=== PATIENT | female | born 1950 | race Caucasian/White ===

== ENCOUNTER 2016-10-20 19:17 | Emergency (ER) | payer MEDICARE, BC ==
[2016-10-20 20:06] VITALS: BP 166/71
--- NOTE | 2016-10-20 20:55 | EDM.PDOC ---
[id number] Complaint: LT WRIST/LEG PAIN Time Seen by Provider: 10/20/16 20:40 Source of Information: Reports: Patient History Limitations: Reports: No Limitations - History of Present Illness INITIAL COMMENTS - FREE TEXT/NARRATIVE: 58-year-old female stumbled in her home landing on her left wrist sustaining an injury. She has swelling and deformity of the left wrist. Onset: Today Duration: Hour(s): (Within the last hour) Location: Reports: Upper Extremity, Left Associated Symptoms: Reports: Other (She feels she may have slightly pulled some muscles in her left hip and leg but there are minimal symptom) Left Wrist Pain Score (Numeric/FACES): 10 - Related Data Allergies Allergy/AdvReac Type Severity Reaction Status Date / Time rosuvastatin calcium Allergy unknown Verified 10/20/16 20:17 [From Crestor] Home Meds: Home Meds Alendronate Sodium 70 mg PO ASDIRECTED 09/19/13 [History] Aspirin 81 mg PO DAILY 09/19/13 [History] Cholestyramine 4 g PO DAILY 09/19/13 [History] Clopidogrel Bisulfate 75 mg PO DAILY 09/19/13 [History] Cyanocobalamin 1,000 mcg PO DAILY 09/19/13 [History] Fluticasone Propionate 50 mcg IH BID 09/19/13 [History] Fluvastatin Sodium 40 mg PO BEDTIME 09/19/13 [History] Gemfibrozil 600 mg PO BID 09/19/13 [History] Insulin Pen Needle 09/19/13 [History] Isosorbide Mononitrate 60 mg PO DAILY 09/19/13 [History] Loratadine 10 mg PO DAILY 09/19/13 [History] Meloxicam 15 mg PO DAILY 09/19/13 [History] Metformin Hcl 1,000 mg PO BID 09/19/13 [History] Metoclopramide Hcl 5 mg PO BID 09/19/13 [History] Multiple Minierals 1 each PO DAILY 09/19/13 [History] Multiple Vitamin 1 each PO DAILY 09/19/13 [History] Pseudoephedrine Hcl 30 mg PO Q4H PRN 09/19/13 [History] Varenicline Tartrate 09/19/13 [History] Past Medical History HEENT History: Reports: Impaired Vision 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 Musculoskeletal History: Reports: Fracture Other Musculoskeletal History: ankles Neurological History: Reports: Concussion Endocrine/Metabolic History: Reports: Diabetes, Type II Hematologic History: Reports: Blood Transfusion(s) - Infectious Disease History Infectious Disease History: Reports: Measles - Past Surgical History HEENT Surgical History: Reports: Tonsillectomy Cardiovascular Surgical History: Reports: Coronary Artery Bypass, Coronary Artery Stent GI Surgical History: Reports: Cholecystectomy, Colonoscopy Female Surgical History: Reports: Hysterectomy, Salpingo-Oophorectomy Musculoskeletal Surgical History: Reports: Arthroscopic Knee Social & Family History - Tobacco Use Smoking Status *Q: Current Every Day Smoker Years of Tobacco use: 39 Packs/Tins Daily: 1 Used Tobacco, but Quit: No Second Hand Smoke Exposure: No - Caffeine Use Caffeine Use: Reports: Soda - Recreational Drug Use Recreational Drug Use: No Review of Systems - Review of Systems Review Of Systems: See Below Respiratory: Reports: No Symptoms Cardiovascular: Reports: No Symptoms GI/Abdominal: Denies: Nausea, Vomiting Skin: Reports: Bruising (Some bruising is developing over the left wrist) Neurological: Reports: No Symptoms Psychiatric: Reports: No Symptoms Trauma Exam - Physical Exam Exam: See Below Exam Limited By: No Limitations General Appearance: Reports: Alert, No Apparent Distress Head: Reports: Atraumatic Respiratory Exam: Reports: No Respiratory Distress Extremities: Other (Exam is otherwise limited to the left arm and wrist. She had a few rings on the ring finger there were removed. There was some swelling and deformity over the radial aspect of the wrist with tenderness to palpation. Distal sensation and circulation are intact.) Comments: Passive range of motion of the lower extremities reveals no significant discomfort. Course - Vital Signs Last Recorded V/S: Last Vital Signs Temp 97.7 F 10/20/16 20:23 Pulse 74 10/20/16 20:23 Resp 16 10/20/16 20:23 BP 166/71 H 10/20/16 20:23 Pulse Ox 92 L 10/20/16 20:23 - Orders/Labs/Meds Orders: Active Orders 24 hr Category Date Time Status Wrist Comp Min 3V Lt [CR] Stat Exams 10/20/16 20:27 Taken DME for Discharge [COMM] Stat Oth 10/20/16 21:25 Ordered - Re-Assessments/Exams Free Text/Narrative Re-Assessment/Exam: 10/20/16 20:53 An x-ray of the left wrist was obtained. 10/20/16 21:10 The x-ray shows no obvious fracture although from the lateral view there may be a slight irregularity of the distal radius. She was splinted and treated as if it was fractured and will recheck with orthopedics on . 10/20/16 21:25 A 14 inch Ortho-Glass short-arm splint was applied to the forearm and wrist, she was placed in a sling and given 10 hydrocodone for extra pain control. She will see Dr. Vineet Haddad of orthopedics on 10/20/16 22:11 Patient was discharged but apparently had increased difficulty bearing weight when trying to transfer another car. I was unaware that her symptoms were that significant, a possibility of a ramus injury is present and the patient was called and informed to return if symptoms do not allow her to ambulate. Departure - Departure Time of Disposition: 21:43 Disposition: Home, Self-Care 01 Condition: good Clinical Impression: Unspecified sprain of left wrist, initial encounter Qualifiers: Encounter type: initial encounter Qualified Code(s): S63.502A - Unspecified sprain of left wrist, initial encounter - Discharge Information Instructions: Wrist Sprain Referrals: Boo Lee MD [Primary Care Provider] - Forms: ED Department Discharge Care Plan Goals: Keep arm in splint and sling until when seen by orthopedics. See Dr. Karsten Haddad on . Ibuprofen or naproxen should help and add stronger pain pills as prescribed if needed. - My Orders Last 24 Hours: My Active Orders 10/20/16 20:27 Wrist Comp Min 3V Lt [CR] Stat 10/20/16 21:25 DME for Discharge [COMM] Stat - Assessment/Plan Last 24 Hours: My Active Orders 10/20/16 20:27 Wrist Comp Min 3V Lt [CR] Stat 10/20/16 21:25 DME for Discharge [COMM] Stat
--- NOTE | 2016-10-21 08:55 | CR ---
Wrist Comp Min 3V Lt HISTORY: fall, injury FINDINGS: No acute fracture or dislocation is identified. Possible generalized osteopenia. Mild degenerative c hanges came seen in the radial carpal joint. There is soft tissue swelling dorsally. IMPRESSION: Osteopenia and degenerative changes. No acute fracture or dislocation can be identified.
== END 2016-10-20 21:43 | disposition home or self-care (01) ==
LOC: JP.ED 19:17
DX: S63.502A Unspecified sprain of left wrist, initial encounter (principal); E11.9 Type 2 diabetes mellitus without complications; F17.210 Nicotine dependence, cigarettes, uncomplicated; Z95.1 Presence of aortocoronary bypass graft; Z90.710 Acquired absence of both cervix and uterus; Z96.659 Presence of unspecified artificial knee joint; Z88.8 Allergy status to other drugs, medicaments and biological substances; Z79.82 Long term (current) use of aspirin; Z79.4 Long term (current) use of insulin; Z79.84 Long term (current) use of oral hypoglycemic drugs; Z90.722 Acquired absence of ovaries, bilateral; Z79.899 Other long term (current) drug therapy; Z90.49 Acquired absence of other specified parts of digestive tract; W01.0XXA Fall on same level from slipping, tripping and stumbling without subsequent striking against object, initial encounter; Y92.009 Unspecified place in unspecified non-institutional (private) residence as the place of occurrence of the external cause
CPT/HCPCS: 29125; 73110-26-LT; 73110-LT; 99283; 99284-25

== ENCOUNTER 2016-10-21 11:29 | Emergency (ER) | payer MEDICARE, BC ==
[2016-10-21] MEDS ORDERED: Ketorolac 60 MG/2 ML SDV IM ONE (12:06)
--- NOTE | 2016-10-21 12:09 | EDM.PDOC ---
ED HPI GENERAL MEDICAL PROBLEM - General Chief Complaint: Lower Extremity Injury/Pain Stated Complaint: LEG PAIN Time Seen by Provider: 10/21/16 12:02 Source of Information: Reports: Patient, Old Records, RN Notes Reviewed History Limitations: Reports: No Limitations - History of Present Illness INITIAL COMMENTS - FREE TEXT/NARRATIVE: 58-year-old female presents emergency department day complaint of left hip and groin pain, she was in the emergency department last night after an incident where she tripped over a pet complaining of left wrist pain at that time x-rays were negative however she splinted has a followup appointment with orthopedics tomorrow. Pain was so intense today she is brought in by EMS services Left Groin Pain Score (Numeric/FACES): 10 - Related Data Allergies Allergy/AdvReac Type Severity Reaction Status Date / Time atorvastatin [From Lipitor] Allergy Cannot Verified 10/21/16 11:47 Remember diclofenac Allergy Cannot Verified 10/21/16 11:47 Remember rosuvastatin calcium Allergy unknown Verified 10/21/16 11:46 [From Crestor] Home Meds: Home Meds Aspirin 81 mg PO DAILY 09/19/13 [History] Clopidogrel Bisulfate 75 mg PO DAILY 09/19/13 [History] Cyanocobalamin 1,000 mcg PO DAILY 09/19/13 [History] Fluticasone Propionate 50 mcg IH BID 09/19/13 [History] Fluvastatin Sodium 40 mg PO BID 09/19/13 [History] Isosorbide Mononitrate 60 mg PO DAILY 09/19/13 [History] Metformin Hcl 1,000 mg PO BID 09/19/13 [History] Multiple Minierals 1 each PO DAILY 09/19/13 [History] Multiple Vitamin 1 each PO DAILY 09/19/13 [History] Pseudoephedrine Hcl 30 mg PO Q4H PRN 09/19/13 [History] Varenicline Tartrate 09/19/13 [History] Insulin Aspart [Novolog] 100 unit SQ ASDIRECTED 10/21/16 [History] Insulin Detemir [Levemir Flextouch] 35 units SQ BEDTIME 10/21/16 [History] Lisinopril [Prinivil] 2.5 mg PO DAILY 10/21/16 [History] Metoprolol Tartrate [Metoprolol Tartrate] 50 mg PO BID 10/21/16 [History] Past Medical History HEENT History: Reports: Impaired Vision Cardiovascular History: Reports: CAD, High Cholesterol, Hypertension Gastrointestinal History: Reports: Cholelithiasis 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 Musculoskeletal History: Reports: Fracture Other Musculoskeletal History: ankles Neurological History: Reports: Concussion Endocrine/Metabolic History: Reports: Diabetes, Type II Hematologic History: Reports: Blood Transfusion(s) - Infectious Disease History Infectious Disease History: Reports: Measles - Past Surgical History HEENT Surgical History: Reports: Tonsillectomy Cardiovascular Surgical History: Reports: Coronary Artery Bypass, Coronary Artery Stent GI Surgical History: Reports: Cholecystectomy, Colonoscopy Female Surgical History: Reports: Hysterectomy, Salpingo-Oophorectomy Musculoskeletal Surgical History: Reports: Arthroscopic Knee Social & Family History - Tobacco Use Smoking Status *Q: Current Every Day Smoker Years of Tobacco use: 40 Packs/Tins Daily: 1 Used Tobacco, but Quit: No Second Hand Smoke Exposure: No - Caffeine Use Caffeine Use: Reports: None - Recreational Drug Use Recreational Drug Use: No Review of Systems - Review of Systems Review Of Systems: See Below Constitutional: Reports: No Symptoms Respiratory: Reports: No Symptoms Cardiovascular: Reports: No Symptoms Musculoskeletal: Reports: Joint Pain (Left hip) Trauma Exam - Physical Exam Exam: See Below Text/Narrative:: Examination left hip I don't appreciate any erythema or edema noted lower extremity pedal pulses 2+ is no tenderness at the ankle no tenderness at the knee no tenderness to the greater trochanter she does complain of tenderness with external rotation as well as palpation into the groin Exam Limited By: No Limitations General Appearance: Reports: Alert, WD/WN, No Apparent Distress Course - Vital Signs Last Recorded V/S: Last Vital Signs Temp 97.8 F 10/21/16 11:36 Pulse 60 10/21/16 11:36 Resp 16 10/21/16 11:36 BP 143/65 H 10/21/16 11:36 Pulse Ox 93 L 10/21/16 11:36 - Orders/Labs/Meds Orders: Active Orders 24 hr Category Date Time Status Hip Min 2V or 3V Lt [CR] Stat Exams 10/21/16 12:06 Taken Meds: Medications Discontinued Medications Generic Name Dose Route Start Last Admin Trade Name Freq PRN Reason Stop Dose Admin Ketorolac Tromethamine 60 mg 10/21/16 12:06 10/21/16 12:32 Toradol IM 10/21/16 12:07 60 mg ONETIME ONE Administration Departure - Departure Time of Disposition: 13:40 Disposition: Home, Self-Care 01 Condition: good Clinical Impression: Left groin pain - Discharge Information Forms: ED Department Discharge Additional Instructions: Use Aleve as needed for pain control, use hydrocodone as needed for breakthrough pain, please keep your appointment with orthopedics tomorrow - My Orders Last 24 Hours: My Active Orders 10/21/16 12:06 Hip Min 2V or 3V Lt [CR] Stat - Assessment/Plan Last 24 Hours: My Active Orders 10/21/16 12:06 Hip Min 2V or 3V Lt [CR] Stat Plan: Assessment Acuity = acute Site and laterality = left-sided groin pain Etiology = secondary to a fall Manifestations = none Location of injury = home Lab values = no acute process was noted on x-ray Plan She had good relief with the Toradol provided the plan is discharge home with Motrin as needed for pain control in combination with hydrocodone she does have followup appointment with orthopedics tomorrow Patient was in agreement with the plan all questions were answered, they were instructed to return to the emergency department or call for worsening symptoms. This note was dictated using [employer] voice recognition software please call with any questions.
[2016-10-21 13:30] VITALS: BP 143/65
--- NOTE | 2016-10-21 13:39 | CR ---
Hip Min 2V or 3V Lt HISTORY: pain, fall FINDINGS: No acute fracture or dislocation is identified. Bony architecture and joint spaces are preserved. N o joint effusion can be seen. Prominent atherosclerotic vascular calcification is noted. Endovascula r stents are seen in the left common iliac artery and left superficial femoral artery. IMPRESSION: No acute left abnormality is identified. Endovascular stents are noted.
== END 2016-10-21 14:18 | disposition home or self-care (01) ==
LOC: JP.ED 11:29
DX: R10.32 Left lower quadrant pain (principal); H54.7 Unspecified visual loss; I25.10 Atherosclerotic heart disease of native coronary artery without angina pectoris; E78.00 Pure hypercholesterolemia, unspecified; I10 Essential (primary) hypertension; E11.9 Type 2 diabetes mellitus without complications; F17.210 Nicotine dependence, cigarettes, uncomplicated; Z88.8 Allergy status to other drugs, medicaments and biological substances; Z98.890 Other specified postprocedural states; Z95.5 Presence of coronary angioplasty implant and graft; Z79.82 Long term (current) use of aspirin
CPT/HCPCS: 73502; 96372; 99283; 99284; J1885

== ENCOUNTER 2017-08-12 06:55 | Day surgery (SDC) | payer MEDICARE, BC ==
[2017-08-12] MEDS ORDERED: Sodium Chloride 0.9% 10 ML Syringe FLUSH PRN (07:30)
[2017-08-12 08:30] VITALS: BP 143/76
--- NOTE | 2017-08-12 13:19 | OR ---
DATE OF PROCEDURE: 08/12/2017 POSTOPERATIVE CARE: Postoperative care will be provided mainly at the [address] [place] [address] [facility] in conjunction with [facility]. PREOPERATIVE DIAGNOSIS: Cataract, left eye. POSTOPERATIVE DIAGNOSIS: Cataract, left eye. PROCEDURE: Phacoemulsification with intraocular lens placement, left eye. ANESTHESIA: Topical and intracameral. ESTIMATED BLOOD LOSS: Minimal. COMPLICATIONS: None. PATHOLOGY SPECIMENS: None. SURGICAL FINDINGS: None. INDICATION FOR PROCEDURE: The patient is a 67-year-old female with history of a visually significant cataract in the left eye, which interfered with activities of daily living. This consisted of a nuclear sclerosis cataract. Following careful discussion of the risks, benefits and alternatives to cataract extraction with intraocular lens placement including blindness and , the patient elected to proceed, and informed, written consent was obtained prior to the procedure. DESCRIPTION OF THE PROCEDURE: The patient was previously identified, and a deshaun placed above the left eye. All sources, including the patient, indicated that the left eye was the correct eye. The patient was subsequently taken to the operating room where standard monitors were applied. The patient was then prepped and draped in the usual sterile fashion for ophthalmic surgery. Attention was first directed at the 12 o'clock position where a paracentesis port was fashioned. Shugar solution followed by Viscoat was instilled into the eye. Attention was then directed to the 8:30 position where a triplanar incision was made in a near-clear manner using a keratome. A continuous capsulorrhexis was then made using a combination of the cystotome and Utrata forceps. Hydrodissection was achieved using a balanced salt solution, and the lens rotated nicely. Phacoemulsification was then done using a modified pagpaw-[id number]-[id number] technique without complication. Phaco time was 6.46 CDE. The remaining cortex was removed using the irrigation/aspiration handpiece. Provisc was then instilled into the eye. A Technis lens, model [id number], at 14.0 diopters was then placed in the capsular bag using an Akhiok injector. The remaining viscoelastic was removed using the irrigation/aspiration forceps. All wounds were then checked and found to be watertight. The lid speculum and drapes were removed. Maxitrol ointment was placed in the patient's left eye, and the eye was shielded. The patient tolerated the procedure well. The patient was instructed to follow up tomorrow. All needle and sponge counts were correct at the end of the procedure. Shea Bowman MD /[id number]
== END 2017-08-12 08:45 | disposition home or self-care (01) ==
LOC: JP.SDS 06:55
PROVIDERS: ATTEND Ophthalmology
DX: H25.12 Age-related nuclear cataract, left eye (principal); J44.9 Chronic obstructive pulmonary disease, unspecified; I25.10 Atherosclerotic heart disease of native coronary artery without angina pectoris; E78.5 Hyperlipidemia, unspecified; E11.51 Type 2 diabetes mellitus with diabetic peripheral angiopathy without gangrene; Z87.891 Personal history of nicotine dependence; Z95.1 Presence of aortocoronary bypass graft; Z95.5 Presence of coronary angioplasty implant and graft
CPT/HCPCS: 66984; C1780; J7050

== ENCOUNTER 2017-08-26 06:43 | Day surgery (SDC) | payer MEDICARE, BC ==
[2017-08-26] MEDS ORDERED: Sodium Chloride 0.9% 10 ML Syringe FLUSH PRN (07:00)
[2017-08-26 08:24] VITALS: BP 115/51
--- NOTE | 2017-08-26 13:10 | OR ---
DATE OF PROCEDURE: 08/26/2017 POSTOPERATIVE CARE: Postoperative care will be provided mainly at the [address] [place] [address] [facility] in conjunction with [facility]. PREOPERATIVE DIAGNOSIS: Cataract, right eye. PREOPERATIVE DIAGNOSIS: Cataract, right eye. PROCEDURE: Cataract extraction, phacoemulsification with intraocular lens placement, right eye. ANESTHESIA: Topical and intracameral. ESTIMATED BLOOD LOSS: Minimal. COMPLICATIONS: None. PATHOLOGY SPECIMENS: None. SURGICAL FINDINGS: None. INDICATION FOR PROCEDURE: The patient is a 67-year-old female with history of a visually significant cataract in the right eye, which interfered with activities of daily living. This consisted of a nuclear sclerosis cataract. Following careful discussion of the risks, benefits and alternatives to cataract extraction with intraocular lens placement including blindness and , the patient elected to proceed, and informed, written consent was obtained prior to the procedure. DESCRIPTION OF THE PROCEDURE: The patient was previously identified, and a deshaun placed above the right eye. All sources, including the patient, indicated that the right eye was the correct eye. The patient was subsequently taken to the operating room where standard monitors were applied. The patient was then prepped and draped in the usual sterile fashion for ophthalmic surgery. Attention was first directed at the 12 o'clock position where a paracentesis port was fashioned. Shugar solution followed by Viscoat was instilled into the eye. Attention was then directed to the 8:30 position where a triplanar incision was made in a near-clear manner using a keratome. A continuous capsulorrhexis was then made using a combination of the cystotome and Utrata forceps. Hydrodissection was achieved using a balanced salt solution, and the lens rotated nicely. Phacoemulsification was then done using a modified womdfe-[id number]-uggwygh technique without complication. Phaco time was 7.3 CDE. The remaining cortex was removed using the irrigation/aspiration handpiece. Provisc was then instilled into the eye. A Technis lens, model [id number], 13.0 diopters was then placed in the capsular bag using an Fritch injector. The remaining viscoelastic was removed using the irrigation/aspiration forceps. All wounds were then checked and found to be watertight. The lid speculum and drapes were removed. Maxitrol ointment was placed in the patient's right eye, and the eye was shielded. The patient tolerated the procedure well. The patient was instructed to follow up tomorrow. All needle and sponge counts were correct at the end of the procedure. Shea Bowman MD /[id number]
== END 2017-08-26 08:55 | disposition home or self-care (01) ==
LOC: JP.SDS 06:43
PROVIDERS: ATTEND Ophthalmology
DX: H26.9 Unspecified cataract (principal); Z88.8 Allergy status to other drugs, medicaments and biological substances
CPT/HCPCS: 66984; C1780; J7050

== ENCOUNTER 2019-04-28 11:00 | Emergency (ER) | payer MEDICARE, BC ==
[2019-04-28 11:13] VITALS: BP 203/74; PULSE 78
[2019-04-28] MEDS ORDERED: Ketorolac 60 MG/2 ML SDV IM ONE (11:22)
--- NOTE | 2019-04-28 12:19 | EDM.PDOC ---
ED HPI GENERAL MEDICAL PROBLEM - General Chief Complaint: Upper Extremity Injury/Pain Stated Complaint: PAINFUL L ARM Time Seen by Provider: 04/28/19 11:50 Source of Information: Reports: Patient History Limitations: Reports: No Limitations - History of Present Illness INITIAL COMMENTS - FREE TEXT/NARRATIVE: 69-year-old female with left arm pain. She fell yesterday, was evaluated in the emergency room and had a negative x-ray of the left forearm. She feels something was missed because there such intense pain in the distal forearm and wrist area. She has her Abraham wrap on and is using the sling, taking ibuprofen but is "miserable". Onset: Sudden Duration: Hour(s): (24 hours ago) Location: Reports: Upper Extremity, Left Associated Symptoms: Reports: Other (Some back stiffness as well) Left Arm Pain Score (Numeric/FACES): 9 - Related Data Allergies Allergy/AdvReac Type Severity Reaction Status Date / Time atorvastatin [From Lipitor] AdvReac Cannot Verified 04/28/19 11:05 Remember diclofenac AdvReac Cannot Verified 04/28/19 11:05 Remember epinephrine AdvReac Tachycardia Verified 04/28/19 11:05 rosuvastatin calcium AdvReac unknown Verified 04/28/19 11:05 [From Crestor] Home Meds: Home Meds Insulin Aspart [Novolog] 100 unit SQ ASDIRECTED 10/21/16 [History] Insulin Detemir [Levemir Flextouch] 35 units SQ BEDTIME 10/21/16 [History] Lisinopril [Prinivil] 2.5 mg PO DAILY 10/21/16 [History] Aspirin 81 mg PO DAILY 10/22/16 [History] Clopidogrel Bisulfate [Plavix] 75 mg PO DAILY 10/22/16 [History] Cyanocobalamin (Vitamin B-12) [B-12] 1,000 mg PO DAILY 10/22/16 [History] Fluvastatin Sodium 40 mg PO BEDTIME 10/22/16 [History] Multivitamin [Multivitamins] 1 tab PO DAILY 10/22/16 [History] Pseudoephedrine HCl [Nasal Decongestant] 30 mg PO Q4H PRN 10/22/16 [History] metFORMIN HCl [Metformin HCl] 1,000 mg PO BID 10/22/16 [History] Cholestyramine/Aspartame [Cholestyramine Light] 4 gram PO ASDIRECTED 07/27/17 [ History] Acetaminophen [Tylenol] 325 mg PO ASDIRECTED PRN 08/10/17 [History] Metoprolol Tartrate 50 mg PO BID 04/30/19 [History] Past Medical History HEENT History: Reports: Cataract, Impaired Vision Cardiovascular History: Reports: CAD, High Cholesterol, Hypertension Respiratory History: Reports: None Gastrointestinal History: Reports: Cholelithiasis Genitourinary History: Reports: None 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 right shoulder pain Neurological History: Reports: Concussion Psychiatric History: Reports: None Endocrine/Metabolic History: Reports: Diabetes, Type II, IDDM Hematologic History: Reports: Blood Transfusion(s) Immunologic History: Reports: None Oncologic (Cancer) History: Reports: None Dermatologic History: Reports: None - Infectious Disease History Infectious Disease History: Reports: Chicken Pox - Past Surgical History Head Surgeries/Procedures: Reports: None HEENT Surgical History: Reports: Tonsillectomy Cardiovascular Surgical History: Reports: Coronary Artery Bypass, Coronary Artery Stent Respiratory Surgical History: Reports: None GI Surgical History: Reports: Cholecystectomy, Colonoscopy Female Surgical History: Reports: Hysterectomy, Salpingo-Oophorectomy Endocrine Surgical History: Reports: None Neurological Surgical History: Reports: None Musculoskeletal Surgical History: Reports: Arthroscopic Knee Oncologic Surgical History: Reports: None Dermatological Surgical History: Reports: None Social & Family History - Family History Family Medical History: Noncontributory - Tobacco Use Smoking Status *Q: Current Every Day Smoker Years of Tobacco use: 50 Packs/Tins Daily: 1.5 Used Tobacco, but Quit: No Second Hand Smoke Exposure: Yes - Caffeine Use Caffeine Use: Reports: Soda - Recreational Drug Use Recreational Drug Use: No Review of Systems - Review of Systems Review Of Systems: See Below Respiratory: Reports: No Symptoms Cardiovascular: Reports: No Symptoms Musculoskeletal: Reports: Arm Pain, Back Pain Skin: Reports: Bruising (Some bruising around the abrasion from her injury yesterday) Neurological: Denies: Paresthesia ED EXAM, GENERAL - Physical Exam Exam: See Below Exam Limited By: No Limitations General Appearance: Alert, Anxious, Other (Looks uncomfortable but not distressed) Head: Atraumatic Respiratory/Chest: No Respiratory Distress Extremities: Other (Exam is otherwise limited to the left arm. Any light palpation around the wrist, proximal hand or mid forearm causes her to wince in discomfort. The small abrasion has dried and there is no significant ecchymosis or erythema) Course - Vital Signs Last Recorded V/S: Last Vital Signs Temp 96.7 F 04/28/19 11:18 Pulse 78 04/28/19 11:18 Resp 16 04/28/19 11:18 BP 203/74 H 04/28/19 11:18 Pulse Ox 91 L 04/28/19 11:18 - Orders/Labs/Meds Meds: Medications Discontinued Medications Generic Name Dose Route Start Last Admin Trade Name Abdirizak PRN Reason Stop Dose Admin Ketorolac Tromethamine 60 mg 04/28/19 11:22 04/28/19 11:30 Toradol IM 04/28/19 11:23 60 mg ONETIME ONE Administration - Re-Assessments/Exams Free Text/Narrative Re-Assessment/Exam: 04/28/19 12:44 CT of the left wrist was obtained after the patient was given 60 mg of IM Toradol. 04/28/19 12:50 CT was negative. Patient was placed in a wrist splint, the Abraham wrap was removed , and she'll continue using the sling for comfort. She was given 10 hydrocodone to use sparingly through the weekend along with anti-inflammatories and asked increase activity as tolerated. She can recheck next week if not improving satisfactorily. Departure - Departure Time of Disposition: 13:17 Disposition: Home, Self-Care 01 Clinical Impression: Contusion of left wrist, subsequent encounter - Discharge Information Instructions: Cast or Splint Care, Adult, [id number] Referrals: PCP,None [Primary Care Provider] - Forms: ED Department Discharge Care Plan Goals: Wear splint through the weekend along with the sling as needed for comfort. Continue with ibuprofen or naproxen and add stronger pain medication as directed if needed. Increase activity as tolerated. Recheck next week if not improving satisfactorily.
--- NOTE | 2019-04-28 12:46 | CRLCT ---
HISTORY: Left wrist pain, fall. TECHNIQUE: Noncontrast CT of the left wrist. COMPARISON: Radiographs 04/27/2019. FINDINGS: There is mild chronic deformity of the distal radius likely related to a remote healed fracture. There is no acute distal radial or acute distal ulnar fracture. No scaphoid fracture. Mild narrowing of the radioscaphoid joint space along its radial aspect. Small subchondral cyst within the proximal capitate bone. 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 No localized fluid collection or space-occupying hematoma. IMPRESSION: 1. No acute fracture. 2. Mild chronic deformity of the distal radius may reflect sequelae of remote healed fracture. 3. Mild degenerative changes. Dictated by Juan Kaplan MD @ 04/28/2019 12:45:17 PM Please note that all CT scans at this facility use dose modulation, iterative reconstruction, and/or weight-based dosing when appropriate to reduce radiation dose to as low as reasonably achievable. Dictated by: Juan Kaplan MD @ 04/28/2019 12:45:24 (Electronically Signed)
== END 2019-04-28 13:10 | disposition home or self-care (01) ==
LOC: JP.ED 11:00
DX: S60.212D Contusion of left wrist, subsequent encounter (principal); I10 Essential (primary) hypertension; E78.00 Pure hypercholesterolemia, unspecified; E11.9 Type 2 diabetes mellitus without complications; F17.210 Nicotine dependence, cigarettes, uncomplicated; Z88.6 Allergy status to analgesic agent; Z88.8 Allergy status to other drugs, medicaments and biological substances; Z79.4 Long term (current) use of insulin; Z79.82 Long term (current) use of aspirin; Z79.899 Other long term (current) drug therapy; W19.XXXD Unspecified fall, subsequent encounter
CPT/HCPCS: 73200; 96372; 99283; 99284; J1885

== ENCOUNTER 2019-04-30 07:13 | Inpatient (IN) | payer MEDICARE, BC ==
--- NOTE | 2019-04-30 07:32 | EDM.PDOC ---
ED HPI GENERAL MEDICAL PROBLEM - General Chief Complaint: General Stated Complaint: FALL VIA [place]TH Time Seen by Provider: 04/30/19 07:19 Source of Information: Reports: Patient, EMS, Old Records History Limitations: Reports: No Limitations - History of Present Illness INITIAL COMMENTS - FREE TEXT/NARRATIVE: 69 yo female who lives alone fell just as she was getting to bed last night. Is not sure why she fell. Spent the night on the floor. EMS responded and noted she complained of low back pain and chest pain. Fentanyl was given and her sx's improved. EMS did an EKG that showed some ST depression in V3-V6. Patient is diabetic with a previous hx of CAD with stents placed in [place] and no old EKG's here. Also has had carotid artery surgery bilaterally. BS per EMS 290. Onset: Sudden Onset Date: 04/29/19 Onset Time: 19:30 Duration: Hour(s):, Constant Location: Reports: Chest (better now), Back (low) Quality: Reports: Ache (back) Severity: Moderate Improves with: Reports: Rest Worsens with: Reports: Movement Context: Reports: Trauma (She doesn't recall having back pain before her fall. 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 (see below) (Fentanyl) Lower Back Pain Score (Numeric/FACES): 8 - Related Data Allergies Allergy/AdvReac Type Severity Reaction Status Date / Time atorvastatin [From Lipitor] AdvReac Cannot Verified 04/28/19 11:05 Remember diclofenac AdvReac Cannot Verified 04/28/19 11:05 Remember epinephrine AdvReac Tachycardia Verified 04/28/19 11:05 rosuvastatin calcium AdvReac unknown Verified 04/28/19 11:05 [From Crestor] Home Meds: Home Meds Insulin Aspart [Novolog] 100 unit SQ ASDIRECTED 10/21/16 [History] Insulin Detemir [Levemir Flextouch] 35 units SQ BEDTIME 10/21/16 [History] Lisinopril [Prinivil] 2.5 mg PO DAILY 10/21/16 [History] Aspirin 81 mg PO DAILY 10/22/16 [History] Clopidogrel Bisulfate [Plavix] 75 mg PO DAILY 10/22/16 [History] Cyanocobalamin (Vitamin B-12) [B-12] 1,000 mg PO DAILY 10/22/16 [History] Fluvastatin Sodium 40 mg PO BEDTIME 10/22/16 [History] Multivitamin [Multivitamins] 1 tab PO DAILY 10/22/16 [History] Pseudoephedrine HCl [Nasal Decongestant] 30 mg PO Q4H PRN 10/22/16 [History] metFORMIN HCl [Metformin HCl] 1,000 mg PO BID 10/22/16 [History] Cholestyramine/Aspartame [Cholestyramine Light] 4 gram PO ASDIRECTED 07/27/17 [ History] Acetaminophen [Tylenol] 325 mg PO ASDIRECTED PRN 08/10/17 [History] Past Medical History HEENT History: Reports: Cataract, Impaired Vision Cardiovascular History: Reports: CAD, High Cholesterol, Hypertension Respiratory History: Reports: None Gastrointestinal History: Reports: Cholelithiasis Genitourinary History: Reports: None 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 right shoulder pain Neurological History: Reports: Concussion Psychiatric History: Reports: None Endocrine/Metabolic History: Reports: Diabetes, Type II, IDDM Hematologic History: Reports: Blood Transfusion(s) Immunologic History: Reports: None Oncologic (Cancer) History: Reports: None Dermatologic History: Reports: None - Infectious Disease History Infectious Disease History: Reports: Chicken Pox - Past Surgical History Head Surgeries/Procedures: Reports: None HEENT Surgical History: Reports: Tonsillectomy Cardiovascular Surgical History: Reports: Coronary Artery Bypass, Coronary Artery Stent Respiratory Surgical History: Reports: None GI Surgical History: Reports: Cholecystectomy, Colonoscopy Female Surgical History: Reports: Hysterectomy, Salpingo-Oophorectomy Endocrine Surgical History: Reports: None Neurological Surgical History: Reports: None Musculoskeletal Surgical History: Reports: Arthroscopic Knee Oncologic Surgical History: Reports: None Dermatological Surgical History: Reports: None Social & Family History - Family History Family Medical History: Noncontributory - Caffeine Use Caffeine Use: Reports: Soda ED ROS GENERAL - Review of Systems Review Of Systems: See Below Constitutional: Reports: Weakness (generalized) HEENT: Reports: Other (dry mouth) Respiratory: Reports: No Symptoms Cardiovascular: Reports: Chest Pain (gone now after Fentanyl) Endocrine: Reports: No Symptoms GI/Abdominal: Reports: No Symptoms : Reports: No Symptoms Musculoskeletal: Reports: Back Pain (low) Skin: Reports: No Symptoms Neurological: Reports: No Symptoms Psychiatric: Reports: No Symptoms ED EXAM, GENERAL - Physical Exam Exam: See Below Exam Limited By: No Limitations General Appearance: Alert, WD/WN, No Apparent Distress Eye Exam: Bilateral Eye: Normal Inspection Ears: Normal External Exam, Normal Canal, Hearing Grossly Normal Ear Exam: Bilateral Ear: Auricle Normal, Canal Normal Nose: Normal Inspection, No Blood Throat/Mouth: Normal Lips, Normal Oropharynx, Normal Voice, No Airway Compromise , Other (dry oral mucosa with food stuck to lips/teeth) Head: Atraumatic, Normocephalic Neck: Normal Inspection Respiratory/Chest: No Respiratory Distress, Lungs Clear, Normal Breath Sounds, No Accessory Muscle Use Cardiovascular: Regular Rate, Rhythm, No Edema GI/Abdominal: Normal Bowel Sounds, Soft, Non-Tender, No Distention Back Exam: Normal Inspection, Vertebral Tenderness (lumbar). No: CVA Tenderness (R), CVA Tenderness (L) Extremities: Normal Inspection, Normal Range of Motion, Non-Tender, No Pedal Edema Neurological: Alert, Oriented, CN II-XII Intact, Normal Cognition, No Motor/ Sensory Deficits Psychiatric: Normal Affect, Normal Mood Skin Exam: Warm, Dry, Intact, Normal Color, No Rash EKG INTERPRETATION EKG Date: 04/30/19 Time: 06:35 Rhythm: NSR Rate (Beats/Min): 84 [place]: Normal P-Wave: Present QRS: Normal ST-T: Depressed (V3-V6) QT: Normal Comparison: NA - No Prior EKG (LVH present) Course - Vital Signs Text/Narrative:: A second EKG was done later in the ER because her initial one was abnormal, this 2nd one shows no significant change from the one done earlier by EMS. Dr. Way called @ 1026 Last Recorded V/S: Last Vital Signs Temp 36.3 C 04/30/19 07:40 Pulse 78 04/30/19 09:54 Resp 21 H 04/30/19 09:09 BP 202/78 H 04/30/19 09:54 Pulse Ox 78 L 04/30/19 09:09 - Orders/Labs/Meds Orders: Active Orders 24 hr Category Date Time Status Cardiac Monitoring [RC] .As Directed Care 04/30/19 07:17 Active EKG Documentation Completion [RC] ASDIRECTED Care 04/30/19 08:45 Active EKG 12 Lead [EK] Routine Ther 04/30/19 08:44 Ordered Labs: Laboratory Tests 04/30/19 04/30/19 04/30/19 Range/Units 07:30 07:30 07:30 WBC 11.9 H (4.5-11.0) K/uL RBC 4.66 (3.30-5.50) M/uL Hgb 14.1 (12.0-15.0) g/dL Hct 41.1 (36.0-48.0) % MCV 88 (80-98) fL MCH 30 (27-31) pg MCHC 34 (32-36) % Plt Count 314 (150-400) K/uL Sodium 127 L (140-148) mmol/L Potassium 4.1 (3.6-5.2) mmol/L Chloride 89 L (100-108) mmol/L Carbon Dioxide 24 (21-32) mmol/L Anion Gap 18.1 H (5.0-14.0) mmol/L BUN 11 (7-18) mg/dL Creatinine 0.9 (0.6-1.0) mg/dL Est Cr Clr Drug Dosing 53.37 mL/min Estimated GFR (MDRD) > 60 (>60) Glucose 260 H (74-106) mg/dL Calcium 9.5 (8.5-10.1) mg/dL Total Bilirubin 1.1 H (0.2-1.0) mg/dL AST 48 H (15-37) U/L ALT 29 (12-78) U/L Alkaline Phosphatase 73 (46-116) U/L Creatine Kinase (26-192) U/L Troponin I < 0.017 (0.000-0.056) ng/mL Total Protein 8.1 (6.4-8.2) g/dL Albumin 3.7 (3.4-5.0) g/dL Globulin 4.4 H (2.3-3.5) g/dL Albumin/Globulin Ratio 0.8 L (1.2-2.2) Urine Color (YELLOW) Urine Appearance (CLEAR) Urine pH (5.0-8.0) Ur Specific [place] (1.008-1.030) Urine Protein (NEGATIVE) mg/dL Urine Glucose (UA) (NEGATIVE) mg/dL Urine Ketones (NEGATIVE) mg/dL Urine Occult Blood (NEGATIVE) Urine Nitrite (NEGATIVE) Urine Bilirubin (NEGATIVE) Urine Urobilinogen (0.2-1.0) EU/dL Ur Leukocyte Esterase (NEGATIVE) Urine RBC (0-5) Urine WBC (0-5) Ur Epithelial Cells Amorphous Sediment Urine Bacteria Urine Mucus Ethyl Alcohol mg/dL 04/30/19 04/30/19 04/30/19 Range/Units 07:30 07:30 07:38 WBC (4.5-11.0) K/uL RBC (3.30-5.50) M/uL Hgb (12.0-15.0) g/dL Hct (36.0-48.0) % MCV (80-98) fL MCH (27-31) pg MCHC (32-36) % Plt Count (150-400) K/uL Sodium (140-148) mmol/L Potassium (3.6-5.2) mmol/L Chloride (100-108) mmol/L Carbon Dioxide (21-32) mmol/L Anion Gap (5.0-14.0) mmol/L BUN (7-18) mg/dL Creatinine (0.6-1.0) mg/dL Est Cr Clr Drug Dosing mL/min Estimated GFR (MDRD) (>60) Glucose (74-106) mg/dL Calcium (8.5-10.1) mg/dL Total Bilirubin (0.2-1.0) mg/dL AST (15-37) U/L ALT (12-78) U/L Alkaline Phosphatase (46-116) U/L Creatine Kinase 1451 H (26-192) U/L Troponin I (0.000-0.056) ng/mL Total Protein (6.4-8.2) g/dL Albumin (3.4-5.0) g/dL Globulin (2.3-3.5) g/dL Albumin/Globulin Ratio (1.2-2.2) Urine Color Yellow (YELLOW) Urine Appearance Clear (CLEAR) Urine pH 5.5 (5.0-8.0) Ur Specific [place] 1.025 (1.008-1.030) Urine Protein >=300 H (NEGATIVE) mg/dL Urine Glucose (UA) 500 H (NEGATIVE) mg/dL Urine Ketones 40 H (NEGATIVE) mg/dL Urine Occult Blood Moderate H (NEGATIVE) Urine Nitrite Negative (NEGATIVE) Urine Bilirubin Small H (NEGATIVE) Urine Urobilinogen 0.2 (0.2-1.0) EU/dL Ur Leukocyte Esterase Negative (NEGATIVE) Urine RBC 0-5 (0-5) Urine WBC 0-5 (0-5) Ur Epithelial Cells Few Amorphous Sediment Not seen Urine Bacteria Few Urine Mucus Not seen Ethyl Alcohol < 3 mg/dL 04/30/19 Range/Units 10:00 WBC (4.5-11.0) K/uL RBC (3.30-5.50) M/uL Hgb (12.0-15.0) g/dL Hct (36.0-48.0) % MCV (80-98) fL MCH (27-31) pg MCHC (32-36) % Plt Count (150-400) K/uL Sodium (140-148) mmol/L Potassium (3.6-5.2) mmol/L Chloride (100-108) mmol/L Carbon Dioxide (21-32) mmol/L Anion Gap (5.0-14.0) mmol/L BUN (7-18) mg/dL Creatinine (0.6-1.0) mg/dL Est Cr Clr Drug Dosing mL/min Estimated GFR (MDRD) (>60) Glucose (74-106) mg/dL Calcium (8.5-10.1) mg/dL Total Bilirubin (0.2-1.0) mg/dL AST (15-37) U/L ALT (12-78) U/L Alkaline Phosphatase (46-116) U/L Creatine Kinase (26-192) U/L Troponin I < 0.017 (0.000-0.056) ng/mL Total Protein (6.4-8.2) g/dL Albumin (3.4-5.0) g/dL Globulin (2.3-3.5) g/dL Albumin/Globulin Ratio (1.2-2.2) Urine Color (YELLOW) Urine Appearance (CLEAR) Urine pH (5.0-8.0) Ur Specific [place] (1.008-1.030) Urine Protein (NEGATIVE) mg/dL Urine Glucose (UA) (NEGATIVE) mg/dL Urine Ketones (NEGATIVE) mg/dL Urine Occult Blood (NEGATIVE) Urine Nitrite (NEGATIVE) Urine Bilirubin (NEGATIVE) Urine Urobilinogen (0.2-1.0) EU/dL Ur Leukocyte Esterase (NEGATIVE) Urine RBC (0-5) Urine WBC (0-5) Ur Epithelial Cells Amorphous Sediment Urine Bacteria Urine Mucus Ethyl Alcohol mg/dL Meds: Medications Discontinued Medications Generic Name Dose Route Start Last Admin Trade Name Freq PRN Reason Stop Dose Admin Aspirin 81 mg 04/30/19 07:41 04/30/19 07:50 Aspirin PO 04/30/19 07:42 81 mg ONETIME ONE Administration Sodium Chloride 1,000 mls @ 1,000 mls/hr 04/30/19 08:17 04/30/19 08:29 Normal Saline IV 04/30/19 09:16 1,000 mls/hr .BOLUS ONE Administration Insulin Human Regular 10 unit 04/30/19 07:35 04/30/19 07:50 Humulin R SUBCUT 04/30/19 07:36 10 units ONETIME ONE Administration Ketorolac Tromethamine 15 mg 04/30/19 08:44 04/30/19 08:57 Toradol IVPUSH 04/30/19 08:45 15 mg ONETIME ONE Administration Lisinopril 5 mg 04/30/19 07:34 04/30/19 07:50 Prinivil PO 04/30/19 07:35 5 mg ONETIME ONE Administration Lisinopril 15 mg 04/30/19 09:26 04/30/19 09:29 Prinivil PO 04/30/19 09:27 15 mg ONETIME ONE Administration Metformin HCl 1,000 mg 04/30/19 07:34 04/30/19 07:51 Glucophage PO 04/30/19 07:35 1,000 mg ONETIME ONE Administration Metoprolol Tartrate 25 mg 04/30/19 09:51 04/30/19 09:54 Lopressor PO 04/30/19 09:52 25 mg ONETIME ONE Administration - Radiology Interpretation Free Text/Narrative:: lumbar spine [id number]: 1. Negative for acute traumatic abnormality. 2. Degenerative changes, as above, and mild scoliosis. Dictated by Molina Mckeon MD Departure - Departure Time of Disposition: 11:03 Disposition: Admitted As Inpatient 64 Condition: Fair Clinical Impression: Fall in elderly patient Rhabdomyolysis Qualifiers: Rhabdomyolysis type: traumatic Encounter type: initial encounter Qualified Code (s): T79.6XXA - Traumatic ischemia of muscle, initial encounter Low back pain Qualifiers: Chronicity: acute Back pain laterality: midline Sciatica presence: without sciatica Qualified Code(s): M54.5 - Low back pain HTN (hypertension) Qualifiers: Hypertension type: unspecified Qualified Code(s): I10 - Essential (primary) hypertension - Discharge Information Referrals: PCP,None [Primary Care Provider] - Forms: ED Department Discharge - My Orders Last 24 Hours: My Active Orders 04/30/19 07:17 Cardiac Monitoring [RC] .As Directed 04/30/19 08:44 EKG 12 Lead [EK] Routine 04/30/19 08:45 EKG Documentation Completion [RC] ASDIRECTED - Assessment/Plan Last 24 Hours: My Active Orders 04/30/19 07:17 Cardiac Monitoring [RC] .As Directed 04/30/19 08:44 EKG 12 Lead [EK] Routine 04/30/19 08:45 EKG Documentation Completion [RC] ASDIRECTED
[2019-04-30] MEDS ORDERED: metFORMIN 500 MG Tab PO ONE (07:34)
[2019-04-30] MEDS ORDERED: Lisinopril 5 MG Tab PO ONE ×2 (07:34→09:26)
[2019-04-30] MEDS ORDERED: Insulin Regular, Human 100 Units/ML 3 ML Vial SUBCUT ONE (07:35)
[2019-04-30] MEDS ORDERED: Aspirin 81 MG Tab.Chew PO ONE ×2 (07:41→22:10)
[2019-04-30] MEDS ORDERED: Sodium Chloride 0.9% 1,000 ML IV ONE (08:17)
[2019-04-30] MEDS ORDERED: Ketorolac 30 MG/ML SDV IVPUSH ONE (08:44)
--- NOTE | 2019-04-30 09:11 | CRLCR ---
INDICATION: Pain post fall. TECHNIQUE: Upright AP and lateral views of the lumbar spine. COMPARISON: Moderate. FINDINGS: No fracture. Advanced L5-S1 disk degeneration, mild to moderate L1-2 disc degeneration and mild disk degeneration otherwise. Mild thoracolumbar dextroscoliosis. Sacroiliac joints unremarkable. IMPRESSION: 1. Negative for acute traumatic abnormality. 2. Degenerative changes, as above, and mild scoliosis. Dictated by Molina Mckeon MD @ Apr 30 2019 9:08AM Signed by Dr. Molina Mckeon @ Apr 30 2019 9:10AM
[2019-04-30] MEDS ORDERED: Metoprolol Tartrate 25 MG Tab PO ONE (09:51)
[2019-04-30] MEDS ORDERED: Sodium Chloride 0.9% 1,000 ML IV SCH (11:15)
[2019-04-30] MEDS ORDERED: oxyCODONE 5 MG Tab PO PRN (11:16)
[2019-04-30] MEDS ORDERED: Ondansetron 4 MG Tab.DIS PO PRN (11:16)
[2019-04-30] MEDS ORDERED: Albuterol 0.083% 2.5 MG/3 ML Neb Soln NEB PRN (11:16)
[2019-04-30] MEDS ORDERED: Magnesium Hydroxide 400 MG/5 ML Susp 30 ML Cup PO PRN (11:16)
[2019-04-30] MEDS ORDERED: Ondansetron 4 MG/2 ML SDV IV PRN (11:16)
[2019-04-30] MEDS ORDERED: Melatonin 3 MG Tab PO PRN (11:16)
[2019-04-30] MEDS ORDERED: Acetaminophen 325 MG Tab PO PRN (11:16)
[2019-04-30] MEDS ORDERED: cefTRIAXone 1 GM in Sodium Chloride 0.9% 50 ML IV SCH ×2 (11:16→11:30)
--- NOTE | 2019-04-30 11:17 | PCM.HP.2 ---
H&P History of Present Illness - General Date of Service: 04/30/19 Admit Problem/Dx: Admission Diagnosis/Problem Admission Diagnosis/Problem Acute bronchitis Source of Information: Patient, Provider History Limitations: Reports: No Limitations - History of Present Illness Initial Comments - Free Text/Narative: CC: I fell down and I don't know why HPI: Ana presents to the emergency room today with weakness, lower back pain and bilateral knee pain. She reports that she was getting out of bed last night and collapsed to the floor. She would does not recall any preceding symptoms such as dizziness, lightheadedness, palpitations, chest pain or shortness of breath. She was too weak to get up off the floor so she slept on the floor. She did try to crawl around to get to a piece of furniture to help herself up but only succeeded in creating several broad smith. She was able to call for help this morning and was brought in by ambulance. She is currently reporting mild to moderate achy lower back pain that radiates throughout her lower back. Moving makes the pain worse. Pain medications have helped some. She also endorses cough, shortness of breath and increased sputum over the last few days. She has not checked the color of her sputum. She's not aware of any fevers or chills. She's not aware of any sick contacts. No complaints of nausea or abdominal pain. Workup in the emergency room was suggestive of rhabdomyolysis as well as hypoxia. Acute bronchitis with hypoxic respiratory failure is suspected as the main culprit for her difficulties and then complicated by the fall and rhabdo. She will be admitted for further management. Lower Back Pain Score (Numeric/FACES): 8 - Related Data Allergies/Adverse Reactions: Allergies Allergy/AdvReac Type Severity Reaction Status Date / Time atorvastatin [From Lipitor] AdvReac Cannot Verified 04/28/19 11:05 Remember diclofenac AdvReac Cannot Verified 04/28/19 11:05 Remember epinephrine AdvReac Tachycardia Verified 04/28/19 11:05 rosuvastatin calcium AdvReac unknown Verified 04/28/19 11:05 [From Crestor] Home Medications: Home Meds Insulin Aspart [Novolog] 100 unit SQ ASDIRECTED 10/21/16 [History] Insulin Detemir [Levemir Flextouch] 35 units SQ BEDTIME 10/21/16 [History] Lisinopril [Prinivil] 2.5 mg PO DAILY 10/21/16 [History] Aspirin 81 mg PO DAILY 10/22/16 [History] Clopidogrel Bisulfate [Plavix] 75 mg PO DAILY 10/22/16 [History] Cyanocobalamin (Vitamin B-12) [B-12] 1,000 mg PO DAILY 10/22/16 [History] Fluvastatin Sodium 40 mg PO BEDTIME 10/22/16 [History] Multivitamin [Multivitamins] 1 tab PO DAILY 10/22/16 [History] Pseudoephedrine HCl [Nasal Decongestant] 30 mg PO Q4H PRN 10/22/16 [History] metFORMIN HCl [Metformin HCl] 1,000 mg PO BID 10/22/16 [History] Cholestyramine/Aspartame [Cholestyramine Light] 4 gram PO ASDIRECTED 07/27/17 [ History] Acetaminophen [Tylenol] 325 mg PO ASDIRECTED PRN 08/10/17 [History] Past Medical History HEENT History: Reports: Cataract, Impaired Vision Cardiovascular History: Reports: CAD, High Cholesterol, Hypertension Respiratory History: Reports: None Gastrointestinal History: Reports: Cholelithiasis Genitourinary History: Reports: None MOHS SURGEON History: Reports: Spontaneous Musculoskeletal History: Reports: Fracture Other Musculoskeletal History: L wrist. right shoulder pain Neurological History: Reports: Concussion Psychiatric History: Reports: None Endocrine/Metabolic History: Reports: Diabetes, Type II, IDDM Do You Give Correction Boluses or Sliding Scale: Yes Patient/Family Able to Supply Written Copy of Sliding Scale: No Hematologic History: Reports: Blood Transfusion(s) Immunologic History: Reports: None Oncologic (Cancer) History: Reports: None Dermatologic History: Reports: None - Infectious Disease History Infectious Disease History: Reports: Chicken Pox - Past Surgical History Head Surgeries/Procedures: Reports: None HEENT Surgical History: Reports: Tonsillectomy Cardiovascular Surgical History: Reports: Coronary Artery Bypass, Coronary Artery Stent Respiratory Surgical History: Reports: None GI Surgical History: Reports: Cholecystectomy, Colonoscopy Female Surgical History: Reports: Hysterectomy, Salpingo-Oophorectomy Endocrine Surgical History: Reports: None Neurological Surgical History: Reports: None Musculoskeletal Surgical History: Reports: Arthroscopic Knee Oncologic Surgical History: Reports: None Dermatological Surgical History: Reports: None Social & Family History - Family History Family Medical History: Noncontributory - Tobacco Use Smoking Status *Q: Current Every Day Smoker Years of Tobacco use: 50 Packs/Tins Daily: 1.5 - Caffeine Use Caffeine Use: Reports: Soda - Alcohol Use Alcohol Use History: No - Recreational Drug Use Recreational Drug Use: No H&P Review of Systems - Review of Systems: Review Of Systems: See Below Free Text/Narrative: A complete 12 point review of systems was obtained. Pertinent positives and negatives are noted in the history of present illness. All other systems were reviewed and were negative except as noted. Exam - Exam Exam: See Below - Vital Signs Vital Signs: Last Vital Signs Temp 36.3 C 04/30/19 07:40 Pulse 78 04/30/19 09:54 Resp 21 H 04/30/19 09:09 BP 202/78 H 04/30/19 09:54 Pulse Ox 78 L 04/30/19 09:09 Weight: 58.967 kg - Exam Quality Assessment: Supplemental Oxygen General: Alert, Oriented, Cooperative. No: Mild Distress HEENT: Conjunctiva Clear. No: Mucosa Moist & [place] (dry), Scleral Icterus Neck: Supple, Trachea Midline, Other (healed scars both sides of the neck ). No : Lymphadenopathy Lungs: Normal Respiratory Effort, Crackles (mild lower lungs throughout inspiration ) Cardiovascular: Regular Rate, Regular Rhythm, Systolic Murmur GI/Abdominal Exam: Normal Bowel Sounds, Soft, Non-Tender, No Distention Back Exam: Normal Inspection. No: Full Range of Motion Extremities: No Pedal Edema, Other (wrist brace on the left ). No: Increased Warmth Peripheral Pulses: 2+: Dorsalis Pedis (L), Dorsalis Pedis (R) Skin: Warm, Dry Neuro Extensive - Mental Status: Alert, Oriented x3, Nl Response to Commands Neuro Extensive - Motor, Sensory, Reflexes: No: Dysarthria, Abnormal Motor, Tremor Psychiatric: Alert, Normal Affect - Patient Data Lab Results Last 24 hrs: Laboratory Results - last 24 hr 04/30/19 04/30/19 04/30/19 Range/Units 07:30 07:30 07:30 WBC 11.9 H (4.5-11.0) K/uL RBC 4.66 (3.30-5.50) M/uL Hgb 14.1 (12.0-15.0) g/dL Hct 41.1 (36.0-48.0) % MCV 88 (80-98) fL MCH 30 (27-31) pg MCHC 34 (32-36) % Plt Count 314 (150-400) K/uL Sodium 127 L (140-148) mmol/L Potassium 4.1 (3.6-5.2) mmol/L Chloride 89 L (100-108) mmol/L Carbon Dioxide 24 (21-32) mmol/L Anion Gap 18.1 H (5.0-14.0) mmol/L BUN 11 (7-18) mg/dL Creatinine 0.9 (0.6-1.0) mg/dL Est Cr Clr Drug Dosing 53.37 mL/min Estimated GFR (MDRD) > 60 (>60) Glucose 260 H (74-106) mg/dL Calcium 9.5 (8.5-10.1) mg/dL Total Bilirubin 1.1 H (0.2-1.0) mg/dL AST 48 H (15-37) U/L ALT 29 (12-78) U/L Alkaline Phosphatase 73 (46-116) U/L Creatine Kinase (26-192) U/L Troponin I < 0.017 (0.000-0.056) ng/mL Total Protein 8.1 (6.4-8.2) g/dL Albumin 3.7 (3.4-5.0) g/dL Globulin 4.4 H (2.3-3.5) g/dL Albumin/Globulin Ratio 0.8 L (1.2-2.2) Urine Color (YELLOW) Urine Appearance (CLEAR) Urine pH (5.0-8.0) Ur Specific [place] (1.008-1.030) Urine Protein (NEGATIVE) mg/dL Urine Glucose (UA) (NEGATIVE) mg/dL Urine Ketones (NEGATIVE) mg/dL Urine Occult Blood (NEGATIVE) Urine Nitrite (NEGATIVE) Urine Bilirubin (NEGATIVE) Urine Urobilinogen (0.2-1.0) EU/dL Ur Leukocyte Esterase (NEGATIVE) Urine RBC (0-5) Urine WBC (0-5) Ur Epithelial Cells Amorphous Sediment Urine Bacteria Urine Mucus Ethyl Alcohol mg/dL 04/30/19 04/30/19 04/30/19 Range/Units 07:30 07:30 07:38 WBC (4.5-11.0) K/uL RBC (3.30-5.50) M/uL Hgb (12.0-15.0) g/dL Hct (36.0-48.0) % MCV (80-98) fL MCH (27-31) pg MCHC (32-36) % Plt Count (150-400) K/uL Sodium (140-148) mmol/L Potassium (3.6-5.2) mmol/L Chloride (100-108) mmol/L Carbon Dioxide (21-32) mmol/L Anion Gap (5.0-14.0) mmol/L BUN (7-18) mg/dL Creatinine (0.6-1.0) mg/dL Est Cr Clr Drug Dosing mL/min Estimated GFR (MDRD) (>60) Glucose (74-106) mg/dL Calcium (8.5-10.1) mg/dL Total Bilirubin (0.2-1.0) mg/dL AST (15-37) U/L ALT (12-78) U/L Alkaline Phosphatase (46-116) U/L Creatine Kinase 1451 H (26-192) U/L Troponin I (0.000-0.056) ng/mL Total Protein (6.4-8.2) g/dL Albumin (3.4-5.0) g/dL Globulin (2.3-3.5) g/dL Albumin/Globulin Ratio (1.2-2.2) Urine Color Yellow (YELLOW) Urine Appearance Clear (CLEAR) Urine pH 5.5 (5.0-8.0) Ur Specific [place] 1.025 (1.008-1.030) Urine Protein >=300 H (NEGATIVE) mg/dL Urine Glucose (UA) 500 H (NEGATIVE) mg/dL Urine Ketones 40 H (NEGATIVE) mg/dL Urine Occult Blood Moderate H (NEGATIVE) Urine Nitrite Negative (NEGATIVE) Urine Bilirubin Small H (NEGATIVE) Urine Urobilinogen 0.2 (0.2-1.0) EU/dL Ur Leukocyte Esterase Negative (NEGATIVE) Urine RBC 0-5 (0-5) Urine WBC 0-5 (0-5) Ur Epithelial Cells Few Amorphous Sediment Not seen Urine Bacteria Few Urine Mucus Not seen Ethyl Alcohol < 3 mg/dL 04/30/19 Range/Units 10:00 WBC (4.5-11.0) K/uL RBC (3.30-5.50) M/uL Hgb (12.0-15.0) g/dL Hct (36.0-48.0) % MCV (80-98) fL MCH (27-31) pg MCHC (32-36) % Plt Count (150-400) K/uL Sodium (140-148) mmol/L Potassium (3.6-5.2) mmol/L Chloride (100-108) mmol/L Carbon Dioxide (21-32) mmol/L Anion Gap (5.0-14.0) mmol/L BUN (7-18) mg/dL Creatinine (0.6-1.0) mg/dL Est Cr Clr Drug Dosing mL/min Estimated GFR (MDRD) (>60) Glucose (74-106) mg/dL Calcium (8.5-10.1) mg/dL Total Bilirubin (0.2-1.0) mg/dL AST (15-37) U/L ALT (12-78) U/L Alkaline Phosphatase (46-116) U/L Creatine Kinase (26-192) U/L Troponin I < 0.017 (0.000-0.056) ng/mL Total Protein (6.4-8.2) g/dL Albumin (3.4-5.0) g/dL Globulin (2.3-3.5) g/dL Albumin/Globulin Ratio (1.2-2.2) Urine Color (YELLOW) Urine Appearance (CLEAR) Urine pH (5.0-8.0) Ur Specific [place] (1.008-1.030) Urine Protein (NEGATIVE) mg/dL Urine Glucose (UA) (NEGATIVE) mg/dL Urine Ketones (NEGATIVE) mg/dL Urine Occult Blood (NEGATIVE) Urine Nitrite (NEGATIVE) Urine Bilirubin (NEGATIVE) Urine Urobilinogen (0.2-1.0) EU/dL Ur Leukocyte Esterase (NEGATIVE) Urine RBC (0-5) Urine WBC (0-5) Ur Epithelial Cells Amorphous Sediment Urine Bacteria Urine Mucus Ethyl Alcohol mg/dL Result Diagrams: 04/30/19 07:30 04/30/19 07:30 Imaging Impressions Last 24 hrs: Lumbar spine XR - no fracture or dislocation EKG INTERPRETATION EKG Date: 04/30/19 Rhythm: NSR Rate (Beats/Min): 80 [place]: Normal P-Wave: Present QRS: Normal ST-T: Depressed QT: Normal Comparison: NA - No Prior EKG EKG Interpretation Comments: LVH present. Lateral ST depressions 2/2 LVH Image was personally reviewed *Q Meaningful Use (ADM) - VTE Risk Assess *Q Each Risk Factor Represents 1 Point: Serious lung disease including pneumonia Total Score 1 Point Risk Factors: 1 Each Risk Factor Represents 2 Points: Age 60 - 74 Years Total Score 2 Point Risk Factors: 2 Each Risk Factor Represents 3 Points: None Total Score 3 Point Risk Factors: 0 Each Risk Factor Represents 5 Points: None Total Score 5 Point Risk Factors: 0 Venous Thromboembolism Risk Factor Score *Q: 3 - Problem List (1) Acute bronchitis SNOMED Code(s): 33103449 ICD Code: J20.9 - ACUTE BRONCHITIS, UNSPECIFIED Status: Acute Current Visit: Yes Qualifiers: Bronchitis organism: unspecified organism Qualified Code(s): J20.9 - Acute bronchitis, unspecified (2) Acute respiratory failure with hypoxia SNOMED Code(s): 52948451, 876769201 ICD Code: J96.01 - ACUTE RESPIRATORY FAILURE WITH HYPOXIA Status: Acute Current Visit: Yes (3) Rhabdomyolysis SNOMED Code(s): 833461366 ICD Code: M62.82 - RHABDOMYOLYSIS Status: Acute Current Visit: Yes Qualifiers: Rhabdomyolysis type: traumatic Encounter type: initial encounter Qualified Code(s): T79.6XXA - Traumatic ischemia of muscle, initial encounter (4) Low back pain SNOMED Code(s): 268337004 ICD Code: M54.5 - LOW BACK PAIN Status: Acute Current Visit: Yes Qualifiers: Chronicity: acute Back pain laterality: midline Sciatica presence: without sciatica Qualified Code(s): M54.5 - Low back pain (5) HTN (hypertension) SNOMED Code(s): 01398906 ICD Code: I10 - ESSENTIAL (PRIMARY) HYPERTENSION Status: Acute Current Visit: Yes Qualifiers: Hypertension type: unspecified Qualified Code(s): I10 - Essential (primary ) hypertension (6) Tobacco dependence SNOMED Code(s): 94027203 ICD Code: F17.200 - NICOTINE DEPENDENCE, UNSPECIFIED, UNCOMPLICATED Status : Chronic Current Visit: Yes Problem List Initiated/Reviewed/Updated: Yes Orders Last 24hrs: Active Orders 24 hr Category Date Time Status Patient Status Manage Transfer [TRANSFER] Routine ADT 04/30/19 11:05 Ordered Cardiac Monitoring [RC] .As Directed Care 04/30/19 07:17 Active EKG Documentation Completion [RC] ASDIRECTED Care 04/30/19 08:45 Active Azithromycin [Zithromax] Med 05/01/19 11:15 Once 500 mg PO ONETIME ONE Sodium Chloride 0.9% [Normal Saline] 1,000 ml Med 04/30/19 11:15 Active IV ASDIRECTED Resuscitation Status Routine Resus Stat 04/30/19 11:07 Ordered EKG 12 Lead [EK] Routine Ther 04/30/19 08:44 Ordered Medication Orders Azithromycin (Zithromax) 500 mg PO ONETIME ONE Stop: 05/01/19 11:16 Sodium Chloride (Normal Saline) 1,000 mls @ 150 mls/hr IV ASDIRECTED LEWIS Assessment/Plan Comment:: ASSESSMENT AND PLAN - Acute bronchitis - complicated by acute respiratory failure with hypoxia. Patient is currently requiring at least 2 L of supplemental oxygen. She is very weak and had an episode of syncope because of the hypoxia. She developed rhabdomyolysis as a result of the syncope as well. With her hypoxic respiratory failure she is not safe for outpatient management. -Ceftriaxone and azithromycin -Supplement oxygen -Scheduled nebulizers -Hold off on steroids since she is not actively wheezing -[place] Acute traumatic rhabdomyolysis - secondary to fall and prolonged time on the floor. She does not have evidence for acute organ dysfunction or acute kidney injury at this time. -Aggressive IV fluids -Repeat CK level in the morning Accelerated hypertension - systolic blood pressure of more than 200 on arrival and now down to 190s. She has received increase lisinopril and metoprolol in the emergency room. No evidence for end organ dysfunction or symptoms. -Continue current medications -Hydration as above Tobacco dependence - patient smokes about 1.5 packs of cigarettes per day. -Nicotine patch as needed -Encourage cessation Maintenance issues - - DVT prophylaxis - mechanical - GI prophylaxis - not indicated - Nutrition - regular - Tanner catheter - not indicated CODE STATUS - full code Admission justification - This patient will be admitted for inpatient services and is medically appropriate meeting medical necessity for inpatient admission as outlined in my documentation. I reasonably expect the patient will require inpatient services that span a period time over 2 midnights. I reasonably expect this patient to be discharged or transferred within 96 hours [facility]. Disposition - I would anticipate discharge home after the hospital stay Primary care physician - Dr. Rosa Way M.D. - Mortality Measure Prognosis:: Good
[2019-04-30] MEDS ORDERED: Azithromycin 250 MG Tab PO ONE (11:45)
[2019-04-30] MEDS: Insulin Lispro 100 Unit/ML 3 ML KwikPen SUBCUT SCH ×4 (12:03→20:47)
[2019-04-30] MEDS ORDERED: Nicotine 21 MG/24 Hr Patch TRDERM PRN (13:15)
[2019-04-30] MEDS ORDERED: Benzonatate 100 MG Cap PO PRN (13:16)
[2019-04-30] MEDS: Albuterol/Ipratropium 3.0-0.5 MG/3 ML Neb Soln NEB SCH ×2 (14:25→21:53)
[2019-04-30] MEDS ORDERED: Albuterol/Ipratropium 3.0-0.5 MG/3 ML Neb Soln NEB SCH (16:00)
[2019-04-30] MEDS ORDERED: Non-Formulary Medication 1 Each (Metformin Hcl [Metformin Hcl] 1,000 MG) PO SCH (16:30)
[2019-04-30] MEDS ORDERED: metFORMIN 500 MG Tab PO SCH (17:00)
[2019-04-30] MEDS ORDERED: Diltiazem 25 MG/5 ML SDV IVPUSH ONE ×2 (17:53→18:54)
[2019-04-30] MEDS ORDERED: Diltiazem 125 MG in Sodium Chloride 0.9% 100 ML IV SCH (18:00)
--- NOTE | 2019-04-30 18:42 | PCM.SN ---
- Free Text/Narrative Note: Notified just before 1800 that patient was nauseated, complaining of chest pain and tachycardic. Tele showed afib with RVR. Pt lethargic. EKG confirmed afib with RVR. She does have some ST depressions that are more pronounced with her tachycardia but no ST elevations. Transferred to the ICU and give diltiazem bolus and started on infusion. Pt now more hypoxic and transitioned to non- rebreather mask. Tanner ordered. CT PE protocol ordered. Magnesium level requested. 1909 - Second bolus of diltiazem given (15 mg), rate increased to 15 mg. Magnesium 1.4 so supplementation ordered. 1944 - Diltiazem not helping rate. This was discontinued. Amiodarone bolus and then infusion ordered. 2149 - heart rate slowing a little with amiodarone. CT negative for PE. BP stable. On 10 L via non-rebreather. Sounds more coarse and poor air movement. Starting IV steroids. Trop still pending. Michael Way MD
[2019-04-30] MEDS ORDERED: Diltiazem 25 MG/5 ML SDV ONE (18:57)
[2019-04-30] MEDS ORDERED: Iopamidol 612 MG/ML 100 ML Bottle IV SCH (19:00)
[2019-04-30] MEDS ORDERED: Iopamidol 755 Mg/ML 100 ML Bottle IV SCH (19:00)
[2019-04-30] MEDS ORDERED: Sodium Chloride 0.9% 100 ML IV SCH (19:00)
[2019-04-30] MEDS ORDERED: Magnesium Sulfate/Water 2 GM in Premix Bag 1 BAG IV SCH (19:15)
[2019-04-30] MEDS: Sodium Chloride 0.9% 10 ML Syringe FLUSH ONE ×2 (19:26→21:41)
[2019-04-30] MEDS ORDERED: Amiodarone 150 MG/3 ML SDV IVPUSH ONE ×2 (19:42)
[2019-04-30] MEDS ORDERED: Amiodarone 450 MG/9 ML SDV IV ONE (19:50)
[2019-04-30] MEDS ORDERED: diphenhydrAMINE 50 MG/ML SDV IVPUSH STA (20:41)
[2019-04-30] MEDS ORDERED: diphenhydrAMINE 50 MG/ML SDV ONE (20:49)
[2019-04-30] MEDS ORDERED: Insulin Glargine,Human Rec. Analog 100 Units/ML 3 ML Pen SUBCUT SCH ×2 (21:00)
[2019-04-30] MEDS ORDERED: FLUVASTATIN SODIUM 40 MG PO SCH (21:00)
[2019-04-30] MEDS ORDERED: Metoprolol Tartrate 50 MG Tab PO SCH (21:00)
[2019-04-30] MEDS ORDERED: Morphine 2 MG/ML Syringe IVPUSH PRN (21:10)
[2019-04-30] MEDS ORDERED: methylPREDNISolone Sodium Succinate 125 MG/2 ML SDV IVPUSH ONE (22:00)
[2019-04-30] MEDS ORDERED: Heparin Sodium 5,000 Units/ML Vial IVPUSH ONE (22:06)
[2019-04-30] MEDS ORDERED: Heparin Sodium/D5W 25,000 UNITS/500 ML BAG IV SCH (22:15)
--- NOTE | 2019-04-30 22:24 | CRLCT ---
INDICATION: Tachycardia. Hypoxic, respiratory failure. COMPARISON: CT of the abdomen and pelvis from 09/07/2012 TECHNIQUE: CT examination of the chest was performed with the uneventful intravenous administration of 100 cc of Isovue 370 while 3 mm thick axial sections were obtained through the pulmonary arteries. Please note that all CT scans at this facility use dose modulation, iterative reconstruction, and/or weight-based dosing when appropriate to reduce radiation dose to as low as reasonably achievable. FINDINGS: : There is no sign of pulmonary embolism, with normal enhancement and branching of the pulmonary arteries. There is mild consolidation of the posterior lower lungs, consistent with atelectasis. There is mild linear atelectasis in the posterior infrahilar lower lobes. Additional moderate linear atelectasis is seen in the dependent portion of the right middle lobe. There is mild diffuse interstitial fibrosis, more prominent in the apices. There is moderate mediastinal adenopathy. There is a precarinal lymph node with short axis diameter of 2.2 centimeters. There is an aortopulmonary window lymph node with short axis diameter of 1.6 centimeters. There is no sign of hilar mass or adenopathy. Sternal wires are seen from median sternotomy. There is mild triple-vessel coronary calcification. There is moderate calcification of the mitral valve annulus. The heart is top normal in size. There is normal appearance of the ascending great vessels. There is moderate calcification of the nondilated aortic arch and of the descending thoracic aorta. The ascending thoracic aorta is normal in appearance with no sign of dilatation. There is no sign of supraclavicular or axillary mass or adenopathy. The visualized superior liver, spleen, pancreas, kidneys, and adrenals are normal in appearance. Surgical clips are seen in gallbladder fossa consistent with cholecystectomy. These are new compared to the previous report. There is a moderate T9 compression fracture of indeterminate age. There is mild anterior wedging of T8 consistent with a mild compression fracture of indeterminate age. The rest of the thoracic vertebral bodies are normal in height. IMPRESSION: No sign of pulmonary embolism. Mild consolidation of the posterior lower lungs bilaterally consistent with atelectasis. Moderate linear atelectasis in the posterior right middle lobe. Mild prominence of interstitial markings throughout the lungs, consistent with mild pulmonary fibrosis, more prominent in the apices. Moderate mediastinal adenopathy of uncertain etiology. No sign of hilar adenopathy. Heart top normal in size. Please note that all CT scans at this facility use dose modulation, iterative reconstruction, and/or weight-based dosing when appropriate to reduce radiation dose to as low as reasonably achievable. Dictated by Aashish Khalil MD @ Apr 30 2019 10:11PM Signed by Dr. Aashish Khalil @ Apr 30 2019 10:22PM
--- NOTE | 2019-04-30 22:28 | PCM.DCSUM1 ---
Discharge Summary - Hospital Course Brief History: 69-year-old female with a history of insulin-dependent diabetes mellitus, coronary artery disease with previous stenting, carotid artery disease and ongoing tobacco dependence who presented with generalized weakness after an episode of syncope the night before. She was admitted for management of acute rhabdomyolysis and suspected rhonchi discuss with hypoxic respiratory failure. Diagnosis: Stroke: No - Discharge Data Discharge Date: 04/30/19 Discharge Disposition: DC/Tfer to Acute Hospital 02 Condition: Stable - Referral to Home Health Primary Care Physician: PCP None - Discharge Diagnosis/Problem(s) (1) Acute bronchitis SNOMED Code(s): 30651336 ICD Code: J20.9 - ACUTE BRONCHITIS, UNSPECIFIED Status: Acute Current Visit: Yes Qualifiers: Bronchitis organism: unspecified organism Qualified Code(s): J20.9 - Acute bronchitis, unspecified (2) Acute respiratory failure with hypoxia SNOMED Code(s): 92583190, 342187114 ICD Code: J96.01 - ACUTE RESPIRATORY FAILURE WITH HYPOXIA Status: Acute Current Visit: Yes (3) Rhabdomyolysis SNOMED Code(s): 756996844 ICD Code: M62.82 - RHABDOMYOLYSIS Status: Acute Current Visit: Yes Qualifiers: Rhabdomyolysis type: traumatic Encounter type: initial encounter Qualified Code(s): T79.6XXA - Traumatic ischemia of muscle, initial encounter (4) Low back pain SNOMED Code(s): 324277732 ICD Code: M54.5 - LOW BACK PAIN Status: Acute Current Visit: Yes Qualifiers: Chronicity: acute Back pain laterality: midline Sciatica presence: without sciatica Qualified Code(s): M54.5 - Low back pain (5) HTN (hypertension) SNOMED Code(s): 36458626 ICD Code: I10 - ESSENTIAL (PRIMARY) HYPERTENSION Status: Acute Current Visit: Yes Qualifiers: Hypertension type: unspecified Qualified Code(s): I10 - Essential (primary ) hypertension (6) Tobacco dependence SNOMED Code(s): 39743851 ICD Code: F17.200 - NICOTINE DEPENDENCE, UNSPECIFIED, UNCOMPLICATED Status : Chronic Current Visit: Yes (7) NSTEMI (non-ST elevated myocardial infarction) SNOMED Code(s): 19487170 ICD Code: I21.4 - NON-ST ELEVATION (NSTEMI) MYOCARDIAL INFARCTION Status: Acute Current Visit: Yes (8) Atrial fibrillation with rapid ventricular response SNOMED Code(s): 671043567835708 ICD Code: I48.91 - UNSPECIFIED ATRIAL FIBRILLATION Status: Acute Current Visit: Yes - Patient Summary/Data Consults: Consultations 05/01/19 07:00 PT Evaluation and Treatment [CONS] Routine Please Evaluate and Treat. PT Reason for Consult: Strengthening This query below is only for informational purposes and is not editable. Hospital Course: Ana presented to the emergency room this morning after laying on the floor all night. She collapsed getting out of bed last night and was too weak to summon help until this morning. Workup in the emergency room revealed mild leukocytosis and evidence for rhabdomyolysis with a CK level of more than 1400. She was complaining of shortness of breath and some intermittent chest pain and did have 2 troponin levels that were unremarkable. She didn't complain of some back pain in the emergency room but her lumbar spine imaging was unremarkable. She did have an EKG that showed LVH with some inferior and lateral ST depressions thought secondary to LVH and a repolarization abnormality. She was not having chest pain at the time of EKG. In the emergency room she also reported some shortness of breath and cough and bronchitis with suspected as the cause for the mild hypoxia noted in the emergency room. She was started on ceftriaxone and azithromycin and was admitted to the hospital for further management. For the rhabdomyolysis she received IV fluids. During the first few hours of the hospital stay she was stable but around 6 PM on the day of admission she suddenly developed chest pain and diaphoresis. Vital signs were obtained and a heart rate in the 160s was noted. An EKG was promptly obtained and showed atrial fibrillation with rapid ventricular response. Again noted were the inferior lateral ST depressions which were more apparent on this EKG but were thought to be rate related with the LVH. She was transferred to the intensive care unit and received a 20 mg bolus of IV diltiazem and then was started on a diltiazem infusion. Her heart rate slowed very temporarily and then returned at 160s. She received a second bolus of diltiazem at 15 mg and her drip was titrated to 15 mg. She continued to be in rapid atrial fibrillation with a rate remaining in the 150s and 160s. The diltiazem was discontinued in favor of amiodarone. She received a 150 mg bolus followed by infusion. Troponin was obtained just over 2 hours after the onset of her chest pain and was elevated at 1.375. Patient is pain-free at this time. We did get a CT pulmonary angiogram which did not show any evidence for pulmonary embolism and the radiologist interpretation is listed below. Non-ST elevation myocardial infarction is suspected. I did talk to Dr. Kerr at [facility] in [place]. She will receive 4 additional baby aspirin to complete a total dose of 324 mg today. She took 75 mg of clopidogrel this morning. She will receive a heparin bolus followed by infusion. She will be transferred to [facility] for tertiary care evaluation and cardiology consultation. Just prior to transfer the patient did convert to a normal sinus rhythm. IMPRESSION: No sign of pulmonary embolism. Mild consolidation of the posterior lower lungs bilaterally consistent with atelectasis. Moderate linear atelectasis in the posterior right middle lobe. Mild prominence of interstitial markings throughout the lungs, consistent with mild pulmonary fibrosis, more prominent in the apices. Moderate mediastinal adenopathy of uncertain etiology. No sign of hilar adenopathy. Heart normal in size. - Patient Instructions Diet: NPO Activity: Bedrest Other/Special Instructions: transfer to [facility] in [place], Dr Kerr accepting. Dx: NSTEMI, afib with RVR - Discharge Plan *PRESCRIPTION DRUG MONITORING PROGRAM REVIEWED*: Not Applicable *COPY OF PRESCRIPTION DRUG MONITORING REPORT IN PATIENT JERROD: Not Applicable Home Medications: Home Meds Insulin Aspart [Novolog] 100 unit SQ ASDIRECTED 10/21/16 [History] Insulin Detemir [Levemir Flextouch] 35 units SQ BEDTIME 10/21/16 [History] Lisinopril [Prinivil] 2.5 mg PO DAILY 10/21/16 [History] Aspirin 81 mg PO DAILY 10/22/16 [History] Clopidogrel Bisulfate [Plavix] 75 mg PO DAILY 10/22/16 [History] Cyanocobalamin (Vitamin B-12) [B-12] 1,000 mg PO DAILY 10/22/16 [History] Fluvastatin Sodium 40 mg PO BEDTIME 10/22/16 [History] Multivitamin [Multivitamins] 1 tab PO DAILY 10/22/16 [History] Pseudoephedrine HCl [Nasal Decongestant] 30 mg PO Q4H PRN 10/22/16 [History] metFORMIN HCl [Metformin HCl] 1,000 mg PO BID 10/22/16 [History] Cholestyramine/Aspartame [Cholestyramine Light] 4 gram PO ASDIRECTED 07/27/17 [ History] Acetaminophen [Tylenol] 325 mg PO ASDIRECTED PRN 08/10/17 [History] Metoprolol Tartrate 50 mg PO BID 04/30/19 [History] Oxygen Therapy Mode: Non-Rebreather Mask Forms: ED Department Discharge Referrals: PCP,None [Primary Care Provider] - - Discharge Summary/Plan Comment DC Time >30 min.: Yes (60 - transfer to [facility] ) - Patient Data Vitals - Most Recent: Last Vital Signs Temp 36.0 C 04/30/19 18:00 Pulse 135 H 04/30/19 21:40 Resp 20 04/30/19 18:00 BP 158/79 H 04/30/19 21:40 Pulse Ox 94 L 04/30/19 18:00 Weight - Most Recent: 58.967 kg I&O - Last 24 hours: Intake & Output 04/30/19 04/30/19 04/30/19 06:59 14:59 22:59 Intake Total 240 Balance 240 Lab Results - Last 24 hrs: Laboratory Results - last 24 hr 04/30/19 04/30/19 04/30/19 Range/Units 07:30 07:30 07:30 WBC 11.9 H (4.5-11.0) K/uL RBC 4.66 (3.30-5.50) M/uL Hgb 14.1 (12.0-15.0) g/dL Hct 41.1 (36.0-48.0) % MCV 88 (80-98) fL MCH 30 (27-31) pg MCHC 34 (32-36) % Plt Count 314 (150-400) K/uL Sodium 127 L (140-148) mmol/L Potassium 4.1 (3.6-5.2) mmol/L Chloride 89 L (100-108) mmol/L Carbon Dioxide 24 (21-32) mmol/L Anion Gap 18.1 H (5.0-14.0) mmol/L BUN 11 (7-18) mg/dL Creatinine 0.9 (0.6-1.0) mg/dL Est Cr Clr Drug Dosing 53.37 mL/min Estimated GFR (MDRD) > 60 (>60) Glucose 260 H (74-106) mg/dL Calcium 9.5 (8.5-10.1) mg/dL Magnesium (1.8-2.4) mg/dL Total Bilirubin 1.1 H (0.2-1.0) mg/dL AST 48 H (15-37) U/L ALT 29 (12-78) U/L Alkaline Phosphatase 73 (46-116) U/L Creatine Kinase (26-192) U/L Troponin I < 0.017 (0.000-0.056) ng/mL Total Protein 8.1 (6.4-8.2) g/dL Albumin 3.7 (3.4-5.0) g/dL Globulin 4.4 H (2.3-3.5) g/dL Albumin/Globulin Ratio 0.8 L (1.2-2.2) Urine Color (YELLOW) Urine Appearance (CLEAR) Urine pH (5.0-8.0) Ur Specific [place] (1.008-1.030) Urine Protein (NEGATIVE) mg/dL Urine Glucose (UA) (NEGATIVE) mg/dL Urine Ketones (NEGATIVE) mg/dL Urine Occult Blood (NEGATIVE) Urine Nitrite (NEGATIVE) Urine Bilirubin (NEGATIVE) Urine Urobilinogen (0.2-1.0) EU/dL Ur Leukocyte Esterase (NEGATIVE) Urine RBC (0-5) Urine WBC (0-5) Ur Epithelial Cells Amorphous Sediment Urine Bacteria Urine Mucus Ethyl Alcohol mg/dL 04/30/19 04/30/19 04/30/19 Range/Units 07:30 07:30 07:38 WBC (4.5-11.0) K/uL RBC (3.30-5.50) M/uL Hgb (12.0-15.0) g/dL Hct (36.0-48.0) % MCV (80-98) fL MCH (27-31) pg MCHC (32-36) % Plt Count (150-400) K/uL Sodium (140-148) mmol/L Potassium (3.6-5.2) mmol/L Chloride (100-108) mmol/L Carbon Dioxide (21-32) mmol/L Anion Gap (5.0-14.0) mmol/L BUN (7-18) mg/dL Creatinine (0.6-1.0) mg/dL Est Cr Clr Drug Dosing mL/min Estimated GFR (MDRD) (>60) Glucose (74-106) mg/dL Calcium (8.5-10.1) mg/dL Magnesium (1.8-2.4) mg/dL Total Bilirubin (0.2-1.0) mg/dL AST (15-37) U/L ALT (12-78) U/L Alkaline Phosphatase (46-116) U/L Creatine Kinase 1451 H (26-192) U/L Troponin I (0.000-0.056) ng/mL Total Protein (6.4-8.2) g/dL Albumin (3.4-5.0) g/dL Globulin (2.3-3.5) g/dL Albumin/Globulin Ratio (1.2-2.2) Urine Color Yellow (YELLOW) Urine Appearance Clear (CLEAR) Urine pH 5.5 (5.0-8.0) Ur Specific [place] 1.025 (1.008-1.030) Urine Protein >=300 H (NEGATIVE) mg/dL Urine Glucose (UA) 500 H (NEGATIVE) mg/dL Urine Ketones 40 H (NEGATIVE) mg/dL Urine Occult Blood Moderate H (NEGATIVE) Urine Nitrite Negative (NEGATIVE) Urine Bilirubin Small H (NEGATIVE) Urine Urobilinogen 0.2 (0.2-1.0) EU/dL Ur Leukocyte Esterase Negative (NEGATIVE) Urine RBC 0-5 (0-5) Urine WBC 0-5 (0-5) Ur Epithelial Cells Few Amorphous Sediment Not seen Urine Bacteria Few Urine Mucus Not seen Ethyl Alcohol < 3 mg/dL 04/30/19 04/30/19 04/30/19 Range/Units 10:00 18:25 21:16 WBC (4.5-11.0) K/uL RBC (3.30-5.50) M/uL Hgb (12.0-15.0) g/dL Hct (36.0-48.0) % MCV (80-98) fL MCH (27-31) pg MCHC (32-36) % Plt Count (150-400) K/uL Sodium (140-148) mmol/L Potassium (3.6-5.2) mmol/L Chloride (100-108) mmol/L Carbon Dioxide (21-32) mmol/L Anion Gap (5.0-14.0) mmol/L BUN (7-18) mg/dL Creatinine (0.6-1.0) mg/dL Est Cr Clr Drug Dosing mL/min Estimated GFR (MDRD) (>60) Glucose (74-106) mg/dL Calcium (8.5-10.1) mg/dL Magnesium 1.4 L (1.8-2.4) mg/dL Total Bilirubin (0.2-1.0) mg/dL AST (15-37) U/L ALT (12-78) U/L Alkaline Phosphatase (46-116) U/L Creatine Kinase (26-192) U/L Troponin I < 0.017 1.375 H* (0.000-0.056) ng/mL Total Protein (6.4-8.2) g/dL Albumin (3.4-5.0) g/dL Globulin (2.3-3.5) g/dL Albumin/Globulin Ratio (1.2-2.2) Urine Color (YELLOW) Urine Appearance (CLEAR) Urine pH (5.0-8.0) Ur Specific [place] (1.008-1.030) Urine Protein (NEGATIVE) mg/dL Urine Glucose (UA) (NEGATIVE) mg/dL Urine Ketones (NEGATIVE) mg/dL Urine Occult Blood (NEGATIVE) Urine Nitrite (NEGATIVE) Urine Bilirubin (NEGATIVE) Urine Urobilinogen (0.2-1.0) EU/dL Ur Leukocyte Esterase (NEGATIVE) Urine RBC (0-5) Urine WBC (0-5) Ur Epithelial Cells Amorphous Sediment Urine Bacteria Urine Mucus Ethyl Alcohol mg/dL Med Orders - Current: Current Medications Acetaminophen (Tylenol) 650 mg PO Q4H PRN PRN Reason: Pain (Mild 1-3)/fever Last Admin: 04/30/19 15:23 Dose: 650 mg Albuterol (Proventil Neb Soln) 2.5 mg NEB Q4H PRN PRN Reason: Shortness Of Breath/wheezing Albuterol/Ipratropium (Duoneb 3.0-0.5 Mg/3 Ml) 3 ml NEB QIDRT [facility] Last Admin: 04/30/19 21:53 Dose: 3 ml Aspirin (Aspirin) 81 mg PO DAILY [facility] Azithromycin (Zithromax) 500 mg PO DAILY [facility] Benzonatate (Tessalon Perles) 100 mg PO TID PRN PRN Reason: Cough Clopidogrel Bisulfate (Plavix) 75 mg PO DAILY [facility] Cyanocobalamin (Vitamin B12) 1,000,000 mcg PO DAILY [facility] Sodium Chloride (Normal Saline) 1,000 mls @ 150 mls/hr IV ASDIRECTED [facility] Last Admin: 04/30/19 11:45 Dose: 150 mls/hr Ceftriaxone Sodium 1 gm/ (Sodium Chloride) 50 mls @ 100 mls/hr IV Q24H [facility] Last Admin: 04/30/19 11:56 Dose: 100 mls/hr Sodium Chloride (Normal Saline) 100 mls @ 3 mls/sec IV ASDIRECTED [facility] Last Admin: 04/30/19 21:41 Dose: 3 mls/sec Magnesium Sulfate 2 gm/ Premix 50 mls @ 12.5 mls/hr IV Q6H [facility] Stop: 05/01/19 11:14 Last Admin: 04/30/19 19:28 Dose: 12.5 mls/hr Amiodarone HCl 450 mg/ (Dextrose/Water) 250 mls @ 33.33 mls/hr IV ASDIRECTED [facility]; Protocol Last Admin: 04/30/19 20:17 Dose: 1 mg/min, 33.33 mls/hr Heparin Sodium/Dextrose (Heparin 25,000 Units In D5w 500 Ml) 25,000 units in 500 mls @ 14.152 mls/hr IV TITRATE [facility]; Protocol Insulin Glargine (Lantus Solostar) 20 units SUBCUT BEDTIME [facility] Last Admin: 04/30/19 20:45 Dose: 20 unit Insulin Human Lispro (Humalog) 5 unit SUBCUT TIDMEALS [facility] Last Admin: 04/30/19 16:51 Dose: 5 units Insulin Human Lispro (Humalog) 0 unit SUBCUT QIDACANDBED [facility]; Protocol Last Admin: 04/30/19 20:47 Dose: 2 unit Iopamidol (Isovue-370 (76%)) 100 ml IV . DIRECTED [facility] Last Admin: 04/30/19 21:41 Dose: 100 ml Lisinopril (Prinivil) 2.5 mg PO DAILY [facility] Magnesium Hydroxide (Milk Of Magnesia) 30 ml PO Q12H PRN PRN Reason: Constipation Melatonin (Melatonin) 9 mg PO BEDTIME PRN PRN Reason: Sleep Metformin HCl (Glucophage) 1,000 mg PO BIDMEALS [facility] Last Admin: 04/30/19 16:52 Dose: 1,000 mg Methylprednisolone Sodium Succinate (Solu-Medrol) 62.5 mg IVPUSH Q8H [facility] Metoprolol Tartrate (Lopressor) 50 mg PO Q12H [facility] Last Admin: 04/30/19 21:40 Dose: 50 mg Morphine Sulfate (Morphine) 2 mg IVPUSH Q2H PRN PRN Reason: Pain (severe 7-10) Multivitamins/Minerals (Thera M Plus) 1 tab PO DAILY [facility] Nicotine (Habitrol) 21 mg TRDERM DAILY PRN PRN Reason: nicotine craving Non-Formulary Medication (Fluvastatin Sodium [Fluvastatin Sodium]) 40 mg PO BEDTIME [facility] Ondansetron HCl (Zofran Odt) 4 mg PO Q6H PRN PRN Reason: Nausea able to take PO Ondansetron HCl (Zofran) 4 mg IV Q6H PRN PRN Reason: Nausea/Vomiting Oxycodone HCl (Oxycodone) 5 - 10 mg PO Q4H PRN PRN Reason: Pain Last Admin: 04/30/19 15:23 Dose: 5 mg Senna/Docusate Sodium (Senna Plus) 1 tab PO BID PRN PRN Reason: Constipation Discontinued Medications Albuterol/Ipratropium (Duoneb 3.0-0.5 Mg/3 Ml) 3 ml NEB QID [facility] Amiodarone HCl (Cordarone) 150 mg IVPUSH ONETIME ONE Stop: 04/30/19 19:43 Last Admin: 04/30/19 21:47 Dose: Not Given Amiodarone HCl (Cordarone) 150 mg IVPUSH STAT ONE Stop: 04/30/19 19:43 Last Admin: 04/30/19 20:22 Dose: 150 mg Amiodarone HCl (Cordarone) Confirm Administered Dose 450 mg IV .STK-MED ONE Stop: 04/30/19 19:51 Last Admin: 04/30/19 20:44 Dose: Not Given Aspirin (Aspirin) 81 mg PO ONETIME ONE Stop: 04/30/19 07:42 Last Admin: 04/30/19 07:50 Dose: 81 mg Aspirin (Aspirin) 243 mg PO STAT ONE Stop: 04/30/19 22:11 Azithromycin (Zithromax) 500 mg PO ONETIME ONE Stop: 04/30/19 11:46 Last Admin: 04/30/19 11:57 Dose: 500 mg Diltiazem HCl (Diltiazem) 20 mg IVPUSH ONETIME ONE Stop: 04/30/19 17:54 Last Admin: 04/30/19 18:12 Dose: 20 mg Diltiazem HCl (Diltiazem) 15 mg IVPUSH ONETIME ONE Stop: 04/30/19 18:55 Last Admin: 04/30/19 18:59 Dose: 15 mg Diltiazem HCl (Diltiazem) Confirm Administered Dose 25 mg .ROUTE .STK-MED ONE Stop: 04/30/19 18:58 Last Admin: 04/30/19 19:32 Dose: Not Given Diphenhydramine HCl (Benadryl) 50 mg IVPUSH ONETIME STA Stop: 04/30/19 20:42 Last Admin: 04/30/19 20:45 Dose: 50 mg Diphenhydramine HCl (Benadryl) Confirm Administered Dose 50 mg .ROUTE .STK-MED ONE Stop: 04/30/19 20:50 Last Admin: 04/30/19 21:45 Dose: Not Given Heparin Sodium (Porcine) (Heparin Sodium) 3,600 units IVPUSH .BOLUS ONE Stop: 04/30/19 22:07 Sodium Chloride (Normal Saline) 1,000 mls @ 1,000 mls/hr IV .BOLUS ONE Stop: 04/30/19 09:16 Last Admin: 04/30/19 08:29 Dose: 1,000 mls/hr Diltiazem HCl 125 mg/ Sodium (Chloride) 125 mls @ 5 mls/hr IV TITRATE [facility]; Protocol Last Titration: 04/30/19 19:15 Dose: 15 mg/hr, 15 mls/hr Amiodarone HCl/Dextrose (Nexterone In Dextrose 150 Mg/100 Ml) Confirm Administered Dose 100 mls @ as directed IV .STK-MED ONE Stop: 04/30/19 19:54 Last Admin: 04/30/19 20:05 Dose: Not Given Insulin Glargine (Lantus Solostar) 35 units SUBCUT BEDTIME [facility] Insulin Human Regular (Humulin R) 10 unit SUBCUT ONETIME ONE Stop: 04/30/19 07:36 Last Admin: 04/30/19 07:50 Dose: 10 units Ketorolac Tromethamine (Toradol) 15 mg IVPUSH ONETIME ONE Stop: 04/30/19 08:45 Last Admin: 04/30/19 08:57 Dose: 15 mg Lisinopril (Prinivil) 5 mg PO ONETIME ONE Stop: 04/30/19 07:35 Last Admin: 04/30/19 07:50 Dose: 5 mg Lisinopril (Prinivil) 15 mg PO ONETIME ONE Stop: 04/30/19 09:27 Last Admin: 04/30/19 09:29 Dose: 15 mg Metformin HCl (Glucophage) 1,000 mg PO ONETIME ONE Stop: 04/30/19 07:35 Last Admin: 04/30/19 07:51 Dose: 1,000 mg Methylprednisolone Sodium Succinate (Solu-Medrol) 125 mg IVPUSH ONETIME ONE Stop: 04/30/19 22:01 Metoprolol Tartrate (Lopressor) 25 mg PO ONETIME ONE Stop: 04/30/19 09:52 Last Admin: 04/30/19 09:54 Dose: 25 mg Sodium Chloride (Saline Flush) 10 ml FLUSH ONETIME ONE Stop: 04/30/19 18:58 Last Admin: 04/30/19 21:41 Dose: 10 ml - Exam Quality Assessment: Reports: Supplemental Oxygen General: Reports: Alert, Oriented, Cooperative, No Acute Distress, Lethargic Lungs: Reports: Rhonchi (moderate diffuse). Denies: Normal Respiratory Effort ( increased work of breathing ) Cardiovascular: Reports: Regular Rate, Regular Rhythm GI/Abdominal Exam: Soft, No Distention Extremities: No Pedal Edema. No: Increased Warmth Skin: Reports: Warm, Dry Psy/Mental Status: Reports: Alert, Normal Affect
[2019-04-30 22:51] VITALS: BP 130/64; PULSE 72
[2019-05-01] MEDS ORDERED: methylPREDNISolone Sodium Succinate 125 MG/2 ML SDV IVPUSH SCH (06:00)
[2019-05-01] MEDS ORDERED: Clopidogrel 75 MG Tab PO SCH (09:00)
[2019-05-01] MEDS ORDERED: Azithromycin 250 MG Tab PO SCH (09:00)
[2019-05-01] MEDS ORDERED: Cyanocobalamin (Vitamin B12) 1,000 MCG Tab PO SCH (09:00)
[2019-05-01] MEDS ORDERED: Lisinopril 2.5 MG Tab PO SCH (09:00)
[2019-05-01] MEDS ORDERED: Multivitamins with Iron/Calcium/Folic Acid/Minerals Tab PO SCH (09:00)
[2019-05-01] MEDS ORDERED: Aspirin 81 MG Tab.Chew PO SCH (09:00)
[2019-05-01] MEDS ORDERED: Non-Formulary Medication 1 Each (Multivitamin [Multivitamins] 1 TAB) PO SCH (09:00)
[2019-05-01] MEDS ORDERED: Azithromycin 250 MG Tab PO ONE (11:15)
== END 2019-04-30 23:25 | DRG 564 ==
LOC: JP.ED 07:13 → JP.MS 11:05 → JP.ICU 18:28
PROVIDERS: ADMIT Internal Medicine; ATTEND Internal Medicine
DX: T79.6XXA Traumatic ischemia of muscle, initial encounter (principal); I21.4 Non-ST elevation (NSTEMI) myocardial infarction; J96.01 Acute respiratory failure with hypoxia; J98.11 Atelectasis; J20.9 Acute bronchitis, unspecified; M54.5 Low back pain; Z95.1 Presence of aortocoronary bypass graft; I10 Essential (primary) hypertension; Z79.82 Long term (current) use of aspirin; I48.91 Unspecified atrial fibrillation; H54.7 Unspecified visual loss; I25.10 Atherosclerotic heart disease of native coronary artery without angina pectoris; E78.00 Pure hypercholesterolemia, unspecified; E11.9 Type 2 diabetes mellitus without complications; F17.210 Nicotine dependence, cigarettes, uncomplicated; Z90.89 Acquired absence of other organs; Z90.49 Acquired absence of other specified parts of digestive tract; Z79.4 Long term (current) use of insulin; Z79.899 Other long term (current) drug therapy; Z88.8 Allergy status to other drugs, medicaments and biological substances; Z90.710 Acquired absence of both cervix and uterus; Z91.040 Latex allergy status; Z95.5 Presence of coronary angioplasty implant and graft; W19.XXXA Unspecified fall, initial encounter
CPT/HCPCS: 36415; 72100; 80053; 81001; 82550; 82962; 84484 ×2; 85027; 93005; A9270 ×5; G0480; J1815; J1885; J7030; 51702; 71275; 83735; 94640; 94667; 96361; 96372; 96374; 99284; 99285-25; J0282; J0696; J1200; J1644; J2930; J3475; J3490; J7050; J7060; J7620-GY; Q9967

== ENCOUNTER 2019-12-26 13:38 | Emergency (ER) | payer MEDICARE, BC ==
--- NOTE | 2019-12-26 14:28 | EDM.PDOC ---
ED HPI GENERAL MEDICAL PROBLEM - General Chief Complaint: Back Pain or Injury Stated Complaint: [facility] Time Seen by Provider: 12/26/19 14:05 Source of Information: Reports: Patient, EMS History Limitations: Reports: No Limitations - History of Present Illness INITIAL COMMENTS - FREE TEXT/NARRATIVE: 69-year-old female with worsening left lower back pain over the past several weeks, she now has a cold and cough and feels it has gotten worse since her cough. No fevers or chills. She continues to smoke a pack or more a day of cigarettes. The pain is localized to the left lower back and radiates into the buttock but not down her extremity. Cough is nonproductive. Onset: Unknown/Unsure Location: Reports: Back Associated Symptoms: Reports: Cough, Malaise, Shortness of Breath. Denies: Fever/Chills, Headaches, Loss of Appetite, Nausea/Vomiting Lower Back Pain Score (Numeric/FACES): 6 - Related Data Allergies Allergy/AdvReac Type Severity Reaction Status Date / Time atorvastatin [From Lipitor] AdvReac Cannot Verified 12/26/19 13:50 Remember diclofenac AdvReac Cannot Verified 12/26/19 13:50 Remember epinephrine AdvReac Tachycardia Verified 12/26/19 13:50 rosuvastatin calcium AdvReac unknown Verified 12/26/19 13:50 [From Crestor] Home Meds: Home Meds Insulin Aspart [Novolog] 100 unit SQ ASDIRECTED 10/21/16 [History] Insulin Detemir [Levemir Flextouch] 35 units SQ BEDTIME 10/21/16 [History] lisinopriL [Prinivil] 40 mg PO DAILY 10/21/16 [History] Aspirin 81 mg PO DAILY 10/22/16 [History] Clopidogrel Bisulfate [Plavix] 75 mg PO DAILY 10/22/16 [History] Cyanocobalamin (Vitamin B-12) [B-12] 1,000 mg PO DAILY 10/22/16 [History] Multivitamin [Multivitamins] 1 tab PO DAILY 10/22/16 [History] metFORMIN HCl [Metformin HCl] 1,000 mg PO BID 10/22/16 [History] Cholestyramine/Aspartame [Cholestyramine Light] 4 gram PO ASDIRECTED 07/27/17 [History] Acetaminophen [Tylenol] 325 mg PO ASDIRECTED PRN 08/10/17 [History] Metoprolol Tartrate 50 mg PO BID 04/30/19 [History] Apixaban [Eliquis] 5 mg PO BID 05/30/19 [History] Potassium Chloride [Klor-Con] 20 meq PO DAILY 05/30/19 [History] Pravastatin Sodium [Pravachol] 40 mg PO DAILY 05/30/19 [History] Sodium Chloride 1 gm PO BID 05/30/19 [History] Albuterol Sulfate [Albuterol Sulfate Hfa] 8.5 gm IH ASDIRECTED 12/26/19 [History] Past Medical History HEENT History: Reports: Cataract, Impaired Vision Cardiovascular History: Reports: CAD, High Cholesterol, Hypertension Respiratory History: Reports: None Gastrointestinal History: Reports: Cholelithiasis Genitourinary History: Reports: None PASTRY SOUS CHEF History: Reports: Spontaneous Musculoskeletal History: Reports: Fracture Other Musculoskeletal History: L wrist pain. left elbow pain. L ulnar Fx 2018. right shoulder pain Neurological History: Reports: Concussion Psychiatric History: Reports: None Endocrine/Metabolic History: Reports: Diabetes, Type II, IDDM Hematologic History: Reports: Blood Transfusion(s) Immunologic History: Reports: None Oncologic (Cancer) History: Reports: None Dermatologic History: Reports: None - Infectious Disease History Infectious Disease History: Reports: Measles - Past Surgical History Head Surgeries/Procedures: Reports: None HEENT Surgical History: Reports: Tonsillectomy Cardiovascular Surgical History: Reports: Coronary Artery Bypass, Coronary Artery Stent Respiratory Surgical History: Reports: None GI Surgical History: Reports: Cholecystectomy, Colonoscopy Female Surgical History: Reports: Hysterectomy, Salpingo-Oophorectomy Endocrine Surgical History: Reports: None Neurological Surgical History: Reports: None Oncologic Surgical History: Reports: None Dermatological Surgical History: Reports: None Social & Family History - Family History Family Medical History: Noncontributory - Tobacco Use Smoking Status *Q: Current Every Day Smoker Years of Tobacco use: 50 Packs/Tins Daily: 1.5 - Caffeine Use Caffeine Use: Reports: None - Recreational Drug Use Recreational Drug Use: No ED ROS GENERAL - Review of Systems Review Of Systems: See Below Constitutional: Reports: Malaise. Denies: Fever, Chills HEENT: Reports: No Symptoms Respiratory: Reports: Cough. Denies: Shortness of Breath Cardiovascular: Denies: Chest Pain GI/Abdominal: Denies: Abdominal Pain, Nausea, Vomiting Musculoskeletal: Reports: Back Pain, Other (Also some chronic left forearm pain from an injury last year) Skin: Denies: Bruising Neurological: Reports: Dizziness, Weakness ED EXAM,LOWER BACK PAIN/INJURY - Physical Exam Exam: See Below Exam Limited By: No Limitations General Appearance: Alert, No Apparent Distress (No significant distress while lying still but any movement such as sitting up is extremely painful.) Eye Exam: Bilateral Eye: Normal Inspection Head: Atraumatic Neck: Supple, Non-Tender Respiratory/Chest: Wheezing (Scattered expiratory wheezes bilaterally are heard) Cardiovascular: Regular Rate, Rhythm GI/Abdominal: Soft, Non-Tender Back Exam: Paraspinal Tenderness (Significant paraspinal tenderness is present with palpation of the right lumbar spine, moderate vertebral tenderness to percussion). No: CVA Tenderness (R), CVA Tenderness (L) Extremities: Normal Inspection, Other (She does have a splint on her left forearm) Neurological: Alert, No Motor/Sensory Deficits, Oriented x 3 Psychiatric: Anxious Skin Exam: Warm, Dry Course - Vital Signs Last Recorded V/S: Last Vital Signs Temp 97.1 F 12/26/19 14:00 Pulse 73 12/26/19 17:16 Resp 16 12/26/19 17:16 BP 130/69 12/26/19 17:16 Pulse Ox 87 L 12/26/19 17:16 - Orders/Labs/Meds Labs: Laboratory Tests 12/26/19 12/26/19 Range/Units 14:46 14:46 WBC 11.1 H (4.5-11.0) K/uL RBC 4.52 (3.30-5.50) M/uL Hgb 13.5 (12.0-15.0) g/dL Hct 40.7 (36.0-48.0) % MCV 90 (80-98) fL MCH 30 (27-31) pg MCHC 33 (32-36) % Plt Count 382 (150-400) K/uL Neut % (Auto) 76 H (36-66) % Lymph % (Auto) 15 L (24-44) % [place] % (Auto) 9 H (2-6) % Eos % (Auto) 1 L (2-4) % Baso % (Auto) 0 (0-1) % Sodium 126 L (140-148) mmol/L Potassium 4.3 (3.6-5.2) mmol/L Chloride 92 L (100-108) mmol/L Carbon Dioxide 24 (21-32) mmol/L Anion Gap 14.3 H (5.0-14.0) mmol/L BUN 10 (7-18) mg/dL Creatinine 0.8 (0.6-1.0) mg/dL Est Cr Clr Drug Dosing 57.73 mL/min Estimated GFR (MDRD) > 60 (>60) Glucose 182 H (74-106) mg/dL Calcium 8.5 (8.5-10.1) mg/dL Total Bilirubin 0.6 (0.2-1.0) mg/dL AST 18 (15-37) U/L ALT 14 (12-78) U/L Alkaline Phosphatase 80 (46-116) U/L Total Protein 6.9 (6.4-8.2) g/dL Albumin 3.1 L (3.4-5.0) g/dL Globulin 3.8 H (2.3-3.5) g/dL Albumin/Globulin Ratio 0.8 L (1.2-2.2) Meds: Medications Discontinued Medications Generic Name Dose Route Start Last Admin Trade Name Freq PRN Reason Stop Dose Admin Albuterol/Ipratropium 3 ml 12/26/19 17:10 12/26/19 17:15 Duoneb 3.0-0.5 Mg/3 Ml NEB 12/26/19 17:11 3 ml ONETIME ONE Administration Hydromorphone HCl 0.5 mg 12/26/19 15:43 12/26/19 16:04 Dilaudid IVPUSH 12/26/19 15:44 0.5 mg ONETIME ONE Administration Ketorolac Tromethamine 30 mg 12/26/19 16:33 12/26/19 16:43 Toradol IVPUSH 12/26/19 16:34 30 mg ONETIME ONE Administration Methylprednisolone Sodium Succinate 125 mg 12/26/19 17:35 12/26/19 17:46 Solu-Medrol IVPUSH 12/26/19 17:36 125 mg ONETIME ONE Administration - Re-Assessments/Exams Free Text/Narrative Re-Assessment/Exam: 12/26/19 15:57 CBC and CMP were obtained which are all relatively normal, she has mild renal insufficiency or dehydration. A CT of the chest and lumbar spine were obtained without contrast. She needed a second dose of IV pain medication, Dilaudid 0.5 mg, before she could be taken to CT because of the intense pain. 12/26/19 17:18 IMPRESSION: Old L1 superior endplate fracture. No acute fracture identified. Moderate multilevel degenerative disc and facet changes. Vascular stents in the bilateral common iliac arteries. IMPRESSION: No acute abnormality identified. 12/26/19 17:37 After patient returned from CT scan, oxygen was removed and she dropped into the upper 80s again for O2 saturations. She was then given a DuoNeb which gave her some subjective improvement but objectively she still stayed just below 90 O2 saturations. When she returned from the CT scan she was still in significant discomfort so was given 30 mg of IV Toradol. The CT scan showed no acute abnormality but did show emphysema, and with her smoking 1 to 2 packs of cigarettes a day her O2 saturations are probably at baseline. Within 30 minutes of the IV Toradol she felt much better, was maneuvering better and was able to get to the bathroom. I recommend that she be hospitalized to discuss her ongoing back problem and start treatment for COPD, but she refused. She was then given 125 mg of IV Solu-Medrol, will start a Medrol Dosepak tomorrow and also given 10 hydrocodone for extra pain control but needs to follow-up with her primary provider or clinic in the next week to discuss response to steroids and any other options for treatment of chronic COPD and cigarette addiction. Departure - Departure Time of Disposition: 18:18 Disposition: Home, Self-Care 01 Clinical Impression: Acute exacerbation of chronic low back pain Emphysema/COPD Qualifiers: Emphysema type: panlobular Qualified Code(s): J43.1 - Panlobular emphysema - Discharge Information Instructions: Acute Back Pain, Adult Referrals: PCP,None [Primary Care Provider] - Forms: ED Department Discharge Care Plan Goals: Continue your current medications, but start Medrol Dosepak tomorrow morning and take as prescribed. Use stronger pain medication as needed when you are trying to get rest. Recheck with Dr. Rosen or one of the other providers at the clinic in 1 week to discuss response to treatment. Return to the emergency room sooner if worsening or concerns. Sepsis Event Note (ED) - Evaluation Sepsis Screening Result: No Definite Risk
[2019-12-26] MEDS ORDERED: HYDROmorphone 0.5 MG/0.5 ML Syringe IVPUSH ONE (15:43)
[2019-12-26] MEDS ORDERED: Ketorolac 30 MG/ML SDV IVPUSH ONE (16:33)
[2019-12-26] MEDS ORDERED: Albuterol/Ipratropium 3.0-0.5 MG/3 ML Neb Soln NEB ONE (17:10)
--- NOTE | 2019-12-26 17:10 | CRLCT ---
INDICATION: Back pain, hypoxia, cough TECHNIQUE: CT chest without contrast. COMPARISON: Chest CT April 30, 2019 FINDINGS: Cardiovascular structures: Status post median sternotomy. Mitral annular calcifications. Coronary artery calcifications. Heart size is normal. There is a vascular stent in the proximal left subclavian artery. Thoracic aorta and main pulmonary artery are normal in caliber. Mediastinum and luis alberto: No sign of mass or adenopathy. Lungs: Emphysema. Pleura and pericardium: No effusions. Chest wall and axilla: No mass or adenopathy. Upper abdomen: Status post cholecystectomy. Calcifications in the kidneys are likely vascular in origin. Bones: Interval increase in height loss of an old T9 fracture when compared to April 30, 2019. There is also a new but non acute superior endplate compression fracture of L1 vertebrae. IMPRESSION: No acute abnormality identified. Coronary artery disease. Vascular stent in the proximal left subclavian artery. Emphysema. Interval increase in height loss of an old T9 fracture when compared to April 30, 2019. There is also a new but non acute superior endplate compression fracture of L1 vertebrae. Status post cholecystectomy. Please note that all CT scans at this facility use dose modulation, iterative reconstruction, and/or weight-based dosing when appropriate to reduce radiation dose to as low as reasonably achievable. Dictated by Katia Hyman MD @ Dec 26 2019 5:01PM Signed by Dr. Katia Hyman @ Dec 26 2019 5:09PM
--- NOTE | 2019-12-26 17:15 | CRLCT ---
INDICATION: Back pain TECHNIQUE: CT lumbar spine without contrast. COMPARISON: None FINDINGS: Vertebral alignment: Alignment is normal. Vertebrae: Osteopenia. Old L1 superior endplate fracture with less than 20 percent vertebral height loss. There are no acute fractures or suspicious bony lesions. Discs and facet joints: Moderate multilevel degenerative disc and facet changes, most prominent at the L4-L5 level. Extraspinal findings: Aortic wall calcifications. Vascular stents in the bilateral common iliac arteries. IMPRESSION: Old L1 superior endplate fracture. No acute fracture identified. Moderate multilevel degenerative disc and facet changes. Vascular stents in the bilateral common iliac arteries. Please note that all CT scans at this facility use dose modulation, iterative reconstruction, and/or weight-based dosing when appropriate to reduce radiation dose to as low as reasonably achievable. Dictated by Katia Hyman MD @ Dec 26 2019 5:09PM Signed by Dr. Katia Hyman @ Dec 26 2019 5:12PM
[2019-12-26 17:18] VITALS: BP 130/69; PULSE 73
[2019-12-26] MEDS ORDERED: methylPREDNISolone Sodium Succinate 125 MG/2 ML SDV IVPUSH ONE (17:35)
== END 2019-12-26 18:51 | disposition home or self-care (01) ==
LOC: JP.ED 13:38
DX: M54.5 Low back pain (principal); G89.29 Other chronic pain; J43.1 Panlobular emphysema; I10 Essential (primary) hypertension; E78.00 Pure hypercholesterolemia, unspecified; I25.10 Atherosclerotic heart disease of native coronary artery without angina pectoris; E11.9 Type 2 diabetes mellitus without complications; F17.210 Nicotine dependence, cigarettes, uncomplicated; Z79.4 Long term (current) use of insulin; Z79.82 Long term (current) use of aspirin; Z79.02 Long term (current) use of antithrombotics/antiplatelets; Z79.01 Long term (current) use of anticoagulants; Z79.899 Other long term (current) drug therapy; Z88.8 Allergy status to other drugs, medicaments and biological substances
CPT/HCPCS: 36415; 71250; 72131; 80053; 85025; 94640; 96374; 96375; 99285; J1170; J1885; J2930; J7620-GY

== ENCOUNTER 2019-12-28 11:06 | Emergency (ER) | payer MEDICARE, BC | END 2019-12-28 13:00 | disposition left against medical advice (07) | LOC: JP.ED 11:06 | DX: Z53.21 Procedure and treatment not carried out due to patient leaving prior to being seen by health care provider (principal) ==

== ENCOUNTER 2020-04-18 00:02 | Emergency (ER) | payer MEDICARE, BC ==
[2020-04-18] MEDS ORDERED: Albuterol/Ipratropium 3.0-0.5 MG/3 ML Neb Soln NEB ONE (00:38)
--- NOTE | 2020-04-18 00:52 | EDM.PDOC ---
ED HPI GENERAL MEDICAL PROBLEM - General Chief Complaint: Respiratory Problem Stated Complaint: [facility] Time Seen by Provider: 04/18/20 00:11 Source of Information: Reports: Patient - History of Present Illness INITIAL COMMENTS - FREE TEXT/NARRATIVE: Ana is a 70-year-old female presenting to the ED for evaluation of increasing shortness of breath after taking her first dose of Brilinta tonight. Patient has a past medical history significant for COPD, is an active smoker consuming 1-1/2 packs/day, but denies any fever, chills, chest pain or back pain, nausea, vomiting, or abdominal pain. The patient does have a chronic cough and chronic diarrhea. She was previously on Eliquis but that was discontinued because it was felt that the Plavix was causing her diarrhea. She was started on Brilinta as an alternative for anticoagulation presumably for paroxysmal atrial fibrillation. Patient also has a history significant for coronary artery disease status post CABG. - Related Data Allergies Allergy/AdvReac Type Severity Reaction Status Date / Time atorvastatin [From Lipitor] AdvReac Cannot Verified 04/18/20 00:15 Remember diclofenac AdvReac Cannot Verified 04/18/20 00:15 Remember epinephrine AdvReac Tachycardia Verified 04/18/20 00:15 rosuvastatin calcium AdvReac unknown Verified 04/18/20 00:15 [From Crestor] Home Meds: Home Meds Insulin Aspart [Novolog] 100 unit SQ ASDIRECTED 10/21/16 [History] Insulin Detemir [Levemir Flextouch] 35 units SQ BEDTIME 10/21/16 [History] lisinopriL [Prinivil] 2.5 mg PO DAILY 10/21/16 [History] Aspirin 81 mg PO DAILY 10/22/16 [History] Cyanocobalamin (Vitamin B-12) [B-12] 1,000 mg PO DAILY 10/22/16 [History] Acetaminophen [Tylenol] 325 mg PO ASDIRECTED PRN 08/10/17 [History] Metoprolol Tartrate 50 mg PO BID 04/30/19 [History] Sodium Chloride 1 gm PO BID 05/30/19 [History] Albuterol Sulfate [Albuterol Sulfate Hfa] 8.5 gm IH ASDIRECTED 12/26/19 [History] Gabapentin [Neurontin] 1 tab PO TID 04/18/20 [History] Pyridoxine HCl (Vitamin B6) [Vitamin B-6] 100 mg PO DAILY 04/18/20 [History] Ticagrelor [Brilinta] 1 tab PO BID 04/18/20 [History] Varenicline [Chantix] 1 tab PO BID 04/18/20 [History] Past Medical History HEENT History: Reports: Cataract, Impaired Vision Cardiovascular History: Reports: Afib, CAD, High Cholesterol, Hypertension, HI, PVD Respiratory History: Reports: Bronchitis, Recurrent, COPD Gastrointestinal History: Reports: Cholelithiasis, Other (See Below) Other Gastrointestinal History: colitis Genitourinary History: Reports: None 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 left elbow pain. L ulnar Fx 2018. right shoulder pain Neurological History: Reports: Concussion Psychiatric History: Reports: None Endocrine/Metabolic History: Reports: Diabetes, Type II, IDDM Hematologic History: Reports: B12 Deficiency, Blood Transfusion(s) Immunologic History: Reports: None Oncologic (Cancer) History: Reports: None Dermatologic History: Reports: None - Infectious Disease History Infectious Disease History: Reports: Measles - Past Surgical History Head Surgeries/Procedures: Reports: None HEENT Surgical History: Reports: Tonsillectomy Cardiovascular Surgical History: Reports: Coronary Artery Bypass, Coronary Artery Stent Respiratory Surgical History: Reports: None GI Surgical History: Reports: Cholecystectomy, Colonoscopy Female Surgical History: Reports: Hysterectomy, Salpingo-Oophorectomy Endocrine Surgical History: Reports: None Neurological Surgical History: Reports: None Oncologic Surgical History: Reports: None Dermatological Surgical History: Reports: None Social & Family History - Family History Family Medical History: No Pertinent Family History - Tobacco Use Tobacco Use Status *Q: Current Every Day Tobacco User Years of Tobacco use: 50 Packs/Tins Daily: 1.5 - Caffeine Use Caffeine Use: Reports: Soda - Recreational Drug Use Recreational Drug Use: No ED ROS GENERAL - Review of Systems Review Of Systems: See Below Constitutional: Reports: No Symptoms Respiratory: Reports: Shortness of Breath (Progressive since taking the Brilinta tonight. Patient has a history for COPD and continues to smoke a pack and a half a day.), Cough (Chronic cough) Cardiovascular: Reports: No Symptoms Endocrine: Reports: No Symptoms GI/Abdominal: Reports: Diarrhea (Chronic) Musculoskeletal: Reports: No Symptoms Skin: Reports: No Symptoms Neurological: Reports: No Symptoms Psychiatric: Reports: Anxiety Hematologic/Lymphatic: Reports: No Symptoms Immunologic: Reports: No Symptoms ED EXAM, GENERAL - Physical Exam Exam: See Below Exam Limited By: No Limitations General Appearance: Alert, WD/WN, Anxious Eye Exam: Bilateral Eye: EOMI, PERRL Head: Atraumatic, Normocephalic Neck: Normal Inspection, Supple, Non-Tender, Full Range of Motion Respiratory/Chest: No Respiratory Distress, No Accessory Muscle Use, Chest Non- Tender, Rhonchi (Bibasilar right greater than left. Prominent bronchial air sounds heard on auscultation in the right base.), Wheezing (Expiratory greater than inspiratory). No: Decreased Breath Sounds, Retractions Cardiovascular: Normal Peripheral Pulses, Regular Rate, Rhythm, No Edema, No Gallop, No JVD, No Murmur Peripheral Pulses: 2+: Radial (L), Radial (R) GI/Abdominal: Soft, Non-Tender, No Organomegaly, No Distention, Abnormal Bowel Sounds (Slightly increased bowel sounds) (Female) Exam: Deferred Rectal (Female) Exam: Deferred Neurological: Alert, Oriented, CN II-XII Intact, Normal Cognition, Normal Gait, No Motor/Sensory Deficits Psychiatric: Anxious Skin Exam: Warm, Dry, Intact, Normal Color, No Rash Lymphatic: No Adenopathy #1 Interpretation EKG Date: 04/18/20 Time: 00:44 Rhythm: NSR Lennon: RAD-Right Lennon Deviation P-Wave: Enlarged (Left atrial enlargement) QRS: Other ST-T: Other (T wave inversion in leads I, II, III, aVF, and V3 through V6.) QT: Prolonged Course - Vital Signs Last Recorded V/S: Last Vital Signs Temp 35.6 C L 04/18/20 00:07 Pulse 62 04/18/20 01:37 Resp 20 04/18/20 01:37 BP 194/79 H 04/18/20 01:37 Pulse Ox 92 L 04/18/20 01:37 - Orders/Labs/Meds Orders: Active Orders 24 hr Category Date Time Status EKG Documentation Completion [RC] ASDIRECTED Care 04/18/20 00:38 Active RT Aerosol Therapy [RC] ASDIRECTED Care 04/18/20 00:38 Active Chest 2V [CR] Stat Exams 04/18/20 00:38 Taken BASIC METABOLIC PANEL,BMP [CHEM] Stat Lab 04/18/20 00:50 Received TROPONIN I [CHEM] Stat Lab 04/18/20 00:50 Received EKG 12 Lead [EK] Routine Ther 04/18/20 00:38 Ordered Labs: Laboratory Tests 04/18/20 Range/Units 00:50 WBC 8.9 (4.5-11.0) K/uL RBC 4.85 (3.30-5.50) M/uL Hgb 13.3 (12.0-15.0) g/dL Hct 42.1 (36.0-48.0) % MCV 87 (80-98) fL MCH 27 (27-31) pg MCHC 32 (32-36) % Plt Count 305 (150-400) K/uL Neut % (Auto) 71 H (36-66) % Lymph % (Auto) 17 L (24-44) % Chester % (Auto) 9 H (2-6) % Eos % (Auto) 2 (2-4) % Baso % (Auto) 1 (0-1) % Meds: Medications Discontinued Medications Generic Name Dose Route Start Last Admin Trade Name Freq PRN Reason Stop Dose Admin Albuterol/Ipratropium 3 ml 04/18/20 00:38 04/18/20 01:04 Duoneb 3.0-0.5 Mg/3 Ml NEB 04/18/20 00:39 3 ml ONETIME ONE Administration Potassium Chloride 20 meq 04/18/20 01:44 Klor-Con M20 PO 04/18/20 01:45 ONETIME ONE - Radiology Interpretation Free Text/Narrative:: Chest 2 view: Sternotomy wires. Right atrial enlargement. Mild widening of the mediastinum with calcification of the aorta at the arch. Mild hyperinflation of the lungs with minimal flattening of the diaphragms. No acute infiltrates. Compression fractures at T8 and T12 with either sclerosis or failed previous vertebroplasty. - Re-Assessments/Exams Free Text/Narrative Re-Assessment/Exam: 04/18/20 01:53 troponin of less than 0.017. Sodium of 137, potassium 3.1, c hloride of 99, bicarb of 24, anion gap of 13.7, glucose of 71, calcium of 85, creatinine of 0.76, BUN of 6. The patient was given potassium chloride (K-Erika) 20 mEq by mouth for her hypokalemia. Departure - Departure Time of Disposition: 01:55 Disposition: Home, Self-Care 01 Condition: Good Clinical Impression: Hypokalemia Adverse reaction to antithrombotic medication Qualifiers: Encounter type: initial encounter Qualified Code(s): T45.525A - Adverse effect of antithrombotic drugs, initial encounter Dyspnea Qualifiers: Dyspnea type: shortness of breath Qualified Code(s): R06.02 - Shortness of breath; R06.00 - Dyspnea, unspecified; R06.01 - Orthopnea Emphysema/COPD Qualifiers: Emphysema type: panlobular Qualified Code(s): J43.1 - Panlobular emphysema - Discharge Information *PRESCRIPTION DRUG MONITORING PROGRAM REVIEWED*: Not Applicable *COPY OF PRESCRIPTION DRUG MONITORING REPORT IN PATIENT JERROD: Not Applicable Instructions: Shortness of Breath, Adult, [id number], Hypokalemia Referrals: PCP,None [Primary Care Provider] - Forms: ED Department Discharge Care Plan Goals: It appears that your shortness of breath is likely due to taking the Brilinta tonight. Up to 20% of people have reported shortness of breath after taking Brilinta. I would discontinue this medication and have you follow-up with your primary care provider, Dr. Rosen, later today to discuss alternatives to Brilinta as you appear to be in the 20% that have had an adverse reaction causing dyspnea (shortness of breath) as a result of taking this medicine. I would advocate against taking an additional dose, however, you need to be on some form of antiplatelet medication given your propensity for paroxysmal atrial fibrillation and your history for coronary artery disease. Unfortunately there is no "antidote" to take to make your shortness of breath improve although I would be generous with the use of your inhaler over the next 12 to 24 hours. The results of your labs are not worrisome except for having a low potassium which we are replacing with oral medication. Your EKG and cardiac enzymes are normal. There is no evidence for an acute infection on your chest x-ray. At this time, I believe that you are stable enough to be able to go home. Certa inly if your shortness of breath significantly worsens we are to see you back. Sepsis Event Note (ED) - Evaluation Sepsis Screening Result: No Definite Risk - Focused Exam Vital Signs: Vital Signs Temp Pulse Resp BP Pulse Ox 04/18/20 01:37 62 20 194/79 H 92 L 04/18/20 00:37 66 24 H 217/79 H 95 04/18/20 00:07 35.6 C L 64 20 212/84 H 94 L - Problem List & Annotations (1) Emphysema/COPD SNOMED Code(s): 54191415 Code(s): J43.9 - EMPHYSEMA, UNSPECIFIED Status: Chronic Priority: Medium Current Visit: Yes Qualifiers: Emphysema type: panlobular Qualified Code(s): J43.1 - Panlobular emphysema (2) Adverse reaction to antithrombotic medication SNOMED Code(s): 69756752 Code(s): T45.525A - ADVERSE EFFECT OF ANTITHROMBOTIC DRUGS, INITIAL ENCOUNTER Status: Acute Priority: High Current Visit: Yes Qualifiers: Encounter type: initial encounter Qualified Code(s): T45.525A - Adverse effect of antithrombotic drugs, initial encounter (3) Dyspnea SNOMED Code(s): 180652425 Code(s): R06.00 - DYSPNEA, UNSPECIFIED Status: Acute Priority: Medium Current Visit: Yes Qualifiers: Dyspnea type: shortness of breath Qualified Code(s): R06.02 - Shortness of breath; R06.00 - Dyspnea, unspecified; R06.01 - Orthopnea (4) Hypokalemia SNOMED Code(s): 95340697 Code(s): E87.6 - HYPOKALEMIA Status: Acute Priority: Medium Current Visit: Yes - Problem List Review Problem List Initiated/Reviewed/Updated: Yes - My Orders Last 24 Hours: My Active Orders 04/18/20 00:38 EKG Documentation Completion [RC] ASDIRECTED RT Aerosol Therapy [RC] ASDIRECTED Chest 2V [CR] Stat EKG 12 Lead [EK] Routine 04/18/20 00:50 BASIC METABOLIC PANEL,BMP [CHEM] Stat TROPONIN I [CHEM] Stat - Assessment/Plan Last 24 Hours: My Active Orders 04/18/20 00:38 EKG Documentation Completion [RC] ASDIRECTED RT Aerosol Therapy [RC] ASDIRECTED Chest 2V [CR] Stat EKG 12 Lead [EK] Routine 04/18/20 00:50 BASIC METABOLIC PANEL,BMP [CHEM] Stat TROPONIN I [CHEM] Stat Plan: Follow-up with Dr. Rosen as soon as possible to discuss replacing your Brilinta with one of the other antiplatelet medications. Discontinue the use of the Brilinta.
[2020-04-18 01:38] VITALS: BP 194/79; PULSE 62
[2020-04-18] MEDS ORDERED: Potassium Chloride 20 MEQ Tab.ER PO ONE (01:44)
--- NOTE | 2020-04-18 09:17 | CR ---
CHEST: 2 view CLINICAL HISTORY:Dyspnea COMPARISON:CT December 2019 FINDINGS: The heart is borderline enlarged. Pulmonary vascular is normal. There has been previous sternotomy. There are atherosclerotic changes in the aorta.. Lungs are hyperaerated. No infiltrates are seen. The no pleural effusions. There are kyphoplasty is in the mid and lower thoracic spine Impression: Borderline cardiomegaly No acute cardiopulmonary process.
== END 2020-04-18 02:40 | disposition home or self-care (01) ==
LOC: JP.ED 00:02
DX: J43.1 Panlobular emphysema (principal); T45.525A Adverse effect of antithrombotic drugs, initial encounter; E87.6 Hypokalemia; I48.91 Unspecified atrial fibrillation; I25.10 Atherosclerotic heart disease of native coronary artery without angina pectoris; E78.00 Pure hypercholesterolemia, unspecified; E11.51 Type 2 diabetes mellitus with diabetic peripheral angiopathy without gangrene; I10 Essential (primary) hypertension; F17.210 Nicotine dependence, cigarettes, uncomplicated; I25.2 Old myocardial infarction; Z88.8 Allergy status to other drugs, medicaments and biological substances; Z88.6 Allergy status to analgesic agent; Z79.4 Long term (current) use of insulin; Z79.82 Long term (current) use of aspirin; Z79.899 Other long term (current) drug therapy
CPT/HCPCS: 36415; 71046; 71046-26; 80048; 84484; 85025; 93005; 93010; 94640; 99285-25; A9270-GY; J7620-GY

== ENCOUNTER 2020-05-29 09:07 | Emergency (ER) | payer MEDICARE, BC ==
--- NOTE | 2020-05-29 09:37 | EDM.PDOC ---
ED HPI GENERAL MEDICAL PROBLEM - General Chief Complaint: Lower Extremity Injury/Pain Stated Complaint: FALL-RT LEG PAIN VIA NORTH Time Seen by Provider: 05/29/20 09:29 Source of Information: Reports: Patient, RN Notes Reviewed History Limitations: Reports: No Limitations - History of Present Illness INITIAL COMMENTS - FREE TEXT/NARRATIVE: 70-year-old female presents emergency department a complaint of right hip pain she fell 2 days prior injured herself she still having pain difficult for her to bear weight, also of note she states she has had a cough with sputum production for the last 2 weeks does have a history of COPD. Was found by EMS to have O2 sat around 80% did respond to 2 L of oxygen now at 90% - Related Data Allergies Allergy/AdvReac Type Severity Reaction Status Date / Time ticagrelor [From Brilinta] Allergy Shortness Verified 05/29/20 09:14 of Breath atorvastatin [From Lipitor] AdvReac Cannot Verified 05/29/20 09:14 Remember diclofenac AdvReac Cannot Verified 05/29/20 09:14 Remember epinephrine AdvReac Tachycardia Verified 05/29/20 09:14 rosuvastatin calcium AdvReac unknown Verified 05/29/20 09:14 [From Crestor] Home Meds: Home Meds Insulin Aspart [Novolog] 5 unit SQ ASDIRECTED 10/21/16 [History] Insulin Detemir [Levemir Flextouch] 35 units SQ BEDTIME 10/21/16 [History] lisinopriL [Prinivil] 50 mg PO DAILY 10/21/16 [History] Aspirin 81 mg PO DAILY 10/22/16 [History] Cyanocobalamin (Vitamin B-12) [B-12] 1,000 mg PO DAILY 10/22/16 [History] Acetaminophen [Tylenol] 500 mg PO ASDIRECTED PRN 08/10/17 [History] Metoprolol Tartrate 50 mg PO BID 04/30/19 [History] Sodium Chloride 1 gm PO BID 05/30/19 [History] Albuterol Sulfate [Albuterol Sulfate Hfa] 2 puff IH Q4H PRN 12/26/19 [History] Gabapentin [Neurontin] 300 mg PO TID 04/18/20 [History] Apixaban [Eliquis] 5 mg PO BID 04/24/20 [History] Cetirizine HCl [Zyrtec] 10 mg PO DAILY PRN 04/24/20 [History] Ibuprofen [Advil] 200 mg PO Q6H PRN 04/24/20 [History] Loperamide HCl/Simethicone [Imodium Multi-Symptom Rel Cplt] 1 tab PO DAILY PRN 04/24/20 [History] Multivitamin with Minerals [Multiple Vitamin] 1 tab PO DAILY 04/24/20 [History] Pravastatin Sodium [Pravachol] 40 mg PO BEDTIME 04/24/20 [History] metFORMIN [Glucophage] 1,000 mg PO BID 04/24/20 [History] tiZANidine HCl [Tizanidine HCl] 4 mg PO Q8H PRN 04/24/20 [History] Past Medical History HEENT History: Reports: Cataract, Impaired Vision Cardiovascular History: Reports: Afib, CAD, High Cholesterol, Hypertension, [place], PVD Respiratory History: Reports: Bronchitis, Recurrent, COPD, SOB Gastrointestinal History: Reports: Cholelithiasis, Other (See Below) Other Gastrointestinal History: colitis [employer]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 left elbow pain. L ulnar Fx 2018. right shoulder pain Neurological History: Reports: Concussion Endocrine/Metabolic History: Reports: Diabetes, Type II, IDDM Hematologic History: Reports: B12 Deficiency, Blood Transfusion(s) Immunologic History: Reports: None Oncologic (Cancer) History: Reports: None Dermatologic History: Reports: None - Infectious Disease History Infectious Disease History: Reports: Measles - Past Surgical History Head Surgeries/Procedures: Reports: None HEENT Surgical History: Reports: Cataract Surgery, Tonsillectomy Cardiovascular Surgical History: Reports: Coronary Artery Bypass, Coronary Artery Stent Respiratory Surgical History: Reports: None GI Surgical History: Reports: Cholecystectomy, Colonoscopy Female Surgical History: Reports: Hysterectomy, Salpingo-Oophorectomy Endocrine Surgical History: Reports: None Neurological Surgical History: Reports: None Musculoskeletal Surgical History: Reports: Arthroscopic Knee Oncologic Surgical History: Reports: None Dermatological Surgical History: Reports: None Social & Family History - Family History Family Medical History: No Pertinent Family History - Tobacco Use Tobacco Use Status *Q: Current Every Day Tobacco User Years of Tobacco use: 50 Packs/Tins Daily: 1.5 Used Tobacco, but Quit: No Second Hand Smoke Exposure: Yes - Caffeine Use Caffeine Use: Reports: None - Recreational Drug Use Recreational Drug Use: No Review of Systems - Review of Systems Review Of Systems: See Below Constitutional: Reports: No Symptoms. Denies: Fever Respiratory: Reports: Shortness of Breath, Cough, Sputum GI/Abdominal: Reports: Decreased Appetite Musculoskeletal: Reports: Joint Pain (Right hip pain) Skin: Reports: No Symptoms Neurological: Reports: No Symptoms ED EXAM, GENERAL - Physical Exam Exam: See Below Exam Limited By: No Limitations General Appearance: Alert, WD/WN, No Apparent Distress Respiratory/Chest: No Accessory Muscle Use, Decreased Breath Sounds, Rhonchi Cardiovascular: Irregularly Irregular GI/Abdominal: Soft, Non-Tender Course - Vital Signs Last Recorded V/S: Last Vital Signs Temp 97.7 F 05/29/20 09:17 Pulse 91 05/29/20 12:35 Resp 24 H 05/29/20 12:35 BP 195/93 H 05/29/20 12:35 Pulse Ox 92 L 05/29/20 12:35 - Orders/Labs/Meds Orders: Active Orders 24 hr Category Date Time Status Peripheral IV Care [RC] . DIRECTED Care 05/29/20 11:36 Active RT Aerosol Therapy [RC] ASDIRECTED Care 05/29/20 13:20 Active Hip wo Cont Rt [CT] Stat Exams 05/29/20 14:06 Ordered Iopamidol [Isovue-300 (61%)] Med 05/29/20 11:45 Active 100 ml IV . DIRECTED PRN Sodium Chloride 0.9% [Normal Saline] 1,000 ml Med 05/29/20 11:45 Active IV ASDIRECTED Sodium Chloride 0.9% [Normal Saline] 100 ml Med 05/29/20 11:45 Active IV ASDIRECTED Sodium Chloride 0.9% [Saline Flush] Med 05/29/20 11:36 Active 10 ml FLUSH ASDIRECTED PRN Peripheral IV Insertion Adult [OM.PC] Urgent Oth 05/29/20 11:36 Ordered Medication Orders Sodium Chloride (Normal Saline) 1,000 mls @ 100 mls/hr IV ASDIRECTED LEWIS Last Admin: 05/29/20 12:16 Dose: 100 mls/hr Documented by: BERTO Sodium Chloride (Normal Saline) 100 mls @ 3 mls/sec IV ASDIRECTED LEWIS Stop: 05/29/20 16:00 Last Admin: 05/29/20 12:07 Dose: 3 mls/sec Documented by: IMELDA Iopamidol (Isovue-300 (61%)) 100 ml IV . DIRECTED PRN PRN Reason: RADIOLOGY EXAM Stop: 05/30/20 11:46 Last Admin: 05/29/20 12:07 Dose: 100 ml Documented by: IMELDA Sodium Chloride (Saline Flush) 10 ml FLUSH ASDIRECTED PRN PRN Reason: Keep Vein Open Last Admin: 05/29/20 12:07 Dose: 10 ml Documented by: IMELDA Labs: Laboratory Tests 05/29/20 05/29/20 05/29/20 Range/Units 09:44 09:44 09:44 WBC 11.7 H (4.5-11.0) K/uL RBC 4.87 (3.30-5.50) M/uL Hgb 13.5 (12.0-15.0) g/dL Hct 41.6 (36.0-48.0) % MCV 85 (80-98) fL MCH 28 (27-31) pg MCHC 33 (32-36) % Plt Count 266 (150-400) K/uL Neut % (Auto) 76 H (36-66) % Lymph % (Auto) 12 L (24-44) % Garden % (Auto) 12 H (2-6) % Eos % (Auto) 0 L (2-4) % Baso % (Auto) 0 (0-1) % Sodium 127 L (140-148) mmol/L Potassium 4.2 (3.6-5.2) mmol/L Chloride 92 L (100-108) mmol/L Carbon Dioxide 25 (21-32) mmol/L Anion Gap 14.2 H (5.0-14.0) mmol/L BUN 15 D (7-18) mg/dL Creatinine 1.0 (0.6-1.0) mg/dL Est Cr Clr Drug Dosing 45.52 mL/min Estimated GFR (MDRD) 55 L (>60) Glucose 211 H (74-106) mg/dL Calcium 8.9 (8.5-10.1) mg/dL Total Bilirubin 1.2 H D (0.2-1.0) mg/dL AST 17 (15-37) U/L ALT 16 (12-78) U/L Alkaline Phosphatase 75 (46-116) U/L Troponin I 0.064 H* (0.000-0.056) ng/mL NT-Pro-B Natriuret Pep (5-125) pg/mL Total Protein 7.3 (6.4-8.2) g/dL Albumin 3.3 L (3.4-5.0) g/dL Globulin 4.0 H (2.3-3.5) g/dL Albumin/Globulin Ratio 0.8 L (1.2-2.2) SARS CoV-2 RNA Rapid TYLER 05/29/20 05/29/20 05/29/20 Range/Units 10:48 12:17 13:01 WBC (4.5-11.0) K/uL RBC (3.30-5.50) M/uL Hgb (12.0-15.0) g/dL Hct (36.0-48.0) % MCV (80-98) fL MCH (27-31) pg MCHC (32-36) % Plt Count (150-400) K/uL Neut % (Auto) (36-66) % Lymph % (Auto) (24-44) % Garden % (Auto) (2-6) % Eos % (Auto) (2-4) % Baso % (Auto) (0-1) % Sodium (140-148) mmol/L Potassium (3.6-5.2) mmol/L Chloride (100-108) mmol/L Carbon Dioxide (21-32) mmol/L Anion Gap (5.0-14.0) mmol/L BUN (7-18) mg/dL Creatinine (0.6-1.0) mg/dL Est Cr Clr Drug Dosing mL/min Estimated GFR (MDRD) (>60) Glucose (74-106) mg/dL Calcium (8.5-10.1) mg/dL Total Bilirubin (0.2-1.0) mg/dL AST (15-37) U/L ALT (12-78) U/L Alkaline Phosphatase (46-116) U/L Troponin I 0.111 H* (0.000-0.056) ng/mL NT-Pro-B Natriuret Pep 7287 H (5-125) pg/mL Total Protein (6.4-8.2) g/dL Albumin (3.4-5.0) g/dL Globulin (2.3-3.5) g/dL Albumin/Globulin Ratio (1.2-2.2) SARS CoV-2 RNA Rapid TYLER Negative Meds: Medications Generic Name Dose Route Start Last Admin Trade Name Freq PRN Reason Stop Dose Admin Sodium Chloride 1,000 mls @ 100 mls/hr 05/29/20 11:45 05/29/20 12:16 Normal Saline IV 100 mls/hr ASDIRECTED LEWIS Administration Sodium Chloride 100 mls @ 3 mls/sec 05/29/20 11:45 05/29/20 12:07 Normal Saline IV 05/29/20 16:00 3 mls/sec ASDIRECTED LEWIS Administration Iopamidol 100 ml 05/29/20 11:45 05/29/20 12:07 Isovue-300 (61%) IV 05/30/20 11:46 100 ml . DIRECTED PRN Administration RADIOLOGY EXAM Sodium Chloride 10 ml 05/29/20 11:36 05/29/20 12:07 Saline Flush FLUSH 10 ml ASDIRECTED PRN Administration Keep Vein Open Discontinued Medications Generic Name Dose Route Start Last Admin Trade Name Freq PRN Reason Stop Dose Admin Albuterol/Ipratropium 3 ml 05/29/20 13:19 05/29/20 13:23 Duoneb 3.0-0.5 Mg/3 Ml NEB 05/29/20 13:20 3 ml ONETIME ONE Administration Furosemide 40 mg 05/29/20 14:09 05/29/20 14:12 Lasix IVPUSH 05/29/20 14:10 40 mg ONETIME ONE Administration Sodium Chloride 10 ml 05/29/20 11:45 Normal Saline FLUSH 05/29/20 11:46 ONETIME ONE Departure - Departure Time of Disposition: 14:15 Disposition: DC/Tfer to Acute Hospital 02 Condition: Fair Clinical Impression: Lung mass - Discharge Information Referrals: PCP,None [Primary Care Provider] - Forms: ED Department Discharge Critical Care Note - Critical Care Note Total Time (mins): 20 Sepsis Event Note (ED) - Evaluation Sepsis Screening Result: No Definite Risk - Focused Exam Vital Signs: Vital Signs Temp Pulse Resp BP Pulse Ox 05/29/20 12:35 91 24 H 195/93 H 92 L 05/29/20 11:34 87 24 H 186/84 H 92 L 05/29/20 11:04 87 24 H 164/82 H 94 L 05/29/20 10:34 81 22 H 160/66 H 94 L 05/29/20 10:12 88 25 H 170/83 H 92 L 05/29/20 09:34 86 173/80 H 91 L 05/29/20 09:17 97.7 F 80 24 H 190/79 H 90 L 05/29/20 09:15 90 L 05/29/20 09:10 97.7 F 80 24 H 190/79 H 80 L - My Orders Last 24 Hours: My Active Orders 05/29/20 11:36 Peripheral IV Care [RC] . DIRECTED Sodium Chloride 0.9% [Saline Flush] 10 ml FLUSH ASDIRECTED PRN Peripheral IV Insertion Adult [OM.PC] Urgent 05/29/20 11:45 Iopamidol [Isovue-300 (61%)] 100 ml IV . DIRECTED PRN Sodium Chloride 0.9% [Normal Saline] 1,000 ml IV ASDIRECTED Sodium Chloride 0.9% [Normal Saline] 100 ml IV ASDIRECTED 05/29/20 13:20 RT Aerosol Therapy [RC] ASDIRECTED 05/29/20 14:06 Hip wo Cont Rt [CT] Stat - Assessment/Plan Last 24 Hours: My Active Orders 05/29/20 11:36 Peripheral IV Care [RC] . DIRECTED Sodium Chloride 0.9% [Saline Flush] 10 ml FLUSH ASDIRECTED PRN Peripheral IV Insertion Adult [OM.PC] Urgent 05/29/20 11:45 Iopamidol [Isovue-300 (61%)] 100 ml IV . DIRECTED PRN Sodium Chloride 0.9% [Normal Saline] 1,000 ml IV ASDIRECTED Sodium Chloride 0.9% [Normal Saline] 100 ml IV ASDIRECTED 05/29/20 13:20 RT Aerosol Therapy [RC] ASDIRECTED 05/29/20 14:06 Hip wo Cont Rt [CT] Stat Plan: Assessment Acuity = acute Site and laterality = obstructive right middle lobe bronchus unknown etiology complicated patient known history of coronary artery disease and diastolic heart failure Etiology = unknown suspicious for neoplasm Manifestations = hypoxia elevated troponin Location of injury = Home Lab values = CBC unremarkable sodium low at 127 consistent hyponatremia troponin elevated 0.06 for repeat troponin elevated 0.111 probably related to leak phenomenon, Covid test is negative CT scan describes the obstruction above Plan Call discussed case with Dr. Montoya hospitalist [facility] at 1405 kindly except the patient in transport request that CT scan of the right hip be done to rule out any occult fracture, 40 mg Lasix IV push be given, she was also given 1 g Rocephin because of the possibility of postobstructive pneumonia will be transferred via EMS ground, patient normally gets her care at [facility] however because of weather conditions cannot transport to the [facility] This note was dictated using [employer] voice recognition software please call with any questions on syntax or grammar.
--- NOTE | 2020-05-29 10:47 | CR ---
Hip Min 2V or 3V Rt CLINICAL HISTORY: Fall, pain FINDINGS: No hip fracture or dislocation is identified. There is some hip joint space narrowing and acetabular spurring. There is moderate atherosclerotic vascular disease with arterial stenting. IMPRESSION: Osteoarthritis No fracture seen
--- NOTE | 2020-05-29 11:00 | CR ---
CHEST: 2 view CLINICAL HISTORY:Hypoxic COMPARISON:04/18/2020 FINDINGS: Heart size is mildly enlarged. Pulmonary vascularity is normal. Patient has had previous sternotomy. There are atherosclerotic changes in the aorta.. There is patchy airspace disease in the right lower lobe. There is volume loss in the right middle lobe with downward displacement of the minor fissure. Lungs are generally hyperaerated. IMPRESSION: Patchy right lower lobe infiltrate Subsegmental atelectasis right middle lobe of uncertain etiology. Bronchial lesion should be excluded. CT chest recommended
[2020-05-29] MEDS ORDERED: Sodium Chloride 0.9% 10 ML Syringe FLUSH PRN (11:36)
[2020-05-29] MEDS ORDERED: Sodium Chloride 0.9% 1,000 ML IV SCH (11:45)
[2020-05-29] MEDS ORDERED: Sodium Chloride 0.9% 100 ML IV SCH (11:45)
[2020-05-29] MEDS ORDERED: Sodium Chloride 0.9% 10 ML SDV FLUSH ONE (11:45)
[2020-05-29] MEDS ORDERED: Iopamidol 612 MG/ML 100 ML Bottle IV PRN (11:45)
--- NOTE | 2020-05-29 12:28 | CT ---
Chest w Cont CLINICAL HISTORY: Infiltrates and atelectasis TECHNIQUE: Transverse scans were obtained from the thoracic inlet to the lung bases without contrast. Auto dosage reduction in intervertebral reconstruction techniques were employed COMPARISONS: None FINDINGS: No pulmonary masses identified. There is atelectasis of the lateral segment of the right middle lobe. There is soft tissue prominence and some narrowing of the right middle lobe bronchus there is some generalized bronchial thickening bilaterally. This is greater on the right. There is patchy density in the right lower lobe which may represent some pneumonic infiltrate and consolidation in the posterior costophrenic angle. There is minimal streaky density in the left lung base which may represent some minimal atelectasis or scarring. There is a 2.0 x 2.2 x 2.3 cm lymph node in the subcarinal region. There are some smaller lymph nodes in the peritracheal region. There are no effusions. Patient has thoracic compression deformities. There has been vertebroplasty at T9 and L1 IMPRESSION: Atelectasis of the lateral segment of the right middle lobe. There is bronchial filling defect and/or bronchial thickening proximal. This could be neoplasm or possibly mucus plugging. Bronchoscopy should be considered when patient's condition allows Patchy infiltrate and some consolidation in the basal segments on the right Streaky atelectasis or scarring in the left lung base Generalized bronchial thickening may be chronic
[2020-05-29] MEDS ORDERED: Albuterol/Ipratropium 3.0-0.5 MG/3 ML Neb Soln NEB ONE (13:19)
[2020-05-29 13:32] VITALS: BP 195/93; PULSE 91
[2020-05-29] MEDS ORDERED: Furosemide 40 MG/4 ML VIAL IVPUSH ONE (14:09)
--- NOTE | 2020-05-29 14:50 | CRLCT ---
HISTORY: Right hip pain after falling injury. FINDINGS: The pelvis and hips were studied in the axial plane. Sagittal and coronal 2 dimensional reconstructions were then performed. Diffuse osteopenia is noted. No findings for acute type fracture or dislocation. Mild osteoarthritic change is noted of both hip joints and both sacroiliac joints. No findings for hematoma. Extensive vascular calcifications and bilateral vascular stents are noted. IMPRESSION: Negative study for acute fracture. Please note that all CT scans at this facility use dose modulation, iterative reconstruction, and/or weight-based dosing when appropriate to reduce radiation dose to as low as reasonably achievable. Dictated by Tavares Cody MD @ May 29 2020 2:45PM Signed by Dr. Tavares Cody @ May 29 2020 2:48PM
== END 2020-05-29 16:00 ==
LOC: JP.ED 09:07
DX: R91.8 Other nonspecific abnormal finding of lung field (principal); J98.09 Other diseases of bronchus, not elsewhere classified; I25.10 Atherosclerotic heart disease of native coronary artery without angina pectoris; I11.0 Hypertensive heart disease with heart failure; I50.30 Unspecified diastolic (congestive) heart failure; I48.91 Unspecified atrial fibrillation; E78.00 Pure hypercholesterolemia, unspecified; I25.2 Old myocardial infarction; E11.51 Type 2 diabetes mellitus with diabetic peripheral angiopathy without gangrene; F17.210 Nicotine dependence, cigarettes, uncomplicated; Z20.828 Contact with and (suspected) exposure to other viral communicable diseases; Z88.8 Allergy status to other drugs, medicaments and biological substances; Z88.6 Allergy status to analgesic agent; Z79.82 Long term (current) use of aspirin; Z79.4 Long term (current) use of insulin; Z79.01 Long term (current) use of anticoagulants; Z79.899 Other long term (current) drug therapy
CPT/HCPCS: 36415; 71046; 71260; 73502; 73700; 80053; 83880; 84484; 85025; 94640; 96374; 99285; J1940; J7030; Q9967; U0002; J7620-GY

== ENCOUNTER 2020-10-10 10:23 | Inpatient (IN) | payer MEDICARE, BC ==
--- NOTE | 2020-10-10 10:37 | EDM.PDOC ---
ED HPI GENERAL MEDICAL PROBLEM - General Chief Complaint: Lower Extremity Injury/Pain Stated Complaint: MED VIA NORTH Time Seen by Provider: 10/10/20 10:29 Source of Information: Reports: Patient, EMS, RN Notes Reviewed History Limitations: Reports: No Limitations - History of Present Illness INITIAL COMMENTS - FREE TEXT/NARRATIVE: 70-year-old female presents emergency department day complaint of right hip pain, she fell at a local restaurant landing on her right hip and hitting her right cheek on the floor there is no loss of consciousness no nausea or vomiting complains of no other injuries Hip Pain Score (Numeric/FACES): 3 - Related Data Allergies Allergy/AdvReac Type Severity Reaction Status Date / Time ticagrelor [From Brilinta] Allergy Shortness Verified 10/10/20 10:36 of Breath atorvastatin [From Lipitor] AdvReac Cannot Verified 10/10/20 10:36 Remember diclofenac AdvReac Cannot Verified 10/10/20 10:36 Remember epinephrine AdvReac Tachycardia Verified 10/10/20 10:36 rosuvastatin calcium AdvReac unknown Verified 10/10/20 10:36 [From Crestor] Home Meds: Home Meds Insulin Aspart [Novolog] 5 unit SQ ASDIRECTED 10/21/16 [History] Insulin Detemir [Levemir Flextouch] 35 units SQ BEDTIME 10/21/16 [History] lisinopriL [Prinivil] 50 mg PO DAILY 10/21/16 [History] Aspirin 81 mg PO DAILY 10/22/16 [History] Cyanocobalamin (Vitamin B-12) [B-12] 1,000 mg PO DAILY 10/22/16 [History] Acetaminophen [Tylenol] 500 mg PO ASDIRECTED PRN 08/10/17 [History] Metoprolol Tartrate 50 mg PO BID 04/30/19 [History] Sodium Chloride 1 gm PO BID 05/30/19 [History] Albuterol Sulfate [Albuterol Sulfate Hfa] 2 puff IH Q4H PRN 12/26/19 [History] Gabapentin [Neurontin] 300 mg PO TID 04/18/20 [History] Apixaban [Eliquis] 5 mg PO BID 04/24/20 [History] Cetirizine HCl [Zyrtec] 10 mg PO DAILY PRN 04/24/20 [History] Ibuprofen [Advil] 200 mg PO Q6H PRN 04/24/20 [History] Loperamide HCl/Simethicone [Imodium Multi-Symptom Rel Cplt] 1 tab PO DAILY PRN 04/24/20 [History] Multivitamin with Minerals [Multiple Vitamin] 1 tab PO DAILY 04/24/20 [History] Pravastatin Sodium [Pravachol] 40 mg PO BEDTIME 04/24/20 [History] metFORMIN [Glucophage] 1,000 mg PO BID 04/24/20 [History] tiZANidine HCl [Tizanidine HCl] 4 mg PO Q8H PRN 04/24/20 [History] Past Medical History HEENT History: Reports: Cataract, Impaired Vision Cardiovascular History: Reports: Afib, CAD, High Cholesterol, Hypertension, [place], PVD Respiratory History: Reports: Bronchitis, Recurrent, COPD, SOB Gastrointestinal History: Reports: Cholelithiasis, Other (See Below) Other Gastrointestinal History: colitis [employer]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 left elbow pain. L ulnar Fx 2018. right shoulder pain Neurological History: Reports: Concussion Endocrine/Metabolic History: Reports: Diabetes, Type II, IDDM Hematologic History: Reports: B12 Deficiency, Blood Transfusion(s) Immunologic History: Reports: None Oncologic (Cancer) History: Reports: None Dermatologic History: Reports: None - Infectious Disease History Infectious Disease History: Reports: Measles - Past Surgical History HEENT Surgical History: Reports: Cataract Surgery, Tonsillectomy Social & Family History - Family History Family Medical History: No Pertinent Family History - Caffeine Use Caffeine Use: Reports: None Review of Systems - Review of Systems Review Of Systems: See Below Constitutional: Reports: No Symptoms Eyes: Reports: No Symptoms Ears: Reports: No Symptoms Nose: Reports: No Symptoms Mouth/Throat: Reports: No Symptoms Respiratory: Reports: No Symptoms Cardiovascular: Reports: No Symptoms GI/Abdominal: Reports: No Symptoms Genitourinary: Reports: No Symptoms Musculoskeletal: Reports: Joint Pain (Hip pain). Denies: Neck Pain, Shoulder Pain, Back Pain Skin: Reports: Bruising (Right cheek) ED EXAM, GENERAL - Physical Exam Exam: See Below Free Text/Narrative:: Primary survey GCS 15 airways open patent and clear lungs are clear to auscultation bilaterally cardiovascular demonstrates regular rate and rhythm S1- S2 Secondary survey General: Female GCS 15 not in any distress, alert and oriented x3 HEENT: head is bruising is appreciated on the right cheek normocephalic, eyes pupils equal round reactive to light, sclera clear no conjunctivitis appreciated. Ears tympanic membranes clear and cramer landmarks and light reflex are present bilaterally canals are clear. Nose no septal deviation, nares are clear, no blood present. Mouth mucosa is moist and pink no erythema or exudate noted in soft palate, tongue is midline uvula is midline, dentition is intact. Neck: Supple no thyromegaly no tracheal deviation. NO posterior midline C-spine tenderness NO evidence of intoxication GCS > 14 No focal neurological deficit NO distracting injury Nodes: Cervical nodes subclavicular nodes nontender no palpable lymphadenopathy noted. Lungs: clear to auscultation bilaterally with symmetrical respirations, no adventitious noise appreciated. CV: Regular rate and rhythm S1 and S2 appreciated no murmurs rubs or gallops noted. Abdomen: Soft, nontender, no palpable masses or organomegaly appreciated, no distention no guarding bowel sounds are present, [scars ]. Neuro: 2 through 12 grossly intact, Skin: Warm and dry, intact no other injury noted Extremities: No lower extremity edema appreciated, tenderness to palpation of the greater trochanter pelvic rocks is negative no tenderness shoulders elbows wrists bilaterally no tenderness to the left hip no tenderness knees ankles bilaterally Course - Vital Signs Last Recorded V/S: Last Vital Signs Temp 97.9 F 10/10/20 10:31 Pulse 73 10/10/20 10:31 Resp 16 10/10/20 10:31 BP 149/72 H 10/10/20 10:31 Pulse Ox 90 L 10/10/20 10:31 - Orders/Labs/Meds Orders: Active Orders 24 hr Category Date Time Status BASIC METABOLIC PANEL,BMP [CHEM] Urgent Lab 10/10/20 11:30 Ordered CBC WITH AUTO DIFF [HEME] Stat Lab 10/10/20 11:30 Ordered CORONAVIRUS COVID-19, TYLER Stat Lab 10/10/20 11:30 Ordered Meds: Medications Discontinued Medications Generic Name Dose Route Start Last Admin Trade Name Freq PRN Reason Stop Dose Admin Fentanyl 50 mcg 10/10/20 10:38 Fentanyl 100 Mcg/2 Ml Sdv IM 10/10/20 10:39 ONETIME ONE Departure - Departure Time of Disposition: 11:32 Disposition: Admitted As Inpatient 66 Condition: Fair Clinical Impression: Impacted fracture of right hip Qualifiers: Encounter type: initial encounter Fracture type: closed Qualified Code(s): S72.091A - Other fracture of head and neck of right femur, initial encounter for closed fracture - Discharge Information Referrals: PCP,None [Primary Care Provider] - Forms: ED Department Discharge Sepsis Event Note (ED) - Focused Exam Vital Signs: Vital Signs Temp Pulse Resp BP Pulse Ox 10/10/20 10:31 97.9 F 73 16 149/72 H 90 L - My Orders Last 24 Hours: My Active Orders 10/10/20 11:30 BASIC METABOLIC PANEL,BMP [CHEM] Urgent CBC WITH AUTO DIFF [HEME] Stat CORONAVIRUS COVID-19, TYLER Stat - Assessment/Plan Last 24 Hours: My Active Orders 10/10/20 11:30 BASIC METABOLIC PANEL,BMP [CHEM] Urgent CBC WITH AUTO DIFF [HEME] Stat CORONAVIRUS COVID-19, TYLER Stat Plan: Assessment Acuity = acute Site and laterality = right hip fracture impaction Etiology = secondary to fall Manifestations = pain Location of injury = Home Lab values = x-ray describes a fracture above CT scan of facial bones and head show no acute process Plan Call discussed the case with orthopedic surgeon at 1100 recommended admission plan for surgical intervention: Discussed case with hospitalist on-call at 1130 kindly agreed to come evaluate the patient emergency department for admission recommended blood work CBC BMP and Covid testing This note was dictated using [employer] voice recognition software please call with any questions on syntax or grammar.
[2020-10-10] MEDS ORDERED: fentaNYL 100 MCG/2 ML SDV IM ONE (10:38)
--- NOTE | 2020-10-10 11:10 | CR ---
Hip Min 2V or 3V w Pelvis Rt CLINICAL HISTORY: Fall, pain FINDINGS: There is some foreshortening of the subcapital region of the right femur. There is some bony overlap. There is minimal transverse lucency. This raises suspicion for subcapital fracture. There is moderate osteoarthritis in both hips IMPRESSION: Deformity of the subcapital region of the right hip is suspect for fracture. Severe osteoarthritic changes bilaterally
--- NOTE | 2020-10-10 11:13 | CT ---
Head wo Cont CLINICAL HISTORY: Fall, pain COMPARISON: None TECHNIQUE: Transverse scans were obtained from the base of the skull through the vertex without IV contrast on a multislice, multidetector CT scanner. Auto dosage reduction and iterative reconstruction techniques employed. FINDINGS: No focal abnormal parenchymal density is identified.. There is no mass effect, hemorrhage, or extraaxial collection. There is some periventricular lucency bilaterally The basal cisterns and sulci over the convexities are prominent. The ventricles are prominent. IMPRESSION: Age-related atrophy Chronic ischemic microvascular changes No acute intracranial process
--- NOTE | 2020-10-10 11:16 | CT ---
Max Facial Sinus wo Cont CLINICAL HISTORY: Fall, bruising right cheek TECHNIQUE: Multiple contiguous axial sections were obtained through the facial bones and paranasal sinuses with coronal and sagittal reconstructions. Auto dosage reduction and iterative reconstruction techniques employed. FINDINGS: There are chronic mucoperiosteal changes in the right maxillary sinus. There may been previous sinus surgery. There is leftward deviation the nasal septum. The nasal bones appear intact. The anterior nasal spine is intact. The bony orbits are free of fracture. No orbital mass or significant hematomas identified. The globes appear normal bilaterally. Zygomatic arches are intact. Mandible is intact. TMJs are symmetrical. 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
[2020-10-10 12:34] LABS: CORONAVIRUS COVID-19 NAA NEGATIVE (NEGATIVE)
--- NOTE | 2020-10-10 12:44 | PCM.HP.2 ---
H&P History of Present Illness - General Date of Service: 10/10/20 Admit Problem/Dx: Admission Diagnosis/Problem Admission Diagnosis/Problem Fracture of right hip requiring operative repair Source of Information: Patient, Provider History Limitations: Reports: No Limitations - History of Present Illness Initial Comments - Free Text/Narative: CC: I tripped on a rug HPI: Ana presents to the emergency room today with severe right hip pain after tripping on a rug and falling at a local restaurant this morning. She reports she was leaving the bathroom when she tripped over a rug and landed on her right side and especially her right hip. She had immediate sharp pain in the hip area. She was unable to get up off of the ground and had to lay there for some time. She did receive some pain medication in route with some improvement. Anytime she tries to move her right hip she has severe pain but it is comfortable when she sits still. She had been feeling well otherwise. Shortness of breath was stable. She does use oxygen at home 24 hours a day. No complaints of chest pain or exertional dyspnea recently. No change in bowel or bladder habits. No skin rashes. She does report an ulcer on her left fifth toe that has been slow to heal. She has no previous history of difficulty with anesthesia. Functional status is not great and walking a block is difficult but her exercise is limited by her back pain and not by dyspnea or chest pain. Work-up in the emergency room revealed an impacted subcapital fracture of the right hip. Surgical intervention is planned. The patient will be admitted for further management. Hip Pain Score (Numeric/FACES): 3 - Related Data Allergies/Adverse Reactions: Allergies Allergy/AdvReac Type Severity Reaction Status Date / Time ticagrelor [From Brilinta] Allergy Shortness Verified 10/10/20 10:36 of Breath atorvastatin [From Lipitor] AdvReac Cannot Verified 10/10/20 10:36 Remember diclofenac AdvReac Cannot Verified 10/10/20 10:36 Remember epinephrine AdvReac Tachycardia Verified 10/10/20 10:36 rosuvastatin calcium AdvReac unknown Verified 10/10/20 10:36 [From Crestor] Home Medications: Home Meds Insulin Aspart [Novolog] 5 unit SQ ASDIRECTED 10/21/16 [History] Insulin Detemir [Levemir Flextouch] 35 units SQ BEDTIME 10/21/16 [History] lisinopriL [Prinivil] 5 mg PO DAILY 10/21/16 [History] Aspirin 81 mg PO DAILY 10/22/16 [History] Cyanocobalamin (Vitamin B-12) [B-12] 1,000 mg PO DAILY 10/22/16 [History] Acetaminophen [Tylenol] 500 mg PO ASDIRECTED PRN 08/10/17 [History] Metoprolol Tartrate 50 mg PO BID 04/30/19 [History] Sodium Chloride 1 gm PO BID 05/30/19 [History] Albuterol Sulfate [Albuterol Sulfate Hfa] 2 puff IH Q4H PRN 12/26/19 [History] Gabapentin [Neurontin] 300 mg PO TID 04/18/20 [History] Apixaban [Eliquis] 5 mg PO BID 04/24/20 [History] Cetirizine HCl [Zyrtec] 10 mg PO DAILY PRN 04/24/20 [History] Ibuprofen [Advil] 200 mg PO Q6H PRN 04/24/20 [History] Loperamide HCl/Simethicone [Imodium Multi-Symptom Rel Cplt] 1 tab PO DAILY PRN 04/24/20 [History] Multivitamin with Minerals [Multiple Vitamin] 1 tab PO DAILY 04/24/20 [History] Pravastatin Sodium [Pravachol] 40 mg PO BEDTIME 04/24/20 [History] metFORMIN [Glucophage] 1,000 mg PO BID 04/24/20 [History] tiZANidine HCl [Tizanidine HCl] 4 mg PO Q8H PRN 04/24/20 [History] Clopidogrel [Plavix] 75 mg PO DAILY 10/10/20 [History] Past Medical History HEENT History: Reports: Cataract, Impaired Vision Cardiovascular History: Reports: Afib, CAD, High Cholesterol, Hypertension, [place], PVD Respiratory History: Reports: Bronchitis, Recurrent, COPD, SOB Gastrointestinal History: Reports: Cholelithiasis, Other (See Below) Other Gastrointestinal History: colitis [employer]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 left elbow pain. L ulnar Fx 2018. right shoulder pain Neurological History: Reports: Concussion Endocrine/Metabolic History: Reports: Diabetes, Type II, IDDM Hematologic History: Reports: B12 Deficiency, Blood Transfusion(s) Immunologic History: Reports: None Oncologic (Cancer) History: Reports: Other (See Below) Other Oncologic History: lung mass Dermatologic History: Reports: None - Infectious Disease History Infectious Disease History: Reports: Measles - Past Surgical History Head Surgeries/Procedures: Reports: None HEENT Surgical History: Reports: Cataract Surgery, Tonsillectomy Cardiovascular Surgical History: Reports: Coronary Artery Bypass, Coronary Artery Stent Respiratory Surgical History: Reports: None GI Surgical History: Reports: Cholecystectomy, Colonoscopy Female Surgical History: Reports: Hysterectomy, Salpingo-Oophorectomy Endocrine Surgical History: Reports: None Neurological Surgical History: Reports: None Musculoskeletal Surgical History: Reports: Arthroscopic Knee Oncologic Surgical History: Reports: None Dermatological Surgical History: Reports: None Social & Family History - Family History Family Medical History: No Pertinent Family History - Tobacco Use Tobacco Use Status *Q: Current Every Day Tobacco User Years of Tobacco use: 50 Packs/Tins Daily: 1.5 - Caffeine Use Caffeine Use: Reports: None - Alcohol Use Alcohol Use History: No - Recreational Drug Use Recreational Drug Use: No H&P Review of Systems - Review of Systems: Review Of Systems: See Below Free Text/Narrative: A complete 12 point review of systems was obtained. Pertinent positives and negatives are noted in the history of present illness. All other systems were reviewed and were negative except as noted. Exam - Exam Exam: See Below - Vital Signs Vital Signs: Last Vital Signs Temp 36.6 C 10/10/20 10:31 Pulse 66 10/10/20 11:31 Resp 16 10/10/20 10:31 BP 139/66 10/10/20 11:31 Pulse Ox 90 L 10/10/20 11:31 Weight: 58.06 kg - Exam Quality Assessment: Supplemental Oxygen General: Alert, Oriented, Cooperative. No: Mild Distress HEENT: Conjunctiva Clear, Mucosa Moist & [place], Other (Bruising and swelling on right cheek). No: Scleral Icterus Neck: Supple, Trachea Midline Lungs: Clear to Auscultation, Normal Respiratory Effort Cardiovascular: Regular Rate, Regular Rhythm, Systolic Murmur GI/Abdominal Exam: Normal Bowel Sounds, Soft, Non-Tender, No Distention Extremities: No Pedal Edema, Other (Right leg is slightly shortened and slightly externally rotated.). No: Increased Warmth Peripheral Pulses: 2+: Dorsalis Pedis (L), Dorsalis Pedis (R) Skin: Warm, Dry, Ecchymosis (Small area of bruising right hip and right cheek) Neuro Extensive - Mental Status: Alert, Oriented x3, Nl Response to Commands Neuro Extensive - Motor, Sensory, Reflexes: No: Dysarthria, Abnormal Motor, Tremor Psychiatric: Alert, Normal Affect - Patient Data Lab Results Last 24 hrs: Laboratory Results - last 24 hr 10/10/20 10/10/20 Range/Units 11:40 11:40 WBC 8.3 (4.5-11.0) K/uL RBC 4.57 (3.30-5.50) M/uL Hgb 13.0 (12.0-15.0) g/dL Hct 39.1 (36.0-48.0) % MCV 86 (80-98) fL MCH 28 (27-31) pg MCHC 33 (32-36) % Plt Count 260 (150-400) K/uL Neut % (Auto) 77 H (36-66) % Lymph % (Auto) 14 L (24-44) % [place] % (Auto) 8 H (2-6) % Eos % (Auto) 1 L (2-4) % Baso % (Auto) 0 (0-1) % Sodium 129 L (140-148) mmol/L Potassium 5.2 (3.6-5.2) mmol/L Chloride 92 L (100-108) mmol/L Carbon Dioxide 24 (21-32) mmol/L Anion Gap 18.2 H (5.0-14.0) mmol/L BUN 19 H (7-18) mg/dL Creatinine 1.0 (0.6-1.0) mg/dL Est Cr Clr Drug Dosing 46.61 mL/min Estimated GFR (MDRD) 55 L (>60) Glucose 157 H (74-106) mg/dL Calcium 8.9 (8.5-10.1) mg/dL Result Diagrams: 10/10/20 11:40 10/10/20 11:40 Imaging Impressions Last 24 hrs: Right hip x-ray-these images were personally reviewed-there is evidence for a subcapital fracture of the right hip. Minimal displacement. No fracture of the shaft is noted. No obvious pelvic fracture. Facial and sinus CT-no evidence for facial fracture Head CT-mild age-related atrophy but no acute findings Sepsis Event Note - Evaluation Sepsis Screening Result: No Definite Risk - Focused Exam Vital Signs: Vital Signs Temp Pulse Resp BP Pulse Ox 10/10/20 11:31 66 139/66 90 L 10/10/20 10:31 36.6 C 73 16 149/72 H 90 L *Q Meaningful Use (ADM) - VTE *Q VTE Pharmacological Contraindications *Q: Patient Scheduled Surgery - VTE Risk Assess *Q Each Risk Factor Represents 1 Point: Abnormal Pulmonary Function (COPD) Total Score 1 Point Risk Factors: 1 Each Risk Factor Represents 2 Points: Age 60 - 74 Years Total Score 2 Point Risk Factors: 2 Each Risk Factor Represents 3 Points: None Total Score 3 Point Risk Factors: 0 Each Risk Factor Represents 5 Points: Hip, Pelvis or Leg Fracture, Less than 1 month Total Score 5 Point Risk Factors: 5 Venous Thromboembolism Risk Factor Score *Q: 8 - Problem List (1) Impacted fracture of right hip SNOMED Code(s): 113829684 ICD Code: S72.091A - OTH FRACTURE OF HEAD AND NECK OF RIGHT FEMUR, INIT Status: Acute Current Visit: Yes Qualifiers: Encounter type: initial encounter Fracture type: closed Qualified Code(s): S72.091A - Other fracture of head and neck of right femur, initial encounter for closed fracture (2) COPD (chronic obstructive pulmonary disease) SNOMED Code(s): 47154451 ICD Code: J44.9 - CHRONIC OBSTRUCTIVE PULMONARY DISEASE, UNSPECIFIED Status: Chronic Current Visit: No (3) Tobacco dependence SNOMED Code(s): 73792187 ICD Code: F17.200 - NICOTINE DEPENDENCE, UNSPECIFIED, UNCOMPLICATED Status: Chronic Current Visit: No (4) Type 2 diabetes mellitus SNOMED Code(s): 63577059 ICD Code: E11.9 - TYPE 2 DIABETES MELLITUS WITHOUT COMPLICATIONS Status: Chronic Current Visit: No Qualifiers: Diabetes mellitus care home insulin use: with terminologist use Diabetes mellitus complication status: with other specified complication Qualified Code(s): E11.69 - Type 2 diabetes mellitus with other specified complication; Z79.4 - manager terminal (current) use of insulin (5) History of atrial fibrillation SNOMED Code(s): 343146462 ICD Code: Z86.79 - PERSONAL HISTORY OF OTHER DISEASES OF THE CIRCULATORY SYSTEM Status: Chronic Current Visit: No Problem List Initiated/Reviewed/Updated: Yes Orders Last 24hrs: Active Orders 24 hr Category Date Time Status Patient Status Manage Transfer [TRANSFER] Routine ADT 10/10/20 12:37 Ordered COVID-19/FLU A+B/RSV [[facility]] Stat Lab 10/10/20 11:47 Received Resuscitation Status Routine Resus Stat 10/10/20 12:39 Ordered Assessment/Plan Comment:: ASSESSMENT AND PLAN - Subcapital fracture of the right hip-secondary to mechanical fall. Surgical intervention is recommended and planned. I believe the patient is in optimal achievable medical condition. She does have oxygen dependent COPD but this is stable. Unfortunately she is on apixaban and will not be able to receive spinal anesthesia. Functional status not great but she is limited by back pain rather than by cardiopulmonary symptoms. It appears that it should be safe to perform the proposed surgery at the current time. No personal or family history of anesthesia difficulty. 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 No evidence for exacerbation. Oxygenation stable. -Continue home medications -As needed nebulizers Coronary artery disease-history of previous bypass grafting. No active anginal symptoms. -Continue medical management Paroxysmal atrial fibrillation-chronically anticoagulated. -Hold apixaban -Continue beta-asha Tobacco dependence-encourage cessation Maintenance issues - -DVT prophylaxis-mechanical though she does have apixaban on board -GI prophylaxis-not indicated -Nutrition-nothing by mouth until after surgery -Tanner catheter-placed in the emergency room for strict intake and output monitoring in a critical patient CODE STATUS -full code Admission justification -this patient will be admitted for inpatient services and is medically appropriate meeting medical necessity for inpatient admission as outlined in my documentation. I reasonably expect the patient will require inpatient services that span a period time over 2 midnights. I reasonably expect this patient to be discharged or transferred within 96 hours [facility]. Disposition -I anticipate discharge home with home care versus the [facility] for subacute rehab after the hospital stay Primary care physician -Dr. Boo Way M.D. - Mortality Measure Prognosis:: Good
[2020-10-10] MEDS ORDERED: Ondansetron 4 MG Tab.DIS PO PRN (13:15)
[2020-10-10] MEDS ORDERED: LORazepam 2 MG/ML SDV IVPUSH PRN (13:15)
[2020-10-10] MEDS ORDERED: Melatonin 3 MG Tab PO PRN (13:15)
[2020-10-10] MEDS ORDERED: Ondansetron 4 MG/2 ML SDV IV PRN (13:15)
[2020-10-10] MEDS ORDERED: Bupivacaine 0.5%/EPINEPHrine 1:200,000 50 ML MDV ONE (13:19)
[2020-10-10] MEDS ORDERED: HYDROmorphone 0.5 MG/0.5 ML Syringe IVPUSH PRN (13:25)
[2020-10-10] MEDS ORDERED: tiZANidine 4 MG Tab PO PRN (13:35)
[2020-10-10] MEDS ORDERED: ceFAZolin 2 GM in Sodium Chloride 0.9% 50 ML IV ONE (13:39)
[2020-10-10] MEDS: Lactated Ringers 1,000 ML IV SCH ×2 (14:09→18:27)
[2020-10-10] MEDS: Albuterol/Ipratropium 3.0-0.5 MG/3 ML Neb Soln NEB SCH ×2 (14:43→21:38)
[2020-10-10] MEDS: Gabapentin 300 MG Cap PO SCH ×2 (15:00→21:42)
[2020-10-10] MEDS: Nicotine 21 MG/24 Hr Patch TRDERM SCH (15:14)
[2020-10-10] MEDS ORDERED: ceFAZolin 2 GM in Premix Bag 1 BAG IV ONE (16:00)
[2020-10-10] MEDS ORDERED: fentaNYL 250 MCG/5 ML SDV ONE (16:39)
[2020-10-10] MEDS ORDERED: Propofol 200 MG/20 ML SDV ONE (16:50)
[2020-10-10] MEDS ORDERED: Glycopyrrolate 0.2 MG/ML 5 ML MDV ONE (16:50)
[2020-10-10] MEDS ORDERED: Succinylcholine 200 MG/10 ML MDV ONE (16:50)
[2020-10-10] MEDS ORDERED: Ondansetron 4 MG/2 ML SDV ONE (16:50)
[2020-10-10] MEDS ORDERED: Dexamethasone 4 MG/ML SDV ONE (16:50)
[2020-10-10] MEDS ORDERED: Neostigmine Methylsulfate 1 MG/ML 5 ML Syringe ONE (16:50)
[2020-10-10] MEDS ORDERED: Rocuronium 50 MG/5 ML Vial ONE (16:50)
[2020-10-10] MEDS ORDERED: Bupivacaine 0.5% 50 ML MDV ONE (17:03)
[2020-10-10] MEDS: oxyCODONE 5 MG Tab PO PRN (20:14)
[2020-10-10] MEDS ORDERED: INSULIN DETEMIR 100 UNIT/ML SQ SCH (21:00)
[2020-10-10] MEDS ORDERED: PRAVASTATIN SODIUM 40 MG PO SCH (21:00)
[2020-10-10] MEDS: Insulin Glargine,Human Rec. Analog 100 Units/ML 3 ML Pen SUBCUT SCH (21:41)
[2020-10-10] MEDS: Pravastatin 20 MG Tab PO SCH (21:42)
[2020-10-10] MEDS: Sodium Chloride 1 GM Tab PO SCH (21:43)
[2020-10-10] MEDS: Metoprolol Tartrate 50 MG Tab PO SCH (21:49)
[2020-10-11] MEDS: oxyCODONE 5 MG Tab PO PRN ×4 (02:05→22:40)
[2020-10-11] MEDS: Lactated Ringers 1,000 ML IV SCH (02:22)
[2020-10-11] MEDS: Albuterol/Ipratropium 3.0-0.5 MG/3 ML Neb Soln NEB SCH ×4 (07:09→21:15)
[2020-10-11] MEDS ORDERED: Non-Formulary Medication 1 Each (Metformin [Glucophage] 1,000 MG Tablet) PO SCH (07:30)
[2020-10-11] MEDS ORDERED: Non-Formulary Medication 1 Each (Multivitamin With Minerals [Multiple Vitamin] 1 EACH Tabl PO SCH (09:00)
--- NOTE | 2020-10-11 09:05 | PCM.SURGPN ---
- General Info Date of Service: 10/11/20 Date of Surgery/Procedure: 10/10/20 POD#: 1 Post-Op Diagnosis: Right subcapital impacted femur fracture Functional Status: Reports: Pain Controlled - Review of Systems Musculoskeletal: Reports: Leg Pain (R ), Joint Pain (R hip, L wrist ) Skin: Reports: Other (L 5th toe ulcer ) Neurological: Reports: Confusion - Patient Data Vitals - Most Recent: Last Vital Signs Temp 97.4 F 10/11/20 07:11 Pulse 60 10/11/20 07:11 Resp 16 10/11/20 07:11 BP 102/58 L 10/11/20 07:11 Pulse Ox 97 10/11/20 07:11 Weight - Most Recent: 126 lb 15.992 oz I&O - Last 24 Hours: Intake & Output 10/10/20 10/11/20 10/11/20 22:59 06:59 14:59 Intake Total 170 1700 Output Total 750 450 Balance -580 1250 Lab Results Last 24 Hrs: Laboratory Results - last 24 hr 10/10/20 10/10/20 10/10/20 Range/Units 11:40 11:40 11:47 WBC 8.3 (4.5-11.0) K/uL RBC 4.57 (3.30-5.50) M/uL Hgb 13.0 (12.0-15.0) g/dL Hct 39.1 (36.0-48.0) % MCV 86 (80-98) fL MCH 28 (27-31) pg MCHC 33 (32-36) % Plt Count 260 (150-400) K/uL Neut % (Auto) 77 H (36-66) % Lymph % (Auto) 14 L (24-44) % Cass % (Auto) 8 H (2-6) % Eos % (Auto) 1 L (2-4) % Baso % (Auto) 0 (0-1) % Sodium 129 L (140-148) mmol/L Potassium 5.2 (3.6-5.2) mmol/L Chloride 92 L (100-108) mmol/L Carbon Dioxide 24 (21-32) mmol/L Anion Gap 18.2 H (5.0-14.0) mmol/L BUN 19 H (7-18) mg/dL Creatinine 1.0 (0.6-1.0) mg/dL Est Cr Clr Drug Dosing 46.61 mL/min Estimated GFR (MDRD) 55 L (>60) Glucose 157 H (74-106) mg/dL POC Glucose (74-106) mg/dL Calcium 8.9 (8.5-10.1) mg/dL Influenza Type A RNA Negative (NEGATIVE) RSV RNA (INAAT) Negative (NEGATIVE) Influenza Type B RNA Negative (NEGATIVE) SARS-CoV-2 RNA (TYLER) Negative (NEGATIVE) 10/10/20 10/11/20 10/11/20 Range/Units 21:20 04:41 04:41 WBC 9.5 (4.5-11.0) K/uL RBC 4.10 (3.30-5.50) M/uL Hgb 11.7 L (12.0-15.0) g/dL Hct 35.5 L (36.0-48.0) % MCV 87 (80-98) fL MCH 29 (27-31) pg MCHC 33 (32-36) % Plt Count 247 (150-400) K/uL Neut % (Auto) (36-66) % Lymph % (Auto) (24-44) % Cass % (Auto) (2-6) % Eos % (Auto) (2-4) % Baso % (Auto) (0-1) % Sodium 128 L (140-148) mmol/L Potassium 5.7 H (3.6-5.2) mmol/L Chloride 93 L (100-108) mmol/L Carbon Dioxide 24 (21-32) mmol/L Anion Gap 16.7 H (5.0-14.0) mmol/L BUN 21 H (7-18) mg/dL Creatinine 1.1 H (0.6-1.0) mg/dL Est Cr Clr Drug Dosing 42.04 mL/min Estimated GFR (MDRD) 49 L (>60) Glucose 220 H (74-106) mg/dL POC Glucose 219 H (74-106) mg/dL Calcium 8.7 (8.5-10.1) mg/dL Influenza Type A RNA (NEGATIVE) RSV RNA (INAAT) (NEGATIVE) Influenza Type B RNA (NEGATIVE) SARS-CoV-2 RNA (TYLER) (NEGATIVE) 10/11/20 Range/Units 07:31 WBC (4.5-11.0) K/uL RBC (3.30-5.50) M/uL Hgb (12.0-15.0) g/dL Hct (36.0-48.0) % MCV (80-98) fL MCH (27-31) pg MCHC (32-36) % Plt Count (150-400) K/uL Neut % (Auto) (36-66) % Lymph % (Auto) (24-44) % Cass % (Auto) (2-6) % Eos % (Auto) (2-4) % Baso % (Auto) (0-1) % Sodium (140-148) mmol/L Potassium (3.6-5.2) mmol/L Chloride (100-108) mmol/L Carbon Dioxide (21-32) mmol/L Anion Gap (5.0-14.0) mmol/L BUN (7-18) mg/dL Creatinine (0.6-1.0) mg/dL Est Cr Clr Drug Dosing mL/min Estimated GFR (MDRD) (>60) Glucose (74-106) mg/dL POC Glucose 201 H (74-106) mg/dL Calcium (8.5-10.1) mg/dL Influenza Type A RNA (NEGATIVE) RSV RNA (INAAT) (NEGATIVE) Influenza Type B RNA (NEGATIVE) SARS-CoV-2 RNA (TYLER) (NEGATIVE) Med Orders - Current: Current Medications Acetaminophen (Acetaminophen 325 Mg Tab) 650 mg PO Q4H PRN PRN Reason: Pain (Mild 1-3)/fever Albuterol (Albuterol 0.083% 2.5 Mg/3 Ml Neb Soln) 2.5 mg NEB Q4H PRN PRN Reason: Shortness Of Breath/wheezing Albuterol/Ipratropium (Albuterol/Ipratropium 3.0-0.5 Mg/3 Ml Neb Soln) 3 ml NEB QIDRT [facility] Last Admin: 10/11/20 07:09 Dose: 3 ml Documented by: Aspirin (Aspirin 81 Mg Tab.Chew) 81 mg PO DAILY [facility] Clopidogrel Bisulfate (Clopidogrel 75 Mg Tab) 75 mg PO DAILY [facility] Cyanocobalamin (Cyanocobalamin (Vitamin B12) 1,000 Mcg Tab) 1,000 mcg PO DAILY [facility] Gabapentin (Gabapentin 300 Mg Cap) 300 mg PO TID [facility] Last Admin: 10/10/20 21:42 Dose: 300 mg Documented by: Hydromorphone HCl (Hydromorphone 0.5 Mg/0.5 Ml Syringe) 0.5 mg IVPUSH Q2H PRN PRN Reason: PAIN Lactated Ringer's (Ringers, Lactated) 1,000 mls @ 125 mls/hr IV ASDIRECTED [facility] Last Admin: 10/11/20 02:22 Dose: 125 mls/hr Documented by: Insulin Glargine (Insulin Glargine,Human Rec. Analog 100 Units/Ml 3 Ml Pen) 35 units SUBCUT BEDTIME [facility] Last Admin: 10/10/20 21:41 Dose: 35 units Documented by: Lisinopril (Lisinopril 5 Mg Tab) 5 mg PO DAILY [facility] Lorazepam (Lorazepam 2 Mg/Ml Sdv) 0.5 mg IVPUSH Q4H PRN PRN Reason: Nausea/Vomiting Magnesium Hydroxide (Magnesium Hydroxide 400 Mg/5 Ml Susp 30 Ml Cup) 30 ml PO Q12H PRN PRN Reason: Constipation Melatonin (Melatonin 3 Mg Tab) 9 mg PO BEDTIME PRN PRN Reason: Sleep Metformin HCl (Metformin 500 Mg Tab) 1,000 mg PO BIDMEALS [facility] Metoprolol Tartrate (Metoprolol Tartrate 50 Mg Tab) 50 mg PO BID [facility] Last Admin: 10/10/20 21:49 Dose: 50 mg Documented by: Multivitamins/Minerals (Multivitamins With Iron/Calcium/Folic Acid/Minerals Tab) 1 tab PO DAILY [facility] Nicotine (Nicotine 21 Mg/24 Hr Patch) 21 mg TRDERM DAILY [facility] Last Admin: 10/10/20 15:14 Dose: 21 mg Documented by: Ondansetron HCl (Ondansetron 4 Mg/2 Ml Sdv) 4 mg IV Q6H PRN PRN Reason: Nausea/Vomiting Last Admin: 10/10/20 14:11 Dose: 4 mg Documented by: Ondansetron HCl (Ondansetron 4 Mg Tab.Dis) 4 mg PO Q6H PRN PRN Reason: Nausea able to take PO Oxycodone HCl (Oxycodone 5 Mg Tab) 5 - 10 mg PO Q4H PRN PRN Reason: Pain Last Admin: 10/11/20 02:05 Dose: 10 mg Documented by: Pravastatin Sodium (Pravastatin 20 Mg Tab) 40 mg PO BEDTIME [facility] Last Admin: 10/10/20 21:42 Dose: 40 mg Documented by: Senna/Docusate Sodium (Docusate Sodium/Sennosides 50-8.6 Mg Tab) 1 tab PO BID [facility] Last Admin: 10/10/20 21:43 Dose: 1 tab Documented by: Sodium Chloride (Sodium Chloride 1 Gm Tab) 1 gm PO BID [facility] Last Admin: 10/10/20 21:43 Dose: 1 gm Documented by: Tizanidine HCl (Tizanidine 4 Mg Tab) 4 mg PO Q8H PRN PRN Reason: Muscle Spasm Discontinued Medications Bupivacaine HCl (Bupivacaine 0.5% 50 Ml Mdv) Confirm Administered Dose 50 ml .ROUTE .STK-MED ONE Stop: 10/10/20 17:04 Last Admin: 10/10/20 17:22 Dose: 35 ml Documented by: Bupivacaine HCl/Epinephrine Bitart (Bupivacaine 0.5%/Epinephrine 1:200,000 50 Ml Mdv) Confirm Administered Dose 50 ml .ROUTE .STK-MED ONE Stop: 10/10/20 13:20 Dexamethasone (Dexamethasone 4 Mg/Ml Sdv) Confirm Administered Dose 4 mg .ROUTE .STK-MED ONE Stop: 10/10/20 16:51 Fentanyl (Fentanyl 100 Mcg/2 Ml Sdv) 50 mcg IM ONETIME ONE Stop: 10/10/20 10:39 Last Admin: 10/10/20 11:27 Dose: 50 mcg Documented by: Fentanyl (Fentanyl 250 Mcg/5 Ml Sdv) Confirm Administered Dose 250 mcg .ROUTE .STK-MED ONE Stop: 10/10/20 16:40 Glycopyrrolate (Glycopyrrolate 0.2 Mg/Ml 5 Ml Mdv) Confirm Administered Dose 1 mg .ROUTE .STK-MED ONE Stop: 10/10/20 16:51 Cefazolin Sodium/Dextrose 2 gm (/ Premix) 50 mls @ 100 mls/hr IV ONETIME ONE Stop: 10/10/20 16:29 Last Admin: 10/10/20 16:29 Dose: 100 mls/hr Documented by: Neostigmine Methylsulfate (Neostigmine Methylsulfate 1 Mg/Ml 5 Ml Syringe) Confirm Administered Dose 5 mg .ROUTE .STK-MED ONE Stop: 10/10/20 16:51 Ondansetron HCl (Ondansetron 4 Mg/2 Ml Sdv) Confirm Administered Dose 4 mg .ROUTE .STK-MED ONE Stop: 10/10/20 16:51 Propofol (Propofol 200 Mg/20 Ml Sdv) Confirm Administered Dose 200 mg .ROUTE .STK-MED ONE Stop: 10/10/20 16:51 Rocuronium [place] (Rocuronium 50 Mg/5 Ml Vial) Confirm Administered Dose 50 mg .ROUTE .STK-MED ONE Stop: 10/10/20 16:51 Succinylcholine Chloride (Succinylcholine 200 Mg/10 Ml Mdv) Confirm Administered Dose 200 mg .ROUTE .STK-MED ONE Stop: 10/10/20 16:51 - Exam Wound/Incisions: Dressing Dry and Intact, No Drainage Quality Assessment: DVT Prophylaxis General: Alert, Oriented, Cooperative, No Acute Distress Extremities: Normal Capillary Refill, Joint Swelling, Leg Pain (right ), Limited Range of Motion Skin: Warm, Dry, Intact, Other (ulcer on L 5th toe ) Neurological: No New Focal Deficit Psy/Mental Status: Alert, Normal Affect, Normal Mood Sepsis Event Note - Evaluation Sepsis Screening Result: No Definite Risk - Focused Exam Vital Signs: Vital Signs Temp Temp Pulse Pulse Resp BP BP 10/11/20 07:11 97.4 F 60 16 102/58 L 10/11/20 02:22 95.5 F L 60 18 134/48 L 10/10/20 22:25 97.1 F 73 18 147/47 H 10/10/20 21:59 96.8 F L 69 18 150/49 H 10/10/20 21:49 69 150/49 H 10/10/20 21:30 96.1 F L 70 18 142/55 H 10/10/20 21:00 67 16 144/44 H Pulse Ox 10/11/20 07:11 97 10/11/20 02:22 94 L 10/10/20 22:25 94 L 10/10/20 21:59 96 10/10/20 21:49 10/10/20 21:30 96 10/10/20 21:00 95 - Problem List & Annotations (1) Status post-operative repair of hip fracture SNOMED Code(s): 426614977, 611837309 Code(s): Z98.890 - OTHER SPECIFIED POSTPROCEDURAL STATES; Z87.81 - PERSONAL HISTORY OF (HEALED) TRAUMATIC FRACTURE Status: Acute Current Visit: Yes (2) Postoperative anemia SNOMED Code(s): 167006010, 749640331 Code(s): D64.9 - ANEMIA, UNSPECIFIED Status: Acute Current Visit: Yes - Problem List Review Problem List Initiated/Reviewed/Updated: Yes - My Orders Last 24 Hours: Active Orders 24 hr Category Date Time Status Patient Status [ADT] Routine ADT 10/10/20 13:15 Active Antiembolic Devices [RC] .Routine Care 10/10/20 13:15 Active Cardiac Monitoring [RC] CONTINUOUS Care 10/10/20 13:15 Active Intake and Output [RC] QSHIFT Care 10/10/20 13:15 Active Notify Provider Consults [RC] ASDIRECTED Care 10/10/20 13:15 Active Notify Provider Vital Signs [RC] ASDIRECTED Care 10/10/20 13:15 Active Oxygen Therapy [RC] PRN Care 10/10/20 13:15 Active Pulse Oximetry [RC] CONTINUOUS Care 10/10/20 13:15 Active RT Aerosol Therapy [RC] ASDIRECTED Care 10/10/20 13:15 Active Up With Assistance [RC] ASDIRECTED Care 10/10/20 13:15 Active VTE/DVT Education [RC] Per Unit Routine Care 10/10/20 13:15 Active Verify Patient Consent Obtain [RC] ASDIRECTED Care 10/10/20 13:38 Active Vital Signs [RC] Q4H Care 10/10/20 13:15 Active Consult to Occupational Therapy [OT Evaluation and Cons 10/10/20 17:32 Active Treatment] [CONS] Routine Consult to Physical Therapy [PT Evaluation and Cons 10/10/20 17:32 Active Treatment] [CONS] Routine Consult to Physician [CONS] Routine Cons 10/10/20 13:15 Ordered Consistent Carbohydrate Diet [DIET] Diet 10/11/20 Breakfast Active Fluoro Up To 1Hr [CR] Routine Exams 10/10/20 14:40 Taken GLUCOSE POC LAB TO COLLECT JPM [POC] QIDACANDBED Lab 10/11/20 11:30 Ordered GLUCOSE POC LAB TO COLLECT JPM [POC] QIDACANDBED Lab 10/11/20 16:30 Ordered GLUCOSE POC LAB TO COLLECT JPM [POC] QIDACANDBED Lab 10/11/20 21:00 Ordered GLUCOSE POC LAB TO COLLECT JPM [POC] QIDACANDBED Lab 10/12/20 07:30 Ordered GLUCOSE POC LAB TO COLLECT JPM [POC] QIDACANDBED Lab 10/12/20 11:30 Ordered GLUCOSE POC LAB TO COLLECT JPM [POC] QIDACANDBED Lab 10/12/20 16:30 Ordered GLUCOSE POC LAB TO COLLECT JPM [POC] QIDACANDBED Lab 10/12/20 21:00 Ordered GLUCOSE POC LAB TO COLLECT JPM [POC] QIDACANDBED Lab 10/13/20 07:30 Ordered GLUCOSE POC LAB TO COLLECT JPM [POC] QIDACANDBED Lab 10/13/20 11:30 Ordered GLUCOSE POC LAB TO COLLECT JPM [POC] QIDACANDBED Lab 10/13/20 16:30 Ordered GLUCOSE POC LAB TO COLLECT JPM [POC] QIDACANDBED Lab 10/13/20 21:00 Ordered GLUCOSE POC LAB TO COLLECT JPM [POC] QIDACANDBED Lab 10/14/20 07:30 Ordered GLUCOSE POC LAB TO COLLECT JPM [POC] QIDACANDBED Lab 10/14/20 11:30 Ordered GLUCOSE POC LAB TO COLLECT JPM [POC] QIDACANDBED Lab 10/14/20 16:30 Ordered GLUCOSE POC LAB TO COLLECT JPM [POC] QIDACANDBED Lab 10/14/20 21:00 Ordered GLUCOSE POC LAB TO COLLECT JPM [POC] QIDACANDBED Lab 10/15/20 07:30 Ordered GLUCOSE POC LAB TO COLLECT JPM [POC] QIDACANDBED Lab 10/15/20 11:30 Ordered GLUCOSE POC LAB TO COLLECT JPM [POC] QIDACANDBED Lab 10/15/20 16:30 Ordered GLUCOSE POC LAB TO COLLECT JPM [POC] QIDACANDBED Lab 10/15/20 21:00 Ordered Acetaminophen [TylenoL] Med 10/10/20 13:15 Active 650 mg PO Q4H PRN Albuterol [Proventil Neb Soln] Med 10/10/20 13:15 Active 2.5 mg NEB Q4H PRN Albuterol/Ipratropium [DuoNeb 3.0-0.5 MG/3 ML] Med 10/10/20 15:00 Active 3 ml NEB QIDRT Aspirin Med 10/11/20 09:00 Active 81 mg PO DAILY Clopidogrel [Plavix] Med 10/11/20 09:00 Active 75 mg PO DAILY Cyanocobalamin (Vitamin B12) [Vitamin B12] Med 10/11/20 09:00 Active 1,000 mcg PO DAILY Docusate Sodium/Sennosides [Senna Plus] Med 10/10/20 21:00 Active 1 tab PO BID Gabapentin [Neurontin] Med 10/10/20 14:00 Active 300 mg PO TID HYDROmorphone [Dilaudid] Med 10/10/20 13:25 Active 0.5 mg IVPUSH Q2H PRN Insulin Glarg,Human.Rec.Analog [LantUS Solostar] Med 10/10/20 21:00 Active 35 units SUBCUT BEDTIME LORazepam [Ativan] Med 10/10/20 13:15 Active 0.5 mg IVPUSH Q4H PRN Lactated Ringers [Ringers, Lactated] 1,000 ml Med 10/10/20 13:15 Active IV ASDIRECTED Magnesium Hydroxide [Milk of Magnesia] Med 10/10/20 13:15 Active 30 ml PO Q12H PRN Melatonin Med 10/10/20 13:15 Active 9 mg PO BEDTIME PRN Metoprolol Tartrate [Lopressor] Med 10/10/20 21:00 Active 50 mg PO BID Multivitamins w-Iron/Ca/FA/Min [Thera M Plus] Med 10/11/20 09:00 Active 1 tab PO DAILY Nicotine [Habitrol] Med 10/10/20 15:00 Active 21 mg TRDERM DAILY Ondansetron [Zofran ODT] Med 10/10/20 13:15 Active 4 mg PO Q6H PRN Ondansetron [Zofran] Med 10/10/20 13:15 Active 4 mg IV Q6H PRN Pravastatin [Pravachol] Med 10/10/20 21:00 Active 40 mg PO BEDTIME Sodium Chloride Med 10/10/20 21:00 Active 1 gm PO BID lisinopriL [Prinivil] Med 10/11/20 09:00 Active 5 mg PO DAILY metFORMIN [Glucophage] Med 10/11/20 08:00 Active 1,000 mg PO BIDMEALS oxyCODONE Med 10/10/20 13:15 Active 5 - 10 mg PO Q4H PRN tiZANidine [Zanaflex] Med 10/10/20 13:35 Active 4 mg PO Q8H PRN Sequential Compression Device [OM.PC] Routine Oth 10/10/20 13:15 Ordered VTE Pharmacological Contraindications [AST] Routine Oth 10/10/20 13:15 Ordered Weight bearing status [OM.PC] Routine Oth 10/10/20 17:32 Ordered Resuscitation Status Routine Resus Stat 10/10/20 12:39 Ordered Medication Orders Acetaminophen (Acetaminophen 325 Mg Tab) 650 mg PO Q4H PRN PRN Reason: Pain (Mild 1-3)/fever Albuterol (Albuterol 0.083% 2.5 Mg/3 Ml Neb Soln) 2.5 mg NEB Q4H PRN PRN Reason: Shortness Of Breath/wheezing Albuterol/Ipratropium (Albuterol/Ipratropium 3.0-0.5 Mg/3 Ml Neb Soln) 3 ml NEB QIDRT [facility] Last Admin: 10/11/20 07:09 Dose: 3 ml Documented by: Admin: 10/10/20 21:38 Dose: 3 ml Documented by: Admin: 10/10/20 14:43 Dose: 3 ml Documented by: DIEGO Aspirin (Aspirin 81 Mg Tab.Chew) 81 mg PO DAILY [facility] Clopidogrel Bisulfate (Clopidogrel 75 Mg Tab) 75 mg PO DAILY [facility] Cyanocobalamin (Cyanocobalamin (Vitamin B12) 1,000 Mcg Tab) 1,000 mcg PO DAILY [facility] Gabapentin (Gabapentin 300 Mg Cap) 300 mg PO TID [facility] Last Admin: 10/10/20 21:42 Dose: 300 mg Documented by: Admin: 10/10/20 15:00 Dose: Not Given Documented by: GRADY Hydromorphone HCl (Hydromorphone 0.5 Mg/0.5 Ml Syringe) 0.5 mg IVPUSH Q2H PRN PRN Reason: PAIN Lactated Ringer's (Ringers, Lactated) 1,000 mls @ 125 mls/hr IV ASDIRECTED [facility] Last Admin: 10/11/20 02:22 Dose: 125 mls/hr Documented by: Infusion: 10/11/20 02:22 Dose: 125 mls/hr Documented by: Admin: 10/10/20 18:27 Dose: 125 mls/hr Documented by: Infusion: 10/10/20 18:27 Dose: 125 mls/hr Documented by: Admin: 10/10/20 14:09 Dose: 125 mls/hr Documented by: GRADY Insulin Glargine (Insulin Glargine,Human Rec. Analog 100 Units/Ml 3 Ml Pen) 35 units SUBCUT BEDTIME [facility] Last Admin: 10/10/20 21:41 Dose: 35 units Documented by: BETITO Cosigned by: JOSE Lisinopril (Lisinopril 5 Mg Tab) 5 mg PO DAILY [facility] Lorazepam (Lorazepam 2 Mg/Ml Sdv) 0.5 mg IVPUSH Q4H PRN PRN Reason: Nausea/Vomiting Magnesium Hydroxide (Magnesium Hydroxide 400 Mg/5 Ml Susp 30 Ml Cup) 30 ml PO Q12H PRN PRN Reason: Constipation Melatonin (Melatonin 3 Mg Tab) 9 mg PO BEDTIME PRN PRN Reason: Sleep Metformin HCl (Metformin 500 Mg Tab) 1,000 mg PO BIDMEALS [facility] Metoprolol Tartrate (Metoprolol Tartrate 50 Mg Tab) 50 mg PO BID [facility] Last Admin: 10/10/20 21:49 Dose: 50 mg Documented by: BETITO Multivitamins/Minerals (Multivitamins With Iron/Calcium/Folic Acid/Minerals Tab) 1 tab PO DAILY [facility] Nicotine (Nicotine 21 Mg/24 Hr Patch) 21 mg TRDERM DAILY [facility] Last Admin: 10/10/20 15:14 Dose: 21 mg Documented by: GRADY Ondansetron HCl (Ondansetron 4 Mg/2 Ml Sdv) 4 mg IV Q6H PRN PRN Reason: Nausea/Vomiting Last Admin: 10/10/20 14:11 Dose: 4 mg Documented by: GRADY Ondansetron HCl (Ondansetron 4 Mg Tab.Dis) 4 mg PO Q6H PRN PRN Reason: Nausea able to take PO Oxycodone HCl (Oxycodone 5 Mg Tab) 5 - 10 mg PO Q4H PRN PRN Reason: Pain Last Admin: 10/11/20 02:05 Dose: 10 mg Documented by: Admin: 10/10/20 20:14 Dose: 5 mg Documented by: BETITO Pravastatin Sodium (Pravastatin 20 Mg Tab) 40 mg PO BEDTIME [facility] Last Admin: 10/10/20 21:42 Dose: 40 mg Documented by: BETITO Senna/Docusate Sodium (Docusate Sodium/Sennosides 50-8.6 Mg Tab) 1 tab PO BID [facility] Last Admin: 10/10/20 21:43 Dose: 1 tab Documented by: BETITO Sodium Chloride (Sodium Chloride 1 Gm Tab) 1 gm PO BID [facility] Last Admin: 10/10/20 21:43 Dose: 1 gm Documented by: BETITO Tizanidine HCl (Tizanidine 4 Mg Tab) 4 mg PO Q8H PRN PRN Reason: Muscle Spasm - Assessment Assessment (Free Text/Narrative):: Patient is a 70 y/o female, s/p R subcapital impacted femur fracture, repaired with cannulated screws. Patient tolerated surgery well with no major complications. Reports pain is well controlled with PO medications at rest. Increased pain in R hip when attempted ambulation this morning. Denied numbness or tingling of R LE. Worked with OT this morning; requiring assistance with ADLs, verbal cues, and max x2 assist with transfers. Anticipate PT session today. Reports nausea this afternoon. PRN zofran available and utilized. Is on consistent-carbohydrate diet. PMHx significant for Type II DM; POC glucose checks have been elevated. Mammography Supervisor has already been consulted. POD#1 HgB declined to 11.7. No complaints of dizziness or weakness this afternoon. Patient hemodynamically stable. Is requiring 3-4 L O2 to maintain O2 in the 90's. Does use 1 L O2 at home per baseline due to COPD. Nursing states patient has been forgetful throughout morning. Exam: R hip dressing dry and intact. Mild warmth to touch of R hip. Mild edema through R thigh and knee. No significant pedal edema. Tibialis posterior appreciated, 2+. Bruising on R side of face present from fall yesterday. Patient able to open and move jaw without significant pain. Ulcer present on lateral edge of L 5th digit. Plan: * Hospitalist to continue medical management of patient; hospitalist to resume Apixiban when appropriate; patient can use this as post-surgical DVT/VTE prophylaxis. Continue with mechanical prophylaxis with bilateral SCDs. * Partial weight bear status on R LE. * Due to nausea, added [place] for prn pain control. Will see if nausea decreases with hydrocodone rather than oxycodone. Encouraged to take with food. * Patient to participate in PT and OT services daily while in the hospital. * Tanner to be discontinued when patient ambulation abilities improved. * Anticipate discharge to SNF when medically stable.
[2020-10-11] MEDS: metFORMIN 500 MG Tab PO SCH ×2 (09:10→16:54)
[2020-10-11] MEDS: Multivitamins with Iron/Calcium/Folic Acid/Minerals Tab PO SCH (09:10)
[2020-10-11] MEDS: Cyanocobalamin (Vitamin B12) 1,000 MCG Tab PO SCH (09:10)
[2020-10-11] MEDS: Sodium Chloride 1 GM Tab PO SCH ×2 (09:10→21:18)
[2020-10-11] MEDS: Gabapentin 300 MG Cap PO SCH ×3 (09:10→21:18)
[2020-10-11] MEDS: Clopidogrel 75 MG Tab PO SCH (09:10)
[2020-10-11] MEDS: Aspirin 81 MG Tab.Chew PO SCH (09:10)
[2020-10-11] MEDS: Lisinopril 5 MG Tab PO SCH (09:11)
[2020-10-11] MEDS: Metoprolol Tartrate 50 MG Tab PO SCH ×2 (09:11→21:19)
[2020-10-11] MEDS: Nicotine 21 MG/24 Hr Patch TRDERM SCH (09:14)
--- NOTE | 2020-10-11 13:22 | PCM.PN ---
- General Info Date of Service: 10/11/20 Subjective Update: There were no acute events overnight. Patient did well with surgery yesterday. She was sleepy initially this morning but has improved as the morning has gone o n. No significant pain in her right cheek with trauma yesterday. Respiratory status stable. She does have some abdominal pain and nausea and has not had a bowel movement in several days. Hip pain is well controlled as long as she is not moving. No pain in the left fifth toe. Functional Status: Reports: Pain Controlled, Tolerating Diet - Review of Systems General: Reports: Weakness Gastrointestinal: Reports: Abdominal Pain - Patient Data Vitals - Most Recent: Last Vital Signs Temp 36.3 C 10/11/20 11:00 Pulse 62 10/11/20 11:00 Resp 18 10/11/20 11:00 BP 109/51 L 10/11/20 11:00 Pulse Ox 91 L 10/11/20 11:00 Weight - Most Recent: 57.606 kg I&O - Last 24 Hours: Intake & Output 10/10/20 10/11/20 10/11/20 22:59 06:59 14:59 Intake Total 170 1700 840 Output Total 750 450 Balance -580 1250 840 Lab Results Last 24 Hours: Laboratory Results - last 24 hr 10/10/20 10/11/20 10/11/20 Range/Units 21:20 04:41 04:41 WBC 9.5 (4.5-11.0) K/uL RBC 4.10 (3.30-5.50) M/uL Hgb 11.7 L (12.0-15.0) g/dL Hct 35.5 L (36.0-48.0) % MCV 87 (80-98) fL MCH 29 (27-31) pg MCHC 33 (32-36) % Plt Count 247 (150-400) K/uL Sodium 128 L (140-148) mmol/L Potassium 5.7 H (3.6-5.2) mmol/L Chloride 93 L (100-108) mmol/L Carbon Dioxide 24 (21-32) mmol/L Anion Gap 16.7 H (5.0-14.0) mmol/L BUN 21 H (7-18) mg/dL Creatinine 1.1 H (0.6-1.0) mg/dL Est Cr Clr Drug Dosing 42.04 mL/min Estimated GFR (MDRD) 49 L (>60) Glucose 220 H (74-106) mg/dL POC Glucose 219 H (74-106) mg/dL Calcium 8.7 (8.5-10.1) mg/dL 10/11/20 10/11/20 Range/Units 07:31 11:17 WBC (4.5-11.0) K/uL RBC (3.30-5.50) M/uL Hgb (12.0-15.0) g/dL Hct (36.0-48.0) % MCV (80-98) fL MCH (27-31) pg MCHC (32-36) % Plt Count (150-400) K/uL Sodium (140-148) mmol/L Potassium (3.6-5.2) mmol/L Chloride (100-108) mmol/L Carbon Dioxide (21-32) mmol/L Anion Gap (5.0-14.0) mmol/L BUN (7-18) mg/dL Creatinine (0.6-1.0) mg/dL Est Cr Clr Drug Dosing mL/min Estimated GFR (MDRD) (>60) Glucose (74-106) mg/dL POC Glucose 201 H 213 H (74-106) mg/dL Calcium (8.5-10.1) mg/dL Med Orders - Current: Current Medications Acetaminophen (Acetaminophen 325 Mg Tab) 650 mg PO Q4H PRN PRN Reason: Pain (Mild 1-3)/fever Albuterol (Albuterol 0.083% 2.5 Mg/3 Ml Neb Soln) 2.5 mg NEB Q4H PRN PRN Reason: Shortness Of Breath/wheezing Albuterol/Ipratropium (Albuterol/Ipratropium 3.0-0.5 Mg/3 Ml Neb Soln) 3 ml NEB QIDRT [facility] Last Admin: 10/11/20 10:47 Dose: 3 ml Documented by: Aspirin (Aspirin 81 Mg Tab.Chew) 81 mg PO DAILY [facility] Last Admin: 10/11/20 09:10 Dose: 81 mg Documented by: Clopidogrel Bisulfate (Clopidogrel 75 Mg Tab) 75 mg PO DAILY [facility] Last Admin: 10/11/20 09:10 Dose: 75 mg Documented by: Cyanocobalamin (Cyanocobalamin (Vitamin B12) 1,000 Mcg Tab) 1,000 mcg PO DAILY [facility] Last Admin: 10/11/20 09:10 Dose: 1,000 mcg Documented by: Gabapentin (Gabapentin 300 Mg Cap) 300 mg PO TID [facility] Last Admin: 10/11/20 09:10 Dose: 300 mg Documented by: Hydromorphone HCl (Hydromorphone 0.5 Mg/0.5 Ml Syringe) 0.5 mg IVPUSH Q2H PRN PRN Reason: PAIN Insulin Glargine (Insulin Glargine,Human Rec. Analog 100 Units/Ml 3 Ml Pen) 35 units SUBCUT BEDTIME [facility] Last Admin: 10/10/20 21:41 Dose: 35 units Documented by: Lisinopril (Lisinopril 5 Mg Tab) 5 mg PO DAILY [facility] Last Admin: 10/11/20 09:11 Dose: 5 mg Documented by: Lorazepam (Lorazepam 2 Mg/Ml Sdv) 0.5 mg IVPUSH Q4H PRN PRN Reason: Nausea/Vomiting Magnesium Hydroxide (Magnesium Hydroxide 400 Mg/5 Ml Susp 30 Ml Cup) 30 ml PO Q12H PRN PRN Reason: Constipation Melatonin (Melatonin 3 Mg Tab) 9 mg PO BEDTIME PRN PRN Reason: Sleep Metformin HCl (Metformin 500 Mg Tab) 1,000 mg PO BIDMEALS [facility] Last Admin: 10/11/20 09:10 Dose: 1,000 mg Documented by: Metoprolol Tartrate (Metoprolol Tartrate 50 Mg Tab) 50 mg PO BID [facility] Last Admin: 10/11/20 09:11 Dose: 50 mg Documented by: Multivitamins/Minerals (Multivitamins With Iron/Calcium/Folic Acid/Minerals Tab) 1 tab PO DAILY [facility] Last Admin: 10/11/20 09:10 Dose: 1 tab Documented by: Nicotine (Nicotine 21 Mg/24 Hr Patch) 21 mg TRDERM DAILY [facility] Last Admin: 10/11/20 09:14 Dose: 21 mg Documented by: Ondansetron HCl (Ondansetron 4 Mg/2 Ml Sdv) 4 mg IV Q6H PRN PRN Reason: Nausea/Vomiting Last Admin: 10/10/20 14:11 Dose: 4 mg Documented by: Ondansetron HCl (Ondansetron 4 Mg Tab.Dis) 4 mg PO Q6H PRN PRN Reason: Nausea able to take PO Oxycodone HCl (Oxycodone 5 Mg Tab) 5 - 10 mg PO Q4H PRN PRN Reason: Pain Last Admin: 10/11/20 09:29 Dose: 10 mg Documented by: Pravastatin Sodium (Pravastatin 20 Mg Tab) 40 mg PO BEDTIME [facility] Last Admin: 10/10/20 21:42 Dose: 40 mg Documented by: Senna/Docusate Sodium (Docusate Sodium/Sennosides 50-8.6 Mg Tab) 1 tab PO BID [facility] Last Admin: 10/11/20 09:10 Dose: 1 tab Documented by: Sodium Chloride (Sodium Chloride 1 Gm Tab) 1 gm PO BID [facility] Last Admin: 10/11/20 09:10 Dose: 1 gm Documented by: Tizanidine HCl (Tizanidine 4 Mg Tab) 4 mg PO Q8H PRN PRN Reason: Muscle Spasm Discontinued Medications Bupivacaine HCl (Bupivacaine 0.5% 50 Ml Mdv) Confirm Administered Dose 50 ml .ROUTE .STK-MED ONE Stop: 10/10/20 17:04 Last Admin: 10/10/20 17:22 Dose: 35 ml Documented by: Bupivacaine HCl/Epinephrine Bitart (Bupivacaine 0.5%/Epinephrine 1:200,000 50 Ml Mdv) Confirm Administered Dose 50 ml .ROUTE .STK-MED ONE Stop: 10/10/20 13:20 Dexamethasone (Dexamethasone 4 Mg/Ml Sdv) Confirm Administered Dose 4 mg .ROUTE .STK-MED ONE Stop: 10/10/20 16:51 Fentanyl (Fentanyl 100 Mcg/2 Ml Sdv) 50 mcg IM ONETIME ONE Stop: 10/10/20 10:39 Last Admin: 10/10/20 11:27 Dose: 50 mcg Documented by: Fentanyl (Fentanyl 250 Mcg/5 Ml Sdv) Confirm Administered Dose 250 mcg .ROUTE .STK-MED ONE Stop: 10/10/20 16:40 Glycopyrrolate (Glycopyrrolate 0.2 Mg/Ml 5 Ml Mdv) Confirm Administered Dose 1 mg .ROUTE .STK-MED ONE Stop: 10/10/20 16:51 Lactated Ringer's (Ringers, Lactated) 1,000 mls @ 125 mls/hr IV ASDIRECTED [facility] Last Admin: 10/11/20 02:22 Dose: 125 mls/hr Documented by: Cefazolin Sodium/Dextrose 2 gm (/ Premix) 50 mls @ 100 mls/hr IV ONETIME ONE Stop: 10/10/20 16:29 Last Admin: 10/10/20 16:29 Dose: 100 mls/hr Documented by: Neostigmine Methylsulfate (Neostigmine Methylsulfate 1 Mg/Ml 5 Ml Syringe) Confirm Administered Dose 5 mg .ROUTE .STK-MED ONE Stop: 10/10/20 16:51 Ondansetron HCl (Ondansetron 4 Mg/2 Ml Sdv) Confirm Administered Dose 4 mg .ROUTE .STK-MED ONE Stop: 10/10/20 16:51 Propofol (Propofol 200 Mg/20 Ml Sdv) Confirm Administered Dose 200 mg .ROUTE .STK-MED ONE Stop: 10/10/20 16:51 Rocuronium [place] (Rocuronium 50 Mg/5 Ml Vial) Confirm Administered Dose 50 mg .ROUTE .STK-MED ONE Stop: 10/10/20 16:51 Succinylcholine Chloride (Succinylcholine 200 Mg/10 Ml Mdv) Confirm Administered Dose 200 mg .ROUTE .STK-MED ONE Stop: 10/10/20 16:51 - Exam Quality Assessment: Supplemental Oxygen General: Alert, Oriented, Cooperative, No Acute Distress Lungs: Clear to Auscultation, Normal Respiratory Effort Cardiovascular: Regular Rate, Regular Rhythm GI/Abdominal Exam: Normal Bowel Sounds, Soft, No Distention, Tender (mild diffuse ) Extremities: No Pedal Edema, Other (ulcer lateral left fifth toe ). No: Increased Warmth Skin: Warm, Dry Psy/Mental Status: Alert, Normal Affect - Patient Data Lab Results Last 24 hrs: Laboratory Results - last 24 hr 10/10/20 10/11/20 10/11/20 Range/Units 21:20 04:41 04:41 WBC 9.5 (4.5-11.0) K/uL RBC 4.10 (3.30-5.50) M/uL Hgb 11.7 L (12.0-15.0) g/dL Hct 35.5 L (36.0-48.0) % MCV 87 (80-98) fL MCH 29 (27-31) pg MCHC 33 (32-36) % Plt Count 247 (150-400) K/uL Sodium 128 L (140-148) mmol/L Potassium 5.7 H (3.6-5.2) mmol/L Chloride 93 L (100-108) mmol/L Carbon Dioxide 24 (21-32) mmol/L Anion Gap 16.7 H (5.0-14.0) mmol/L BUN 21 H (7-18) mg/dL Creatinine 1.1 H (0.6-1.0) mg/dL Est Cr Clr Drug Dosing 42.04 mL/min Estimated GFR (MDRD) 49 L (>60) Glucose 220 H (74-106) mg/dL POC Glucose 219 H (74-106) mg/dL Calcium 8.7 (8.5-10.1) mg/dL 10/11/20 10/11/20 Range/Units 07:31 11:17 WBC (4.5-11.0) K/uL RBC (3.30-5.50) M/uL Hgb (12.0-15.0) g/dL Hct (36.0-48.0) % MCV (80-98) fL MCH (27-31) pg MCHC (32-36) % Plt Count (150-400) K/uL Sodium (140-148) mmol/L Potassium (3.6-5.2) mmol/L Chloride (100-108) mmol/L Carbon Dioxide (21-32) mmol/L Anion Gap (5.0-14.0) mmol/L BUN (7-18) mg/dL Creatinine (0.6-1.0) mg/dL Est Cr Clr Drug Dosing mL/min Estimated GFR (MDRD) (>60) Glucose (74-106) mg/dL POC Glucose 201 H 213 H (74-106) mg/dL Calcium (8.5-10.1) mg/dL Result Diagrams: 10/11/20 04:41 10/11/20 04:41 Sepsis Event Note - Evaluation Sepsis Screening Result: No Definite Risk - Focused Exam Vital Signs: Vital Signs Temp Pulse Pulse Resp BP BP Pulse Ox 10/11/20 11:00 36.3 C 62 18 109/51 L 91 L 10/11/20 09:11 60 102/58 L 10/11/20 07:11 36.3 C 60 16 102/58 L 97 10/11/20 02:22 35.3 C L 60 18 134/48 L 94 L - Problem List & Annotations (1) Impacted fracture of right hip SNOMED Code(s): 389750032 Code(s): S72.091A - OTH FRACTURE OF HEAD AND NECK OF RIGHT FEMUR, INIT Status: Acute Current Visit: Yes Qualifiers: Encounter type: initial encounter Fracture type: closed Qualified Code(s): S72.091A - Other fracture of head and neck of right femur, initial encounter for closed fracture (2) COPD (chronic obstructive pulmonary disease) SNOMED Code(s): 69126303 Code(s): J44.9 - CHRONIC OBSTRUCTIVE PULMONARY DISEASE, UNSPECIFIED Status: Chronic Current Visit: No (3) Tobacco dependence SNOMED Code(s): 98210034 Code(s): F17.200 - NICOTINE DEPENDENCE, UNSPECIFIED, UNCOMPLICATED Status: Chronic Current Visit: No (4) Type 2 diabetes mellitus SNOMED Code(s): 54169489 Code(s): E11.9 - TYPE 2 DIABETES MELLITUS WITHOUT COMPLICATIONS Status: Chronic Current Visit: No Qualifiers: Diabetes mellitus longterm insulin use: with head of digital advertising & integration use Diabetes mellitus complication status: with other specified complication Qualified Code(s): E11.69 - Type 2 diabetes mellitus with other specified complication; Z79.4 - senior care (current) use of insulin (5) History of atrial fibrillation SNOMED Code(s): 779114366 Code(s): Z86.79 - PERSONAL HISTORY OF OTHER DISEASES OF THE CIRCULATORY SYSTEM Status: Chronic Current Visit: No - Problem List Review Problem List Initiated/Reviewed/Updated: Yes - My Orders Last 24 Hours: My Active Orders 10/10/20 12:39 Resuscitation Status Routine 10/10/20 13:15 Acetaminophen [TylenoL] 650 mg PO Q4H PRN Albuterol [Proventil Neb Soln] 2.5 mg NEB Q4H PRN LORazepam [Ativan] 0.5 mg IVPUSH Q4H PRN Magnesium Hydroxide [Milk of Magnesia] 30 ml PO Q12H PRN Melatonin 9 mg PO BEDTIME PRN Ondansetron [Zofran ODT] 4 mg PO Q6H PRN Ondansetron [Zofran] 4 mg IV Q6H PRN oxyCODONE 5 - 10 mg PO Q4H PRN 10/10/20 13:15 Patient Status [ADT] Routine Antiembolic Devices [RC] .Routine Intake and Output [RC] QSHIFT Notify Provider Consults [RC] ASDIRECTED Notify Provider Vital Signs [RC] ASDIRECTED Oxygen Therapy [RC] PRN RT Aerosol Therapy [RC] ASDIRECTED Up With Assistance [RC] ASDIRECTED VTE/DVT Education [RC] Per Unit Routine Vital Signs [RC] Q4H Consult to Physician [CONS] Routine Sequential Compression Device [OM.PC] Routine VTE Pharmacological Contraindications [AST] Routine 10/10/20 13:25 HYDROmorphone [Dilaudid] 0.5 mg IVPUSH Q2H PRN 10/10/20 13:35 tiZANidine [Zanaflex] 4 mg PO Q8H PRN 10/10/20 14:00 Gabapentin [Neurontin] 300 mg PO TID 10/10/20 15:00 Albuterol/Ipratropium [DuoNeb 3.0-0.5 MG/3 ML] 3 ml NEB QIDRT Nicotine [Habitrol] 21 mg TRDERM DAILY 10/10/20 21:00 Docusate Sodium/Sennosides [Senna Plus] 1 tab PO BID Insulin Glarg,Human.Rec.Analog [LantUS Solostar] 35 units SUBCUT BEDTIME Metoprolol Tartrate [Lopressor] 50 mg PO BID Pravastatin [Pravachol] 40 mg PO BEDTIME Sodium Chloride 1 gm PO BID 10/11/20 08:00 metFORMIN [Glucophage] 1,000 mg PO BIDMEALS 10/11/20 09:00 Aspirin 81 mg PO DAILY Clopidogrel [Plavix] 75 mg PO DAILY Cyanocobalamin (Vitamin B12) [Vitamin B12] 1,000 mcg PO DAILY Multivitamins w-Iron/Ca/FA/Min [Thera M Plus] 1 tab PO DAILY lisinopriL [Prinivil] 5 mg PO DAILY 10/11/20 13:20 Discontinue Telemetry Monitoring [Cardiac Monitoring Discontinue] [RC] Click to Edit 10/11/20 13:21 Convert IV to Saline Lock [OM.PC] Routine 10/11/20 16:30 GLUCOSE POC LAB TO COLLECT JPM [POC] QIDACANDBED 10/11/20 21:00 GLUCOSE POC LAB TO COLLECT JPM [POC] QIDACANDBED 10/12/20 05:00 BASIC METABOLIC PANEL,BMP [CHEM] Timed CBC W/O DIFF,HEMOGRAM [HEME] Timed (1) 10/12/20 07:30 GLUCOSE POC LAB TO COLLECT JPM [POC] QIDACANDBED 10/12/20 11:30 GLUCOSE POC LAB TO COLLECT JPM [POC] QIDACANDBED 10/12/20 16:30 GLUCOSE POC LAB TO COLLECT JPM [POC] QIDACANDBED 10/12/20 21:00 GLUCOSE POC LAB TO COLLECT JPM [POC] QIDACANDBED 10/13/20 07:30 GLUCOSE POC LAB TO COLLECT JPM [POC] QIDACANDBED 10/13/20 11:30 GLUCOSE POC LAB TO COLLECT JPM [POC] QIDACANDBED 10/13/20 16:30 GLUCOSE POC LAB TO COLLECT JPM [POC] QIDACANDBED 10/13/20 21:00 GLUCOSE POC LAB TO COLLECT JPM [POC] QIDACANDBED 10/14/20 07:30 GLUCOSE POC LAB TO COLLECT JPM [POC] QIDACANDBED 10/14/20 11:30 GLUCOSE POC LAB TO COLLECT JPM [POC] QIDACANDBED 10/14/20 16:30 GLUCOSE POC LAB TO COLLECT JPM [POC] QIDACANDBED 10/14/20 21:00 GLUCOSE POC LAB TO COLLECT JPM [POC] QIDACANDBED 10/15/20 07:30 GLUCOSE POC LAB TO COLLECT JPM [POC] QIDACANDBED 10/15/20 11:30 GLUCOSE POC LAB TO COLLECT JPM [POC] QIDACANDBED 10/15/20 16:30 GLUCOSE POC LAB TO COLLECT JPM [POC] QIDACANDBED 10/15/20 21:00 GLUCOSE POC LAB TO COLLECT JPM [POC] QIDACANDBED - Plan Plan:: ASSESSMENT AND PLAN - Subcapital fracture of the right hip-secondary to mechanical fall. Surgical intervention completed 10/10 with cannulated screw placement. Doing fairly well after surgery as far as pain is concerned. Not moving well with only partial weightbearing status. 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 Stable so far. -Continue home medications -As needed nebulizers Coronary artery disease-history of previous bypass grafting. No active anginal symptoms. -Continue medical management Paroxysmal atrial fibrillation-chronically anticoagulated. -Hold apixaban -Continue beta-asha Tobacco dependence-encourage cessation Maintenance issues - -DVT prophylaxis-mechanical though she does have apixaban on board -GI prophylaxis-not indicated -Nutrition-nothing by mouth until after surgery -Tanner catheter-placed in the emergency room for strict intake and output monitoring in a surgical patient, reassess tomorrow Disposition -I anticipate [facility]o the [facility] for subacute rehab after the hospital stay Michael Way M.D.
[2020-10-11] MEDS: Albuterol 0.083% 2.5 MG/3 ML Neb Soln NEB PRN (18:31)
[2020-10-11] MEDS: Pravastatin 20 MG Tab PO SCH (21:18)
[2020-10-11] MEDS: Insulin Glargine,Human Rec. Analog 100 Units/ML 3 ML Pen SUBCUT SCH (21:22)
[2020-10-12] MEDS: Albuterol 0.083% 2.5 MG/3 ML Neb Soln NEB PRN (02:38)
[2020-10-12] MEDS ORDERED: Sodium Chloride 0.9% 500 ML IV ONE ×2 (03:17→06:24)
[2020-10-12] MEDS: Albuterol/Ipratropium 3.0-0.5 MG/3 ML Neb Soln NEB SCH ×4 (07:10→20:38)
[2020-10-12] MEDS: Acetaminophen/HYDROcodone 325-5 MG Tab PO PRN ×3 (07:43→18:08)
--- NOTE | 2020-10-12 08:00 | PCM.SURGPN ---
- General Info Date of Service: 10/12/20 Date of Surgery/Procedure: 10/10/20 POD#: 2 Post-Op Diagnosis: R femur subcapital impacted fracture Functional Status: Reports: Tolerating Diet - Review of Systems General: Reports: Weakness Pulmonary: Reports: Shortness of Breath (per baseline ) Cardiovascular: Reports: No Symptoms Gastrointestinal: Reports: Constipation Musculoskeletal: Reports: Leg Pain (right ), Joint Pain (right hip ) Skin: Reports: Bruising Neurological: Reports: Confusion Psychiatric: Reports: Agitation - Patient Data Vitals - Most Recent: Last Vital Signs Temp 97.1 F 10/12/20 07:22 Pulse 67 10/12/20 07:22 Resp 24 H 10/12/20 07:22 BP 138/73 10/12/20 07:22 Pulse Ox 90 L 10/12/20 07:22 Weight - Most Recent: 126 lb 15.992 oz I&O - Last 24 Hours: Intake & Output 10/11/20 10/12/20 10/12/20 22:59 06:59 14:59 Intake Total 240 1000 Output Total 150 125 Balance 90 875 Lab Results Last 24 Hrs: Laboratory Results - last 24 hr 10/11/20 10/11/20 10/11/20 Range/Units 07:31 11:17 16:39 WBC (4.5-11.0) K/uL RBC (3.30-5.50) M/uL Hgb (12.0-15.0) g/dL Hct (36.0-48.0) % MCV (80-98) fL MCH (27-31) pg MCHC (32-36) % Plt Count (150-400) K/uL Sodium (140-148) mmol/L Potassium (3.6-5.2) mmol/L Chloride (100-108) mmol/L Carbon Dioxide (21-32) mmol/L Anion Gap (5.0-14.0) mmol/L BUN (7-18) mg/dL Creatinine (0.6-1.0) mg/dL Est Cr Clr Drug Dosing mL/min Estimated GFR (MDRD) (>60) Glucose (74-106) mg/dL POC Glucose 201 H 213 H 169 H (74-106) mg/dL Calcium (8.5-10.1) mg/dL 10/11/20 10/12/2021 Range/Units 21:01 04:19 04:19 WBC 10.4 (4.5-11.0) K/uL RBC 3.36 (3.30-5.50) M/uL Hgb 9.6 L D (12.0-15.0) g/dL Hct 30.0 L (36.0-48.0) % MCV 89 (80-98) fL MCH 29 (27-31) pg MCHC 32 (32-36) % Plt Count 199 (150-400) K/uL Sodium 128 L (140-148) mmol/L Potassium 5.6 H (3.6-5.2) mmol/L Chloride 94 L (100-108) mmol/L Carbon Dioxide 23 (21-32) mmol/L Anion Gap 16.6 H (5.0-14.0) mmol/L BUN 22 H (7-18) mg/dL Creatinine 1.3 H (0.6-1.0) mg/dL Est Cr Clr Drug Dosing 35.57 mL/min Estimated GFR (MDRD) 40 L (>60) Glucose 149 H (74-106) mg/dL POC Glucose 206 H (74-106) mg/dL Calcium 8.3 L (8.5-10.1) mg/dL Med Orders - Current: Current Medications Acetaminophen (Acetaminophen 325 Mg Tab) 650 mg PO Q4H PRN PRN Reason: Pain (Mild 1-3)/fever Hydrocodone Bitart/Acetaminophen (Acetaminophen/Hydrocodone 325-5 Mg Tab) 1 tab PO Q4H PRN PRN Reason: pain Albuterol (Albuterol 0.083% 2.5 Mg/3 Ml Neb Soln) 2.5 mg NEB Q4H PRN PRN Reason: Shortness Of Breath/wheezing Last Admin: 10/12/20 02:38 Dose: 2.5 mg Documented by: Albuterol/Ipratropium (Albuterol/Ipratropium 3.0-0.5 Mg/3 Ml Neb Soln) 3 ml NEB QIDRT [facility] Last Admin: 10/12/20 07:10 Dose: 3 ml Documented by: Aspirin (Aspirin 81 Mg Tab.Chew) 81 mg PO DAILY [facility] Last Admin: 10/11/20 09:10 Dose: 81 mg Documented by: Clopidogrel Bisulfate (Clopidogrel 75 Mg Tab) 75 mg PO DAILY [facility] Last Admin: 10/11/20 09:10 Dose: 75 mg Documented by: Cyanocobalamin (Cyanocobalamin (Vitamin B12) 1,000 Mcg Tab) 1,000 mcg PO DAILY [facility] Last Admin: 10/11/20 09:10 Dose: 1,000 mcg Documented by: Gabapentin (Gabapentin 300 Mg Cap) 300 mg PO TID [facility] Last Admin: 10/11/20 21:18 Dose: 300 mg Documented by: Hydromorphone HCl (Hydromorphone 0.5 Mg/0.5 Ml Syringe) 0.5 mg IVPUSH Q2H PRN PRN Reason: PAIN Insulin Glargine (Insulin Glargine,Human Rec. Analog 100 Units/Ml 3 Ml Pen) 35 units SUBCUT BEDTIME [facility] Last Admin: 10/11/20 21:22 Dose: 35 units Documented by: Lisinopril (Lisinopril 5 Mg Tab) 5 mg PO DAILY [facility] Last Admin: 10/11/20 09:11 Dose: 5 mg Documented by: Lorazepam (Lorazepam 2 Mg/Ml Sdv) 0.5 mg IVPUSH Q4H PRN PRN Reason: Nausea/Vomiting Magnesium Hydroxide (Magnesium Hydroxide 400 Mg/5 Ml Susp 30 Ml Cup) 30 ml PO Q12H PRN PRN Reason: Constipation Melatonin (Melatonin 3 Mg Tab) 9 mg PO BEDTIME PRN PRN Reason: Sleep Metformin HCl (Metformin 500 Mg Tab) 1,000 mg PO BIDMEALS [facility] Last Admin: 10/11/20 16:54 Dose: 1,000 mg Documented by: Metoprolol Tartrate (Metoprolol Tartrate 50 Mg Tab) 50 mg PO BID [facility] Last Admin: 10/11/20 21:19 Dose: 50 mg Documented by: Multivitamins/Minerals (Multivitamins With Iron/Calcium/Folic Acid/Minerals Tab) 1 tab PO DAILY [facility] Last Admin: 10/11/20 09:10 Dose: 1 tab Documented by: Nicotine (Nicotine 21 Mg/24 Hr Patch) 21 mg TRDERM DAILY [facility] Last Admin: 10/11/20 09:14 Dose: 21 mg Documented by: Ondansetron HCl (Ondansetron 4 Mg/2 Ml Sdv) 4 mg IV Q6H PRN PRN Reason: Nausea/Vomiting Last Admin: 10/10/20 14:11 Dose: 4 mg Documented by: Ondansetron HCl (Ondansetron 4 Mg Tab.Dis) 4 mg PO Q6H PRN PRN Reason: Nausea able to take PO Last Admin: 10/11/20 13:47 Dose: 4 mg Documented by: Oxycodone HCl (Oxycodone 5 Mg Tab) 5 - 10 mg PO Q4H PRN PRN Reason: Pain Last Admin: 10/11/20 22:40 Dose: 10 mg Documented by: Pravastatin Sodium (Pravastatin 20 Mg Tab) 40 mg PO BEDTIME [facility] Last Admin: 10/11/20 21:18 Dose: 40 mg Documented by: Senna/Docusate Sodium (Docusate Sodium/Sennosides 50-8.6 Mg Tab) 1 tab PO BID [facility] Last Admin: 10/11/20 21:18 Dose: 1 tab Documented by: Sodium Chloride (Sodium Chloride 1 Gm Tab) 1 gm PO BID [facility] Last Admin: 10/11/20 21:18 Dose: 1 gm Documented by: Tizanidine HCl (Tizanidine 4 Mg Tab) 4 mg PO Q8H PRN PRN Reason: Muscle Spasm Discontinued Medications Bupivacaine HCl (Bupivacaine 0.5% 50 Ml Mdv) Confirm Administered Dose 50 ml .ROUTE .STK-MED ONE Stop: 10/10/20 17:04 Last Admin: 10/10/20 17:22 Dose: 35 ml Documented by: Bupivacaine HCl/Epinephrine Bitart (Bupivacaine 0.5%/Epinephrine 1:200,000 50 Ml Mdv) Confirm Administered Dose 50 ml .ROUTE .STK-MED ONE Stop: 10/10/20 13:20 Dexamethasone (Dexamethasone 4 Mg/Ml Sdv) Confirm Administered Dose 4 mg .ROUTE .STK-MED ONE Stop: 10/10/20 16:51 Fentanyl (Fentanyl 100 Mcg/2 Ml Sdv) 50 mcg IM ONETIME ONE Stop: 10/10/20 10:39 Last Admin: 10/10/20 11:27 Dose: 50 mcg Documented by: Fentanyl (Fentanyl 250 Mcg/5 Ml Sdv) Confirm Administered Dose 250 mcg .ROUTE .STK-MED ONE Stop: 10/10/20 16:40 Glycopyrrolate (Glycopyrrolate 0.2 Mg/Ml 5 Ml Mdv) Confirm Administered Dose 1 mg .ROUTE .STK-MED ONE Stop: 10/10/20 16:51 Lactated Ringer's (Ringers, Lactated) 1,000 mls @ 125 mls/hr IV ASDIRECTED LEWIS Last Admin: 10/11/20 02:22 Dose: 125 mls/hr Documented by: Cefazolin Sodium/Dextrose 2 gm (/ Premix) 50 mls @ 100 mls/hr IV ONETIME ONE Stop: 10/10/20 16:29 Last Admin: 10/10/20 16:29 Dose: 100 mls/hr Documented by: Sodium Chloride (Normal Saline) 500 mls @ 999 mls/hr IV .BOLUS ONE Stop: 10/12/20 03:47 Last Admin: 10/12/20 03:24 Dose: 999 mls/hr Documented by: Sodium Chloride (Normal Saline) 500 mls @ 999 mls/hr IV .BOLUS ONE Stop: 10/12/20 06:54 Last Admin: 10/12/20 07:28 Dose: 999 mls/hr Documented by: Neostigmine Methylsulfate (Neostigmine Methylsulfate 1 Mg/Ml 5 Ml Syringe) Confirm Administered Dose 5 mg .ROUTE .STK-MED ONE Stop: 10/10/20 16:51 Ondansetron HCl (Ondansetron 4 Mg/2 Ml Sdv) Confirm Administered Dose 4 mg .ROUTE .STK-MED ONE Stop: 10/10/20 16:51 Propofol (Propofol 200 Mg/20 Ml Sdv) Confirm Administered Dose 200 mg .ROUTE .STK-MED ONE Stop: 10/10/20 16:51 Rocuronium [place] (Rocuronium 50 Mg/5 Ml Vial) Confirm Administered Dose 50 mg .ROUTE .STK-MED ONE Stop: 10/10/20 16:51 Succinylcholine Chloride (Succinylcholine 200 Mg/10 Ml Mdv) Confirm Administered Dose 200 mg .ROUTE .STK-MED ONE Stop: 10/10/20 16:51 - Exam Wound/Incisions: Dressing Dry and Intact, No Drainage Quality Assessment: Urine Catheter, DVT Prophylaxis General: Alert, Mild Distress Extremities: Normal Capillary Refill, Leg Pain (right ), Limited Range of Motion, Increased Warmth Skin: Warm, Dry, Intact Psy/Mental Status: Alert Sepsis Event Note - Evaluation Sepsis Screening Result: No Definite Risk - Focused Exam Vital Signs: Vital Signs Temp Pulse Pulse Resp BP BP BP 10/12/20 07:22 97.1 F 67 24 H 138/73 10/12/20 03:00 10/12/20 02:19 96.4 F L 60 20 110/46 L 10/11/20 22:34 96.6 F L 67 16 121/49 L 10/11/20 21:19 66 153/57 H Pulse Ox 10/12/20 07:22 90 L 10/12/20 03:00 91 L 10/12/20 02:19 90 L 10/11/20 22:34 93 L 10/11/20 21:19 - Problem List & Annotations (1) Status post-operative repair of hip fracture SNOMED Code(s): 223758962, 181679352 Code(s): Z98.890 - OTHER SPECIFIED POSTPROCEDURAL STATES; Z87.81 - PERSONAL HISTORY OF (HEALED) TRAUMATIC FRACTURE Status: Acute Current Visit: Yes (2) Postoperative anemia SNOMED Code(s): 363934185, 176625014 Code(s): D64.9 - ANEMIA, UNSPECIFIED Status: Acute Current Visit: Yes - Problem List Review Problem List Initiated/Reviewed/Updated: Yes - My Orders Last 24 Hours: Active Orders 24 hr Category Date Time Status Consistent Carbohydrate Diet [DIET] Diet 10/11/20 Breakfast Active CV Ankle Brachial Index (ARMIDA) [US] Routine Exams 10/11/20 13:22 Taken GLUCOSE POC LAB TO COLLECT JPM [POC] QIDACANDBED Lab 10/12/20 07:30 Ordered GLUCOSE POC LAB TO COLLECT JPM [POC] QIDACANDBED Lab 10/12/20 11:30 Ordered GLUCOSE POC LAB TO COLLECT JPM [POC] QIDACANDBED Lab 10/12/20 16:30 Ordered GLUCOSE POC LAB TO COLLECT JPM [POC] QIDACANDBED Lab 10/12/20 21:00 Ordered GLUCOSE POC LAB TO COLLECT JPM [POC] QIDACANDBED Lab 10/13/20 07:30 Ordered GLUCOSE POC LAB TO COLLECT JPM [POC] QIDACANDBED Lab 10/13/20 11:30 Ordered GLUCOSE POC LAB TO COLLECT JPM [POC] QIDACANDBED Lab 10/13/20 16:30 Ordered GLUCOSE POC LAB TO COLLECT JPM [POC] QIDACANDBED Lab 10/13/20 21:00 Ordered GLUCOSE POC LAB TO COLLECT JPM [POC] QIDACANDBED Lab 10/14/20 07:30 Ordered GLUCOSE POC LAB TO COLLECT JPM [POC] QIDACANDBED Lab 10/14/20 11:30 Ordered GLUCOSE POC LAB TO COLLECT JPM [POC] QIDACANDBED Lab 10/14/20 16:30 Ordered GLUCOSE POC LAB TO COLLECT JPM [POC] QIDACANDBED Lab 10/14/20 21:00 Ordered GLUCOSE POC LAB TO COLLECT JPM [POC] QIDACANDBED Lab 10/15/20 07:30 Ordered GLUCOSE POC LAB TO COLLECT JPM [POC] QIDACANDBED Lab 10/15/20 11:30 Ordered GLUCOSE POC LAB TO COLLECT JPM [POC] QIDACANDBED Lab 10/15/20 16:30 Ordered GLUCOSE POC LAB TO COLLECT JPM [POC] QIDACANDBED Lab 10/15/20 21:00 Ordered Acetaminophen/HYDROcodone [Prospect 325-5 MG] Med 10/11/20 14:34 Active 1 tab PO Q4H PRN Aspirin Med 10/11/20 09:00 Active 81 mg PO DAILY Clopidogrel [Plavix] Med 10/11/20 09:00 Active 75 mg PO DAILY Cyanocobalamin (Vitamin B12) [Vitamin B12] Med 10/11/20 09:00 Active 1,000 mcg PO DAILY Multivitamins w-Iron/Ca/FA/Min [Thera M Plus] Med 10/11/20 09:00 Active 1 tab PO DAILY lisinopriL [Prinivil] Med 10/11/20 09:00 Active 5 mg PO DAILY metFORMIN [Glucophage] Med 10/11/20 08:00 Active 1,000 mg PO BIDMEALS Convert IV to Saline Lock [OM.PC] Routine Oth 10/11/20 13:21 Ordered Medication Orders Acetaminophen (Acetaminophen 325 Mg Tab) 650 mg PO Q4H PRN PRN Reason: Pain (Mild 1-3)/fever Hydrocodone Bitart/Acetaminophen (Acetaminophen/Hydrocodone 325-5 Mg Tab) 1 tab PO Q4H PRN PRN Reason: pain Albuterol (Albuterol 0.083% 2.5 Mg/3 Ml Neb Soln) 2.5 mg NEB Q4H PRN PRN Reason: Shortness Of Breath/wheezing Last Admin: 10/12/20 02:38 Dose: 2.5 mg Documented by: Admin: 10/11/20 18:31 Dose: 2.5 mg Documented by: LISET Albuterol/Ipratropium (Albuterol/Ipratropium 3.0-0.5 Mg/3 Ml Neb Soln) 3 ml NEB QIDRT [facility] Last Admin: 10/12/20 07:10 Dose: 3 ml Documented by: Admin: 10/11/20 21:15 Dose: 3 ml Documented by: Admin: 10/11/20 14:46 Dose: 3 ml Documented by: Admin: 10/11/20 10:47 Dose: 3 ml Documented by: Admin: 10/11/20 07:09 Dose: 3 ml Documented by: Admin: 10/10/20 21:38 Dose: 3 ml Documented by: Admin: 10/10/20 14:43 Dose: 3 ml Documented by: DIEGO Aspirin (Aspirin 81 Mg Tab.Chew) 81 mg PO DAILY [facility] Last Admin: 10/11/20 09:10 Dose: 81 mg Documented by: GRADY Clopidogrel Bisulfate (Clopidogrel 75 Mg Tab) 75 mg PO DAILY [facility] Last Admin: 10/11/20 09:10 Dose: 75 mg Documented by: GRADY Cyanocobalamin (Cyanocobalamin (Vitamin B12) 1,000 Mcg Tab) 1,000 mcg PO DAILY [facility] Last Admin: 10/11/20 09:10 Dose: 1,000 mcg Documented by: GRADY Gabapentin (Gabapentin 300 Mg Cap) 300 mg PO TID [facility] Last Admin: 10/11/20 21:18 Dose: 300 mg Documented by: Admin: 10/11/20 13:47 Dose: 300 mg Documented by: Admin: 10/11/20 09:10 Dose: 300 mg Documented by: Admin: 10/10/20 21:42 Dose: 300 mg Documented by: Admin: 10/10/20 15:00 Dose: Not Given Documented by: GRADY Hydromorphone HCl (Hydromorphone 0.5 Mg/0.5 Ml Syringe) 0.5 mg IVPUSH Q2H PRN PRN Reason: PAIN Insulin Glargine (Insulin Glargine,Human Rec. Analog 100 Units/Ml 3 Ml Pen) 35 units SUBCUT BEDTIME [facility] Last Admin: 10/11/20 21:22 Dose: 35 units Documented by: LISET Cosigned by: JOSE Admin: 10/10/20 21:41 Dose: 35 units Documented by: BETITO Cosigned by: JOSE Lisinopril (Lisinopril 5 Mg Tab) 5 mg PO DAILY [facility] Last Admin: 10/11/20 09:11 Dose: 5 mg Documented by: GRADY Lorazepam (Lorazepam 2 Mg/Ml Sdv) 0.5 mg IVPUSH Q4H PRN PRN Reason: Nausea/Vomiting Magnesium Hydroxide (Magnesium Hydroxide 400 Mg/5 Ml Susp 30 Ml Cup) 30 ml PO Q12H PRN PRN Reason: Constipation Melatonin (Melatonin 3 Mg Tab) 9 mg PO BEDTIME PRN PRN Reason: Sleep Metformin HCl (Metformin 500 Mg Tab) 1,000 mg PO BIDMEALS [facility] Last Admin: 10/11/20 16:54 Dose: 1,000 mg Documented by: Admin: 10/11/20 09:10 Dose: 1,000 mg Documented by: GRADY Metoprolol Tartrate (Metoprolol Tartrate 50 Mg Tab) 50 mg PO BID [facility] Last Admin: 10/11/20 21:19 Dose: 50 mg Documented by: Admin: 10/11/20 09:11 Dose: 50 mg Documented by: Admin: 10/10/20 21:49 Dose: 50 mg Documented by: BETITO Multivitamins/Minerals (Multivitamins With Iron/Calcium/Folic Acid/Minerals Tab) 1 tab PO DAILY [facility] Last Admin: 10/11/20 09:10 Dose: 1 tab Documented by: GRADY Nicotine (Nicotine 21 Mg/24 Hr Patch) 21 mg TRDERM DAILY [facility] Last Admin: 10/11/20 09:14 Dose: 21 mg Documented by: Admin: 10/10/20 15:14 Dose: 21 mg Documented by: GRADY Ondansetron HCl (Ondansetron 4 Mg/2 Ml Sdv) 4 mg IV Q6H PRN PRN Reason: Nausea/Vomiting Last Admin: 10/10/20 14:11 Dose: 4 mg Documented by: GRADY Ondansetron HCl (Ondansetron 4 Mg Tab.Dis) 4 mg PO Q6H PRN PRN Reason: Nausea able to take PO Last Admin: 10/11/20 13:47 Dose: 4 mg Documented by: GRADY Oxycodone HCl (Oxycodone 5 Mg Tab) 5 - 10 mg PO Q4H PRN PRN Reason: Pain Last Admin: 10/11/20 22:40 Dose: 10 mg Documented by: Admin: 10/11/20 13:47 Dose: 10 mg Documented by: Admin: 10/11/20 09:29 Dose: 10 mg Documented by: Admin: 10/11/20 02:05 Dose: 10 mg Documented by: Admin: 10/10/20 20:14 Dose: 5 mg Documented by: BETITO Pravastatin Sodium (Pravastatin 20 Mg Tab) 40 mg PO BEDTIME [facility] Last Admin: 10/11/20 21:18 Dose: 40 mg Documented by: Admin: 10/10/20 21:42 Dose: 40 mg Documented by: BETITO Senna/Docusate Sodium (Docusate Sodium/Sennosides 50-8.6 Mg Tab) 1 tab PO BID [facility] Last Admin: 10/11/20 21:18 Dose: 1 tab Documented by: Admin: 10/11/20 09:10 Dose: 1 tab Documented by: Admin: 10/10/20 21:43 Dose: 1 tab Documented by: BETITO Sodium Chloride (Sodium Chloride 1 Gm Tab) 1 gm PO BID [facility] Last Admin: 10/11/20 21:18 Dose: 1 gm Documented by: Admin: 10/11/20 09:10 Dose: 1 gm Documented by: Admin: 10/10/20 21:43 Dose: 1 gm Documented by: BETITO Tizanidine HCl (Tizanidine 4 Mg Tab) 4 mg PO Q8H PRN PRN Reason: Muscle Spasm - Assessment Assessment (Free Text/Narrative):: Patient is a 70-year-old female, status post right subcapital impacted femoral fracture repaired with 3 cannulated screws. Patient is postop day #2. Overnight nursing reports low urine output and low blood pressures, gave patient 2 saline boluses overnight. Has been requiring 4-5 L O2 to keep oxygen saturations >90%. Blood pressure improved upon last reading, 138/73. HgB declined on POD#2 at 9.6. Patient endorsed feeling weak in bed. Patient is confused this morning; unable to recall weight bearing status of R LE. Prior to dressing change on R hip, patient confused as to why there is a dressing on her R hip. Upon asking patient location, able to recall she is in the hospital following a surgery of R hip. Per nursing report, patient was confused throughout yesterday. Made attempts to get out of bed alone. Worked with PT and OT yesterday. Required verbal cues and assistance with ADLs. PT worked bilateral LE exercises with patient laying in bed. Using x2 assist and FWW for transfers from bed to chair. Unable to ambulate further than a few steps. Due to limited ambulation abilities, vargas is still in place. Patient reports no bowel movement since prior to hospitalization. Reports nausea again this morning. PRN zofran available. Last administration of pain medication (oxycodone) was at 2240 on 10/11. Has been eating consistent carbohydrate diet. POC Glucoses have been elevated. Dressing change performed this morning, patient had pain with slight touch to the R hip. Reports pain at rest in R hip 4/10. Increased pain with attempted transfers and ambulation. Denied numbness or tingling to R LE. Exam: R hip incision well approximated and intact, dried blood on steri strips. New dressing applied; dry and intact. Minimal ecchymosis around the R hip incision. There is warmth and fullness to palpation under the incision. Very tender to palpation of R hip. Modest swelling of R thigh and R knee. Mild ecchymosis present on R lateral inferior patella region. No significant pedal edema. Tibialis posterior appreciated, 2+. Bruising on R side of face present from fall. L 4th toe ulceration. Plan: * Hospitalist to continue medical management of this patient * Weight bear status unchanged: Partial weight bear on R LE * Patient to participate in PT and OT services daily while in the hospital. Pending improvement with ambulation abilities, may discontinue vargas * May continue with current pain regimen, Prospect is also available as a pain PRN if nausea seems to correlate with oxycodone administration * Continue with bilateral SCDs for mechanical DVT/VTE prophylaxis. Hospitalist ordered 81 mg Aspirin qd which will aide in chemical prophylaxis * Anticipate discharge to SNF when medically stable
[2020-10-12] MEDS: Nicotine 21 MG/24 Hr Patch TRDERM SCH (09:49)
[2020-10-12] MEDS: metFORMIN 500 MG Tab PO SCH ×2 (09:49→18:04)
[2020-10-12] MEDS: Gabapentin 300 MG Cap PO SCH ×3 (09:50→20:38)
[2020-10-12] MEDS: Sodium Chloride 1 GM Tab PO SCH ×2 (09:50→20:39)
[2020-10-12] MEDS: Multivitamins with Iron/Calcium/Folic Acid/Minerals Tab PO SCH (09:50)
[2020-10-12] MEDS: Cyanocobalamin (Vitamin B12) 1,000 MCG Tab PO SCH (09:50)
--- NOTE | 2020-10-12 11:21 | PCM.PN ---
- General Info Date of Service: 10/12/20 Subjective Update: Overnight the patient had some difficulty with decreased urine output and lower blood pressures. She did receive 2 IV fluid boluses. She was fairly sleepy this morning but able to answer questions. She reports increased pain in the right hip and groin area. She does not feel short of breath but is currently requiring 5 L of supplemental oxygen. Nausea is better today after switch to hydrocodone from oxycodone. No fevers. No cough. Functional Status: Reports: Tolerating Diet. Denies: Pain Controlled - Review of Systems General: Reports: Weakness Pulmonary: Denies: Shortness of Breath Musculoskeletal: Reports: Leg Pain (right hip ) - Patient Data Vitals - Most Recent: Last Vital Signs Temp 36.2 C 10/12/20 09:25 Pulse 62 10/12/20 10:38 Resp 20 10/12/20 09:25 BP 81/44 L 10/12/20 09:25 Pulse Ox 88 L 10/12/20 09:25 Weight - Most Recent: 57.606 kg I&O - Last 24 Hours: Intake & Output 10/11/20 10/12/20 10/12/20 22:59 06:59 14:59 Intake Total 240 1000 300 Output Total 150 125 100 Balance 90 875 200 Lab Results Last 24 Hours: Laboratory Results - last 24 hr 10/11/20 10/11/20 10/11/20 Range/Units 11:17 16:39 21:01 WBC (4.5-11.0) K/uL RBC (3.30-5.50) M/uL Hgb (12.0-15.0) g/dL Hct (36.0-48.0) % MCV (80-98) fL MCH (27-31) pg MCHC (32-36) % Plt Count (150-400) K/uL Sodium (140-148) mmol/L Potassium (3.6-5.2) mmol/L Chloride (100-108) mmol/L Carbon Dioxide (21-32) mmol/L Anion Gap (5.0-14.0) mmol/L BUN (7-18) mg/dL Creatinine (0.6-1.0) mg/dL Est Cr Clr Drug Dosing mL/min Estimated GFR (MDRD) (>60) Glucose (74-106) mg/dL POC Glucose 213 H 169 H 206 H (74-106) mg/dL Calcium (8.5-10.1) mg/dL 10/12/20 10/12/20 10/12/20 Range/Units 04:19 04:19 07:34 WBC 10.4 (4.5-11.0) K/uL RBC 3.36 (3.30-5.50) M/uL Hgb 9.6 L D (12.0-15.0) g/dL Hct 30.0 L (36.0-48.0) % MCV 89 (80-98) fL MCH 29 (27-31) pg MCHC 32 (32-36) % Plt Count 199 (150-400) K/uL Sodium 128 L (140-148) mmol/L Potassium 5.6 H (3.6-5.2) mmol/L Chloride 94 L (100-108) mmol/L Carbon Dioxide 23 (21-32) mmol/L Anion Gap 16.6 H (5.0-14.0) mmol/L BUN 22 H (7-18) mg/dL Creatinine 1.3 H (0.6-1.0) mg/dL Est Cr Clr Drug Dosing 35.57 mL/min Estimated GFR (MDRD) 40 L (>60) Glucose 149 H (74-106) mg/dL POC Glucose 124 H (74-106) mg/dL Calcium 8.3 L (8.5-10.1) mg/dL Med Orders - Current: Current Medications Acetaminophen (Acetaminophen 325 Mg Tab) 650 mg PO Q4H PRN PRN Reason: Pain (Mild 1-3)/fever Hydrocodone Bitart/Acetaminophen (Acetaminophen/Hydrocodone 325-5 Mg Tab) 1 tab PO Q4H PRN PRN Reason: pain Last Admin: 10/12/20 07:43 Dose: 1 tab Documented by: Albuterol (Albuterol 0.083% 2.5 Mg/3 Ml Neb Soln) 2.5 mg NEB Q4H PRN PRN Reason: Shortness Of Breath/wheezing Last Admin: 10/12/20 02:38 Dose: 2.5 mg Documented by: Albuterol/Ipratropium (Albuterol/Ipratropium 3.0-0.5 Mg/3 Ml Neb Soln) 3 ml NEB QIDRT LEWIS Last Admin: 10/12/20 10:38 Dose: 3 ml Documented by: Apixaban (Apixaban 5 Mg Tab) 5 mg PO BID [facility] Aspirin (Aspirin 81 Mg Tab.Chew) 81 mg PO DAILY [facility] Last Admin: 10/11/20 09:10 Dose: 81 mg Documented by: Clopidogrel Bisulfate (Clopidogrel 75 Mg Tab) 75 mg PO DAILY [facility] Last Admin: 10/11/20 09:10 Dose: 75 mg Documented by: Cyanocobalamin (Cyanocobalamin (Vitamin B12) 1,000 Mcg Tab) 1,000 mcg PO DAILY [facility] Last Admin: 10/12/20 09:50 Dose: 1,000 mcg Documented by: Gabapentin (Gabapentin 300 Mg Cap) 300 mg PO TID [facility] Last Admin: 10/12/20 09:50 Dose: 300 mg Documented by: Hydromorphone HCl (Hydromorphone 0.5 Mg/0.5 Ml Syringe) 0.5 mg IVPUSH Q2H PRN PRN Reason: PAIN Insulin Glargine (Insulin Glargine,Human Rec. Analog 100 Units/Ml 3 Ml Pen) 35 units SUBCUT BEDTIME [facility] Last Admin: 10/11/20 21:22 Dose: 35 units Documented by: Lisinopril (Lisinopril 5 Mg Tab) 5 mg PO DAILY [facility] Last Admin: 10/11/20 09:11 Dose: 5 mg Documented by: Lorazepam (Lorazepam 2 Mg/Ml Sdv) 0.5 mg IVPUSH Q4H PRN PRN Reason: Nausea/Vomiting Magnesium Hydroxide (Magnesium Hydroxide 400 Mg/5 Ml Susp 30 Ml Cup) 30 ml PO Q12H PRN PRN Reason: Constipation Melatonin (Melatonin 3 Mg Tab) 9 mg PO BEDTIME PRN PRN Reason: Sleep Metformin HCl (Metformin 500 Mg Tab) 1,000 mg PO BIDMEALS [facility] Last Admin: 10/12/20 09:49 Dose: 1,000 mg Documented by: Metoprolol Tartrate (Metoprolol Tartrate 50 Mg Tab) 50 mg PO BID [facility] Last Admin: 10/11/20 21:19 Dose: 50 mg Documented by: Multivitamins/Minerals (Multivitamins With Iron/Calcium/Folic Acid/Minerals Tab) 1 tab PO DAILY [facility] Last Admin: 10/12/20 09:50 Dose: 1 tab Documented by: Nicotine (Nicotine 21 Mg/24 Hr Patch) 21 mg TRDERM DAILY [facility] Last Admin: 10/12/20 09:49 Dose: 21 mg Documented by: Ondansetron HCl (Ondansetron 4 Mg/2 Ml Sdv) 4 mg IV Q6H PRN PRN Reason: Nausea/Vomiting Last Admin: 10/10/20 14:11 Dose: 4 mg Documented by: Ondansetron HCl (Ondansetron 4 Mg Tab.Dis) 4 mg PO Q6H PRN PRN Reason: Nausea able to take PO Last Admin: 10/11/20 13:47 Dose: 4 mg Documented by: Oxycodone HCl (Oxycodone 5 Mg Tab) 5 - 10 mg PO Q4H PRN PRN Reason: Pain Last Admin: 10/11/20 22:40 Dose: 10 mg Documented by: Pravastatin Sodium (Pravastatin 20 Mg Tab) 40 mg PO BEDTIME [facility] Last Admin: 10/11/20 21:18 Dose: 40 mg Documented by: Senna/Docusate Sodium (Docusate Sodium/Sennosides 50-8.6 Mg Tab) 1 tab PO BID [facility] Last Admin: 10/12/20 09:50 Dose: 1 tab Documented by: Sodium Chloride (Sodium Chloride 1 Gm Tab) 1 gm PO BID [facility] Last Admin: 10/12/20 09:50 Dose: 1 gm Documented by: Tizanidine HCl (Tizanidine 4 Mg Tab) 4 mg PO Q8H PRN PRN Reason: Muscle Spasm Discontinued Medications Bupivacaine HCl (Bupivacaine 0.5% 50 Ml Mdv) Confirm Administered Dose 50 ml .ROUTE .STK-MED ONE Stop: 10/10/20 17:04 Last Admin: 10/10/20 17:22 Dose: 35 ml Documented by: Bupivacaine HCl/Epinephrine Bitart (Bupivacaine 0.5%/Epinephrine 1:200,000 50 Ml Mdv) Confirm Administered Dose 50 ml .ROUTE .STK-MED ONE Stop: 10/10/20 13:20 Dexamethasone (Dexamethasone 4 Mg/Ml Sdv) Confirm Administered Dose 4 mg .ROUTE .STK-MED ONE Stop: 10/10/20 16:51 Fentanyl (Fentanyl 100 Mcg/2 Ml Sdv) 50 mcg IM ONETIME ONE Stop: 10/10/20 10:39 Last Admin: 10/10/20 11:27 Dose: 50 mcg Documented by: Fentanyl (Fentanyl 250 Mcg/5 Ml Sdv) Confirm Administered Dose 250 mcg .ROUTE .STK-MED ONE Stop: 10/10/20 16:40 Glycopyrrolate (Glycopyrrolate 0.2 Mg/Ml 5 Ml Mdv) Confirm Administered Dose 1 mg .ROUTE .STK-MED ONE Stop: 10/10/20 16:51 Lactated Ringer's (Ringers, Lactated) 1,000 mls @ 125 mls/hr IV ASDIRECTED [facility] Last Admin: 10/11/20 02:22 Dose: 125 mls/hr Documented by: Cefazolin Sodium/Dextrose 2 gm (/ Premix) 50 mls @ 100 mls/hr IV ONETIME ONE Stop: 10/10/20 16:29 Last Admin: 10/10/20 16:29 Dose: 100 mls/hr Documented by: Sodium Chloride (Normal Saline) 500 mls @ 999 mls/hr IV .BOLUS ONE Stop: 10/12/20 03:47 Last Admin: 10/12/20 03:24 Dose: 999 mls/hr Documented by: Sodium Chloride (Normal Saline) 500 mls @ 999 mls/hr IV .BOLUS ONE Stop: 10/12/20 06:54 Last Admin: 10/12/20 07:28 Dose: 999 mls/hr Documented by: Neostigmine Methylsulfate (Neostigmine Methylsulfate 1 Mg/Ml 5 Ml Syringe) Confirm Administered Dose 5 mg .ROUTE .STK-MED ONE Stop: 10/10/20 16:51 Ondansetron HCl (Ondansetron 4 Mg/2 Ml Sdv) Confirm Administered Dose 4 mg .ROUTE .STK-MED ONE Stop: 10/10/20 16:51 Propofol (Propofol 200 Mg/20 Ml Sdv) Confirm Administered Dose 200 mg .ROUTE .STK-MED ONE Stop: 10/10/20 16:51 Rocuronium [place] (Rocuronium 50 Mg/5 Ml Vial) Confirm Administered Dose 50 mg .ROUTE .STK-MED ONE Stop: 10/10/20 16:51 Succinylcholine Chloride (Succinylcholine 200 Mg/10 Ml Mdv) Confirm Administered Dose 200 mg .ROUTE .STK-MED ONE Stop: 10/10/20 16:51 - Exam Quality Assessment: Supplemental Oxygen General: Alert, Oriented, Cooperative, No Acute Distress Lungs: Clear to Auscultation, Normal Respiratory Effort. No: Wheezing Cardiovascular: Regular Rate, Regular Rhythm GI/Abdominal Exam: Soft, Non-Tender, No Distention Extremities: No Pedal Edema. No: Increased Warmth Skin: Warm, Dry Wound/Incisions: Dressing Dry and Intact, No Drainage Psy/Mental Status: Alert, Normal Affect - Patient Data Lab Results Last 24 hrs: Laboratory Results - last 24 hr 10/11/20 10/11/20 10/11/20 Range/Units 11:17 16:39 21:01 WBC (4.5-11.0) K/uL RBC (3.30-5.50) M/uL Hgb (12.0-15.0) g/dL Hct (36.0-48.0) % MCV (80-98) fL MCH (27-31) pg MCHC (32-36) % Plt Count (150-400) K/uL Sodium (140-148) mmol/L Potassium (3.6-5.2) mmol/L Chloride (100-108) mmol/L Carbon Dioxide (21-32) mmol/L Anion Gap (5.0-14.0) mmol/L BUN (7-18) mg/dL Creatinine (0.6-1.0) mg/dL Est Cr Clr Drug Dosing mL/min Estimated GFR (MDRD) (>60) Glucose (74-106) mg/dL POC Glucose 213 H 169 H 206 H (74-106) mg/dL Calcium (8.5-10.1) mg/dL 10/12/20 10/12/20 10/12/20 Range/Units 04:19 04:19 07:34 WBC 10.4 (4.5-11.0) K/uL RBC 3.36 (3.30-5.50) M/uL Hgb 9.6 L D (12.0-15.0) g/dL Hct 30.0 L (36.0-48.0) % MCV 89 (80-98) fL MCH 29 (27-31) pg MCHC 32 (32-36) % Plt Count 199 (150-400) K/uL Sodium 128 L (140-148) mmol/L Potassium 5.6 H (3.6-5.2) mmol/L Chloride 94 L (100-108) mmol/L Carbon Dioxide 23 (21-32) mmol/L Anion Gap 16.6 H (5.0-14.0) mmol/L BUN 22 H (7-18) mg/dL Creatinine 1.3 H (0.6-1.0) mg/dL Est Cr Clr Drug Dosing 35.57 mL/min Estimated GFR (MDRD) 40 L (>60) Glucose 149 H (74-106) mg/dL POC Glucose 124 H (74-106) mg/dL Calcium 8.3 L (8.5-10.1) mg/dL Result Diagrams: 10/12/20 04:19 10/12/20 04:19 Sepsis Event Note - Evaluation Sepsis Screening Result: No Definite Risk - Focused Exam Vital Signs: Vital Signs Temp Pulse Resp BP BP BP Pulse Ox 10/12/20 10:38 62 10/12/20 09:25 36.2 C 67 20 81/44 L 88 L 10/12/20 07:22 36.2 C 67 24 H 138/73 90 L 10/12/20 03:00 91 L 10/12/20 02:19 35.8 C L 60 20 110/46 L 90 L - Problem List & Annotations (1) Impacted fracture of right hip SNOMED Code(s): 250431906 Code(s): S72.091A - OTH FRACTURE OF HEAD AND NECK OF RIGHT FEMUR, INIT Status: Acute Current Visit: Yes Qualifiers: Encounter type: initial encounter Fracture type: closed Qualified Code(s): S72.091A - Other fracture of head and neck of right femur, initial encounter for closed fracture (2) COPD (chronic obstructive pulmonary disease) SNOMED Code(s): 12867592 Code(s): J44.9 - CHRONIC OBSTRUCTIVE PULMONARY DISEASE, UNSPECIFIED Status: Chronic Current Visit: No Qualifiers: COPD type: unspecified COPD Qualified Code(s): J44.9 - Chronic obstructive pulmonary disease, unspecified (3) Tobacco dependence SNOMED Code(s): 85530362 Code(s): F17.200 - NICOTINE DEPENDENCE, UNSPECIFIED, UNCOMPLICATED Status: Chronic Current Visit: No (4) Type 2 diabetes mellitus SNOMED Code(s): 40735653 Code(s): E11.9 - TYPE 2 DIABETES MELLITUS WITHOUT COMPLICATIONS Status: Chronic Current Visit: No Qualifiers: 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 intermodal truck driver use Diabetes mellitus complication status: with other specified complication Qualified Code(s): E11.69 - Type 2 diabetes mellitus with other specified complication; 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 (5) History of atrial fibrillation SNOMED Code(s): 531368394 Code(s): Z86.79 - PERSONAL HISTORY OF OTHER DISEASES OF THE CIRCULATORY SYSTEM Status: Chronic Current Visit: No - Problem List Review Problem List Initiated/Reviewed/Updated: Yes - My Orders Last 24 Hours: My Active Orders 10/11/20 13:21 Convert IV to Saline Lock [OM.PC] Routine 10/11/20 13:22 CV Ankle Brachial Index (ARMIDA) [US] Routine 10/12/20 11:30 GLUCOSE POC LAB TO COLLECT JPM [POC] QIDACANDBED 10/12/20 16:30 GLUCOSE POC LAB TO COLLECT JPM [POC] QIDACANDBED 10/12/20 21:00 GLUCOSE POC LAB TO COLLECT JPM [POC] QIDACANDBED Apixaban [Eliquis] 5 mg PO BID 10/13/20 05:00 BASIC METABOLIC PANEL,BMP [CHEM] Timed HGB [HEMOGLOBIN] [HEME] Timed 10/13/20 07:30 GLUCOSE POC LAB TO COLLECT JPM [POC] QIDACANDBED 10/13/20 11:30 GLUCOSE POC LAB TO COLLECT JPM [POC] QIDACANDBED 10/13/20 16:30 GLUCOSE POC LAB TO COLLECT JPM [POC] QIDACANDBED 10/13/20 21:00 GLUCOSE POC LAB TO COLLECT JPM [POC] QIDACANDBED 10/14/20 07:30 GLUCOSE POC LAB TO COLLECT JPM [POC] QIDACANDBED 10/14/20 11:30 GLUCOSE POC LAB TO COLLECT JPM [POC] QIDACANDBED 10/14/20 16:30 GLUCOSE POC LAB TO COLLECT JPM [POC] QIDACANDBED 10/14/20 21:00 GLUCOSE POC LAB TO COLLECT JPM [POC] QIDACANDBED 10/15/20 07:30 GLUCOSE POC LAB TO COLLECT JPM [POC] QIDACANDBED 10/15/20 11:30 GLUCOSE POC LAB TO COLLECT JPM [POC] QIDACANDBED 10/15/20 16:30 GLUCOSE POC LAB TO COLLECT JPM [POC] QIDACANDBED 10/15/20 21:00 GLUCOSE POC LAB TO COLLECT JPM [POC] QIDACANDBED - Plan Plan:: ASSESSMENT AND PLAN - Subcapital fracture of the right hip-secondary to mechanical fall. Surgical intervention completed 10/10 with cannulated screw placement x3. Pain control suboptimal today. Low urine output and low blood pressures overnight. Hemoglobin stable. 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 Stable so far though supplemental oxygen need has increased slightly. Examination benign. -Continue home medications -As needed nebulizers Coronary artery disease-history of previous bypass grafting. No active anginal symptoms. -Continue medical management Paroxysmal atrial fibrillation-chronically anticoagulated. -Hold apixaban -Continue beta-asha Peripheral vascular disease-severe reduction in in ARMIDA with 0.4 noted on the right and 0.3 on the left. -Outpatient follow-up with interventional radiology -Continue medical management Tobacco dependence-encourage cessation -Nicotine patch Maintenance issues - -DVT prophylaxis-restart apixaban tonight -GI prophylaxis-not indicated -Nutrition-consistent carbohydrates -Tanner catheter-placed in the emergency room for strict intake and output monitoring in a surgical patient, this needs to remain in place because of low urine output and low blood pressure. Disposition -I anticipate discharge to the longterm for subacute rehab after the hospital stay Michael Way M.D.
[2020-10-12] MEDS: Metoprolol Tartrate 50 MG Tab PO SCH ×2 (11:47→20:56)
[2020-10-12] MEDS: Lisinopril 5 MG Tab PO SCH (11:47)
[2020-10-12] MEDS: Clopidogrel 75 MG Tab PO SCH (12:22)
[2020-10-12] MEDS: Aspirin 81 MG Tab.Chew PO SCH (12:22)
[2020-10-12] MEDS: Apixaban 5 MG Tab PO SCH (20:38)
[2020-10-12] MEDS: Pravastatin 20 MG Tab PO SCH (20:39)
[2020-10-12] MEDS: Magnesium Hydroxide 400 MG/5 ML Susp 30 ML Cup PO PRN (20:39)
[2020-10-12] MEDS: Insulin Glargine,Human Rec. Analog 100 Units/ML 3 ML Pen SUBCUT SCH (20:45)
[2020-10-13] MEDS: Albuterol 0.083% 2.5 MG/3 ML Neb Soln NEB PRN (03:18)
--- NOTE | 2020-10-13 04:43 | CRLCR ---
INDICATION: Increased oxygen need TECHNIQUE: AP and lateral views of the chest COMPARISON: PA and lateral chest radiographs 05/29/2020 FINDINGS: A small pleural effusion is suggested on the right. There is no left pleural effusion. The lungs are otherwise clear. There is stable mild enlargement of the cardiac silhouette. Sternotomy wire are noted. The bones are demineralized. Note is made of mid thoracic vertebral compression deformity with evidence of prior vertebroplasty. IMPRESSION: Likely small right pleural effusion. Stable mild cardiomegaly. Dictated by Rj Velasco MD @ 10/13/2020 4:43:[address] Rj Velasco @ Oct 13 2020 4:43AM
[2020-10-13] MEDS ORDERED: Furosemide 20 MG/2 ML VIAL IVPUSH SCH (05:15)
[2020-10-13] MEDS: Albuterol/Ipratropium 3.0-0.5 MG/3 ML Neb Soln NEB SCH ×4 (07:08→21:45)
[2020-10-13] MEDS: Acetaminophen 325 MG Tab PO PRN (08:02)
[2020-10-13] MEDS: Acetaminophen/HYDROcodone 325-5 MG Tab PO PRN ×3 (08:03→19:30)
--- NOTE | 2020-10-13 08:45 | PCM.SURGPN ---
- General Info Date of Service: 10/13/20 Date of Surgery/Procedure: 10/10/20 POD#: 3 Post-Op Diagnosis: right subcapital impacted femoral fracture Functional Status: Reports: Tolerating Diet, Incentive Spirometry - Review of Systems General: Reports: No Symptoms HEENT: Reports: Other (R jaw pain ) Pulmonary: Reports: Shortness of Breath (per baseline with COPD. Patient denied increasaed SOB from baseline. ) Cardiovascular: Reports: No Symptoms Musculoskeletal: Reports: Leg Pain (right ) Skin: Reports: Bruising - Patient Data Vitals - Most Recent: Last Vital Signs Temp 97.3 F 10/13/20 07:12 Pulse 83 10/13/20 07:12 Resp 20 10/13/20 07:12 BP 117/85 10/13/20 07:12 Pulse Ox 91 L 10/13/20 08:05 Weight - Most Recent: 126 lb 15.992 oz I&O - Last 24 Hours: Intake & Output 10/12/20 10/13/20 10/13/20 22:59 06:59 14:59 Intake Total 600 300 Output Total 300 825 Balance 300 -525 Lab Results Last 24 Hrs: Laboratory Results - last 24 hr 10/12/20 10/12/20 10/12/20 Range/Units 11:20 16:30 21:05 Hgb (12.0-15.0) g/dL Sodium (140-148) mmol/L Potassium (3.6-5.2) mmol/L Chloride (100-108) mmol/L Carbon Dioxide (21-32) mmol/L Anion Gap (5.0-14.0) mmol/L BUN (7-18) mg/dL Creatinine (0.6-1.0) mg/dL Est Cr Clr Drug Dosing mL/min Estimated GFR (MDRD) (>60) Glucose (74-106) mg/dL POC Glucose 141 H 140 H 168 H (74-106) mg/dL Calcium (8.5-10.1) mg/dL 10/13/20 10/13/20 10/13/20 Range/Units 04:20 04:20 07:29 Hgb 10.0 L (12.0-15.0) g/dL Sodium 128 L (140-148) mmol/L Potassium 4.8 (3.6-5.2) mmol/L Chloride 92 L (100-108) mmol/L Carbon Dioxide 20 L (21-32) mmol/L Anion Gap 20.8 H (5.0-14.0) mmol/L BUN 19 H (7-18) mg/dL Creatinine 1.2 H (0.6-1.0) mg/dL Est Cr Clr Drug Dosing 38.54 mL/min Estimated GFR (MDRD) 44 L (>60) Glucose 195 H (74-106) mg/dL POC Glucose 183 H (74-106) mg/dL Calcium 8.5 (8.5-10.1) mg/dL Med Orders - Current: Current Medications Acetaminophen (Acetaminophen 325 Mg Tab) 650 mg PO Q4H PRN PRN Reason: Pain (Mild 1-3)/fever Last Admin: 10/13/20 08:02 Dose: 650 mg Documented by: Hydrocodone Bitart/Acetaminophen (Acetaminophen/Hydrocodone 325-5 Mg Tab) 1 tab PO Q4H PRN PRN Reason: pain Last Admin: 10/13/20 08:03 Dose: 1 tab Documented by: Albuterol (Albuterol 0.083% 2.5 Mg/3 Ml Neb Soln) 2.5 mg NEB Q4H PRN PRN Reason: Shortness Of Breath/wheezing Last Admin: 10/13/20 03:18 Dose: 2.5 mg Documented by: Albuterol/Ipratropium (Albuterol/Ipratropium 3.0-0.5 Mg/3 Ml Neb Soln) 3 ml NEB QIDRT [facility] Last Admin: 10/13/20 07:08 Dose: 3 ml Documented by: Apixaban (Apixaban 5 Mg Tab) 5 mg PO BID [facility] Last Admin: 10/12/20 20:38 Dose: 5 mg Documented by: Aspirin (Aspirin 81 Mg Tab.Chew) 81 mg PO DAILY [facility] Last Admin: 10/12/20 12:22 Dose: 81 mg Documented by: Clopidogrel Bisulfate (Clopidogrel 75 Mg Tab) 75 mg PO DAILY [facility] Last Admin: 10/12/20 12:22 Dose: 75 mg Documented by: Cyanocobalamin (Cyanocobalamin (Vitamin B12) 1,000 Mcg Tab) 1,000 mcg PO DAILY [facility] Last Admin: 10/12/20 09:50 Dose: 1,000 mcg Documented by: Gabapentin (Gabapentin 300 Mg Cap) 300 mg PO TID [facility] Last Admin: 10/12/20 20:38 Dose: 300 mg Documented by: Hydromorphone HCl (Hydromorphone 0.5 Mg/0.5 Ml Syringe) 0.5 mg IVPUSH Q2H PRN PRN Reason: PAIN Insulin Glargine (Insulin Glargine,Human Rec. Analog 100 Units/Ml 3 Ml Pen) 35 units SUBCUT BEDTIME [facility] Last Admin: 10/12/20 20:45 Dose: 20 units Documented by: Lisinopril (Lisinopril 5 Mg Tab) 5 mg PO DAILY [facility] Last Admin: 10/12/20 11:47 Dose: Not Given Documented by: Lorazepam (Lorazepam 2 Mg/Ml Sdv) 0.5 mg IVPUSH Q4H PRN PRN Reason: Nausea/Vomiting Magnesium Hydroxide (Magnesium Hydroxide 400 Mg/5 Ml Susp 30 Ml Cup) 30 ml PO Q12H PRN PRN Reason: Constipation Last Admin: 10/12/20 20:39 Dose: 30 ml Documented by: Melatonin (Melatonin 3 Mg Tab) 9 mg PO BEDTIME PRN PRN Reason: Sleep Metformin HCl (Metformin 500 Mg Tab) 1,000 mg PO BIDMEALS [facility] Last Admin: 10/12/20 18:04 Dose: 1,000 mg Documented by: Metoprolol Tartrate (Metoprolol Tartrate 50 Mg Tab) 50 mg PO BID [facility] Last Admin: 10/12/20 20:56 Dose: Not Given Documented by: Multivitamins/Minerals (Multivitamins With Iron/Calcium/Folic Acid/Minerals Tab) 1 tab PO DAILY [facility] Last Admin: 10/12/20 09:50 Dose: 1 tab Documented by: Nicotine (Nicotine 21 Mg/24 Hr Patch) 21 mg TRDERM DAILY [facility] Last Admin: 10/12/20 09:49 Dose: 21 mg Documented by: Ondansetron HCl (Ondansetron 4 Mg/2 Ml Sdv) 4 mg IV Q6H PRN PRN Reason: Nausea/Vomiting Last Admin: 10/10/20 14:11 Dose: 4 mg Documented by: Ondansetron HCl (Ondansetron 4 Mg Tab.Dis) 4 mg PO Q6H PRN PRN Reason: Nausea able to take PO Last Admin: 10/11/20 13:47 Dose: 4 mg Documented by: Oxycodone HCl (Oxycodone 5 Mg Tab) 5 - 10 mg PO Q4H PRN PRN Reason: Pain Last Admin: 10/11/20 22:40 Dose: 10 mg Documented by: Pravastatin Sodium (Pravastatin 20 Mg Tab) 40 mg PO BEDTIME [facility] Last Admin: 10/12/20 20:39 Dose: 40 mg Documented by: Senna/Docusate Sodium (Docusate Sodium/Sennosides 50-8.6 Mg Tab) 1 tab PO BID [facility] Last Admin: 10/12/20 20:39 Dose: 1 tab Documented by: Sodium Chloride (Sodium Chloride 1 Gm Tab) 1 gm PO BID [facility] Last Admin: 10/12/20 20:39 Dose: 1 gm Documented by: Tizanidine HCl (Tizanidine 4 Mg Tab) 4 mg PO Q8H PRN PRN Reason: Muscle Spasm Discontinued Medications Bupivacaine HCl (Bupivacaine 0.5% 50 Ml Mdv) Confirm Administered Dose 50 ml .ROUTE .STK-MED ONE Stop: 10/10/20 17:04 Last Admin: 10/10/20 17:22 Dose: 35 ml Documented by: Bupivacaine HCl/Epinephrine Bitart (Bupivacaine 0.5%/Epinephrine 1:200,000 50 Ml Mdv) Confirm Administered Dose 50 ml .ROUTE .STK-MED ONE Stop: 10/10/20 13:20 Dexamethasone (Dexamethasone 4 Mg/Ml Sdv) Confirm Administered Dose 4 mg .ROUTE .STK-MED ONE Stop: 10/10/20 16:51 Fentanyl (Fentanyl 100 Mcg/2 Ml Sdv) 50 mcg IM ONETIME ONE Stop: 10/10/20 10:39 Last Admin: 10/10/20 11:27 Dose: 50 mcg Documented by: Fentanyl (Fentanyl 250 Mcg/5 Ml Sdv) Confirm Administered Dose 250 mcg .ROUTE .STK-MED ONE Stop: 10/10/20 16:40 Furosemide (Furosemide 20 Mg/2 Ml Vial) 10 mg IVPUSH DAILY [facility] Last Admin: 10/13/20 05:25 Dose: 10 mg Documented by: Glycopyrrolate (Glycopyrrolate 0.2 Mg/Ml 5 Ml Mdv) Confirm Administered Dose 1 mg .ROUTE .STK-MED ONE Stop: 10/10/20 16:51 Lactated Ringer's (Ringers, Lactated) 1,000 mls @ 125 mls/hr IV ASDIRECTED [facility] Last Admin: 10/11/20 02:22 Dose: 125 mls/hr Documented by: Cefazolin Sodium/Dextrose 2 gm (/ Premix) 50 mls @ 100 mls/hr IV ONETIME ONE Stop: 10/10/20 16:29 Last Admin: 10/10/20 16:29 Dose: 100 mls/hr Documented by: Sodium Chloride (Normal Saline) 500 mls @ 999 mls/hr IV .BOLUS ONE Stop: 10/12/20 03:47 Last Admin: 10/12/20 03:24 Dose: 999 mls/hr Documented by: Sodium Chloride (Normal Saline) 500 mls @ 999 mls/hr IV .BOLUS ONE Stop: 10/12/20 06:54 Last Admin: 10/12/20 07:28 Dose: 999 mls/hr Documented by: Neostigmine Methylsulfate (Neostigmine Methylsulfate 1 Mg/Ml 5 Ml Syringe) Co nfirm Administered Dose 5 mg .ROUTE .STK-MED ONE Stop: 10/10/20 16:51 Ondansetron HCl (Ondansetron 4 Mg/2 Ml Sdv) Confirm Administered Dose 4 mg .ROUTE .STK-MED ONE Stop: 10/10/20 16:51 Propofol (Propofol 200 Mg/20 Ml Sdv) Confirm Administered Dose 200 mg .ROUTE .STK-MED ONE Stop: 10/10/20 16:51 Rocuronium [place] (Rocuronium 50 Mg/5 Ml Vial) Confirm Administered Dose 50 mg .ROUTE .STK-MED ONE Stop: 10/10/20 16:51 Succinylcholine Chloride (Succinylcholine 200 Mg/10 Ml Mdv) Confirm Administered Dose 200 mg .ROUTE .STK-MED ONE Stop: 10/10/20 16:51 - Exam Wound/Incisions: Dressing Dry and Intact, No Drainage Quality Assessment: Supplemental Oxygen (6L ), Urine Catheter, DVT Prophylaxis General: Alert, Oriented, Cooperative, No Acute Distress Extremities: Joint Swelling (R thigh, knee ), Leg Pain (right ), Limited Range of Motion Skin: Warm, Dry, Intact Psy/Mental Status: Alert, Normal Mood Sepsis Event Note - Evaluation Sepsis Screening Result: No Definite Risk - Focused Exam Vital Signs: Vital Signs Temp Pulse Pulse Resp BP BP BP 10/13/20 08:05 10/13/20 07:58 10/13/20 07:12 97.3 F 83 20 117/85 10/13/20 06:43 81 10/13/20 04:35 88 24 H 10/13/20 04:29 92 24 H 10/13/20 03:00 98.2 F 86 20 96/53 L 10/12/20 22:56 97.4 F 79 16 127/60 10/12/20 20:56 77 144/57 H Pulse Ox 10/13/20 08:05 91 L 10/13/20 07:58 83 L 10/13/20 07:12 95 10/13/20 06:43 94 L 10/13/20 04:35 93 L 10/13/20 04:29 90 L 10/13/20 03:00 90 L 10/12/20 22:56 93 L 10/12/20 20:56 - Problem List & Annotations (1) Status post-operative repair of hip fracture SNOMED Code(s): 775487270, 472938681 Code(s): Z98.890 - OTHER SPECIFIED POSTPROCEDURAL STATES; Z87.81 - PERSONAL HISTORY OF (HEALED) TRAUMATIC FRACTURE Status: Acute Current Visit: Yes (2) Postoperative anemia SNOMED Code(s): 777425283, 504060643 Code(s): D64.9 - ANEMIA, UNSPECIFIED Status: Acute Current Visit: Yes - Problem List Review Problem List Initiated/Reviewed/Updated: Yes - My Orders Last 24 Hours: Active Orders 24 hr Category Date Time Status GLUCOSE POC LAB TO COLLECT JPM [POC] QIDACANDBED Lab 10/13/20 11:30 Ordered GLUCOSE POC LAB TO COLLECT JPM [POC] QIDACANDBED Lab 10/13/20 16:30 Ordered GLUCOSE POC LAB TO COLLECT JPM [POC] QIDACANDBED Lab 10/13/20 21:00 Ordered GLUCOSE POC LAB TO COLLECT JPM [POC] QIDACANDBED Lab 10/14/20 07:30 Ordered GLUCOSE POC LAB TO COLLECT JPM [POC] QIDACANDBED Lab 10/14/20 11:30 Ordered GLUCOSE POC LAB TO COLLECT JPM [POC] QIDACANDBED Lab 10/14/20 16:30 Ordered GLUCOSE POC LAB TO COLLECT JPM [POC] QIDACANDBED Lab 10/14/20 21:00 Ordered GLUCOSE POC LAB TO COLLECT JPM [POC] QIDACANDBED Lab 10/15/20 07:30 Ordered GLUCOSE POC LAB TO COLLECT JPM [POC] QIDACANDBED Lab 10/15/20 11:30 Ordered GLUCOSE POC LAB TO COLLECT JPM [POC] QIDACANDBED Lab 10/15/20 16:30 Ordered GLUCOSE POC LAB TO COLLECT JPM [POC] QIDACANDBED Lab 10/15/20 21:00 Ordered Apixaban [Eliquis] Med 10/12/20 21:00 Active 5 mg PO BID Medication Orders Acetaminophen (Acetaminophen 325 Mg Tab) 650 mg PO Q4H PRN PRN Reason: Pain (Mild 1-3)/fever Last Admin: 10/13/20 08:02 Dose: 650 mg Documented by: CLAUDIA Hydrocodone Bitart/Acetaminophen (Acetaminophen/Hydrocodone 325-5 Mg Tab) 1 tab PO Q4H PRN PRN Reason: pain Last Admin: 10/13/20 08:03 Dose: 1 tab Documented by: Admin: 10/12/20 18:08 Dose: 1 tab Documented by: Admin: 10/12/20 12:22 Dose: 1 tab Documented by: Admin: 10/12/20 07:43 Dose: 1 tab Documented by: CLAUDIA Albuterol (Albuterol 0.083% 2.5 Mg/3 Ml Neb Soln) 2.5 mg NEB Q4H PRN PRN Reason: Shortness Of Breath/wheezing Last Admin: 10/13/20 03:18 Dose: 2.5 mg Documented by: Admin: 10/12/20 02:38 Dose: 2.5 mg Documented by: Admin: 10/11/20 18:31 Dose: 2.5 mg Documented by: LISET Albuterol/Ipratropium (Albuterol/Ipratropium 3.0-0.5 Mg/3 Ml Neb Soln) 3 ml NEB QIDRT [facility] Last Admin: 10/13/20 07:08 Dose: 3 ml Documented by: Admin: 10/12/20 20:38 Dose: 3 ml Documented by: Admin: 10/12/20 14:33 Dose: 3 ml Documented by: Admin: 10/12/20 10:38 Dose: 3 ml Documented by: Admin: 10/12/20 07:10 Dose: 3 ml Documented by: Admin: 10/11/20 21:15 Dose: 3 ml Documented by: Admin: 10/11/20 14:46 Dose: 3 ml Documented by: Admin: 10/11/20 10:47 Dose: 3 ml Documented by: Admin: 10/11/20 07:09 Dose: 3 ml Documented by: Admin: 10/10/20 21:38 Dose: 3 ml Documented by: Admin: 10/10/20 14:43 Dose: 3 ml Documented by: DIEGO Apixaban (Apixaban 5 Mg Tab) 5 mg PO BID [facility] Admin: 10/12/20 20:38 Dose: 5 mg Documented by: MICHAEL Aspirin (Aspirin 81 Mg Tab.Chew) 81 mg PO DAILY [facility] Admin: 10/12/20 12:22 Dose: 81 mg Documented by: Admin: 10/11/20 09:10 Dose: 81 mg Documented by: GRADY Clopidogrel Bisulfate (Clopidogrel 75 Mg Tab) 75 mg PO DAILY [facility] Admin: 10/12/20 12:22 Dose: 75 mg Documented by: Admin: 10/11/20 09:10 Dose: 75 mg Documented by: GRADY Cyanocobalamin (Cyanocobalamin (Vitamin B12) 1,000 Mcg Tab) 1,000 mcg PO DAILY [facility] Admin: 10/12/20 09:50 Dose: 1,000 mcg Documented by: Admin: 10/11/20 09:10 Dose: 1,000 mcg Documented by: GRADY Gabapentin (Gabapentin 300 Mg Cap) 300 mg PO TID [facility] Last Admin: 10/12/20 20:38 Dose: 300 mg Documented by: Admin: 10/12/20 15:27 Dose: 300 mg Documented by: Admin: 10/12/20 09:50 Dose: 300 mg Documented by: Admin: 10/11/20 21:18 Dose: 300 mg Documented by: Admin: 10/11/20 13:47 Dose: 300 mg Documented by: Admin: 10/11/20 09:10 Dose: 300 mg Documented by: Admin: 10/10/20 21:42 Dose: 300 mg Documented by: Admin: 10/10/20 15:00 Dose: Not Given Documented by: GRADY Hydromorphone HCl (Hydromorphone 0.5 Mg/0.5 Ml Syringe) 0.5 mg IVPUSH Q2H PRN PRN Reason: PAIN Insulin Glargine (Insulin Glargine,Human Rec. Analog 100 Units/Ml 3 Ml Pen) 35 units SUBCUT BEDTIME [facility] Last Admin: 10/12/20 20:45 Dose: 20 units Documented by: MICHAEL Cosigned by: JOSE Admin: 10/11/20 21:22 Dose: 35 units Documented by: LISET Cosigned by: JOSE Admin: 10/10/20 21:41 Dose: 35 units Documented by: BETITO Cosigned by: JOSE Lisinopril (Lisinopril 5 Mg Tab) 5 mg PO DAILY [facility] Last Admin: 10/12/20 11:47 Dose: Not Given Documented by: Admin: 10/11/20 09:11 Dose: 5 mg Documented by: GRADY Lorazepam (Lorazepam 2 Mg/Ml Sdv) 0.5 mg IVPUSH Q4H PRN PRN Reason: Nausea/Vomiting Magnesium Hydroxide (Magnesium Hydroxide 400 Mg/5 Ml Susp 30 Ml Cup) 30 ml PO Q12H PRN PRN Reason: Constipation Last Admin: 10/12/20 20:39 Dose: 30 ml Documented by: MICHAEL Melatonin (Melatonin 3 Mg Tab) 9 mg PO BEDTIME PRN PRN Reason: Sleep Metformin HCl (Metformin 500 Mg Tab) 1,000 mg PO BIDMEALS [facility] Last Admin: 10/12/20 18:04 Dose: 1,000 mg Documented by: Admin: 10/12/20 09:49 Dose: 1,000 mg Documented by: Admin: 10/11/20 16:54 Dose: 1,000 mg Documented by: Admin: 10/11/20 09:10 Dose: 1,000 mg Documented by: GRADY Metoprolol Tartrate (Metoprolol Tartrate 50 Mg Tab) 50 mg PO BID [facility] Last Admin: 10/12/20 20:56 Dose: Not Given Documented by: Admin: 10/12/20 11:47 Dose: Not Given Documented by: Admin: 10/11/20 21:19 Dose: 50 mg Documented by: Admin: 10/11/20 09:11 Dose: 50 mg Documented by: Admin: 10/10/20 21:49 Dose: 50 mg Documented by: BETITO Multivitamins/Minerals (Multivitamins With Iron/Calcium/Folic Acid/Minerals Tab) 1 tab PO DAILY [facility] Last Admin: 10/12/20 09:50 Dose: 1 tab Documented by: Admin: 10/11/20 09:10 Dose: 1 tab Documented by: GRADY Nicotine (Nicotine 21 Mg/24 Hr Patch) 21 mg TRDERM DAILY [facility] Last Admin: 10/12/20 09:49 Dose: 21 mg Documented by: Admin: 10/11/20 09:14 Dose: 21 mg Documented by: Admin: 10/10/20 15:14 Dose: 21 mg Documented by: GRADY Ondansetron HCl (Ondansetron 4 Mg/2 Ml Sdv) 4 mg IV Q6H PRN PRN Reason: Nausea/Vomiting Last Admin: 10/10/20 14:11 Dose: 4 mg Documented by: GRADY Ondansetron HCl (Ondansetron 4 Mg Tab.Dis) 4 mg PO Q6H PRN PRN Reason: Nausea able to take PO Last Admin: 10/11/20 13:47 Dose: 4 mg Documented by: GRADY Oxycodone HCl (Oxycodone 5 Mg Tab) 5 - 10 mg PO Q4H PRN PRN Reason: Pain Last Admin: 10/11/20 22:40 Dose: 10 mg Documented by: Admin: 10/11/20 13:47 Dose: 10 mg Documented by: Admin: 10/11/20 09:29 Dose: 10 mg Documented by: Admin: 10/11/20 02:05 Dose: 10 mg Documented by: Admin: 10/10/20 20:14 Dose: 5 mg Documented by: BETITO Pravastatin Sodium (Pravastatin 20 Mg Tab) 40 mg PO BEDTIME [facility] Last Admin: 10/12/20 20:39 Dose: 40 mg Documented by: Admin: 10/11/20 21:18 Dose: 40 mg Documented by: Admin: 10/10/20 21:42 Dose: 40 mg Documented by: BETITO Senna/Docusate Sodium (Docusate Sodium/Sennosides 50-8.6 Mg Tab) 1 tab PO BID [facility] Admin: 10/12/20 20:39 Dose: 1 tab Documented by: Admin: 10/12/20 09:50 Dose: 1 tab Documented by: Admin: 10/11/20 21:18 Dose: 1 tab Documented by: Admin: 10/11/20 09:10 Dose: 1 tab Documented by: Admin: 10/10/20 21:43 Dose: 1 tab Documented by: BETITO Sodium Chloride (Sodium Chloride 1 Gm Tab) 1 gm PO BID [facility] Admin: 10/12/20 20:39 Dose: 1 gm Documented by: Admin: 10/12/20 09:50 Dose: 1 gm Documented by: Admin: 10/11/20 21:18 Dose: 1 gm Documented by: Admin: 10/11/20 09:10 Dose: 1 gm Documented by: Admin: 10/10/20 21:43 Dose: 1 gm Documented by: BETITO Tizanidine HCl (Tizanidine 4 Mg Tab) 4 mg PO Q8H PRN PRN Reason: Muscle Spasm - Assessment Assessment (Free Text/Narrative):: Patient is a 70 y/o female, s/p right subcapital impacted femoral fracture, repaired with 3 cannulated screws. Patient is POD#3. Overnight nursing reports increased need for O2 to keep saturations >90%, fluctuated between 6-10 liters. CXR early AM shows small right sided pleural effusion. On 6L this morning, patient denied shortness of breath. PMHx significant for COPD, does wear 1L O2 per baseline at home. Has had low urine output and intermittent low blood pressure readings over the past 48 hours; Metoprolol and Lisinopril held yesterday. Patient denied dizziness. Urine output improving from yesterday. IV remains saline locked. HgB recheck at 10.0 on POD#3. Reports nausea improving over past 24 hours. On consistent carbohydrate diet. POC Glucoses have been elevated. Patient appeared less confused this morning; able to recall partial weight bearing status and recent surgery for R hip. Endorsed pain in R hip at rest, more severe with repositioning and transfers. Denied numbness or tingling of R LE. Worked with PT yesterday, performed bilateral LE exercises in bed. Repositioned with max x1 assist in bed. Requiring x2 assist with transfers. Ambulation remains limited at this time; has not ambulated further than a few steps with transfers. Due to limited ambulation, in addition to low urine output and low blood pressures, vargas remains in place. Exam: A&Ox3. R hip dressing dry and intact. Mild warmth and fullness to palpation around R hip incision. Very tender to palpation of R hip. No surrounding erythema nor active drainage. Ecchymosis on lateral inferior aspect of R knee. Modest edema of R hip through R thigh and knee. No significant pedal edema. Tibialis posterior pulse appreciated. Bruises on R side of face from fall leading to hospitalization. Ulcer on L 4th toe. Plan: * Hospitalist to continue medical management of patient. * Patient to participate in PT and OT services while in the hospital; partial weight bear on R LE. Ambulation has been fairly limited up to this point in recovery. Encourage up to chairs for all meals, pending stable BP and O2 saturations. * Nausea seems reduced with norco for pain control rather than oxycodone. Suboptimal pain control with 1 tab of 5-325 [place], adjusted dosage to allow for 2 tabs if severe pain. * 1 tab PO q4 hrs prn moderate pain (4-6) * 2 tabs PO q4 hrs prn severe pain (7-10) * Continue DVT/VTE mechanical prophylaxis with bilateral LE SCDs and chemical prophylaxis with home Apixiban dose. * Anticipate discharge to SNF when medically stable.
[2020-10-13] MEDS: Multivitamins with Iron/Calcium/Folic Acid/Minerals Tab PO SCH (09:52)
[2020-10-13] MEDS: Aspirin 81 MG Tab.Chew PO SCH (09:52)
[2020-10-13] MEDS: metFORMIN 500 MG Tab PO SCH ×2 (09:52→17:47)
[2020-10-13] MEDS: Gabapentin 300 MG Cap PO SCH ×3 (09:52→21:47)
[2020-10-13] MEDS: Cyanocobalamin (Vitamin B12) 1,000 MCG Tab PO SCH (09:52)
[2020-10-13] MEDS: Nicotine 21 MG/24 Hr Patch TRDERM SCH (09:53)
[2020-10-13] MEDS: Apixaban 5 MG Tab PO SCH ×2 (09:53→21:46)
[2020-10-13] MEDS: Clopidogrel 75 MG Tab PO SCH (09:53)
[2020-10-13] MEDS: Lisinopril 5 MG Tab PO SCH (09:53)
[2020-10-13] MEDS: Sodium Chloride 1 GM Tab PO SCH ×2 (09:53→21:52)
[2020-10-13] MEDS: Metoprolol Tartrate 50 MG Tab PO SCH ×2 (09:54→21:46)
--- NOTE | 2020-10-13 11:14 | PCM.PN ---
- General Info Date of Service: 10/13/20 Subjective Update: There were no acute events overnight though patient did have an increase in her supplemental oxygen requirement. She did receive a dose of furosemide early this morning with some improvement. Chest x-ray showed a possible small right pleural effusion. She does feel little bit short of breath but not dramatically so. She has not noticed any wheezing. She reports moderate right hip and groin pain which are slightly better today than yesterday. Requiring a fair amount of assistance with transfers. She has not had any fevers. Functional Status: Reports: Pain Controlled, Tolerating Diet - Review of Systems General: Reports: Weakness Pulmonary: Reports: Shortness of Breath Musculoskeletal: Reports: Joint Pain (right hip ) - Patient Data Vitals - Most Recent: Last Vital Signs Temp 36.5 C 10/13/20 10:47 Pulse 70 10/13/20 10:47 Resp 18 10/13/20 10:47 BP 115/64 10/13/20 10:47 Pulse Ox 96 10/13/20 10:47 Weight - Most Recent: 57.606 kg I&O - Last 24 Hours: Intake & Output 10/12/20 10/13/20 10/13/20 22:59 06:59 14:59 Intake Total 600 300 Output Total 300 825 400 Balance 300 -525 -400 Lab Results Last 24 Hours: Laboratory Results - last 24 hr 10/12/20 10/12/20 10/12/20 Range/Units 11:20 16:30 21:05 Hgb (12.0-15.0) g/dL Sodium (140-148) mmol/L Potassium (3.6-5.2) mmol/L Chloride (100-108) mmol/L Carbon Dioxide (21-32) mmol/L Anion Gap (5.0-14.0) mmol/L BUN (7-18) mg/dL Creatinine (0.6-1.0) mg/dL Est Cr Clr Drug Dosing mL/min Estimated GFR (MDRD) (>60) Glucose (74-106) mg/dL POC Glucose 141 H 140 H 168 H (74-106) mg/dL Calcium (8.5-10.1) mg/dL 10/13/20 10/13/20 10/13/20 Range/Units 04:20 04:20 07:29 Hgb 10.0 L (12.0-15.0) g/dL Sodium 128 L (140-148) mmol/L Potassium 4.8 (3.6-5.2) mmol/L Chloride 92 L (100-108) mmol/L Carbon Dioxide 20 L (21-32) mmol/L Anion Gap 20.8 H (5.0-14.0) mmol/L BUN 19 H (7-18) mg/dL Creatinine 1.2 H (0.6-1.0) mg/dL Est Cr Clr Drug Dosing 38.54 mL/min Estimated GFR (MDRD) 44 L (>60) Glucose 195 H (74-106) mg/dL POC Glucose 183 H (74-106) mg/dL Calcium 8.5 (8.5-10.1) mg/dL Med Orders - Current: Current Medications Acetaminophen (Acetaminophen 325 Mg Tab) 650 mg PO Q4H PRN PRN Reason: Pain (Mild 1-3)/fever Last Admin: 10/13/20 08:02 Dose: 650 mg Documented by: Hydrocodone Bitart/Acetaminophen (Acetaminophen/Hydrocodone 325-5 Mg Tab) 1 - 2 tab PO Q4H PRN PRN Reason: pain Albuterol (Albuterol 0.083% 2.5 Mg/3 Ml Neb Soln) 2.5 mg NEB Q4H PRN PRN Reason: Shortness Of Breath/wheezing Last Admin: 10/13/20 03:18 Dose: 2.5 mg Documented by: Albuterol/Ipratropium (Albuterol/Ipratropium 3.0-0.5 Mg/3 Ml Neb Soln) 3 ml NEB QIDRT [facility] Last Admin: 10/13/20 11:10 Dose: Not Given Documented by: Apixaban (Apixaban 5 Mg Tab) 5 mg PO BID [facility] Last Admin: 10/13/20 09:53 Dose: 5 mg Documented by: Aspirin (Aspirin 81 Mg Tab.Chew) 81 mg PO DAILY [facility] Last Admin: 10/13/20 09:52 Dose: 81 mg Documented by: Clopidogrel Bisulfate (Clopidogrel 75 Mg Tab) 75 mg PO DAILY [facility] Last Admin: 10/13/20 09:53 Dose: 75 mg Documented by: Cyanocobalamin (Cyanocobalamin (Vitamin B12) 1,000 Mcg Tab) 1,000 mcg PO DAILY [facility] Last Admin: 10/13/20 09:52 Dose: 1,000 mcg Documented by: Gabapentin (Gabapentin 300 Mg Cap) 300 mg PO TID [facility] Last Admin: 10/13/20 09:52 Dose: 300 mg Documented by: Hydromorphone HCl (Hydromorphone 0.5 Mg/0.5 Ml Syringe) 0.5 mg IVPUSH Q2H PRN PRN Reason: PAIN Insulin Glargine (Insulin Glargine,Human Rec. Analog 100 Units/Ml 3 Ml Pen) 35 units SUBCUT BEDTIME [facility] Last Admin: 10/12/20 20:45 Dose: 20 units Documented by: Lisinopril (Lisinopril 5 Mg Tab) 5 mg PO DAILY [facility] Last Admin: 10/13/20 09:53 Dose: Not Given Documented by: Lorazepam (Lorazepam 2 Mg/Ml Sdv) 0.5 mg IVPUSH Q4H PRN PRN Reason: Nausea/Vomiting Magnesium Hydroxide (Magnesium Hydroxide 400 Mg/5 Ml Susp 30 Ml Cup) 30 ml PO Q12H PRN PRN Reason: Constipation Last Admin: 10/12/20 20:39 Dose: 30 ml Documented by: Melatonin (Melatonin 3 Mg Tab) 9 mg PO BEDTIME PRN PRN Reason: Sleep Metformin HCl (Metformin 500 Mg Tab) 1,000 mg PO BIDMEALS [facility] Last Admin: 10/13/20 09:52 Dose: 1,000 mg Documented by: Metoprolol Tartrate (Metoprolol Tartrate 50 Mg Tab) 50 mg PO BID [facility] Last Admin: 10/13/20 09:54 Dose: Not Given Documented by: Multivitamins/Minerals (Multivitamins With Iron/Calcium/Folic Acid/Minerals Tab) 1 tab PO DAILY [facility] Last Admin: 10/13/20 09:52 Dose: 1 tab Documented by: Nicotine (Nicotine 21 Mg/24 Hr Patch) 21 mg TRDERM DAILY [facility] Last Admin: 10/13/20 09:53 Dose: 21 mg Documented by: Ondansetron HCl (Ondansetron 4 Mg/2 Ml Sdv) 4 mg IV Q6H PRN PRN Reason: Nausea/Vomiting Last Admin: 10/10/20 14:11 Dose: 4 mg Documented by: Ondansetron HCl (Ondansetron 4 Mg Tab.Dis) 4 mg PO Q6H PRN PRN Reason: Nausea able to take PO Last Admin: 10/11/20 13:47 Dose: 4 mg Documented by: Pravastatin Sodium (Pravastatin 20 Mg Tab) 40 mg PO BEDTIME [facility] Last Admin: 10/12/20 20:39 Dose: 40 mg Documented by: Senna/Docusate Sodium (Docusate Sodium/Sennosides 50-8.6 Mg Tab) 1 tab PO BID [facility] Last Admin: 10/13/20 09:53 Dose: 1 tab Documented by: Sodium Chloride (Sodium Chloride 1 Gm Tab) 1 gm PO BID [facility] Last Admin: 10/13/20 09:53 Dose: 1 gm Documented by: Tizanidine HCl (Tizanidine 4 Mg Tab) 4 mg PO Q8H PRN PRN Reason: Muscle Spasm Discontinued Medications Hydrocodone Bitart/Acetaminophen (Acetaminophen/Hydrocodone 325-5 Mg Tab) 1 tab PO Q4H PRN PRN Reason: pain Last Admin: 10/13/20 08:03 Dose: 1 tab Documented by: Bupivacaine HCl (Bupivacaine 0.5% 50 Ml Mdv) Confirm Administered Dose 50 ml .ROUTE .STK-MED ONE Stop: 10/10/20 17:04 Last Admin: 10/10/20 17:22 Dose: 35 ml Documented by: Bupivacaine HCl/Epinephrine Bitart (Bupivacaine 0.5%/Epinephrine 1:200,000 50 Ml Mdv) Confirm Administered Dose 50 ml .ROUTE .STK-MED ONE Stop: 10/10/20 13:20 Dexamethasone (Dexamethasone 4 Mg/Ml Sdv) Confirm Administered Dose 4 mg .ROUTE .STK-MED ONE Stop: 10/10/20 16:51 Fentanyl (Fentanyl 100 Mcg/2 Ml Sdv) 50 mcg IM ONETIME ONE Stop: 10/10/20 10:39 Last Admin: 10/10/20 11:27 Dose: 50 mcg Documented by: Fentanyl (Fentanyl 250 Mcg/5 Ml Sdv) Confirm Administered Dose 250 mcg .ROUTE .STK-MED ONE Stop: 10/10/20 16:40 Furosemide (Furosemide 20 Mg/2 Ml Vial) 10 mg IVPUSH DAILY [facility] Last Admin: 10/13/20 05:25 Dose: 10 mg Documented by: Glycopyrrolate (Glycopyrrolate 0.2 Mg/Ml 5 Ml Mdv) Confirm Administered Dose 1 mg .ROUTE .STK-MED ONE Stop: 10/10/20 16:51 Lactated Ringer's (Ringers, Lactated) 1,000 mls @ 125 mls/hr IV ASDIRECTED [facility] Last Admin: 10/11/20 02:22 Dose: 125 mls/hr Documented by: Cefazolin Sodium/Dextrose 2 gm (/ Premix) 50 mls @ 100 mls/hr IV ONETIME ONE Stop: 10/10/20 16:29 Last Admin: 10/10/20 16:29 Dose: 100 mls/hr Documented by: Sodium Chloride (Normal Saline) 500 mls @ 999 mls/hr IV .BOLUS ONE Stop: 10/12/20 03:47 Last Admin: 10/12/20 03:24 Dose: 999 mls/hr Documented by: Sodium Chloride (Normal Saline) 500 mls @ 999 mls/hr IV .BOLUS ONE Stop: 10/12/20 06:54 Last Admin: 10/12/20 07:28 Dose: 999 mls/hr Documented by: Neostigmine Methylsulfate (Neostigmine Methylsulfate 1 Mg/Ml 5 Ml Syringe) Confirm Administered Dose 5 mg .ROUTE .STK-MED ONE Stop: 10/10/20 16:51 Ondansetron HCl (Ondansetron 4 Mg/2 Ml Sdv) Confirm Administered Dose 4 mg .ROUTE .STK-MED ONE Stop: 10/10/20 16:51 Oxycodone HCl (Oxycodone 5 Mg Tab) 5 - 10 mg PO Q4H PRN PRN Reason: Pain Last Admin: 10/11/20 22:40 Dose: 10 mg Documented by: Propofol (Propofol 200 Mg/20 Ml Sdv) Confirm Administered Dose 200 mg .ROUTE .STK-MED ONE Stop: 10/10/20 16:51 Rocuronium [place] (Rocuronium 50 Mg/5 Ml Vial) Confirm Administered Dose 50 mg .ROUTE .STK-MED ONE Stop: 10/10/20 16:51 Succinylcholine Chloride (Succinylcholine 200 Mg/10 Ml Mdv) Confirm Administered Dose 200 mg .ROUTE .STK-MED ONE Stop: 10/10/20 16:51 - Exam Quality Assessment: Supplemental Oxygen General: Alert, Oriented, Cooperative, No Acute Distress Neck: JVD Lungs: Normal Respiratory Effort, Crackles (few both bases) Cardiovascular: Regular Rate, Regular Rhythm GI/Abdominal Exam: Soft, No Distention Extremities: No Pedal Edema. No: Increased Warmth Skin: Warm, Dry Wound/Incisions: Dressing Dry and Intact Psy/Mental Status: Alert, Normal Affect - Patient Data Lab Results Last 24 hrs: Laboratory Results - last 24 hr 10/12/20 10/12/20 10/12/20 Range/Units 11:20 16:30 21:05 Hgb (12.0-15.0) g/dL Sodium (140-148) mmol/L Potassium (3.6-5.2) mmol/L Chloride (100-108) mmol/L Carbon Dioxide (21-32) mmol/L Anion Gap (5.0-14.0) mmol/L BUN (7-18) mg/dL Creatinine (0.6-1.0) mg/dL Est Cr Clr Drug Dosing mL/min Estimated GFR (MDRD) (>60) Glucose (74-106) mg/dL POC Glucose 141 H 140 H 168 H (74-106) mg/dL Calcium (8.5-10.1) mg/dL 10/13/20 10/13/20 10/13/20 Range/Units 04:20 04:20 07:29 Hgb 10.0 L (12.0-15.0) g/dL Sodium 128 L (140-148) mmol/L Potassium 4.8 (3.6-5.2) mmol/L Chloride 92 L (100-108) mmol/L Carbon Dioxide 20 L (21-32) mmol/L Anion Gap 20.8 H (5.0-14.0) mmol/L BUN 19 H (7-18) mg/dL Creatinine 1.2 H (0.6-1.0) mg/dL Est Cr Clr Drug Dosing 38.54 mL/min Estimated GFR (MDRD) 44 L (>60) Glucose 195 H (74-106) mg/dL POC Glucose 183 H (74-106) mg/dL Calcium 8.5 (8.5-10.1) mg/dL Result Diagrams: 10/13/20 04:20 10/13/20 04:20 Sepsis Event Note - Evaluation Sepsis Screening Result: No Definite Risk - Focused Exam Vital Signs: Vital Signs Temp Pulse Resp BP BP Pulse Ox 10/13/20 10:47 36.5 C 70 18 115/64 96 10/13/20 09:49 73 18 109/53 L 95 10/13/20 08:05 91 L 10/13/20 07:58 83 L 10/13/20 07:12 36.3 C 83 20 117/85 95 10/13/20 06:43 81 94 L 10/13/20 04:35 88 24 H 93 L 10/13/20 04:29 92 24 H 90 L 10/13/20 03:00 36.8 C 86 20 96/53 L 90 L - Problem List & Annotations (1) Impacted fracture of right hip SNOMED Code(s): 683385311 Code(s): S72.091A - OTH FRACTURE OF HEAD AND NECK OF RIGHT FEMUR, INIT Status: Acute Current Visit: Yes Qualifiers: Encounter type: initial encounter Fracture type: closed Qualified Code(s): S72.091A - Other fracture of head and neck of right femur, initial encounter for closed fracture (2) COPD (chronic obstructive pulmonary disease) SNOMED Code(s): 09046634 Code(s): J44.9 - CHRONIC OBSTRUCTIVE PULMONARY DISEASE, UNSPECIFIED Status: Chronic Current Visit: No Qualifiers: COPD type: unspecified COPD Qualified Code(s): J44.9 - Chronic obstructive pulmonary disease, unspecified (3) Tobacco dependence SNOMED Code(s): 48265092 Code(s): F17.200 - NICOTINE DEPENDENCE, UNSPECIFIED, UNCOMPLICATED Status: Chronic Current Visit: No (4) Type 2 diabetes mellitus SNOMED Code(s): 16342213 Code(s): E11.9 - TYPE 2 DIABETES MELLITUS WITHOUT COMPLICATIONS Status: Chronic Current Visit: No Qualifiers: Diabetes mellitus mcfp insulin use: with mcfp use Diabetes mellitus complication status: with other specified complication Qualified Code(s): E11.69 - Type 2 diabetes mellitus with other specified complication; Z79.4 - cleaner and preparer (current) use of insulin (5) History of atrial fibrillation SNOMED Code(s): 800986495 Code(s): Z86.79 - PERSONAL HISTORY OF OTHER DISEASES OF THE CIRCULATORY SYSTEM Status: Chronic Current Visit: No (6) Acute and chronic respiratory failure with hypoxia SNOMED Code(s): 62488128, 698129277 Code(s): J96.21 - ACUTE AND CHRONIC RESPIRATORY FAILURE WITH HYPOXIA Status: Acute Current Visit: Yes - Problem List Review Problem List Initiated/Reviewed/Updated: Yes - My Orders Last 24 Hours: My Active Orders 10/12/20 21:00 Apixaban [Eliquis] 5 mg PO BID 10/13/20 11:30 GLUCOSE POC LAB TO COLLECT JPM [POC] QIDACANDBED 10/13/20 12:00 Furosemide [Lasix] 20 mg IVPUSH ONETIME ONE 10/13/20 16:30 GLUCOSE POC LAB TO COLLECT JPM [POC] QIDACANDBED 10/13/20 21:00 GLUCOSE POC LAB TO COLLECT JPM [POC] QIDACANDBED 10/14/20 05:00 BASIC METABOLIC PANEL,BMP [CHEM] Timed 10/14/20 07:30 GLUCOSE POC LAB TO COLLECT JPM [POC] QIDACANDBED 10/14/20 11:30 GLUCOSE POC LAB TO COLLECT JPM [POC] QIDACANDBED 10/14/20 16:30 GLUCOSE POC LAB TO COLLECT JPM [POC] QIDACANDBED 10/14/20 21:00 GLUCOSE POC LAB TO COLLECT JPM [POC] QIDACANDBED 10/15/20 07:30 GLUCOSE POC LAB TO COLLECT JPM [POC] QIDACANDBED 10/15/20 11:30 GLUCOSE POC LAB TO COLLECT JPM [POC] QIDACANDBED 10/15/20 16:30 GLUCOSE POC LAB TO COLLECT JPM [POC] QIDACANDBED 10/15/20 21:00 GLUCOSE POC LAB TO COLLECT JPM [POC] QIDACANDBED - Plan Plan:: ASSESSMENT AND PLAN - Subcapital fracture of the right hip-secondary to mechanical fall. Surgical intervention completed 10/10 with cannulated screw placement x3. Pain control acceptable. Hemoglobin stable. 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 She does have an increase of supplemental oxygen requirement compared to baseline. I suspect she has some mild volume overload. She does have a history of moderate diastolic dysfunction. -Repeat dose of furosemide this afternoon -Continue to supplement oxygen, wean towards baseline as able -Continue home medications -As needed nebulizers Coronary artery disease-history of previous bypass grafting. No active anginal symptoms. -Continue medical management Paroxysmal atrial fibrillation-chronically anticoagulated. -apixaban -Continue beta-asha Peripheral vascular disease-severe reduction in in [place] with 0.4 noted on the right and 0.3 on the left. -Outpatient follow-up with interventional radiology -Continue medical management Tobacco dependence-encourage cessation -Nicotine patch Maintenance issues - -DVT prophylaxis-apixaban -GI prophylaxis-not indicated -Nutrition-consistent carbohydrates -Tanner catheter-placed in the emergency room for strict intake and output monitoring in a surgical patient, this needs to remain in place because of low urine output and low blood pressure in addition to diuresis. Disposition -I anticipate discharge to the senior living for subacute rehab after the hospital stay Michael [address] M.D.
[2020-10-13] MEDS ORDERED: Furosemide 20 MG/2 ML VIAL IVPUSH ONE (12:00)
[2020-10-13] MEDS: Magnesium Hydroxide 400 MG/5 ML Susp 30 ML Cup PO PRN (19:30)
[2020-10-13] MEDS: Pravastatin 20 MG Tab PO SCH (21:52)
[2020-10-13] MEDS: Insulin Glargine,Human Rec. Analog 100 Units/ML 3 ML Pen SUBCUT SCH (21:55)
[2020-10-14] MEDS: Albuterol/Ipratropium 3.0-0.5 MG/3 ML Neb Soln NEB SCH ×4 (07:45→20:17)
--- NOTE | 2020-10-14 07:51 | PCM.SURGPN ---
- General Info Date of Service: 10/14/20 Date of Surgery/Procedure: 10/10/20 POD#: 4 Functional Status: Reports: Pain Controlled (at rest ), Tolerating Diet, Incentive Spirometry - Review of Systems General: Reports: No Symptoms Pulmonary: Reports: Shortness of Breath (per baseline with COPD. Denied increase in SOB from baseline ) Cardiovascular: Reports: No Symptoms Musculoskeletal: Reports: Joint Pain (R hip ) Skin: Reports: Bruising (R hip, R knee ) Psychiatric: Reports: No Symptoms - Patient Data Vitals - Most Recent: Last Vital Signs Temp 98.6 F 10/14/20 07:00 Pulse 91 10/14/20 07:00 Resp 18 10/14/20 07:00 BP 175/61 H 10/14/20 07:00 Pulse Ox 91 L 10/14/20 07:17 Weight - Most Recent: 126 lb 15.992 oz I&O - Last 24 Hours: Intake & Output 10/13/20 10/14/20 10/14/20 22:59 06:59 14:59 Intake Total 350 300 Output Total 1400 150 Balance -1050 150 Lab Results Last 24 Hrs: Laboratory Results - last 24 hr 10/13/20 10/13/20 10/13/20 Range/Units 07:29 11:19 16:32 Sodium (140-148) mmol/L Potassium (3.6-5.2) mmol/L Chloride (100-108) mmol/L Carbon Dioxide (21-32) mmol/L Anion Gap (5.0-14.0) mmol/L BUN (7-18) mg/dL Creatinine (0.6-1.0) mg/dL Est Cr Clr Drug Dosing mL/min Estimated GFR (MDRD) (>60) Glucose (74-106) mg/dL POC Glucose 183 H 153 H 172 H (74-106) mg/dL Calcium (8.5-10.1) mg/dL 10/13/20 10/14/20 Range/Units 20:46 04:10 Sodium 132 L (140-148) mmol/L Potassium 4.4 (3.6-5.2) mmol/L Chloride 94 L (100-108) mmol/L Carbon Dioxide 26 (21-32) mmol/L Anion Gap 16.4 H (5.0-14.0) mmol/L BUN 13 (7-18) mg/dL Creatinine 0.8 (0.6-1.0) mg/dL Est Cr Clr Drug Dosing 57.81 mL/min Estimated GFR (MDRD) > 60 (>60) Glucose 98 (74-106) mg/dL POC Glucose 188 H (74-106) mg/dL Calcium 8.5 (8.5-10.1) mg/dL Med Orders - Current: Current Medications Acetaminophen (Acetaminophen 325 Mg Tab) 650 mg PO Q4H PRN PRN Reason: Pain (Mild 1-3)/fever Last Admin: 10/13/20 08:02 Dose: 650 mg Documented by: Hydrocodone Bitart/Acetaminophen (Acetaminophen/Hydrocodone 325-5 Mg Tab) 1 - 2 tab PO Q4H PRN PRN Reason: pain Last Admin: 10/13/20 19:30 Dose: 2 tab Documented by: Albuterol (Albuterol 0.083% 2.5 Mg/3 Ml Neb Soln) 2.5 mg NEB Q4H PRN PRN Reason: Shortness Of Breath/wheezing Last Admin: 10/13/20 03:18 Dose: 2.5 mg Documented by: Albuterol/Ipratropium (Albuterol/Ipratropium 3.0-0.5 Mg/3 Ml Neb Soln) 3 ml NEB QIDRT [facility] Last Admin: 10/13/20 21:45 Dose: 3 ml Documented by: Apixaban (Apixaban 5 Mg Tab) 5 mg PO BID [facility] Last Admin: 10/13/20 21:46 Dose: 5 mg Documented by: Aspirin (Aspirin 81 Mg Tab.Chew) 81 mg PO DAILY [facility] Last Admin: 10/13/20 09:52 Dose: 81 mg Documented by: Clopidogrel Bisulfate (Clopidogrel 75 Mg Tab) 75 mg PO DAILY [facility] Last Admin: 10/13/20 09:53 Dose: 75 mg Documented by: Cyanocobalamin (Cyanocobalamin (Vitamin B12) 1,000 Mcg Tab) 1,000 mcg PO DAILY [facility] Last Admin: 10/13/20 09:52 Dose: 1,000 mcg Documented by: Gabapentin (Gabapentin 300 Mg Cap) 300 mg PO TID [facility] Last Admin: 10/13/20 21:47 Dose: 300 mg Documented by: Hydromorphone HCl (Hydromorphone 0.5 Mg/0.5 Ml Syringe) 0.5 mg IVPUSH Q2H PRN PRN Reason: PAIN Insulin Glargine (Insulin Glargine,Human Rec. Analog 100 Units/Ml 3 Ml Pen) 35 units SUBCUT BEDTIME [facility] Last Admin: 10/13/20 21:55 Dose: 35 units Documented by: Lisinopril (Lisinopril 5 Mg Tab) 5 mg PO DAILY [facility] Last Admin: 10/13/20 09:53 Dose: Not Given Documented by: Lorazepam (Lorazepam 2 Mg/Ml Sdv) 0.5 mg IVPUSH Q4H PRN PRN Reason: Nausea/Vomiting Magnesium Hydroxide (Magnesium Hydroxide 400 Mg/5 Ml Susp 30 Ml Cup) 30 ml PO Q12H PRN PRN Reason: Constipation Last Admin: 10/13/20 19:30 Dose: 30 ml Documented by: Melatonin (Melatonin 3 Mg Tab) 9 mg PO BEDTIME PRN PRN Reason: Sleep Metformin HCl (Metformin 500 Mg Tab) 1,000 mg PO BIDMEALS [facility] Last Admin: 10/13/20 17:47 Dose: 1,000 mg Documented by: Metoprolol Tartrate (Metoprolol Tartrate 50 Mg Tab) 50 mg PO BID [facility] Last Admin: 10/13/20 21:46 Dose: Not Given Documented by: Multivitamins/Minerals (Multivitamins With Iron/Calcium/Folic Acid/Minerals Tab) 1 tab PO DAILY [facility] Last Admin: 10/13/20 09:52 Dose: 1 tab Documented by: Nicotine (Nicotine 21 Mg/24 Hr Patch) 21 mg TRDERM DAILY [facility] Last Admin: 10/13/20 09:53 Dose: 21 mg Documented by: Ondansetron HCl (Ondansetron 4 Mg/2 Ml Sdv) 4 mg IV Q6H PRN PRN Reason: Nausea/Vomiting Last Admin: 10/10/20 14:11 Dose: 4 mg Documented by: Ondansetron HCl (Ondansetron 4 Mg Tab.Dis) 4 mg PO Q6H PRN PRN Reason: Nausea able to take PO Last Admin: 10/11/20 13:47 Dose: 4 mg Documented by: Pravastatin Sodium (Pravastatin 20 Mg Tab) 40 mg PO BEDTIME [facility] Last Admin: 10/13/20 21:52 Dose: 40 mg Documented by: Senna/Docusate Sodium (Docusate Sodium/Sennosides 50-8.6 Mg Tab) 1 tab PO BID [facility] Last Admin: 10/13/20 21:53 Dose: 1 tab Documented by: Sodium Chloride (Sodium Chloride 1 Gm Tab) 1 gm PO BID [facility] Last Admin: 10/13/20 21:52 Dose: 1 gm Documented by: Tizanidine HCl (Tizanidine 4 Mg Tab) 4 mg PO Q8H PRN PRN Reason: Muscle Spasm Discontinued Medications Hydrocodone Bitart/Acetaminophen (Acetaminophen/Hydrocodone 325-5 Mg Tab) 1 tab PO Q4H PRN PRN Reason: pain Last Admin: 10/13/20 08:03 Dose: 1 tab Documented by: Bupivacaine HCl (Bupivacaine 0.5% 50 Ml Mdv) Confirm Administered Dose 50 ml .ROUTE .STK-MED ONE Stop: 10/10/20 17:04 Last Admin: 10/10/20 17:22 Dose: 35 ml Documented by: Bupivacaine HCl/Epinephrine Bitart (Bupivacaine 0.5%/Epinephrine 1:200,000 50 Ml Mdv) Confirm Administered Dose 50 ml .ROUTE .STK-MED ONE Stop: 10/10/20 13:20 Dexamethasone (Dexamethasone 4 Mg/Ml Sdv) Confirm Administered Dose 4 mg .ROUTE .STK-MED ONE Stop: 10/10/20 16:51 Fentanyl (Fentanyl 100 Mcg/2 Ml Sdv) 50 mcg IM ONETIME ONE Stop: 10/10/20 10:39 Last Admin: 10/10/20 11:27 Dose: 50 mcg Documented by: Fentanyl (Fentanyl 250 Mcg/5 Ml Sdv) Confirm Administered Dose 250 mcg .ROUTE .STK-MED ONE Stop: 10/10/20 16:40 Furosemide (Furosemide 20 Mg/2 Ml Vial) 10 mg IVPUSH DAILY [facility] Last Admin: 10/13/20 05:25 Dose: 10 mg Documented by: Furosemide (Furosemide 20 Mg/2 Ml Vial) 20 mg IVPUSH ONETIME ONE Stop: 10/13/20 12:01 Last Admin: 10/13/20 13:09 Dose: 20 mg Documented by: Glycopyrrolate (Glycopyrrolate 0.2 Mg/Ml 5 Ml Mdv) Confirm Administered Dose 1 mg .ROUTE .STK-MED ONE Stop: 10/10/20 16:51 Lactated Ringer's (Ringers, Lactated) 1,000 mls @ 125 mls/hr IV ASDIRECTED [facility] Last Admin: 10/11/20 02:22 Dose: 125 mls/hr Documented by: Cefazolin Sodium/Dextrose 2 gm (/ Premix) 50 mls @ 100 mls/hr IV ONETIME ONE Stop: 10/10/20 16:29 Last Admin: 10/10/20 16:29 Dose: 100 mls/hr Documented by: Sodium Chloride (Normal Saline) 500 mls @ 999 mls/hr IV .BOLUS ONE Stop: 10/12/20 03:47 Last Admin: 10/12/20 03:24 Dose: 999 mls/hr Documented by: Sodium Chloride (Normal Saline) 500 mls @ 999 mls/hr IV .BOLUS ONE Stop: 10/12/20 06:54 Last Admin: 10/12/20 07:28 Dose: 999 mls/hr Documented by: Neostigmine Methylsulfate (Neostigmine Methylsulfate 1 Mg/Ml 5 Ml Syringe) Confirm Administered Dose 5 mg .ROUTE .STK-MED ONE Stop: 10/10/20 16:51 Ondansetron HCl (Ondansetron 4 Mg/2 Ml Sdv) Confirm Administered Dose 4 mg .ROUTE .STK-MED ONE Stop: 10/10/20 16:51 Oxycodone HCl (Oxycodone 5 Mg Tab) 5 - 10 mg PO Q4H PRN PRN Reason: Pain Last Admin: 10/11/20 22:40 Dose: 10 mg Documented by: Propofol (Propofol 200 Mg/20 Ml Sdv) Confirm Administered Dose 200 mg .ROUTE .STK-MED ONE Stop: 10/10/20 16:51 Rocuronium [place] (Rocuronium 50 Mg/5 Ml Vial) Confirm Administered Dose 50 mg .ROUTE .STK-MED ONE Stop: 10/10/20 16:51 Succinylcholine Chloride (Succinylcholine 200 Mg/10 Ml Mdv) Confirm Administered Dose 200 mg .ROUTE .STK-MED ONE Stop: 10/10/20 16:51 - Exam Wound/Incisions: Healing Well, Dressing Dry and Intact, No Drainage Quality Assessment: DVT Prophylaxis General: Alert, Oriented, No Acute Distress Extremities: Leg Pain (right ), Limited Range of Motion Skin: Warm, Dry, Intact, Ecchymosis Neurological: No New Focal Deficit Psy/Mental Status: Alert, Normal Affect Sepsis Event Note - Evaluation Sepsis Screening Result: No Definite Risk - Focused Exam Vital Signs: Vital Signs Temp Pulse Resp BP Pulse Ox 10/14/20 07:17 91 L 10/14/20 07:00 98.6 F 91 18 175/61 H 90 L 10/14/20 03:00 96.9 F 83 20 140/69 92 L 10/14/20 01:58 93 L 10/13/20 23:00 96.5 F L 82 20 131/56 L 93 L 10/13/20 19:36 92 92 L - Problem List & Annotations (1) Status post-operative repair of hip fracture SNOMED Code(s): 305584124, 325216071 Code(s): Z98.890 - OTHER SPECIFIED POSTPROCEDURAL STATES; Z87.81 - PERSONAL HISTORY OF (HEALED) TRAUMATIC FRACTURE Status: Acute Current Visit: Yes (2) Postoperative anemia SNOMED Code(s): 921236275, 192877703 Code(s): D64.9 - ANEMIA, UNSPECIFIED Status: Acute Current Visit: Yes - Problem List Review Problem List Initiated/Reviewed/Updated: Yes - My Orders Last 24 Hours: Active Orders 24 hr Category Date Time Status Overnight Pulse Oximetry [RC] Click to Edit Care 10/13/20 15:56 Active Echo Comp wo Cont [US] Routine Exams 10/14/20 07:00 Ordered GLUCOSE POC LAB TO COLLECT JPM [POC] QIDACANDBED Lab 10/14/20 07:30 Ordered GLUCOSE POC LAB TO COLLECT JPM [POC] QIDACANDBED Lab 10/14/20 11:30 Ordered GLUCOSE POC LAB TO COLLECT JPM [POC] QIDACANDBED Lab 10/14/20 16:30 Ordered GLUCOSE POC LAB TO COLLECT JPM [POC] QIDACANDBED Lab 10/14/20 21:00 Ordered GLUCOSE POC LAB TO COLLECT JPM [POC] QIDACANDBED Lab 10/15/20 07:30 Ordered GLUCOSE POC LAB TO COLLECT JPM [POC] QIDACANDBED Lab 10/15/20 11:30 Ordered GLUCOSE POC LAB TO COLLECT JPM [POC] QIDACANDBED Lab 10/15/20 16:30 Ordered GLUCOSE POC LAB TO COLLECT JPM [POC] QIDACANDBED Lab 10/15/20 21:00 Ordered Acetaminophen/HYDROcodone [[place] 325-5 MG] Med 10/13/20 08:58 Active 1 - 2 tab PO Q4H PRN Pulse Oximetry Continuous Monitoring [OM.PC] Routine Oth 10/13/20 15:56 Ordered Medication Orders Acetaminophen (Acetaminophen 325 Mg Tab) 650 mg PO Q4H PRN PRN Reason: Pain (Mild 1-3)/fever Last Admin: 10/13/20 08:02 Dose: 650 mg Documented by: CLAUDIA Hydrocodone Bitart/Acetaminophen (Acetaminophen/Hydrocodone 325-5 Mg Tab) 1 - 2 tab PO Q4H PRN PRN Reason: pain Last Admin: 10/13/20 19:30 Dose: 2 tab Documented by: Admin: 10/13/20 14:53 Dose: 1 tab Documented by: CLAUDIA Albuterol (Albuterol 0.083% 2.5 Mg/3 Ml Neb Soln) 2.5 mg NEB Q4H PRN PRN Reason: Shortness Of Breath/wheezing Last Admin: 10/13/20 03:18 Dose: 2.5 mg Documented by: Admin: 10/12/20 02:38 Dose: 2.5 mg Documented by: Admin: 10/11/20 18:31 Dose: 2.5 mg Documented by: LISET Albuterol/Ipratropium (Albuterol/Ipratropium 3.0-0.5 Mg/3 Ml Neb Soln) 3 ml NEB QIDRT [facility] Last Admin: 10/13/20 21:45 Dose: 3 ml Documented by: Admin: 10/13/20 14:27 Dose: 3 ml Documented by: Admin: 10/13/20 11:10 Dose: Not Given Documented by: Admin: 10/13/20 07:08 Dose: 3 ml Documented by: Admin: 10/12/20 20:38 Dose: 3 ml Documented by: Admin: 10/12/20 14:33 Dose: 3 ml Documented by: Admin: 10/12/20 10:38 Dose: 3 ml Documented by: Admin: 10/12/20 07:10 Dose: 3 ml Documented by: Admin: 10/11/20 21:15 Dose: 3 ml Documented by: Admin: 10/11/20 14:46 Dose: 3 ml Documented by: Admin: 10/11/20 10:47 Dose: 3 ml Documented by: Admin: 10/11/20 07:09 Dose: 3 ml Documented by: Admin: 10/10/20 21:38 Dose: 3 ml Documented by: Admin: 10/10/20 14:43 Dose: 3 ml Documented by: DIEGO Apixaban (Apixaban 5 Mg Tab) 5 mg PO BID [facility] Admin: 10/13/20 21:46 Dose: 5 mg Documented by: Admin: 10/13/20 09:53 Dose: 5 mg Documented by: Admin: 10/12/20 20:38 Dose: 5 mg Documented by: MICHAEL Aspirin (Aspirin 81 Mg Tab.Chew) 81 mg PO DAILY [facility] Admin: 10/13/20 09:52 Dose: 81 mg Documented by: Admin: 10/12/20 12:22 Dose: 81 mg Documented by: Admin: 10/11/20 09:10 Dose: 81 mg Documented by: GRADY Clopidogrel Bisulfate (Clopidogrel 75 Mg Tab) 75 mg PO DAILY [facility] Admin: 10/13/20 09:53 Dose: 75 mg Documented by: Admin: 10/12/20 12:22 Dose: 75 mg Documented by: Admin: 10/11/20 09:10 Dose: 75 mg Documented by: GRADY Cyanocobalamin (Cyanocobalamin (Vitamin B12) 1,000 Mcg Tab) 1,000 mcg PO DAILY [facility] Last Admin: 10/13/20 09:52 Dose: 1,000 mcg Documented by: Admin: 10/12/20 09:50 Dose: 1,000 mcg Documented by: Admin: 10/11/20 09:10 Dose: 1,000 mcg Documented by: GRADY Gabapentin (Gabapentin 300 Mg Cap) 300 mg PO TID [facility] Last Admin: 10/13/20 21:47 Dose: 300 mg Documented by: Admin: 10/13/20 14:53 Dose: 300 mg Documented by: Admin: 10/13/20 09:52 Dose: 300 mg Documented by: Admin: 10/12/20 20:38 Dose: 300 mg Documented by: Admin: 10/12/20 15:27 Dose: 300 mg Documented by: Admin: 10/12/20 09:50 Dose: 300 mg Documented by: Admin: 10/11/20 21:18 Dose: 300 mg Documented by: Admin: 10/11/20 13:47 Dose: 300 mg Documented by: Admin: 10/11/20 09:10 Dose: 300 mg Documented by: Admin: 10/10/20 21:42 Dose: 300 mg Documented by: Admin: 10/10/20 15:00 Dose: Not Given Documented by: GRADY Hydromorphone HCl (Hydromorphone 0.5 Mg/0.5 Ml Syringe) 0.5 mg IVPUSH Q2H PRN PRN Reason: PAIN Insulin Glargine (Insulin Glargine,Human Rec. Analog 100 Units/Ml 3 Ml Pen) 35 units SUBCUT BEDTIME [facility] Last Admin: 10/13/20 21:55 Dose: 35 units Documented by: MICHAEL Cosigned by: NANO Admin: 10/12/20 20:45 Dose: 20 units Documented by: MICHAEL Cosigned by: JOSE Admin: 10/11/20 21:22 Dose: 35 units Documented by: LISET Cosigned by: JOSE Admin: 10/10/20 21:41 Dose: 35 units Documented by: BETITO Cosigned by: JOSE Lisinopril (Lisinopril 5 Mg Tab) 5 mg PO DAILY [facility] Last Admin: 10/13/20 09:53 Dose: Not Given Documented by: Admin: 10/12/20 11:47 Dose: Not Given Documented by: Admin: 10/11/20 09:11 Dose: 5 mg Documented by: GRADY Lorazepam (Lorazepam 2 Mg/Ml Sdv) 0.5 mg IVPUSH Q4H PRN PRN Reason: Nausea/Vomiting Magnesium Hydroxide (Magnesium Hydroxide 400 Mg/5 Ml Susp 30 Ml Cup) 30 ml PO Q12H PRN PRN Reason: Constipation Last Admin: 10/13/20 19:30 Dose: 30 ml Documented by: Admin: 10/12/20 20:39 Dose: 30 ml Documented by: MICHAEL Melatonin (Melatonin 3 Mg Tab) 9 mg PO BEDTIME PRN PRN Reason: Sleep Metformin HCl (Metformin 500 Mg Tab) 1,000 mg PO BIDMEALS [facility] Admin: 10/13/20 17:47 Dose: 1,000 mg Documented by: Admin: 10/13/20 09:52 Dose: 1,000 mg Documented by: Admin: 10/12/20 18:04 Dose: 1,000 mg Documented by: Admin: 10/12/20 09:49 Dose: 1,000 mg Documented by: Admin: 10/11/20 16:54 Dose: 1,000 mg Documented by: Admin: 10/11/20 09:10 Dose: 1,000 mg Documented by: GRADY Metoprolol Tartrate (Metoprolol Tartrate 50 Mg Tab) 50 mg PO BID [facility] Admin: 10/13/20 21:46 Dose: Not Given Documented by: Admin: 10/13/20 09:54 Dose: Not Given Documented by: Admin: 10/12/20 20:56 Dose: Not Given Documented by: Admin: 10/12/20 11:47 Dose: Not Given Documented by: Admin: 10/11/20 21:19 Dose: 50 mg Documented by: Admin: 10/11/20 09:11 Dose: 50 mg Documented by: Admin: 10/10/20 21:49 Dose: 50 mg Documented by: BETITO Multivitamins/Minerals (Multivitamins With Iron/Calcium/Folic Acid/Minerals Tab) 1 tab PO DAILY [facility] Admin: 10/13/20 09:52 Dose: 1 tab Documented by: Admin: 10/12/20 09:50 Dose: 1 tab Documented by: Admin: 10/11/20 09:10 Dose: 1 tab Documented by: GRADY Nicotine (Nicotine 21 Mg/24 Hr Patch) 21 mg TRDERM DAILY [facility] Admin: 10/13/20 09:53 Dose: 21 mg Documented by: Admin: 10/12/20 09:49 Dose: 21 mg Documented by: Admin: 10/11/20 09:14 Dose: 21 mg Documented by: Admin: 10/10/20 15:14 Dose: 21 mg Documented by: GRADY Ondansetron HCl (Ondansetron 4 Mg/2 Ml Sdv) 4 mg IV Q6H PRN PRN Reason: Nausea/Vomiting Last Admin: 10/10/20 14:11 Dose: 4 mg Documented by: GRADY Ondansetron HCl (Ondansetron 4 Mg Tab.Dis) 4 mg PO Q6H PRN PRN Reason: Nausea able to take PO Last Admin: 10/11/20 13:47 Dose: 4 mg Documented by: GRADY Pravastatin Sodium (Pravastatin 20 Mg Tab) 40 mg PO BEDTIME [facility] Admin: 10/13/20 21:52 Dose: 40 mg Documented by: Admin: 10/12/20 20:39 Dose: 40 mg Documented by: Admin: 10/11/20 21:18 Dose: 40 mg Documented by: Admin: 10/10/20 21:42 Dose: 40 mg Documented by: BETITO Senna/Docusate Sodium (Docusate Sodium/Sennosides 50-8.6 Mg Tab) 1 tab PO BID [facility] Admin: 10/13/20 21:53 Dose: 1 tab Documented by: Admin: 10/13/20 09:53 Dose: 1 tab Documented by: Admin: 10/12/20 20:39 Dose: 1 tab Documented by: Admin: 10/12/20 09:50 Dose: 1 tab Documented by: Admin: 10/11/20 21:18 Dose: 1 tab Documented by: Admin: 10/11/20 09:10 Dose: 1 tab Documented by: Admin: 10/10/20 21:43 Dose: 1 tab Documented by: BETITO Sodium Chloride (Sodium Chloride 1 Gm Tab) 1 gm PO BID [facility] Admin: 10/13/20 21:52 Dose: 1 gm Documented by: Admin: 10/13/20 09:53 Dose: 1 gm Documented by: Admin: 10/12/20 20:39 Dose: 1 gm Documented by: Admin: 10/12/20 09:50 Dose: 1 gm Documented by: Admin: 10/11/20 21:18 Dose: 1 gm Documented by: Admin: 10/11/20 09:10 Dose: 1 gm Documented by: Admin: 10/10/20 21:43 Dose: 1 gm Documented by: BETITO Tizanidine HCl (Tizanidine 4 Mg Tab) 4 mg PO Q8H PRN PRN Reason: Muscle Spasm - Assessment Assessment (Free Text/Narrative):: Patient is a 70 y/o female, s/p right subcapital impacted femoral fracture, repaired with 3 cannulated screws. Patient is POD#4. No acute events overnight. Received 2 doses of Lasix and BP medications held yesterday. Blood pressure and urine output improving over the past 24 hours. Due to limited ambulation, in addition to recent diuresis + strict I&O monitoring, vargas remains in place. Remains on 6L to maintain O2 saturations at 90%. Denied dyspnea increased from baseline this morning. Denied nausea. Tolerating consistent carbohydrate diet. POC Glucoses have remained elevated. Reports pain in R hip better controlled at rest today. Endorsed severe pain in R LE and groin with transfer to chair this morning. Worked with PT on Wednesday, performed bilateral LE exercises in bed. Repositioned with max x1 assist in bed. Requiring x2 assist with transfers from bed to chair. Ambulation remains very limited at this time; has not ambulated further than a few steps with transfers. Dressing change performed on POD#2. Patient declined dressing change this morning, as she was in chair eating breakfast. Will attempt dressing change this afternoon. Exam: A&Ox3. R hip dressing dry and intact. Mild warmth and fullness to palpation around R hip dressing. Very tender to palpation of R hip. Ecchymosis on lateral inferior aspect of R knee. Modest edema of R hip through R thigh. No significant pedal edema. R calf soft and supple. Tibialis posterior pulse appreciated. Bruises on R side of face from fall leading to hospitalization. Plan: * Hospitalist to continue medical management of patient. * Patient to participate in daily PT and OT services while in the hospital; partial weight bear on R LE. Ambulation has been fairly limited up to this point in recovery. Encourage up to chairs for all meals, pending stable BP and O2 saturations. * Anticipate dressing change this afternoon by orthopedic provider. * Continue DVT/VTE mechanical prophylaxis with bilateral LE SCDs and chemical prophylaxis with home Apixiban dose. * Continue with current pain regimen. * Anticipate discharge to SNF when medically stable.
[2020-10-14] MEDS: Aspirin 81 MG Tab.Chew PO SCH (08:25)
[2020-10-14] MEDS: metFORMIN 500 MG Tab PO SCH ×2 (08:25→19:45)
[2020-10-14] MEDS: Nicotine 21 MG/24 Hr Patch TRDERM SCH (08:26)
[2020-10-14] MEDS: Apixaban 5 MG Tab PO SCH ×2 (08:26→20:08)
[2020-10-14] MEDS: Metoprolol Tartrate 50 MG Tab PO SCH ×2 (08:26→20:09)
[2020-10-14] MEDS: Gabapentin 300 MG Cap PO SCH ×3 (08:27→20:08)
[2020-10-14] MEDS: Sodium Chloride 1 GM Tab PO SCH ×2 (08:28→20:08)
[2020-10-14] MEDS: Multivitamins with Iron/Calcium/Folic Acid/Minerals Tab PO SCH (08:28)
[2020-10-14] MEDS: Clopidogrel 75 MG Tab PO SCH (08:28)
[2020-10-14] MEDS: Cyanocobalamin (Vitamin B12) 1,000 MCG Tab PO SCH (08:29)
[2020-10-14] MEDS ORDERED: Sodium Chloride 0.9% 10 ML Syringe FLUSH PRN (09:23)
[2020-10-14] MEDS ORDERED: Iopamidol 755 Mg/ML 100 ML Bottle IV SCH (09:30)
--- NOTE | 2020-10-14 10:03 | CT ---
Ang Chest CLINICAL HISTORY: Hypoxia, recent hip fracture TECHNIQUE: Thin section axial contiguous tomographic sections were taken through the chest after bolus IV iodinated contrast administration. Coronal and sagittal images were reconstructed. Auto dosage reduction and iterative reconstruction techniques employed. FINDINGS: There is segmental atelectasis in the right lower lobe. There is a bronchial cut off sign to the lower lobe bronchus. This may represent mucous plugging. There are some generalized bronchial thickening bilaterally. Patient has a new right pleural effusion. There is some patchy subsegmental atelectasis in the left lung base. There are moderate atherosclerotic changes in the aorta. No filling defects identified in the pulmonary arteries. No mediastinal mass or suspicious lymphadenopathy is identified. IMPRESSION: No evidence of pulmonary embolus Atelectasis in the basal segments of the right lower lobe secondary to bronchial obstruction possibly mucous plug. Endobronchial lesion is not excluded. Generalized bronchial thickening likely chronic Small right pleural effusion Mild subsegmental atelectasis left lung base
[2020-10-14] MEDS: Acetaminophen 325 MG Tab PO PRN (11:44)
[2020-10-14] MEDS: Lisinopril 5 MG Tab PO SCH (11:53)
[2020-10-14] MEDS ORDERED: Furosemide 40 MG/4 ML VIAL IVPUSH ONE (12:00)
--- NOTE | 2020-10-14 14:54 | PCM.PN ---
- General Info Date of Service: 10/14/20 Subjective Update: Ms. Licona has required increase amounts of supplemental oxygen over the past 2 days. She does have known COPD and at baseline does require supplemental oxygen at 2 L/min via nasal cannula. She reports symptoms of mild shortness of breath but has not had a marked increase in her respiratory rate. Functional Status: Reports: Tolerating Diet - Review of Systems General: Reports: Weakness. Denies: Fever, Chills Pulmonary: Reports: Shortness of Breath. Denies: Pleuritic Chest Pain, Cough, Sputum, Hemoptysis, Wheezing Cardiovascular: Reports: Dyspnea on Exertion. Denies: Chest Pain, Palpitations, Orthopnea, PND, Edema, Lightheadedness Gastrointestinal: Reports: No Symptoms Genitourinary: Reports: No Symptoms - Patient Data Vitals - Most Recent: Last Vital Signs Temp 96.8 F L 10/14/20 14:16 Pulse 73 10/14/20 10:50 Resp 18 10/14/20 14:16 BP 120/65 10/14/20 14:16 Pulse Ox 96 10/14/20 14:16 Weight - Most Recent: 126 lb 15.992 oz I&O - Last 24 Hours: Intake & Output 10/13/20 10/14/20 10/14/20 22:59 06:59 14:59 Intake Total 350 300 455 Output Total 1400 150 875 Balance -1050 150 -420 Lab Results Last 24 Hours: Laboratory Results - last 24 hr 10/13/20 10/13/20 10/14/20 Range/Units 16:32 20:46 04:10 ABG Hemoglobin (12.0-16.0) g/dL ABG Oxyhemoglobin % ABG Carboxyhemoglobin (0.0-1.6) % ABG Methemoglobin % VBG pH (7.350-7.450) VBG pCO2 mm/Hg VBG pO2 mm/Hg VBG HCO3 mmol/L VBG Total CO2 mmol/L VBG O2 Saturation VBG O2 Content %vol VBG Base Excess mm/L O2 Delivery Device Sodium 132 L (140-148) mmol/L Potassium 4.4 (3.6-5.2) mmol/L Chloride 94 L (100-108) mmol/L Carbon Dioxide 26 (21-32) mmol/L Anion Gap 16.4 H (5.0-14.0) mmol/L BUN 13 (7-18) mg/dL Creatinine 0.8 (0.6-1.0) mg/dL Est Cr Clr Drug Dosing 57.81 mL/min Estimated GFR (MDRD) > 60 (>60) Glucose 98 (74-106) mg/dL POC Glucose 172 H 188 H (74-106) mg/dL Calcium 8.5 (8.5-10.1) mg/dL Troponin I (0.000-0.056) ng/mL 10/14/20 10/14/20 Range/Units 08:56 12:32 ABG Hemoglobin 10.1 L (12.0-16.0) g/dL ABG Oxyhemoglobin 60.3 % ABG Carboxyhemoglobin 1.2 (0.0-1.6) % ABG Methemoglobin 0.5 % VBG pH 7.432 (7.350-7.450) VBG pCO2 39.8 mm/Hg VBG pO2 34.6 mm/Hg VBG HCO3 26.1 mmol/L VBG Total CO2 24.3 mmol/L VBG O2 Saturation 61.3 VBG O2 Content 8.6 %vol VBG Base Excess 2.2 mm/L O2 Delivery Device Hi flow nasal cannu Sodium (140-148) mmol/L Potassium (3.6-5.2) mmol/L Chloride (100-108) mmol/L Carbon Dioxide (21-32) mmol/L Anion Gap (5.0-14.0) mmol/L BUN (7-18) mg/dL Creatinine (0.6-1.0) mg/dL Est Cr Clr Drug Dosing mL/min Estimated GFR (MDRD) (>60) Glucose (74-106) mg/dL POC Glucose (74-106) mg/dL Calcium (8.5-10.1) mg/dL Troponin I 0.097 H* (0.000-0.056) ng/mL Med Orders - Current: Current Medications Acetaminophen (Acetaminophen 325 Mg Tab) 650 mg PO Q4H PRN PRN Reason: Pain (Mild 1-3)/fever Last Admin: 10/14/20 11:44 Dose: 650 mg Documented by: Hydrocodone Bitart/Acetaminophen (Acetaminophen/Hydrocodone 325-5 Mg Tab) 1 tab PO Q4H PRN PRN Reason: pain Albuterol (Albuterol 0.083% 2.5 Mg/3 Ml Neb Soln) 2.5 mg NEB Q4H PRN PRN Reason: Shortness Of Breath/wheezing Last Admin: 10/13/20 03:18 Dose: 2.5 mg Documented by: Albuterol/Ipratropium (Albuterol/Ipratropium 3.0-0.5 Mg/3 Ml Neb Soln) 3 ml NEB QIDRT [facility] Last Admin: 10/14/20 14:47 Dose: 3 ml Documented by: Apixaban (Apixaban 5 Mg Tab) 5 mg PO BID [facility] Last Admin: 10/14/20 08:26 Dose: 5 mg Documented by: Aspirin (Aspirin 81 Mg Tab.Chew) 81 mg PO DAILY [facility] Last Admin: 10/14/20 08:25 Dose: 81 mg Documented by: Clopidogrel Bisulfate (Clopidogrel 75 Mg Tab) 75 mg PO DAILY [facility] Last Admin: 10/14/20 08:28 Dose: 75 mg Documented by: Cyanocobalamin (Cyanocobalamin (Vitamin B12) 1,000 Mcg Tab) 1,000 mcg PO DAILY [facility] Last Admin: 10/14/20 08:29 Dose: 1,000 mcg Documented by: Gabapentin (Gabapentin 300 Mg Cap) 300 mg PO TID [facility] Last Admin: 10/14/20 14:32 Dose: 300 mg Documented by: Insulin Glargine (Insulin Glargine,Human Rec. Analog 100 Units/Ml 3 Ml Pen) 35 units SUBCUT BEDTIME [facility] Last Admin: 10/13/20 21:55 Dose: 35 units Documented by: Lisinopril (Lisinopril 5 Mg Tab) 5 mg PO DAILY [facility] Last Admin: 10/14/20 11:53 Dose: 5 mg Documented by: Magnesium Hydroxide (Magnesium Hydroxide 400 Mg/5 Ml Susp 30 Ml Cup) 30 ml PO Q12H PRN PRN Reason: Constipation Last Admin: 10/13/20 19:30 Dose: 30 ml Documented by: Metformin HCl (Metformin 500 Mg Tab) 1,000 mg PO BIDMEALS [facility] Last Admin: 10/14/20 08:25 Dose: 1,000 mg Documented by: Metoprolol Tartrate (Metoprolol Tartrate 50 Mg Tab) 50 mg PO BID [facility] Last Admin: 10/14/20 08:26 Dose: 50 mg Documented by: Multivitamins/Minerals (Multivitamins With Iron/Calcium/Folic Acid/Minerals Tab) 1 tab PO DAILY [facility] Last Admin: 10/14/20 08:28 Dose: 1 tab Documented by: Nicotine (Nicotine 21 Mg/24 Hr Patch) 21 mg TRDERM DAILY [facility] Last Admin: 10/14/20 08:26 Dose: 21 mg Documented by: Ondansetron HCl (Ondansetron 4 Mg/2 Ml Sdv) 4 mg IV Q6H PRN PRN Reason: Nausea/Vomiting Last Admin: 10/10/20 14:11 Dose: 4 mg Documented by: Ondansetron HCl (Ondansetron 4 Mg Tab.Dis) 4 mg PO Q6H PRN PRN Reason: Nausea able to take PO Last Admin: 10/11/20 13:47 Dose: 4 mg Documented by: Pravastatin Sodium (Pravastatin 20 Mg Tab) 40 mg PO BEDTIME [facility] Last Admin: 10/13/20 21:52 Dose: 40 mg Documented by: Senna/Docusate Sodium (Docusate Sodium/Sennosides 50-8.6 Mg Tab) 1 tab PO BID [facility] Last Admin: 10/14/20 08:28 Dose: 1 tab Documented by: Sodium Chloride (Sodium Chloride 1 Gm Tab) 1 gm PO BID [facility] Last Admin: 10/14/20 08:28 Dose: 1 gm Documented by: Discontinued Medications Hydrocodone Bitart/Acetaminophen (Acetaminophen/Hydrocodone 325-5 Mg Tab) 1 tab PO Q4H PRN PRN Reason: pain Last Admin: 10/13/20 08:03 Dose: 1 tab Documented by: Hydrocodone Bitart/Acetaminophen (Acetaminophen/Hydrocodone 325-5 Mg Tab) 1 - 2 tab PO Q4H PRN PRN Reason: pain Last Admin: 10/13/20 19:30 Dose: 2 tab Documented by: Bupivacaine HCl (Bupivacaine 0.5% 50 Ml Mdv) Confirm Administered Dose 50 ml .ROUTE .STK-MED ONE Stop: 10/10/20 17:04 Last Admin: 10/10/20 17:22 Dose: 35 ml Documented by: Bupivacaine HCl/Epinephrine Bitart (Bupivacaine 0.5%/Epinephrine 1:200,000 50 Ml Mdv) Confirm Administered Dose 50 ml .ROUTE .STK-MED ONE Stop: 10/10/20 13:20 Dexamethasone (Dexamethasone 4 Mg/Ml Sdv) Confirm Administered Dose 4 mg .ROUTE .STK-MED ONE Stop: 10/10/20 16:51 Fentanyl (Fentanyl 100 Mcg/2 Ml Sdv) 50 mcg IM ONETIME ONE Stop: 10/10/20 10:39 Last Admin: 10/10/20 11:27 Dose: 50 mcg Documented by: Fentanyl (Fentanyl 250 Mcg/5 Ml Sdv) Confirm Administered Dose 250 mcg .ROUTE .K-MED ONE Stop: 10/10/20 16:40 Furosemide (Furosemide 20 Mg/2 Ml Vial) 10 mg IVPUSH DAILY [facility] Last Admin: 10/13/20 05:25 Dose: 10 mg Documented by: Furosemide (Furosemide 20 Mg/2 Ml Vial) 20 mg IVPUSH ONETIME ONE Stop: 10/13/20 12:01 Last Admin: 10/13/20 13:09 Dose: 20 mg Documented by: Furosemide (Furosemide 40 Mg/4 Ml Vial) 40 mg IVPUSH NOW ONE Stop: 10/14/20 12:01 Last Admin: 10/14/20 11:44 Dose: 40 mg Documented by: Glycopyrrolate (Glycopyrrolate 0.2 Mg/Ml 5 Ml Mdv) Confirm Administered Dose 1 mg .ROUTE .K-MED ONE Stop: 10/10/20 16:51 Hydromorphone HCl (Hydromorphone 0.5 Mg/0.5 Ml Syringe) 0.5 mg IVPUSH Q2H PRN PRN Reason: PAIN Lactated Ringer's (Ringers, Lactated) 1,000 mls @ 125 mls/hr IV ASDIRECTED [facility] Last Admin: 10/11/20 02:22 Dose: 125 mls/hr Documented by: Cefazolin Sodium/Dextrose 2 gm (/ Premix) 50 mls @ 100 mls/hr IV ONETIME ONE Stop: 10/10/20 16:29 Last Admin: 10/10/20 16:29 Dose: 100 mls/hr Documented by: Sodium Chloride (Normal Saline) 500 mls @ 999 mls/hr IV .BOLUS ONE Stop: 10/12/20 03:47 Last Admin: 10/12/20 03:24 Dose: 999 mls/hr Documented by: Sodium Chloride (Normal Saline) 500 mls @ 999 mls/hr IV .BOLUS ONE Stop: 10/12/20 06:54 Last Admin: 10/12/20 07:28 Dose: 999 mls/hr Documented by: Sodium Chloride (Normal Saline) 83 mls @ 3 mls/sec IV ONETIME ONE Stop: 10/14/20 09:24 Last Admin: 10/14/20 09:49 Dose: 3 mls/sec Documented by: Iopamidol (Iopamidol 755 Mg/Ml 100 Ml Bottle) 75 ml IV . DIRECTED [facility] Stop: 10/14/20 09:31 Last Admin: 10/14/20 09:49 Dose: 75 ml Documented by: Lisinopril (Lisinopril 5 Mg Tab) 5 mg PO DAILY [facility] Last Admin: 10/13/20 09:53 Dose: Not Given Documented by: Lorazepam (Lorazepam 2 Mg/Ml Sdv) 0.5 mg IVPUSH Q4H PRN PRN Reason: Nausea/Vomiting Melatonin (Melatonin 3 Mg Tab) 9 mg PO BEDTIME PRN PRN Reason: Sleep Neostigmine Methylsulfate (Neostigmine Methylsulfate 1 Mg/Ml 5 Ml Syringe) Confirm Administered Dose 5 mg .ROUTE .STK-MED ONE Stop: 10/10/20 16:51 Ondansetron HCl (Ondansetron 4 Mg/2 Ml Sdv) Confirm Administered Dose 4 mg .ROUTE .STK-MED ONE Stop: 10/10/20 16:51 Oxycodone HCl (Oxycodone 5 Mg Tab) 5 - 10 mg PO Q4H PRN PRN Reason: Pain Last Admin: 10/11/20 22:40 Dose: 10 mg Documented by: Propofol (Propofol 200 Mg/20 Ml Sdv) Confirm Administered Dose 200 mg .ROUTE .STK-MED ONE Stop: 10/10/20 16:51 Rocuronium [place] (Rocuronium 50 Mg/5 Ml Vial) Confirm Administered Dose 50 mg .ROUTE .STK-MED ONE Stop: 10/10/20 16:51 Sodium Chloride (Sodium Chloride 0.9% 10 Ml Syringe) 10 ml FLUSH ONETIME PRN PRN Reason: PER RADIOLOGY PROTOCOL Stop: 10/14/20 09:24 Last Admin: 10/14/20 09:49 Dose: 10 ml Documented by: Succinylcholine Chloride (Succinylcholine 200 Mg/10 Ml Mdv) Confirm Administered Dose 200 mg .ROUTE .STK-MED ONE Stop: 10/10/20 16:51 Tizanidine HCl (Tizanidine 4 Mg Tab) 4 mg PO Q8H PRN PRN Reason: Muscle Spasm - Exam Quality Assessment: Supplemental Oxygen, Urine Catheter, DVT Prophylaxis General: Alert, Oriented, Cooperative, Mild Distress Lungs: Decreased Breath Sounds. No: Crackles, Rales, Rhonchi, Wheezing Cardiovascular: Regular Rate, Regular Rhythm, No Murmurs GI/Abdominal Exam: Soft, Non-Tender, No Organomegaly, No Distention Extremities: Leg Pain - Patient Data Lab Results Last 24 hrs: Laboratory Results - last 24 hr 10/13/20 10/13/20 10/14/20 Range/Units 16:32 20:46 04:10 ABG Hemoglobin (12.0-16.0) g/dL ABG Oxyhemoglobin % ABG Carboxyhemoglobin (0.0-1.6) % ABG Methemoglobin % VBG pH (7.350-7.450) VBG pCO2 mm/Hg VBG pO2 mm/Hg VBG HCO3 mmol/L VBG Total CO2 mmol/L VBG O2 Saturation VBG O2 Content %vol VBG Base Excess mm/L O2 Delivery Device Sodium 132 L (140-148) mmol/L Potassium 4.4 (3.6-5.2) mmol/L Chloride 94 L (100-108) mmol/L Carbon Dioxide 26 (21-32) mmol/L Anion Gap 16.4 H (5.0-14.0) mmol/L BUN 13 (7-18) mg/dL Creatinine 0.8 (0.6-1.0) mg/dL Est Cr Clr Drug Dosing 57.81 mL/min Estimated GFR (MDRD) > 60 (>60) Glucose 98 (74-106) mg/dL POC Glucose 172 H 188 H (74-106) mg/dL Calcium 8.5 (8.5-10.1) mg/dL Troponin I (0.000-0.056) ng/mL 10/14/20 10/14/20 Range/Units 08:56 12:32 ABG Hemoglobin 10.1 L (12.0-16.0) g/dL ABG Oxyhemoglobin 60.3 % ABG Carboxyhemoglobin 1.2 (0.0-1.6) % ABG Methemoglobin 0.5 % VBG pH 7.432 (7.350-7.450) VBG pCO2 39.8 mm/Hg VBG pO2 34.6 mm/Hg VBG HCO3 26.1 mmol/L VBG Total CO2 24.3 mmol/L VBG O2 Saturation 61.3 VBG O2 Content 8.6 %vol VBG Base Excess 2.2 mm/L O2 Delivery Device Hi flow nasal cannu Sodium (140-148) mmol/L Potassium (3.6-5.2) mmol/L Chloride (100-108) mmol/L Carbon Dioxide (21-32) mmol/L Anion Gap (5.0-14.0) mmol/L BUN (7-18) mg/dL Creatinine (0.6-1.0) mg/dL Est Cr Clr Drug Dosing mL/min Estimated GFR (MDRD) (>60) Glucose (74-106) mg/dL POC Glucose (74-106) mg/dL Calcium (8.5-10.1) mg/dL Troponin I 0.097 H* (0.000-0.056) ng/mL Result Diagrams: 10/13/20 04:20 10/14/20 04:10 Sepsis Event Note - Evaluation Sepsis Screening Result: No Definite Risk - Focused Exam Vital Signs: Vital Signs Temp Pulse Pulse Resp BP BP Pulse Ox 10/14/20 14:16 96.8 F L 18 120/65 96 10/14/20 13:22 98 10/14/20 11:53 125/63 10/14/20 10:50 97.5 F 73 18 125/63 94 L 10/14/20 08:54 82 L 10/14/20 08:26 91 175/61 H 10/14/20 07:17 91 L 10/14/20 07:00 98.6 F 91 18 175/61 H 90 L 10/14/20 03:00 96.9 F 83 20 140/69 92 L - Problem List Review Problem List Initiated/Reviewed/Updated: Yes - My Orders Last 24 Hours: My Active Orders 10/14/20 09:09 Echo Comp wo Cont [US] Stat 10/14/20 11:30 lisinopriL [Prinivil] 5 mg PO DAILY 10/14/20 12:29 Acetaminophen/HYDROcodone [[place] 325-5 MG] 1 tab PO Q4H PRN 10/14/20 12:30 EKG 12 Lead [EK] Stat 10/14/20 12:32 EKG Documentation Completion [RC] ASDIRECTED 10/14/20 19:30 TROPONIN I [CHEM] Stat 10/15/20 05:00 BASIC METABOLIC PANEL,BMP [CHEM] Timed CBC WITH AUTO DIFF [HEME] Timed TROPONIN I [CHEM] Timed - Plan Plan:: ASSESSMENT AND PLAN Subcapital fracture of the right hip-secondary to mechanical fall. Surgical intervention completed 10/10 with cannulated screw placement x3. Pain control acceptable. Hemoglobin stable. -Partial weightbearing right leg -Symptomatic management of pain -Orthopedic follow-up as indicated -Continue apixaban -Physical therapy Acute on chronic hypoxic respiratory failure-over the last 48 hours has required increase in supplemental oxygen from baseline. CT angiogram of the chest shows no evidence of pulmonary emboli or significant infiltrate. There is mild right pleural effusion and atelectasis. Echocardiogram shows evidence of diastolic dysfunction. Likely that this is multifactorial related to her underlying COPD, diastolic congestive heart failure, and hypoventilation related to recent surgery and sedating medications. 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 -Repeat dose of furosemide this afternoon -Continue to supplement oxygen, wean towards baseline as able -Continue home medications -As needed nebulizers Coronary artery disease-history of previous bypass grafting. No active anginal symptoms. -Continue medical management Paroxysmal atrial fibrillation-chronically anticoagulated. -apixaban -Continue beta-asha Peripheral vascular disease-severe reduction in in [place] with 0.4 noted on the right and 0.3 on the left. -Outpatient follow-up with interventional radiology -Continue medical management Tobacco dependence-encourage cessation -Nicotine patch Maintenance issues - -DVT prophylaxis-apixaban -GI prophylaxis-not indicated -Nutrition-consistent carbohydrates -Tanner catheter-placed in the emergency room for strict intake and output monitoring in a surgical patient, this needs to remain in place because of low urine output and low blood pressure in addition to diuresis. Disposition -I anticipate discharge to the halfway for subacute rehab after the hospital stay
[2020-10-14] MEDS: Pravastatin 20 MG Tab PO SCH (20:08)
[2020-10-14] MEDS: Insulin Glargine,Human Rec. Analog 100 Units/ML 3 ML Pen SUBCUT SCH (20:11)
[2020-10-15] MEDS: Magnesium Hydroxide 400 MG/5 ML Susp 30 ML Cup PO PRN (03:12)
[2020-10-15] MEDS: Acetaminophen 325 MG Tab PO PRN (03:12)
[2020-10-15] MEDS: Albuterol/Ipratropium 3.0-0.5 MG/3 ML Neb Soln NEB SCH ×4 (07:23→21:24)
--- NOTE | 2020-10-15 08:11 | PCM.SURGPN ---
- General Info Date of Service: 10/15/20 Date of Surgery/Procedure: 10/10/20 POD#: 5 Functional Status: Reports: Pain Controlled, Tolerating Diet, Incentive Spirometry - Review of Systems General: Reports: Weakness Pulmonary: Reports: Shortness of Breath (per baseline, denied increase from baseline ) Cardiovascular: Reports: Dyspnea on Exertion Musculoskeletal: Reports: Leg Pain (right ), Joint Pain (right hip ) Skin: Reports: Bruising (R side of face & neck, R hip, R knee ) Psychiatric: Reports: No Symptoms - Patient Data Vitals - Most Recent: Last Vital Signs Temp 95.5 F L 10/15/20 07:26 Pulse 76 10/15/20 07:26 Resp 22 H 10/15/20 07:26 BP 148/67 H 10/15/20 07:26 Pulse Ox 94 L 10/15/20 07:26 Weight - Most Recent: 126 lb 15.992 oz I&O - Last 24 Hours: Intake & Output 10/14/20 10/15/20 10/15/20 22:59 06:59 14:59 Intake Total 360 Output Total 450 450 0 Balance -450 -450 360 Lab Results Last 24 Hrs: Laboratory Results - last 24 hr 10/14/20 10/14/20 10/14/20 Range/Units 07:28 08:56 11:21 WBC (4.5-11.0) K/uL RBC (3.30-5.50) M/uL Hgb (12.0-15.0) g/dL Hct (36.0-48.0) % MCV (80-98) fL MCH (27-31) pg MCHC (32-36) % Plt Count (150-400) K/uL Neut % (Auto) (36-66) % Lymph % (Auto) (24-44) % [place] % (Auto) (2-6) % Eos % (Auto) (2-4) % Baso % (Auto) (0-1) % ABG Hemoglobin 10.1 L (12.0-16.0) g/dL ABG Oxyhemoglobin 60.3 % ABG Carboxyhemoglobin 1.2 (0.0-1.6) % ABG Methemoglobin 0.5 % VBG pH 7.432 (7.350-7.450) VBG pCO2 39.8 mm/Hg VBG pO2 34.6 mm/Hg VBG HCO3 26.1 mmol/L VBG Total CO2 24.3 mmol/L VBG O2 Saturation 61.3 VBG O2 Content 8.6 %vol VBG Base Excess 2.2 mm/L O2 Delivery Device Hi flow nasal cannu Sodium (140-148) mmol/L Potassium (3.6-5.2) mmol/L Chloride (100-108) mmol/L Carbon Dioxide (21-32) mmol/L Anion Gap (5.0-14.0) mmol/L BUN (7-18) mg/dL Creatinine (0.6-1.0) mg/dL Est Cr Clr Drug Dosing mL/min Estimated GFR (MDRD) (>60) Glucose (74-106) mg/dL POC Glucose 101 137 H (74-106) mg/dL Calcium (8.5-10.1) mg/dL Troponin I (0.000-0.056) ng/mL 10/14/20 10/14/20 10/14/20 Range/Units 12:32 16:41 19:37 WBC (4.5-11.0) K/uL RBC (3.30-5.50) M/uL Hgb (12.0-15.0) g/dL Hct (36.0-48.0) % MCV (80-98) fL MCH (27-31) pg MCHC (32-36) % Plt Count (150-400) K/uL Neut % (Auto) (36-66) % Lymph % (Auto) (24-44) % [place] % (Auto) (2-6) % Eos % (Auto) (2-4) % Baso % (Auto) (0-1) % ABG Hemoglobin (12.0-16.0) g/dL ABG Oxyhemoglobin % ABG Carboxyhemoglobin (0.0-1.6) % ABG Methemoglobin % VBG pH (7.350-7.450) VBG pCO2 mm/Hg VBG pO2 mm/Hg VBG HCO3 mmol/L VBG Total CO2 mmol/L VBG O2 Saturation VBG O2 Content %vol VBG Base Excess mm/L O2 Delivery Device Sodium (140-148) mmol/L Potassium (3.6-5.2) mmol/L Chloride (100-108) mmol/L Carbon Dioxide (21-32) mmol/L Anion Gap (5.0-14.0) mmol/L BUN (7-18) mg/dL Creatinine (0.6-1.0) mg/dL Est Cr Clr Drug Dosing mL/min Estimated GFR (MDRD) (>60) Glucose (74-106) mg/dL POC Glucose 159 H (74-106) mg/dL Calcium (8.5-10.1) mg/dL Troponin I 0.097 H* 0.040 (0.000-0.056) ng/mL 10/14/20 10/15/20 10/15/20 Range/Units 21:08 05:30 05:30 WBC 8.6 (4.5-11.0) K/uL RBC 3.30 (3.30-5.50) M/uL Hgb 9.5 L (12.0-15.0) g/dL Hct 29.1 L (36.0-48.0) % MCV 88 (80-98) fL MCH 29 (27-31) pg MCHC 33 (32-36) % Plt Count 243 (150-400) K/uL Neut % (Auto) 75 H (36-66) % Lymph % (Auto) 11 L (24-44) % [place] % (Auto) 11 H (2-6) % Eos % (Auto) 3 (2-4) % Baso % (Auto) 0 (0-1) % ABG Hemoglobin (12.0-16.0) g/dL ABG Oxyhemoglobin % ABG Carboxyhemoglobin (0.0-1.6) % ABG Methemoglobin % VBG pH (7.350-7.450) VBG pCO2 mm/Hg VBG pO2 mm/Hg VBG HCO3 mmol/L VBG Total CO2 mmol/L VBG O2 Saturation VBG O2 Content %vol VBG Base Excess mm/L O2 Delivery Device Sodium 132 L (140-148) mmol/L Potassium 4.0 (3.6-5.2) mmol/L Chloride 94 L (100-108) mmol/L Carbon Dioxide 26 (21-32) mmol/L Anion Gap 16.0 H (5.0-14.0) mmol/L BUN 14 (7-18) mg/dL Creatinine 0.9 (0.6-1.0) mg/dL Est Cr Clr Drug Dosing 51.38 mL/min Estimated GFR (MDRD) > 60 (>60) Glucose 128 H (74-106) mg/dL POC Glucose 167 H (74-106) mg/dL Calcium 8.6 (8.5-10.1) mg/dL Troponin I 0.058 H* (0.000-0.056) ng/mL 10/15/20 Range/Units 07:30 WBC (4.5-11.0) K/uL RBC (3.30-5.50) M/uL Hgb (12.0-15.0) g/dL Hct (36.0-48.0) % MCV (80-98) fL MCH (27-31) pg MCHC (32-36) % Plt Count (150-400) K/uL Neut % (Auto) (36-66) % Lymph % (Auto) (24-44) % [place] % (Auto) (2-6) % Eos % (Auto) (2-4) % Baso % (Auto) (0-1) % ABG Hemoglobin (12.0-16.0) g/dL ABG Oxyhemoglobin % ABG Carboxyhemoglobin (0.0-1.6) % ABG Methemoglobin % VBG pH (7.350-7.450) VBG pCO2 mm/Hg VBG pO2 mm/Hg VBG HCO3 mmol/L VBG Total CO2 mmol/L VBG O2 Saturation VBG O2 Content %vol VBG Base Excess mm/L O2 Delivery Device Sodium (140-148) mmol/L Potassium (3.6-5.2) mmol/L Chloride (100-108) mmol/L Carbon Dioxide (21-32) mmol/L Anion Gap (5.0-14.0) mmol/L BUN (7-18) mg/dL Creatinine (0.6-1.0) mg/dL Est Cr Clr Drug Dosing mL/min Estimated GFR (MDRD) (>60) Glucose (74-106) mg/dL POC Glucose 120 H (74-106) mg/dL Calcium (8.5-10.1) mg/dL Troponin I (0.000-0.056) ng/mL Med Orders - Current: Current Medications Acetaminophen (Acetaminophen 325 Mg Tab) 650 mg PO Q4H PRN PRN Reason: Pain (Mild 1-3)/fever Last Admin: 10/15/20 03:12 Dose: 650 mg Documented by: Hydrocodone Bitart/Acetaminophen (Acetaminophen/Hydrocodone 325-5 Mg Tab) 1 tab PO Q4H PRN PRN Reason: pain Albuterol (Albuterol 0.083% 2.5 Mg/3 Ml Neb Soln) 2.5 mg NEB Q4H PRN PRN Reason: Shortness Of Breath/wheezing Last Admin: 10/13/20 03:18 Dose: 2.5 mg Documented by: Albuterol/Ipratropium (Albuterol/Ipratropium 3.0-0.5 Mg/3 Ml Neb Soln) 3 ml NEB QIDRT [facility] Last Admin: 10/15/20 07:23 Dose: 3 ml Documented by: Apixaban (Apixaban 5 Mg Tab) 5 mg PO BID [facility] Last Admin: 10/14/20 20:08 Dose: 5 mg Documented by: Aspirin (Aspirin 81 Mg Tab.Chew) 81 mg PO DAILY [facility] Last Admin: 10/14/20 08:25 Dose: 81 mg Documented by: Clopidogrel Bisulfate (Clopidogrel 75 Mg Tab) 75 mg PO DAILY [facility] Last Admin: 10/14/20 08:28 Dose: 75 mg Documented by: Cyanocobalamin (Cyanocobalamin (Vitamin B12) 1,000 Mcg Tab) 1,000 mcg PO DAILY [facility] Last Admin: 10/14/20 08:29 Dose: 1,000 mcg Documented by: Gabapentin (Gabapentin 300 Mg Cap) 300 mg PO TID [facility] Last Admin: 10/14/20 20:08 Dose: 300 mg Documented by: Insulin Glargine (Insulin Glargine,Human Rec. Analog 100 Units/Ml 3 Ml Pen) 35 units SUBCUT BEDTIME [facility] Last Admin: 10/14/20 20:11 Dose: 35 units Documented by: Lisinopril (Lisinopril 5 Mg Tab) 5 mg PO DAILY [facility] Last Admin: 10/14/20 11:53 Dose: 5 mg Documented by: Magnesium Hydroxide (Magnesium Hydroxide 400 Mg/5 Ml Susp 30 Ml Cup) 30 ml PO Q12H PRN PRN Reason: Constipation Last Admin: 10/15/20 03:12 Dose: 30 ml Documented by: Metformin HCl (Metformin 500 Mg Tab) 1,000 mg PO BIDMEALS [facility] Last Admin: 10/14/20 19:45 Dose: 1,000 mg Documented by: Metoprolol Tartrate (Metoprolol Tartrate 50 Mg Tab) 50 mg PO BID [facility] Last Admin: 10/14/20 20:09 Dose: 50 mg Documented by: Multivitamins/Minerals (Multivitamins With Iron/Calcium/Folic Acid/Minerals Tab) 1 tab PO DAILY [facility] Last Admin: 10/14/20 08:28 Dose: 1 tab Documented by: Nicotine (Nicotine 21 Mg/24 Hr Patch) 21 mg TRDERM DAILY [facility] Last Admin: 10/14/20 08:26 Dose: 21 mg Documented by: Ondansetron HCl (Ondansetron 4 Mg/2 Ml Sdv) 4 mg IV Q6H PRN PRN Reason: Nausea/Vomiting Last Admin: 10/10/20 14:11 Dose: 4 mg Documented by: Ondansetron HCl (Ondansetron 4 Mg Tab.Dis) 4 mg PO Q6H PRN PRN Reason: Nausea able to take PO Last Admin: 10/11/20 13:47 Dose: 4 mg Documented by: Pravastatin Sodium (Pravastatin 20 Mg Tab) 40 mg PO BEDTIME [facility] Last Admin: 10/14/20 20:08 Dose: 40 mg Documented by: Senna/Docusate Sodium (Docusate Sodium/Sennosides 50-8.6 Mg Tab) 1 tab PO BID [facility] Last Admin: 10/14/20 20:08 Dose: 1 tab Documented by: Sodium Chloride (Sodium Chloride 1 Gm Tab) 1 gm PO BID [facility] Last Admin: 10/14/20 20:08 Dose: 1 gm Documented by: Discontinued Medications Hydrocodone Bitart/Acetaminophen (Acetaminophen/Hydrocodone 325-5 Mg Tab) 1 tab PO Q4H PRN PRN Reason: pain Last Admin: 10/13/20 08:03 Dose: 1 tab Documented by: Hydrocodone Bitart/Acetaminophen (Acetaminophen/Hydrocodone 325-5 Mg Tab) 1 - 2 tab PO Q4H PRN PRN Reason: pain Last Admin: 10/13/20 19:30 Dose: 2 tab Documented by: Bupivacaine HCl (Bupivacaine 0.5% 50 Ml Mdv) Confirm Administered Dose 50 ml .ROUTE .RUST-MED ONE Stop: 10/10/20 17:04 Last Admin: 10/10/20 17:22 Dose: 35 ml Documented by: Bupivacaine HCl/Epinephrine Bitart (Bupivacaine 0.5%/Epinephrine 1:200,000 50 Ml Mdv) Confirm Administered Dose 50 ml .ROUTE .STK-MED ONE Stop: 10/10/20 13:20 Dexamethasone (Dexamethasone 4 Mg/Ml Sdv) Confirm Administered Dose 4 mg .ROUTE .K-MED ONE Stop: 10/10/20 16:51 Fentanyl (Fentanyl 100 Mcg/2 Ml Sdv) 50 mcg IM ONETIME ONE Stop: 10/10/20 10:39 Last Admin: 10/10/20 11:27 Dose: 50 mcg Documented by: Fentanyl (Fentanyl 250 Mcg/5 Ml Sdv) Confirm Administered Dose 250 mcg .ROUTE .STK-MED ONE Stop: 10/10/20 16:40 Furosemide (Furosemide 20 Mg/2 Ml Vial) 10 mg IVPUSH DAILY [facility] Last Admin: 10/13/20 05:25 Dose: 10 mg Documented by: Furosemide (Furosemide 20 Mg/2 Ml Vial) 20 mg IVPUSH ONETIME ONE Stop: 10/13/20 12:01 Last Admin: 10/13/20 13:09 Dose: 20 mg Documented by: Furosemide (Furosemide 40 Mg/4 Ml Vial) 40 mg IVPUSH NOW ONE Stop: 10/14/20 12:01 Last Admin: 10/14/20 11:44 Dose: 40 mg Documented by: Glycopyrrolate (Glycopyrrolate 0.2 Mg/Ml 5 Ml Mdv) Confirm Administered Dose 1 mg .ROUTE .K-MED ONE Stop: 10/10/20 16:51 Hydromorphone HCl (Hydromorphone 0.5 Mg/0.5 Ml Syringe) 0.5 mg IVPUSH Q2H PRN PRN Reason: PAIN Lactated Ringer's (Ringers, Lactated) 1,000 mls @ 125 mls/hr IV ASDIRECTED [facility] Last Admin: 10/11/20 02:22 Dose: 125 mls/hr Documented by: Cefazolin Sodium/Dextrose 2 gm (/ Premix) 50 mls @ 100 mls/hr IV ONETIME ONE Stop: 10/10/20 16:29 Last Admin: 10/10/20 16:29 Dose: 100 mls/hr Documented by: Sodium Chloride (Normal Saline) 500 mls @ 999 mls/hr IV .BOLUS ONE Stop: 10/12/20 03:47 Last Admin: 10/12/20 03:24 Dose: 999 mls/hr Documented by: Sodium Chloride (Normal Saline) 500 mls @ 999 mls/hr IV .BOLUS ONE Stop: 10/12/20 06:54 Last Admin: 10/12/20 07:28 Dose: 999 mls/hr Documented by: Sodium Chloride (Normal Saline) 83 mls @ 3 mls/sec IV ONETIME ONE Stop: 10/14/20 09:24 Last Admin: 10/14/20 09:49 Dose: 3 mls/sec Documented by: Iopamidol (Iopamidol 755 Mg/Ml 100 Ml Bottle) 75 ml IV . DIRECTED LEWIS Stop: 10/14/20 09:31 Last Admin: 10/14/20 09:49 Dose: 75 ml Documented by: Lisinopril (Lisinopril 5 Mg Tab) 5 mg PO DAILY [facility] Last Admin: 10/13/20 09:53 Dose: Not Given Documented by: Lorazepam (Lorazepam 2 Mg/Ml Sdv) 0.5 mg IVPUSH Q4H PRN PRN Reason: Nausea/Vomiting Melatonin (Melatonin 3 Mg Tab) 9 mg PO BEDTIME PRN PRN Reason: Sleep Neostigmine Methylsulfate (Neostigmine Methylsulfate 1 Mg/Ml 5 Ml Syringe) Confirm Administered Dose 5 mg .ROUTE .STK-MED ONE Stop: 10/10/20 16:51 Ondansetron HCl (Ondansetron 4 Mg/2 Ml Sdv) Confirm Administered Dose 4 mg .ROUTE .STK-MED ONE Stop: 10/10/20 16:51 Oxycodone HCl (Oxycodone 5 Mg Tab) 5 - 10 mg PO Q4H PRN PRN Reason: Pain Last Admin: 10/11/20 22:40 Dose: 10 mg Documented by: Propofol (Propofol 200 Mg/20 Ml Sdv) Confirm Administered Dose 200 mg .ROUTE .STK-MED ONE Stop: 10/10/20 16:51 Rocuronium [place] (Rocuronium 50 Mg/5 Ml Vial) Confirm Administered Dose 50 mg .ROUTE .STK-MED ONE Stop: 10/10/20 16:51 Sodium Chloride (Sodium Chloride 0.9% 10 Ml Syringe) 10 ml FLUSH ONETIME PRN PRN Reason: PER RADIOLOGY PROTOCOL Stop: 10/14/20 09:24 Last Admin: 10/14/20 09:49 Dose: 10 ml Documented by: Succinylcholine Chloride (Succinylcholine 200 Mg/10 Ml Mdv) Confirm Administered Dose 200 mg .ROUTE .STK-MED ONE Stop: 10/10/20 16:51 Tizanidine HCl (Tizanidine 4 Mg Tab) 4 mg PO Q8H PRN PRN Reason: Muscle Spasm - Exam Wound/Incisions: Healing Well, Dressing Dry and Intact, No Drainage Quality Assessment: Supplemental Oxygen (7L), Urine Catheter, DVT Prophylaxis General: Alert, Oriented, No Acute Distress Extremities: Joint Swelling, Leg Pain (right ), Limited Range of Motion, Increa sed Warmth Skin: Warm, Dry, Intact, Ecchymosis Neurological: No New Focal Deficit Psy/Mental Status: Alert, Normal Affect, Normal Mood Sepsis Event Note - Evaluation Sepsis Screening Result: Sepsis Risk - Focused Exam Vital Signs: Vital Signs Temp Temp Pulse Pulse Resp BP BP 10/15/20 07:26 95.5 F L 76 22 H 148/67 H 10/15/20 07:23 80 10/15/20 07:06 10/15/20 02:54 96.5 F L 84 20 151/73 H 10/15/20 01:06 10/14/20 23:04 97.9 F 79 20 128/62 10/14/20 20:09 85 155/72 H Pulse Ox 10/15/20 07:26 94 L 10/15/20 07:23 10/15/20 07:06 93 L 10/15/20 02:54 92 L 10/15/20 01:06 90 L 10/14/20 23:04 89 L 10/14/20 20:09 - Problem List & Annotations (1) Status post-operative repair of hip fracture SNOMED Code(s): 250208312, 650388036 Code(s): Z98.890 - OTHER SPECIFIED POSTPROCEDURAL STATES; Z87.81 - PERSONAL HISTORY OF (HEALED) TRAUMATIC FRACTURE Status: Acute Current Visit: Yes (2) Postoperative anemia SNOMED Code(s): 636635003, 479792180 Code(s): D64.9 - ANEMIA, UNSPECIFIED Status: Acute Current Visit: Yes (3) Acute and chronic respiratory failure with hypoxia SNOMED Code(s): 72699907, 562166320 Code(s): J96.21 - ACUTE AND CHRONIC RESPIRATORY FAILURE WITH HYPOXIA Status: Acute Current Visit: Yes - Problem List Review Problem List Initiated/Reviewed/Updated: Yes - My Orders Last 24 Hours: Active Orders 24 hr Category Date Time Status EKG Documentation Completion [RC] ASDIRECTED Care 10/14/20 12:32 Active Echo Comp wo Cont [US] Stat Exams 10/14/20 09:09 Taken GLUCOSE POC LAB TO COLLECT JPM [POC] QIDACANDBED Lab 10/15/20 11:30 Ordered GLUCOSE POC LAB TO COLLECT JPM [POC] QIDACANDBED Lab 10/15/20 16:30 Ordered GLUCOSE POC LAB TO COLLECT JPM [POC] QIDACANDBED Lab 10/15/20 21:00 Ordered Acetaminophen/HYDROcodone [[place] 325-5 MG] Med 10/14/20 12:29 Active 1 tab PO Q4H PRN lisinopriL [Prinivil] Med 10/14/20 11:30 Active 5 mg PO DAILY EKG 12 Lead [EK] Stat Ther 10/14/20 12:30 Ordered Medication Orders Acetaminophen (Acetaminophen 325 Mg Tab) 650 mg PO Q4H PRN PRN Reason: Pain (Mild 1-3)/fever Last Admin: 10/15/20 03:12 Dose: 650 mg Documented by: Admin: 10/14/20 11:44 Dose: 650 mg Documented by: Admin: 10/13/20 08:02 Dose: 650 mg Documented by: CLAUDIA Hydrocodone Bitart/Acetaminophen (Acetaminophen/Hydrocodone 325-5 Mg Tab) 1 tab PO Q4H PRN PRN Reason: pain Albuterol (Albuterol 0.083% 2.5 Mg/3 Ml Neb Soln) 2.5 mg NEB Q4H PRN PRN Reason: Shortness Of Breath/wheezing Last Admin: 10/13/20 03:18 Dose: 2.5 mg Documented by: Admin: 10/12/20 02:38 Dose: 2.5 mg Documented by: Admin: 10/11/20 18:31 Dose: 2.5 mg Documented by: LISET Albuterol/Ipratropium (Albuterol/Ipratropium 3.0-0.5 Mg/3 Ml Neb Soln) 3 ml NEB QIDRT [facility] Admin: 10/15/20 07:23 Dose: 3 ml Documented by: Admin: 10/14/20 20:17 Dose: 3 ml Documented by: Admin: 10/14/20 14:47 Dose: 3 ml Documented by: Admin: 10/14/20 10:49 Dose: 3 ml Documented by: Admin: 10/14/20 07:45 Dose: 3 ml Documented by: Admin: 10/13/20 21:45 Dose: 3 ml Documented by: Admin: 10/13/20 14:27 Dose: 3 ml Documented by: Admin: 10/13/20 11:10 Dose: Not Given Documented by: Admin: 10/13/20 07:08 Dose: 3 ml Documented by: Admin: 10/12/20 20:38 Dose: 3 ml Documented by: Admin: 10/12/20 14:33 Dose: 3 ml Documented by: Admin: 10/12/20 10:38 Dose: 3 ml Documented by: Admin: 10/12/20 07:10 Dose: 3 ml Documented by: Admin: 10/11/20 21:15 Dose: 3 ml Documented by: Admin: 10/11/20 14:46 Dose: 3 ml Documented by: Admin: 10/11/20 10:47 Dose: 3 ml Documented by: Admin: 10/11/20 07:09 Dose: 3 ml Documented by: Admin: 10/10/20 21:38 Dose: 3 ml Documented by: Admin: 10/10/20 14:43 Dose: 3 ml Documented by: DIEGO Apixaban (Apixaban 5 Mg Tab) 5 mg PO BID [facility] Admin: 10/14/20 20:08 Dose: 5 mg Documented by: Admin: 10/14/20 08:26 Dose: 5 mg Documented by: Admin: 10/13/20 21:46 Dose: 5 mg Documented by: Admin: 10/13/20 09:53 Dose: 5 mg Documented by: Admin: 10/12/20 20:38 Dose: 5 mg Documented by: MICHAEL Aspirin (Aspirin 81 Mg Tab.Chew) 81 mg PO DAILY [facility] Admin: 10/14/20 08:25 Dose: 81 mg Documented by: Admin: 10/13/20 09:52 Dose: 81 mg Documented by: Admin: 10/12/20 12:22 Dose: 81 mg Documented by: Admin: 10/11/20 09:10 Dose: 81 mg Documented by: GRADY Clopidogrel Bisulfate (Clopidogrel 75 Mg Tab) 75 mg PO DAILY [facility] Admin: 10/14/20 08:28 Dose: 75 mg Documented by: Admin: 10/13/20 09:53 Dose: 75 mg Documented by: Admin: 10/12/20 12:22 Dose: 75 mg Documented by: Admin: 10/11/20 09:10 Dose: 75 mg Documented by: GRADY Cyanocobalamin (Cyanocobalamin (Vitamin B12) 1,000 Mcg Tab) 1,000 mcg PO DAILY [facility] Admin: 10/14/20 08:29 Dose: 1,000 mcg Documented by: Admin: 10/13/20 09:52 Dose: 1,000 mcg Documented by: Admin: 10/12/20 09:50 Dose: 1,000 mcg Documented by: Admin: 10/11/20 09:10 Dose: 1,000 mcg Documented by: GRADY Gabapentin (Gabapentin 300 Mg Cap) 300 mg PO TID [facility] Admin: 10/14/20 20:08 Dose: 300 mg Documented by: Admin: 10/14/20 14:32 Dose: 300 mg Documented by: Admin: 10/14/20 08:27 Dose: 300 mg Documented by: Admin: 10/13/20 21:47 Dose: 300 mg Documented by: Admin: 10/13/20 14:53 Dose: 300 mg Documented by: Admin: 10/13/20 09:52 Dose: 300 mg Documented by: Admin: 10/12/20 20:38 Dose: 300 mg Documented by: Admin: 10/12/20 15:27 Dose: 300 mg Documented by: Admin: 10/12/20 09:50 Dose: 300 mg Documented by: Admin: 10/11/20 21:18 Dose: 300 mg Documented by: Admin: 10/11/20 13:47 Dose: 300 mg Documented by: Admin: 10/11/20 09:10 Dose: 300 mg Documented by: Admin: 10/10/20 21:42 Dose: 300 mg Documented by: Admin: 10/10/20 15:00 Dose: Not Given Documented by: GRADY Insulin Glargine (Insulin Glargine,Human Rec. Analog 100 Units/Ml 3 Ml Pen) 35 units SUBCUT BEDTIME [facility] Last Admin: 10/14/20 20:11 Dose: 35 units Documented by: CARTER Cosigned by: HARISH Admin: 10/13/20 21:55 Dose: 35 units Documented by: MICHAEL Cosigned by: NANO Admin: 10/12/20 20:45 Dose: 20 units Documented by: MICHAEL Cosigned by: JOSE Admin: 10/11/20 21:22 Dose: 35 units Documented by: LISET Cosigned by: JOSE Admin: 10/10/20 21:41 Dose: 35 units Documented by: BETITO Cosigned by: JOSE Lisinopril (Lisinopril 5 Mg Tab) 5 mg PO DAILY [facility] Last Admin: 10/14/20 11:53 Dose: 5 mg Documented by: MIRTA Magnesium Hydroxide (Magnesium Hydroxide 400 Mg/5 Ml Susp 30 Ml Cup) 30 ml PO Q12H PRN PRN Reason: Constipation Last Admin: 10/15/20 03:12 Dose: 30 ml Documented by: Admin: 10/13/20 19:30 Dose: 30 ml Documented by: Admin: 10/12/20 20:39 Dose: 30 ml Documented by: MICHAEL Metformin HCl (Metformin 500 Mg Tab) 1,000 mg PO BIDMEALS [facility] Last Admin: 10/14/20 19:45 Dose: 1,000 mg Documented by: Admin: 10/14/20 08:25 Dose: 1,000 mg Documented by: Admin: 10/13/20 17:47 Dose: 1,000 mg Documented by: Admin: 10/13/20 09:52 Dose: 1,000 mg Documented by: Admin: 10/12/20 18:04 Dose: 1,000 mg Documented by: Admin: 10/12/20 09:49 Dose: 1,000 mg Documented by: Admin: 10/11/20 16:54 Dose: 1,000 mg Documented by: Admin: 10/11/20 09:10 Dose: 1,000 mg Documented by: GRADY Metoprolol Tartrate (Metoprolol Tartrate 50 Mg Tab) 50 mg PO BID [facility] Admin: 10/14/20 20:09 Dose: 50 mg Documented by: Admin: 10/14/20 08:26 Dose: 50 mg Documented by: Admin: 10/13/20 21:46 Dose: Not Given Documented by: Admin: 10/13/20 09:54 Dose: Not Given Documented by: Admin: 10/12/20 20:56 Dose: Not Given Documented by: Admin: 10/12/20 11:47 Dose: Not Given Documented by: Admin: 10/11/20 21:19 Dose: 50 mg Documented by: Admin: 10/11/20 09:11 Dose: 50 mg Documented by: Admin: 10/10/20 21:49 Dose: 50 mg Documented by: BETITO Multivitamins/Minerals (Multivitamins With Iron/Calcium/Folic Acid/Minerals Tab) 1 tab PO DAILY [facility] Admin: 10/14/20 08:28 Dose: 1 tab Documented by: Admin: 10/13/20 09:52 Dose: 1 tab Documented by: Admin: 10/12/20 09:50 Dose: 1 tab Documented by: Admin: 10/11/20 09:10 Dose: 1 tab Documented by: GRADY Nicotine (Nicotine 21 Mg/24 Hr Patch) 21 mg TRDERM DAILY [facility] Admin: 10/14/20 08:26 Dose: 21 mg Documented by: Admin: 10/13/20 09:53 Dose: 21 mg Documented by: Admin: 10/12/20 09:49 Dose: 21 mg Documented by: Admin: 10/11/20 09:14 Dose: 21 mg Documented by: Admin: 10/10/20 15:14 Dose: 21 mg Documented by: GRADY Ondansetron HCl (Ondansetron 4 Mg/2 Ml Sdv) 4 mg IV Q6H PRN PRN Reason: Nausea/Vomiting Last Admin: 10/10/20 14:11 Dose: 4 mg Documented by: GRADY Ondansetron HCl (Ondansetron 4 Mg Tab.Dis) 4 mg PO Q6H PRN PRN Reason: Nausea able to take PO Last Admin: 10/11/20 13:47 Dose: 4 mg Documented by: GRADY Pravastatin Sodium (Pravastatin 20 Mg Tab) 40 mg PO BEDTIME [facility] Last Admin: 10/14/20 20:08 Dose: 40 mg Documented by: Admin: 10/13/20 21:52 Dose: 40 mg Documented by: Admin: 10/12/20 20:39 Dose: 40 mg Documented by: Admin: 10/11/20 21:18 Dose: 40 mg Documented by: Admin: 10/10/20 21:42 Dose: 40 mg Documented by: BETITO Senna/Docusate Sodium (Docusate Sodium/Sennosides 50-8.6 Mg Tab) 1 tab PO BID [facility] Last Admin: 10/14/20 20:08 Dose: 1 tab Documented by: Admin: 10/14/20 08:28 Dose: 1 tab Documented by: Admin: 10/13/20 21:53 Dose: 1 tab Documented by: Admin: 10/13/20 09:53 Dose: 1 tab Documented by: Admin: 10/12/20 20:39 Dose: 1 tab Documented by: Admin: 10/12/20 09:50 Dose: 1 tab Documented by: Admin: 10/11/20 21:18 Dose: 1 tab Documented by: Admin: 10/11/20 09:10 Dose: 1 tab Documented by: Admin: 10/10/20 21:43 Dose: 1 tab Documented by: BETITO Sodium Chloride (Sodium Chloride 1 Gm Tab) 1 gm PO BID [facility] Last Admin: 10/14/20 20:08 Dose: 1 gm Documented by: Admin: 10/14/20 08:28 Dose: 1 gm Documented by: Admin: 10/13/20 21:52 Dose: 1 gm Documented by: Admin: 10/13/20 09:53 Dose: 1 gm Documented by: Admin: 10/12/20 20:39 Dose: 1 gm Documented by: Admin: 10/12/20 09:50 Dose: 1 gm Documented by: Admin: 10/11/20 21:18 Dose: 1 gm Documented by: Admin: 10/11/20 09:10 Dose: 1 gm Documented by: Admin: 10/10/20 21:43 Dose: 1 gm Documented by: BETITO - Assessment Assessment (Free Text/Narrative):: Patient is a 70-year-old female, status post right subcapital impacted femoral fracture, repaired with 3 cannulated screws. Patient is POD#5. Patient continues to require 6-8 L of O2 to maintain oxygen saturations >90%. Denied increased shortness of breath from baseline at rest, endorsed increased dyspnea on exertion with transfers to chair and repositioning in bed. Reports she hasn't used incentive spirometer yet this morning, but had multiple times yesterday. Denied chest pain this morning. Reports pain in R hip well controlled at rest, increased with transfers. Patient recalls weight-bearing status is partial, but needed explanation as to what this meant. Denied numbness or tingling in R LE. Denied nausea. No other concerns per patient this morning. Imaging and labs from the past [address] Angiogram showed R sided pleural effusion and atelectasis. No PE or significant infiltrate. Echocardiogram showed evidence of diastolic dysfunction. Troponin levels slightly elevated. HgB slightly declined, but stable at 9.5. Blood pressure has been elevated. BP medications were resumed yesterday after being held for several days due to low blood pressure readings. Patient has responded well to diuresis, urine output continues to improve. Patient declined having a bowel movement since prior to admission, stool softener prns have been utilized. Catheter remains in place to monitor I&Os with diuresis. Patient worked with PT yesterday; bilateral LE exercises in bed, mod x2 assist with transfers to chair. Ambulation status remains limited to a few steps with transfers due to desaturation and weakness in R LE. OT declined yesterday, as patient was undergoing multiple imaging studies and feeling very tired. Tolerating consistent carbohydrate diet well. POC glucoses remain elevated. Dressing change performed on POD #2, #4. Exam: R hip dressing dry and intact. No drainage nor surrounding erythema of dressing. Mild warmth to touch and tenderness to palpation of R hip. Edema through R hip, improving through R thigh and knee. No significant pedal edema. Ecchymosis present on R hip and lateral inferior aspect of R knee, also on R side of face and neck from fall leading to hospitalization. Tibialis posterior pulse appreciated. Ulcer unchanged on L 4th toe. Plan: * Hospitalist to continue medical management of patient. * Encouraged patient to use incentive spirometer; asked to perform this morning upon rounding, but patient declined as she was just waking up. Encouraged to use hourly. * Educated patient on partial weight bear status, 50% of weight on R LE. Patient expressed understanding. * Encouraged up to chair for all meals + with PT, pending stable BP and O2 saturations. * Continue with BID physical therapy and daily occupational therapy while in the hospital. * Continue with current pain regimen and DVT/VTE prophylaxis. Pain has been fairly well controlled with acetaminophen over the past 24 hours. Has not required any [place]. * Anticipate discharge to SNF when medically stable.
[2020-10-15] MEDS ORDERED: Furosemide 40 MG/4 ML VIAL IVPUSH ONE (08:30)
[2020-10-15] MEDS: Sodium Chloride 1 GM Tab PO SCH ×2 (08:51→21:16)
[2020-10-15] MEDS: Clopidogrel 75 MG Tab PO SCH (08:51)
[2020-10-15] MEDS: metFORMIN 500 MG Tab PO SCH ×2 (08:51→17:05)
[2020-10-15] MEDS: Gabapentin 300 MG Cap PO SCH ×3 (08:51→21:16)
[2020-10-15] MEDS: Apixaban 5 MG Tab PO SCH ×2 (08:51→21:17)
[2020-10-15] MEDS: Cyanocobalamin (Vitamin B12) 1,000 MCG Tab PO SCH (08:52)
[2020-10-15] MEDS: Nicotine 21 MG/24 Hr Patch TRDERM SCH (08:52)
[2020-10-15] MEDS: Aspirin 81 MG Tab.Chew PO SCH (08:52)
[2020-10-15] MEDS: Multivitamins with Iron/Calcium/Folic Acid/Minerals Tab PO SCH (08:52)
[2020-10-15] MEDS: Metoprolol Tartrate 50 MG Tab PO SCH ×2 (08:55→21:16)
--- NOTE | 2020-10-15 09:24 | US ---
CV Ankle Brachial Index (ARMIDA) CLINICAL HISTORY: Nonhealing ulcer left toe FINDINGS: Ankle-Brachial Indices: Right arm blood pressure is 142. The left arm blood pressure is 104. The right posterior tibial artery pressure is 57. A/B index is 0.4. The right dorsal pedal artery pressure is 58. The A/B index is 0.41. The left posterior tibial pressure is 43. The A/B index is 0.30. The left dorsal pedal pressure is 40. The A/B index is 0.28. IMPRESSION: Ankle-brachial indices consistent with severe at the described vascular occlusive disease Discrepant brachial systolic blood pressures suggesting possible left subclavian artery stenosis
[2020-10-15] MEDS: Lisinopril 5 MG Tab PO SCH (09:26)
[2020-10-15] MEDS: Acetaminophen/HYDROcodone 325-5 MG Tab PO PRN ×2 (12:12→17:04)
--- NOTE | 2020-10-15 14:45 | PCM.PN ---
- General Info Date of Service: 10/15/20 Subjective Update: Ms. Licona has been stable over the last 24 hours. She continues to require increased supplemental oxygen from baseline. She is more clear today had been more confused the past few days and really does not remember much about the first several days of hospitalization. Encourage increase activity as well as vigorous pulmonary toilet. Functional Status: Reports: Tolerating Diet, Urinating - Review of Systems General: Reports: Weakness, Fatigue. Denies: Fever, Chills Pulmonary: Reports: Shortness of Breath. Denies: Pleuritic Chest Pain, Cough, Sputum, Hemoptysis, Wheezing Cardiovascular: Reports: Dyspnea on Exertion. Denies: Chest Pain, Palpitations, Orthopnea, PND, Edema, Lightheadedness Gastrointestinal: Reports: No Symptoms Musculoskeletal: Reports: Joint Pain - Patient Data Vitals - Most Recent: Last Vital Signs Temp 96.4 F L 10/15/20 10:54 Pulse 64 10/15/20 10:54 Resp 22 H 10/15/20 10:54 BP 123/56 L 10/15/20 10:54 Pulse Ox 91 L 10/15/20 12:27 Weight - Most Recent: 126 lb 15.992 oz I&O - Last 24 Hours: Intake & Output 10/14/20 10/15/20 10/15/20 22:59 06:59 14:59 Intake Total 600 Output Total 744 372 [id number] Balance -450 -450 -850 Lab Results Last 24 Hours: Laboratory Results - last 24 hr 10/14/20 10/14/20 10/14/20 Range/Units 07:28 11:21 16:41 WBC (4.5-11.0) K/uL RBC (3.30-5.50) M/uL Hgb (12.0-15.0) g/dL Hct (36.0-48.0) % MCV (80-98) fL MCH (27-31) pg MCHC (32-36) % Plt Count (150-400) K/uL Neut % (Auto) (36-66) % Lymph % (Auto) (24-44) % [place] % (Auto) (2-6) % Eos % (Auto) (2-4) % Baso % (Auto) (0-1) % Sodium (140-148) mmol/L Potassium (3.6-5.2) mmol/L Chloride (100-108) mmol/L Carbon Dioxide (21-32) mmol/L Anion Gap (5.0-14.0) mmol/L BUN (7-18) mg/dL Creatinine (0.6-1.0) mg/dL Est Cr Clr Drug Dosing mL/min Estimated GFR (MDRD) (>60) Glucose (74-106) mg/dL POC Glucose 101 137 H 159 H (74-106) mg/dL Calcium (8.5-10.1) mg/dL Troponin I (0.000-0.056) ng/mL 10/14/20 10/14/20 10/15/20 Range/Units 19:37 21:08 05:30 WBC (4.5-11.0) K/uL RBC (3.30-5.50) M/uL Hgb (12.0-15.0) g/dL Hct (36.0-48.0) % MCV (80-98) fL MCH (27-31) pg MCHC (32-36) % Plt Count (150-400) K/uL Neut % (Auto) (36-66) % Lymph % (Auto) (24-44) % [place] % (Auto) (2-6) % Eos % (Auto) (2-4) % Baso % (Auto) (0-1) % Sodium 132 L (140-148) mmol/L Potassium 4.0 (3.6-5.2) mmol/L Chloride 94 L (100-108) mmol/L Carbon Dioxide 26 (21-32) mmol/L Anion Gap 16.0 H (5.0-14.0) mmol/L BUN 14 (7-18) mg/dL Creatinine 0.9 (0.6-1.0) mg/dL Est Cr Clr Drug Dosing 51.38 mL/min Estimated GFR (MDRD) > 60 (>60) Glucose 128 H (74-106) mg/dL POC Glucose 167 H (74-106) mg/dL Calcium 8.6 (8.5-10.1) mg/dL Troponin I 0.040 0.058 H* (0.000-0.056) ng/mL 10/15/20 10/15/20 10/15/20 Range/Units 05:30 07:30 11:40 WBC 8.6 (4.5-11.0) K/uL RBC 3.30 (3.30-5.50) M/uL Hgb 9.5 L (12.0-15.0) g/dL Hct 29.1 L (36.0-48.0) % MCV 88 (80-98) fL MCH 29 (27-31) pg MCHC 33 (32-36) % Plt Count 243 (150-400) K/uL Neut % (Auto) 75 H (36-66) % Lymph % (Auto) 11 L (24-44) % [place] % (Auto) 11 H (2-6) % Eos % (Auto) 3 (2-4) % Baso % (Auto) 0 (0-1) % Sodium (140-148) mmol/L Potassium (3.6-5.2) mmol/L Chloride (100-108) mmol/L Carbon Dioxide (21-32) mmol/L Anion Gap (5.0-14.0) mmol/L BUN (7-18) mg/dL Creatinine (0.6-1.0) mg/dL Est Cr Clr Drug Dosing mL/min Estimated GFR (MDRD) (>60) Glucose (74-106) mg/dL POC Glucose 120 H 154 H (74-106) mg/dL Calcium (8.5-10.1) mg/dL Troponin I (0.000-0.056) ng/mL Med Orders - Current: Current Medications Acetaminophen (Acetaminophen 325 Mg Tab) 650 mg PO Q4H PRN PRN Reason: Pain (Mild 1-3)/fever Last Admin: 10/15/20 03:12 Dose: 650 mg Documented by: Hydrocodone Bitart/Acetaminophen (Acetaminophen/Hydrocodone 325-5 Mg Tab) 1 tab PO Q4H PRN PRN Reason: pain Last Admin: 10/15/20 12:12 Dose: 1 tab Documented by: Albuterol (Albuterol 0.083% 2.5 Mg/3 Ml Neb Soln) 2.5 mg NEB Q4H PRN PRN Reason: Shortness Of Breath/wheezing Last Admin: 10/13/20 03:18 Dose: 2.5 mg Documented by: Albuterol/Ipratropium (Albuterol/Ipratropium 3.0-0.5 Mg/3 Ml Neb Soln) 3 ml NEB QIDRT [facility] [place] Last Admin: 10/15/20 14:35 Dose: Not Given Documented by: Apixaban (Apixaban 5 Mg Tab) 5 mg PO BID [facility] [place] Last Admin: 10/15/20 08:51 Dose: 5 mg Documented by: Aspirin (Aspirin 81 Mg Tab.Chew) 81 mg PO DAILY [facility] [place] Last Admin: 10/15/20 08:52 Dose: 81 mg Documented by: Clopidogrel Bisulfate (Clopidogrel 75 Mg Tab) 75 mg PO DAILY [facility] [place] Last Admin: 10/15/20 08:51 Dose: 75 mg Documented by: Cyanocobalamin (Cyanocobalamin (Vitamin B12) 1,000 Mcg Tab) 1,000 mcg PO DAILY [facility] [place] Last Admin: 10/15/20 08:52 Dose: 1,000 mcg Documented by: Gabapentin (Gabapentin 300 Mg Cap) 300 mg PO TID [facility] [place] Last Admin: 10/15/20 14:41 Dose: 300 mg Documented by: Insulin Glargine (Insulin Glargine,Human Rec. Analog 100 Units/Ml 3 Ml Pen) 35 units SUBCUT BEDTIME [facility] [place] Last Admin: 10/14/20 20:11 Dose: 35 units Documented by: Lisinopril (Lisinopril 5 Mg Tab) 5 mg PO DAILY [facility] [place] Last Admin: 10/15/20 09:26 Dose: 5 mg Documented by: Magnesium Hydroxide (Magnesium Hydroxide 400 Mg/5 Ml Susp 30 Ml Cup) 30 ml PO Q12H PRN PRN Reason: Constipation Last Admin: 10/15/20 03:12 Dose: 30 ml Documented by: Metformin HCl (Metformin 500 Mg Tab) 1,000 mg PO BIDMEALS [facility] [place] Last Admin: 10/15/20 08:51 Dose: 1,000 mg Documented by: Metoprolol Tartrate (Metoprolol Tartrate 50 Mg Tab) 50 mg PO BID [facility] [place] Last Admin: 10/15/20 08:55 Dose: 50 mg Documented by: Multivitamins/Minerals (Multivitamins With Iron/Calcium/Folic Acid/Minerals Tab) 1 tab PO DAILY [facility] [place] Last Admin: 10/15/20 08:52 Dose: 1 tab Documented by: Nicotine (Nicotine 21 Mg/24 Hr Patch) 21 mg TRDERM DAILY [facility] [place] Last Admin: 10/15/20 08:52 Dose: 21 mg Documented by: Ondansetron HCl (Ondansetron 4 Mg/2 Ml Sdv) 4 mg IV Q6H PRN PRN Reason: Nausea/Vomiting Last Admin: 10/10/20 14:11 Dose: 4 mg Documented by: Ondansetron HCl (Ondansetron 4 Mg Tab.Dis) 4 mg PO Q6H PRN PRN Reason: Nausea able to take PO Last Admin: 10/11/20 13:47 Dose: 4 mg Documented by: Pravastatin Sodium (Pravastatin 20 Mg Tab) 40 mg PO BEDTIME [facility] [place] Last Admin: 10/14/20 20:08 Dose: 40 mg Documented by: Senna/Docusate Sodium (Docusate Sodium/Sennosides 50-8.6 Mg Tab) 1 tab PO BID [facility] [place] Last Admin: 10/15/20 08:52 Dose: 1 tab Documented by: Sodium Chloride (Sodium Chloride 1 Gm Tab) 1 gm PO BID [facility] [place] Last Admin: 10/15/20 08:51 Dose: 1 gm Documented by: Discontinued Medications Hydrocodone Bitart/Acetaminophen (Acetaminophen/Hydrocodone 325-5 Mg Tab) 1 tab PO Q4H PRN PRN Reason: pain Last Admin: 10/13/20 08:03 Dose: 1 tab Documented by: Hydrocodone Bitart/Acetaminophen (Acetaminophen/Hydrocodone 325-5 Mg Tab) 1 - 2 tab PO Q4H PRN PRN Reason: pain Last Admin: 10/13/20 19:30 Dose: 2 tab Documented by: Bupivacaine HCl (Bupivacaine 0.5% 50 Ml Mdv) Confirm Administered Dose 50 ml .ROUTE .STK-MED ONE Stop: 10/10/20 17:04 Last Admin: 10/10/20 17:22 Dose: 35 ml Documented by: Bupivacaine HCl/Epinephrine Bitart (Bupivacaine 0.5%/Epinephrine 1:200,000 50 Ml Mdv) Confirm Administered Dose 50 ml .ROUTE .STK-MED ONE Stop: 10/10/20 13:20 Dexamethasone (Dexamethasone 4 Mg/Ml Sdv) Confirm Administered Dose 4 mg .ROUTE .STK-MED ONE Stop: 10/10/20 16:51 Fentanyl (Fentanyl 100 Mcg/2 Ml Sdv) 50 mcg IM ONETIME ONE Stop: 10/10/20 10:39 Last Admin: 10/10/20 11:27 Dose: 50 mcg Documented by: Fentanyl (Fentanyl 250 Mcg/5 Ml Sdv) Confirm Administered Dose 250 mcg .ROUTE .STK-MED ONE Stop: 10/10/20 16:40 Furosemide (Furosemide 20 Mg/2 Ml Vial) 10 mg IVPUSH DAILY [facility] [place] Last Admin: 10/13/20 05:25 Dose: 10 mg Documented by: Furosemide (Furosemide 20 Mg/2 Ml Vial) 20 mg IVPUSH ONETIME ONE Stop: 10/13/20 12:01 Last Admin: 10/13/20 13:09 Dose: 20 mg Documented by: Furosemide (Furosemide 40 Mg/4 Ml Vial) 40 mg IVPUSH NOW ONE Stop: 10/14/20 12:01 Last Admin: 10/14/20 11:44 Dose: 40 mg Documented by: Furosemide (Furosemide 40 Mg/4 Ml Vial) 40 mg IVPUSH NOW ONE Stop: 10/15/20 08:31 Last Admin: 10/15/20 08:50 Dose: 40 mg Documented by: Glycopyrrolate (Glycopyrrolate 0.2 Mg/Ml 5 Ml Mdv) Confirm Administered Dose 1 mg .ROUTE .STK-MED ONE Stop: 10/10/20 16:51 Hydromorphone HCl (Hydromorphone 0.5 Mg/0.5 Ml Syringe) 0.5 mg IVPUSH Q2H PRN PRN Reason: PAIN Lactated Ringer's (Ringers, Lactated) 1,000 mls @ 125 mls/hr IV ASDIRECTED [facility] [place] Last Admin: 10/11/20 02:22 Dose: 125 mls/hr Documented by: Cefazolin Sodium/Dextrose 2 gm (/ Premix) 50 mls @ 100 mls/hr IV ONETIME ONE Stop: 10/10/20 16:29 Last Admin: 10/10/20 16:29 Dose: 100 mls/hr Documented by: Sodium Chloride (Normal Saline) 500 mls @ 999 mls/hr IV .BOLUS ONE Stop: 10/12/20 03:47 Last Admin: 10/12/20 03:24 Dose: 999 mls/hr Documented by: Sodium Chloride (Normal Saline) 500 mls @ 999 mls/hr IV .BOLUS ONE Stop: 10/12/20 06:54 Last Admin: 10/12/20 07:28 Dose: 999 mls/hr Documented by: Sodium Chloride (Normal Saline) 83 mls @ 3 mls/sec IV ONETIME ONE Stop: 10/14/20 09:24 Last Admin: 10/14/20 09:49 Dose: 3 mls/sec Documented by: Iopamidol (Iopamidol 755 Mg/Ml 100 Ml Bottle) 75 ml IV . DIRECTED [facility] [place] Stop: 10/14/20 09:31 Last Admin: 10/14/20 09:49 Dose: 75 ml Documented by: Lisinopril (Lisinopril 5 Mg Tab) 5 mg PO DAILY [facility] [place] Last Admin: 10/13/20 09:53 Dose: Not Given Documented by: Lorazepam (Lorazepam 2 Mg/Ml Sdv) 0.5 mg IVPUSH Q4H PRN PRN Reason: Nausea/Vomiting Melatonin (Melatonin 3 Mg Tab) 9 mg PO BEDTIME PRN PRN Reason: Sleep Neostigmine Methylsulfate (Neostigmine Methylsulfate 1 Mg/Ml 5 Ml Syringe) Confirm Administered Dose 5 mg .ROUTE .STK-MED ONE Stop: 10/10/20 16:51 Ondansetron HCl (Ondansetron 4 Mg/2 Ml Sdv) Confirm Administered Dose 4 mg .ROUTE .STK-MED ONE Stop: 10/10/20 16:51 Oxycodone HCl (Oxycodone 5 Mg Tab) 5 - 10 mg PO Q4H PRN PRN Reason: Pain Last Admin: 10/11/20 22:40 Dose: 10 mg Documented by: Propofol (Propofol 200 Mg/20 Ml Sdv) Confirm Administered Dose 200 mg .ROUTE .STK-MED ONE Stop: 10/10/20 16:51 Rocuronium Rock (Rocuronium 50 Mg/5 Ml Vial) Confirm Administered Dose 50 mg .ROUTE .STK-MED ONE Stop: 10/10/20 16:51 Sodium Chloride (Sodium Chloride 0.9% 10 Ml Syringe) 10 ml FLUSH ONETIME PRN PRN Reason: PER RADIOLOGY PROTOCOL Stop: 10/14/20 09:24 Last Admin: 10/14/20 09:49 Dose: 10 ml Documented by: Succinylcholine Chloride (Succinylcholine 200 Mg/10 Ml Mdv) Confirm Administered Dose 200 mg .ROUTE .STK-MED ONE Stop: 10/10/20 16:51 Tizanidine HCl (Tizanidine 4 Mg Tab) 4 mg PO Q8H PRN PRN Reason: Muscle Spasm - Exam Quality Assessment: Supplemental Oxygen, DVT Prophylaxis General: Alert, Oriented, Cooperative, Mild Distress Lungs: Clear to Auscultation, Normal Respiratory Effort, Decreased Breath Sounds Cardiovascular: Regular Rate, Regular Rhythm, No Murmurs GI/Abdominal Exam: Soft, Non-Tender, No Organomegaly, No Distention Extremities: No Pedal Edema - Patient Data Lab Results Last 24 hrs: Laboratory Results - last 24 hr 10/14/20 10/14/20 10/14/20 Range/Units 07:28 11:21 16:41 WBC (4.5-11.0) K/uL RBC (3.30-5.50) M/uL Hgb (12.0-15.0) g/dL Hct (36.0-48.0) % MCV (80-98) fL MCH (27-31) pg MCHC (32-36) % Plt Count (150-400) K/uL Neut % (Auto) (36-66) % Lymph % (Auto) (24-44) % [place] % (Auto) (2-6) % Eos % (Auto) (2-4) % Baso % (Auto) (0-1) % Sodium (140-148) mmol/L Potassium (3.6-5.2) mmol/L Chloride (100-108) mmol/L Carbon Dioxide (21-32) mmol/L Anion Gap (5.0-14.0) mmol/L BUN (7-18) mg/dL Creatinine (0.6-1.0) mg/dL Est Cr Clr Drug Dosing mL/min Estimated GFR (MDRD) (>60) Glucose (74-106) mg/dL POC Glucose 101 137 H 159 H (74-106) mg/dL Calcium (8.5-10.1) mg/dL Troponin I (0.000-0.056) ng/mL 10/14/20 10/14/20 10/15/20 Range/Units 19:37 21:08 05:30 WBC (4.5-11.0) K/uL RBC (3.30-5.50) M/uL Hgb (12.0-15.0) g/dL Hct (36.0-48.0) % MCV (80-98) fL MCH (27-31) pg MCHC (32-36) % Plt Count (150-400) K/uL Neut % (Auto) (36-66) % Lymph % (Auto) (24-44) % [place] % (Auto) (2-6) % Eos % (Auto) (2-4) % Baso % (Auto) (0-1) % Sodium 132 L (140-148) mmol/L Potassium 4.0 (3.6-5.2) mmol/L Chloride 94 L (100-108) mmol/L Carbon Dioxide 26 (21-32) mmol/L Anion Gap 16.0 H (5.0-14.0) mmol/L BUN 14 (7-18) mg/dL Creatinine 0.9 (0.6-1.0) mg/dL Est Cr Clr Drug Dosing 51.38 mL/min Estimated GFR (MDRD) > 60 (>60) Glucose 128 H (74-106) mg/dL POC Glucose 167 H (74-106) mg/dL Calcium 8.6 (8.5-10.1) mg/dL Troponin I 0.040 0.058 H* (0.000-0.056) ng/mL 10/15/20 10/15/20 10/15/20 Range/Units 05:30 07:30 11:40 WBC 8.6 (4.5-11.0) K/uL RBC 3.30 (3.30-5.50) M/uL Hgb 9.5 L (12.0-15.0) g/dL Hct 29.1 L (36.0-48.0) % MCV 88 (80-98) fL MCH 29 (27-31) pg MCHC 33 (32-36) % Plt Count 243 (150-400) K/uL Neut % (Auto) 75 H (36-66) % Lymph % (Auto) 11 L (24-44) % [place] % (Auto) 11 H (2-6) % Eos % (Auto) 3 (2-4) % Baso % (Auto) 0 (0-1) % Sodium (140-148) mmol/L Potassium (3.6-5.2) mmol/L Chloride (100-108) mmol/L Carbon Dioxide (21-32) mmol/L Anion Gap (5.0-14.0) mmol/L BUN (7-18) mg/dL Creatinine (0.6-1.0) mg/dL Est Cr Clr Drug Dosing mL/min Estimated GFR (MDRD) (>60) Glucose (74-106) mg/dL POC Glucose 120 H 154 H (74-106) mg/dL Calcium (8.5-10.1) mg/dL Troponin I (0.000-0.056) ng/mL Result Diagrams: 10/15/20 05:30 10/15/20 05:30 Sepsis Event Note - Evaluation Sepsis Screening Result: Sepsis Risk - Focused Exam Vital Signs: Vital Signs Temp Pulse Pulse Resp BP BP Pulse Ox 10/15/20 12:27 91 L 10/15/20 10:54 96.4 F L 64 22 H 123/56 L 94 L 10/15/20 10:50 65 10/15/20 09:26 130/62 10/15/20 08:55 79 130/62 10/15/20 08:39 93 L 10/15/20 08:31 79 L 10/15/20 07:26 95.5 F L 76 22 H 148/67 H 94 L 10/15/20 07:23 80 10/15/20 07:06 93 L 10/15/20 02:54 96.5 F L 84 20 151/73 H 92 L - Problem List Review Problem List Initiated/Reviewed/Updated: Yes - Plan Plan:: ASSESSMENT AND PLAN Subcapital fracture of the right hip-secondary to mechanical fall. Surgical intervention completed 10/10 with cannulated screw placement x3. Pain control acceptable. Hemoglobin stable. -Partial weightbearing right leg -Symptomatic management of pain -Orthopedic follow-up as indicated -Continue apixaban -Physical therapy Acute on chronic hypoxic respiratory failure-over the last 72 hours has required increase in supplemental oxygen from baseline. Likely that this is multifactorial related to her underlying COPD, diastolic congestive heart failure, and hypoventilation related to recent surgery and sedating medications. -Furosemide 40 mg IV today -Supplemental oxygen as needed Slight elevation in troponin-secondary to demand ischemia in the setting of hypoxic respiratory compromise. 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 -Continue to supplement oxygen, wean towards baseline as able -Continue home medications -As needed nebulizers Coronary artery disease-history of previous bypass grafting. No active anginal symptoms. -Continue medical management Paroxysmal atrial fibrillation-chronically anticoagulated. -apixaban -Continue beta-asha Peripheral vascular disease-severe reduction in in ARMIDA with 0.4 noted on the right and 0.3 on the left. -Outpatient follow-up with interventional radiology -Continue medical management Tobacco dependence-encourage cessation -Nicotine patch Maintenance issues - -DVT prophylaxis-apixaban -GI prophylaxis-not indicated -Nutrition-consistent carbohydrates -Tanner catheter-placed in the emergency room for strict intake and output monitoring in a surgical patient, this needs to remain in place because of low urine output and low blood pressure in addition to diuresis. Disposition -I anticipate [facility] to the [facility] for subacute rehab after the hospital stay
[2020-10-15] MEDS: Pravastatin 20 MG Tab PO SCH (21:16)
[2020-10-15] MEDS: Insulin Glargine,Human Rec. Analog 100 Units/ML 3 ML Pen SUBCUT SCH (21:17)
[2020-10-16] MEDS: Acetaminophen/HYDROcodone 325-5 MG Tab PO PRN (03:55)
[2020-10-16] MEDS: Albuterol/Ipratropium 3.0-0.5 MG/3 ML Neb Soln NEB SCH ×4 (07:15→21:52)
[2020-10-16] MEDS: metFORMIN 500 MG Tab PO SCH ×2 (08:46→17:34)
[2020-10-16] MEDS: Sodium Chloride 1 GM Tab PO SCH ×2 (08:47→21:50)
[2020-10-16] MEDS: Gabapentin 300 MG Cap PO SCH ×3 (08:47→21:49)
[2020-10-16] MEDS: Apixaban 5 MG Tab PO SCH ×2 (08:47→21:49)
[2020-10-16] MEDS: Aspirin 81 MG Tab.Chew PO SCH (08:47)
[2020-10-16] MEDS: Cyanocobalamin (Vitamin B12) 1,000 MCG Tab PO SCH (08:48)
[2020-10-16] MEDS: Multivitamins with Iron/Calcium/Folic Acid/Minerals Tab PO SCH (08:48)
[2020-10-16] MEDS: Clopidogrel 75 MG Tab PO SCH (08:49)
[2020-10-16] MEDS: Lisinopril 5 MG Tab PO SCH (08:49)
[2020-10-16] MEDS: Metoprolol Tartrate 50 MG Tab PO SCH ×2 (08:51→21:49)
[2020-10-16] MEDS: Nicotine 21 MG/24 Hr Patch TRDERM SCH (08:53)
--- NOTE | 2020-10-16 11:26 | PCM.SURGPN ---
- General Info Date of Service: 10/16/20 Date of Surgery/Procedure: 10/10/20 POD#: 6 Post-Op Diagnosis: subcapital impacted femoral fracture Functional Status: Reports: Pain Controlled, Tolerating Diet, Ambulating (with fww, x2 assist ), Urinating, Incentive Spirometry - Review of Systems General: Reports: No Symptoms Pulmonary: Reports: Shortness of Breath (per baseline, denied increase ) Cardiovascular: Reports: No Symptoms Gastrointestinal: Reports: No Symptoms Genitourinary: Reports: No Symptoms Musculoskeletal: Reports: Leg Pain (right ), Joint Pain (right hip ) Skin: Reports: Bruising (R hip, R knee, R side of face + neck ) Neurological: Reports: No Symptoms - Patient Data Vitals - Most Recent: Last Vital Signs Temp 95.1 F L 10/16/20 07:00 Pulse 70 10/16/20 10:45 Resp 14 10/16/20 07:00 BP 137/68 10/16/20 08:51 Pulse Ox 96 10/16/20 07:14 Weight - Most Recent: 126 lb 15.992 oz I&O - Last 24 Hours: Intake & Output 10/15/20 10/16/20 10/16/20 22:59 06:59 14:59 Intake Total 300 Balance 300 Lab Results Last 24 Hrs: Laboratory Results - last 24 hr 10/15/20 10/15/20 10/15/20 Range/Units 11:40 16:42 21:08 POC Glucose 154 H 135 H 220 H (74-106) mg/dL Med Orders - Current: Current Medications Acetaminophen (Acetaminophen 325 Mg Tab) 650 mg PO Q4H PRN PRN Reason: Pain (Mild 1-3)/fever Last Admin: 10/15/20 03:12 Dose: 650 mg Documented by: Hydrocodone Bitart/Acetaminophen (Acetaminophen/Hydrocodone 325-5 Mg Tab) 1 tab PO Q4H PRN PRN Reason: pain Last Admin: 10/16/20 03:55 Dose: 1 tab Documented by: Albuterol (Albuterol 0.083% 2.5 Mg/3 Ml Neb Soln) 2.5 mg NEB Q4H PRN PRN Reason: Shortness Of Breath/wheezing Last Admin: 10/13/20 03:18 Dose: 2.5 mg Documented by: Albuterol/Ipratropium (Albuterol/Ipratropium 3.0-0.5 Mg/3 Ml Neb Soln) 3 ml NEB QIDRT [facility] Last Admin: 10/16/20 10:45 Dose: 3 ml Documented by: Apixaban (Apixaban 5 Mg Tab) 5 mg PO BID [facility] Last Admin: 10/16/20 08:47 Dose: 5 mg Documented by: Aspirin (Aspirin 81 Mg Tab.Chew) 81 mg PO DAILY [facility] Last Admin: 10/16/20 08:47 Dose: 81 mg Documented by: Clopidogrel Bisulfate (Clopidogrel 75 Mg Tab) 75 mg PO DAILY [facility] Last Admin: 10/16/20 08:49 Dose: 75 mg Documented by: Cyanocobalamin (Cyanocobalamin (Vitamin B12) 1,000 Mcg Tab) 1,000 mcg PO DAILY [facility] Last Admin: 10/16/20 08:48 Dose: 1,000 mcg Documented by: Gabapentin (Gabapentin 300 Mg Cap) 300 mg PO TID [facility] Last Admin: 10/16/20 08:47 Dose: 300 mg Documented by: Insulin Glargine (Insulin Glargine,Human Rec. Analog 100 Units/Ml 3 Ml Pen) 35 units SUBCUT BEDTIME [facility] Last Admin: 10/15/20 21:17 Dose: 35 units Documented by: Lisinopril (Lisinopril 5 Mg Tab) 5 mg PO DAILY [facility] Last Admin: 10/16/20 08:49 Dose: 5 mg Documented by: Magnesium Hydroxide (Magnesium Hydroxide 400 Mg/5 Ml Susp 30 Ml Cup) 30 ml PO Q12H PRN PRN Reason: Constipation Last Admin: 10/15/20 03:12 Dose: 30 ml Documented by: Metformin HCl (Metformin 500 Mg Tab) 1,000 mg PO BIDMEALS [facility] Last Admin: 10/16/20 08:46 Dose: 1,000 mg Documented by: Metoprolol Tartrate (Metoprolol Tartrate 50 Mg Tab) 50 mg PO BID [facility] Last Admin: 10/16/20 08:51 Dose: 50 mg Documented by: Multivitamins/Minerals (Multivitamins With Iron/Calcium/Folic Acid/Minerals Tab) 1 tab PO DAILY [facility] Last Admin: 10/16/20 08:48 Dose: 1 tab Documented by: Nicotine (Nicotine 21 Mg/24 Hr Patch) 21 mg TRDERM DAILY [facility] Last Admin: 10/16/20 08:53 Dose: 21 mg Documented by: Ondansetron HCl (Ondansetron 4 Mg/2 Ml Sdv) 4 mg IV Q6H PRN PRN Reason: Nausea/Vomiting Last Admin: 10/10/20 14:11 Dose: 4 mg Documented by: Ondansetron HCl (Ondansetron 4 Mg Tab.Dis) 4 mg PO Q6H PRN PRN Reason: Nausea able to take PO Last Admin: 10/11/20 13:47 Dose: 4 mg Documented by: Pravastatin Sodium (Pravastatin 20 Mg Tab) 40 mg PO BEDTIME [facility] Last Admin: 10/15/20 21:16 Dose: 40 mg Documented by: Senna/Docusate Sodium (Docusate Sodium/Sennosides 50-8.6 Mg Tab) 1 tab PO BID [facility] Last Admin: 10/16/20 08:48 Dose: 1 tab Documented by: Sodium Chloride (Sodium Chloride 1 Gm Tab) 1 gm PO BID [facility] Last Admin: 10/16/20 08:47 Dose: 1 gm Documented by: Discontinued Medications Hydrocodone Bitart/Acetaminophen (Acetaminophen/Hydrocodone 325-5 Mg Tab) 1 tab PO Q4H PRN PRN Reason: pain Last Admin: 10/13/20 08:03 Dose: 1 tab Documented by: Hydrocodone Bitart/Acetaminophen (Acetaminophen/Hydrocodone 325-5 Mg Tab) 1 - 2 tab PO Q4H PRN PRN Reason: pain Last Admin: 10/13/20 19:30 Dose: 2 tab Documented by: Bupivacaine HCl (Bupivacaine 0.5% 50 Ml Mdv) Confirm Administered Dose 50 ml .ROUTE .STK-MED ONE Stop: 10/10/20 17:04 Last Admin: 10/10/20 17:22 Dose: 35 ml Documented by: Bupivacaine HCl/Epinephrine Bitart (Bupivacaine 0.5%/Epinephrine 1:200,000 50 Ml Mdv) Confirm Administered Dose 50 ml .ROUTE .STK-MED ONE Stop: 10/10/20 13:20 Dexamethasone (Dexamethasone 4 Mg/Ml Sdv) Confirm Administered Dose 4 mg .ROUTE .STK-MED ONE Stop: 10/10/20 16:51 Fentanyl (Fentanyl 100 Mcg/2 Ml Sdv) 50 mcg IM ONETIME ONE Stop: 10/10/20 10:39 Last Admin: 10/10/20 11:27 Dose: 50 mcg Documented by: Fentanyl (Fentanyl 250 Mcg/5 Ml Sdv) Confirm Administered Dose 250 mcg .ROUTE .STK-MED ONE Stop: 10/10/20 16:40 Furosemide (Furosemide 20 Mg/2 Ml Vial) 10 mg IVPUSH DAILY [facility] Last Admin: 10/13/20 05:25 Dose: 10 mg Documented by: Furosemide (Furosemide 20 Mg/2 Ml Vial) 20 mg IVPUSH ONETIME ONE Stop: 10/13/20 12:01 Last Admin: 10/13/20 13:09 Dose: 20 mg Documented by: Furosemide (Furosemide 40 Mg/4 Ml Vial) 40 mg IVPUSH NOW ONE Stop: 10/14/20 12:01 Last Admin: 10/14/20 11:44 Dose: 40 mg Documented by: Furosemide (Furosemide 40 Mg/4 Ml Vial) 40 mg IVPUSH NOW ONE Stop: 10/15/20 08:31 Last Admin: 10/15/20 08:50 Dose: 40 mg Documented by: Glycopyrrolate (Glycopyrrolate 0.2 Mg/Ml 5 Ml Mdv) Confirm Administered Dose 1 mg .ROUTE .STK-MED ONE Stop: 10/10/20 16:51 Hydromorphone HCl (Hydromorphone 0.5 Mg/0.5 Ml Syringe) 0.5 mg IVPUSH Q2H PRN PRN Reason: PAIN Lactated Ringer's (Ringers, Lactated) 1,000 mls @ 125 mls/hr IV ASDIRECTED [facility] Last Admin: 10/11/20 02:22 Dose: 125 mls/hr Documented by: Cefazolin Sodium/Dextrose 2 gm (/ Premix) 50 mls @ 100 mls/hr IV ONETIME ONE Stop: 10/10/20 16:29 Last Admin: 10/10/20 16:29 Dose: 100 mls/hr Documented by: Sodium Chloride (Normal Saline) 500 mls @ 999 mls/hr IV .BOLUS ONE Stop: 10/12/20 03:47 Last Admin: 10/12/20 03:24 Dose: 999 mls/hr Documented by: Sodium Chloride (Normal Saline) 500 mls @ 999 mls/hr IV .BOLUS ONE Stop: 10/12/20 06:54 Last Admin: 10/12/20 07:28 Dose: 999 mls/hr Documented by: Sodium Chloride (Normal Saline) 83 mls @ 3 mls/sec IV ONETIME ONE Stop: 10/14/20 09:24 Last Admin: 10/14/20 09:49 Dose: 3 mls/sec Documented by: Iopamidol (Iopamidol 755 Mg/Ml 100 Ml Bottle) 75 ml IV . DIRECTED [facility] Stop: 10/14/20 09:31 Last Admin: 10/14/20 09:49 Dose: 75 ml Documented by: Lisinopril (Lisinopril 5 Mg Tab) 5 mg PO DAILY [facility] Last Admin: 10/13/20 09:53 Dose: Not Given Documented by: Lorazepam (Lorazepam 2 Mg/Ml Sdv) 0.5 mg IVPUSH Q4H PRN PRN Reason: Nausea/Vomiting Melatonin (Melatonin 3 Mg Tab) 9 mg PO BEDTIME PRN PRN Reason: Sleep Neostigmine Methylsulfate (Neostigmine Methylsulfate 1 Mg/Ml 5 Ml Syringe) Confirm Administered Dose 5 mg .ROUTE .STK-MED ONE Stop: 10/10/20 16:51 Ondansetron HCl (Ondansetron 4 Mg/2 Ml Sdv) Confirm Administered Dose 4 mg .ROUTE .STK-MED ONE Stop: 10/10/20 16:51 Oxycodone HCl (Oxycodone 5 Mg Tab) 5 - 10 mg PO Q4H PRN PRN Reason: Pain Last Admin: 10/11/20 22:40 Dose: 10 mg Documented by: Propofol (Propofol 200 Mg/20 Ml Sdv) Confirm Administered Dose 200 mg .ROUTE .STK-MED ONE Stop: 10/10/20 16:51 Rocuronium Ida (Rocuronium 50 Mg/5 Ml Vial) Confirm Administered Dose 50 mg .ROUTE .STK-MED ONE Stop: 10/10/20 16:51 Sodium Chloride (Sodium Chloride 0.9% 10 Ml Syringe) 10 ml FLUSH ONETIME PRN PRN Reason: PER RADIOLOGY PROTOCOL Stop: 10/14/20 09:24 Last Admin: 10/14/20 09:49 Dose: 10 ml Documented by: Succinylcholine Chloride (Succinylcholine 200 Mg/10 Ml Mdv) Confirm Administered Dose 200 mg .ROUTE .STK-MED ONE Stop: 10/10/20 16:51 Tizanidine HCl (Tizanidine 4 Mg Tab) 4 mg PO Q8H PRN PRN Reason: Muscle Spasm - Exam Wound/Incisions: Healing Well, Dressing Dry and Intact, No Drainage Quality Assessment: Supplemental Oxygen (6L), DVT Prophylaxis General: Alert, Oriented, Cooperative, No Acute Distress Extremities: Normal Capillary Refill, Leg Pain (Right ), Limited Range of Motion, Increased Warmth (R hip ) Skin: Warm, Dry, Intact Neurological: No New Focal Deficit Psy/Mental Status: Alert, Normal Affect Sepsis Event Note - Evaluation Sepsis Screening Result: No Definite Risk - Focused Exam Vital Signs: Vital Signs Temp Pulse Pulse Resp BP BP Pulse Ox 10/16/20 10:45 70 10/16/20 08:51 70 137/68 10/16/20 08:49 137/68 10/16/20 07:14 96 10/16/20 07:00 95.1 F L 69 14 128/52 L 90 L 10/16/20 03:00 97.9 F 71 18 152/69 H 94 L 10/16/20 01:06 98 - Problem List & Annotations (1) Status post-operative repair of hip fracture SNOMED Code(s): 548695265, 061259411 Code(s): Z98.890 - OTHER SPECIFIED POSTPROCEDURAL STATES; Z87.81 - PERSONAL HISTORY OF (HEALED) TRAUMATIC FRACTURE Status: Acute Current Visit: Yes (2) Postoperative anemia SNOMED Code(s): 274982530, 455831986 Code(s): D64.9 - ANEMIA, UNSPECIFIED Status: Acute Current Visit: Yes (3) Acute and chronic respiratory failure with hypoxia SNOMED Code(s): 41789281, 136228430 Code(s): J96.21 - ACUTE AND CHRONIC RESPIRATORY FAILURE WITH HYPOXIA Status: Acute Current Visit: Yes - Problem List Review Problem List Initiated/Reviewed/Updated: Yes - My Orders Last 24 Hours: Active Orders 24 hr Category Date Time Status May Shower [RC] ASDIRECTED Care 10/15/20 10:59 Active Medication Orders Acetaminophen (Acetaminophen 325 Mg Tab) 650 mg PO Q4H PRN PRN Reason: Pain (Mild 1-3)/fever Last Admin: 10/15/20 03:12 Dose: 650 mg Documented by: Admin: 10/14/20 11:44 Dose: 650 mg Documented by: Admin: 10/13/20 08:02 Dose: 650 mg Documented by: CLAUDIA Hydrocodone Bitart/Acetaminophen (Acetaminophen/Hydrocodone 325-5 Mg Tab) 1 tab PO Q4H PRN PRN Reason: pain Last Admin: 10/16/20 03:55 Dose: 1 tab Documented by: Admin: 10/15/20 17:04 Dose: 1 tab Documented by: Admin: 10/15/20 12:12 Dose: 1 tab Documented by: ROMY Albuterol (Albuterol 0.083% 2.5 Mg/3 Ml Neb Soln) 2.5 mg NEB Q4H PRN PRN Reason: Shortness Of Breath/wheezing Last Admin: 10/13/20 03:18 Dose: 2.5 mg Documented by: Admin: 10/12/20 02:38 Dose: 2.5 mg Documented by: Admin: 10/11/20 18:31 Dose: 2.5 mg Documented by: LISET Albuterol/Ipratropium (Albuterol/Ipratropium 3.0-0.5 Mg/3 Ml Neb Soln) 3 ml NEB QIDRT [facility] Admin: 10/16/20 10:45 Dose: 3 ml Documented by: Admin: 10/16/20 07:15 Dose: 3 ml Documented by: Admin: 10/15/20 21:24 Dose: 3 ml Documented by: Admin: 10/15/20 14:35 Dose: Not Given Documented by: Admin: 10/15/20 10:50 Dose: 3 ml Documented by: Admin: 10/15/20 07:23 Dose: 3 ml Documented by: Admin: 10/14/20 20:17 Dose: 3 ml Documented by: Admin: 10/14/20 14:47 Dose: 3 ml Documented by: Admin: 10/14/20 10:49 Dose: 3 ml Documented by: Admin: 10/14/20 07:45 Dose: 3 ml Documented by: Admin: 10/13/20 21:45 Dose: 3 ml Documented by: Admin: 10/13/20 14:27 Dose: 3 ml Documented by: Admin: 10/13/20 11:10 Dose: Not Given Documented by: Admin: 10/13/20 07:08 Dose: 3 ml Documented by: Admin: 10/12/20 20:38 Dose: 3 ml Documented by: Admin: 10/12/20 14:33 Dose: 3 ml Documented by: Admin: 10/12/20 10:38 Dose: 3 ml Documented by: Admin: 10/12/20 07:10 Dose: 3 ml Documented by: Admin: 10/11/20 21:15 Dose: 3 ml Documented by: Admin: 10/11/20 14:46 Dose: 3 ml Documented by: Admin: 10/11/20 10:47 Dose: 3 ml Documented by: Admin: 10/11/20 07:09 Dose: 3 ml Documented by: Admin: 10/10/20 21:38 Dose: 3 ml Documented by: Admin: 10/10/20 14:43 Dose: 3 ml Documented by: DIEGO Apixaban (Apixaban 5 Mg Tab) 5 mg PO BID [facility] Admin: 10/16/20 08:47 Dose: 5 mg Documented by: Admin: 10/15/20 21:17 Dose: 5 mg Documented by: Admin: 10/15/20 08:51 Dose: 5 mg Documented by: Admin: 10/14/20 20:08 Dose: 5 mg Documented by: Admin: 10/14/20 08:26 Dose: 5 mg Documented by: Admin: 10/13/20 21:46 Dose: 5 mg Documented by: Admin: 10/13/20 09:53 Dose: 5 mg Documented by: Admin: 10/12/20 20:38 Dose: 5 mg Documented by: MICHAEL Aspirin (Aspirin 81 Mg Tab.Chew) 81 mg PO DAILY [facility] Admin: 10/16/20 08:47 Dose: 81 mg Documented by: Admin: 10/15/20 08:52 Dose: 81 mg Documented by: Admin: 10/14/20 08:25 Dose: 81 mg Documented by: Admin: 10/13/20 09:52 Dose: 81 mg Documented by: Admin: 10/12/20 12:22 Dose: 81 mg Documented by: Admin: 10/11/20 09:10 Dose: 81 mg Documented by: GRADY Clopidogrel Bisulfate (Clopidogrel 75 Mg Tab) 75 mg PO DAILY [facility] Admin: 10/16/20 08:49 Dose: 75 mg Documented by: Admin: 10/15/20 08:51 Dose: 75 mg Documented by: Admin: 10/14/20 08:28 Dose: 75 mg Documented by: Admin: 10/13/20 09:53 Dose: 75 mg Documented by: Admin: 10/12/20 12:22 Dose: 75 mg Documented by: Admin: 10/11/20 09:10 Dose: 75 mg Documented by: GRADY Cyanocobalamin (Cyanocobalamin (Vitamin B12) 1,000 Mcg Tab) 1,000 mcg PO DAILY [facility] Admin: 10/16/20 08:48 Dose: 1,000 mcg Documented by: Admin: 10/15/20 08:52 Dose: 1,000 mcg Documented by: Admin: 10/14/20 08:29 Dose: 1,000 mcg Documented by: Admin: 10/13/20 09:52 Dose: 1,000 mcg Documented by: Admin: 10/12/20 09:50 Dose: 1,000 mcg Documented by: Admin: 10/11/20 09:10 Dose: 1,000 mcg Documented by: GRADY Gabapentin (Gabapentin 300 Mg Cap) 300 mg PO TID [facility] Admin: 10/16/20 08:47 Dose: 300 mg Documented by: Admin: 10/15/20 21:16 Dose: 300 mg Documented by: Admin: 10/15/20 14:41 Dose: 300 mg Documented by: Admin: 10/15/20 08:51 Dose: 300 mg Documented by: Admin: 10/14/20 20:08 Dose: 300 mg Documented by: Admin: 10/14/20 14:32 Dose: 300 mg Documented by: Admin: 10/14/20 08:27 Dose: 300 mg Documented by: Admin: 10/13/20 21:47 Dose: 300 mg Documented by: Admin: 10/13/20 14:53 Dose: 300 mg Documented by: Admin: 10/13/20 09:52 Dose: 300 mg Documented by: Admin: 10/12/20 20:38 Dose: 300 mg Documented by: Admin: 10/12/20 15:27 Dose: 300 mg Documented by: Admin: 10/12/20 09:50 Dose: 300 mg Documented by: Admin: 10/11/20 21:18 Dose: 300 mg Documented by: Admin: 10/11/20 13:47 Dose: 300 mg Documented by: Admin: 10/11/20 09:10 Dose: 300 mg Documented by: Admin: 10/10/20 21:42 Dose: 300 mg Documented by: Admin: 10/10/20 15:00 Dose: Not Given Documented by: GRADY Insulin Glargine (Insulin Glargine,Human Rec. Analog 100 Units/Ml 3 Ml Pen) 35 units SUBCUT BEDTIME [facility] Last Admin: 10/15/20 21:17 Dose: 35 units Documented by: ADAM Cosigned by: MALDONADO Admin: 10/14/20 20:11 Dose: 35 units Documented by: CARTER Cosigned by: HARISH Admin: 10/13/20 21:55 Dose: 35 units Documented by: MICHAEL Cosigned by: NANO Admin: 10/12/20 20:45 Dose: 20 units Documented by: MICHAEL Cosigned by: JOSE Admin: 10/11/20 21:22 Dose: 35 units Documented by: LISET Cosigned by: JOSE Admin: 10/10/20 21:41 Dose: 35 units Documented by: BETITO Cosigned by: JOSE Lisinopril (Lisinopril 5 Mg Tab) 5 mg PO DAILY [facility] Last Admin: 10/16/20 08:49 Dose: 5 mg Documented by: Admin: 10/15/20 09:26 Dose: 5 mg Documented by: Admin: 10/14/20 11:53 Dose: 5 mg Documented by: MIRTA Magnesium Hydroxide (Magnesium Hydroxide 400 Mg/5 Ml Susp 30 Ml Cup) 30 ml PO Q12H PRN PRN Reason: Constipation Last Admin: 10/15/20 03:12 Dose: 30 ml Documented by: Admin: 10/13/20 19:30 Dose: 30 ml Documented by: Admin: 10/12/20 20:39 Dose: 30 ml Documented by: MICHAEL Metformin HCl (Metformin 500 Mg Tab) 1,000 mg PO BIDMEALS [facility] Admin: 10/16/20 08:46 Dose: 1,000 mg Documented by: Admin: 10/15/20 17:05 Dose: 1,000 mg Documented by: Admin: 10/15/20 08:51 Dose: 1,000 mg Documented by: Admin: 10/14/20 19:45 Dose: 1,000 mg Documented by: Admin: 10/14/20 08:25 Dose: 1,000 mg Documented by: Admin: 10/13/20 17:47 Dose: 1,000 mg Documented by: Admin: 10/13/20 09:52 Dose: 1,000 mg Documented by: Admin: 10/12/20 18:04 Dose: 1,000 mg Documented by: Admin: 10/12/20 09:49 Dose: 1,000 mg Documented by: Admin: 10/11/20 16:54 Dose: 1,000 mg Documented by: Admin: 10/11/20 09:10 Dose: 1,000 mg Documented by: GRADY Metoprolol Tartrate (Metoprolol Tartrate 50 Mg Tab) 50 mg PO BID [facility] Admin: 10/16/20 08:51 Dose: 50 mg Documented by: Admin: 10/15/20 21:16 Dose: 50 mg Documented by: Admin: 10/15/20 08:55 Dose: 50 mg Documented by: Admin: 10/14/20 20:09 Dose: 50 mg Documented by: Admin: 10/14/20 08:26 Dose: 50 mg Documented by: Admin: 10/13/20 21:46 Dose: Not Given Documented by: Admin: 10/13/20 09:54 Dose: Not Given Documented by: Admin: 10/12/20 20:56 Dose: Not Given Documented by: Admin: 10/12/20 11:47 Dose: Not Given Documented by: Admin: 10/11/20 21:19 Dose: 50 mg Documented by: Admin: 10/11/20 09:11 Dose: 50 mg Documented by: Admin: 10/10/20 21:49 Dose: 50 mg Documented by: BETITO Multivitamins/Minerals (Multivitamins With Iron/Calcium/Folic Acid/Minerals Tab) 1 tab PO DAILY [facility] Last Admin: 10/16/20 08:48 Dose: 1 tab Documented by: Admin: 10/15/20 08:52 Dose: 1 tab Documented by: Admin: 10/14/20 08:28 Dose: 1 tab Documented by: Admin: 10/13/20 09:52 Dose: 1 tab Documented by: Admin: 10/12/20 09:50 Dose: 1 tab Documented by: Admin: 10/11/20 09:10 Dose: 1 tab Documented by: GRADY Nicotine (Nicotine 21 Mg/24 Hr Patch) 21 mg TRDERM DAILY [facility] Last Admin: 10/16/20 08:53 Dose: 21 mg Documented by: Admin: 10/15/20 08:52 Dose: 21 mg Documented by: Admin: 10/14/20 08:26 Dose: 21 mg Documented by: Admin: 10/13/20 09:53 Dose: 21 mg Documented by: Admin: 10/12/20 09:49 Dose: 21 mg Documented by: Admin: 10/11/20 09:14 Dose: 21 mg Documented by: Admin: 10/10/20 15:14 Dose: 21 mg Documented by: GRADY Ondansetron HCl (Ondansetron 4 Mg/2 Ml Sdv) 4 mg IV Q6H PRN PRN Reason: Nausea/Vomiting Last Admin: 10/10/20 14:11 Dose: 4 mg Documented by: GRADY Ondansetron HCl (Ondansetron 4 Mg Tab.Dis) 4 mg PO Q6H PRN PRN Reason: Nausea able to take PO Last Admin: 10/11/20 13:47 Dose: 4 mg Documented by: GRADY Pravastatin Sodium (Pravastatin 20 Mg Tab) 40 mg PO BEDTIME [facility] Admin: 10/15/20 21:16 Dose: 40 mg Documented by: Admin: 10/14/20 20:08 Dose: 40 mg Documented by: Admin: 10/13/20 21:52 Dose: 40 mg Documented by: Admin: 10/12/20 20:39 Dose: 40 mg Documented by: Admin: 10/11/20 21:18 Dose: 40 mg Documented by: Admin: 10/10/20 21:42 Dose: 40 mg Documented by: BETITO Senna/Docusate Sodium (Docusate Sodium/Sennosides 50-8.6 Mg Tab) 1 tab PO BID [facility] Admin: 10/16/20 08:48 Dose: 1 tab Documented by: Admin: 10/15/20 21:17 Dose: 1 tab Documented by: Admin: 10/15/20 08:52 Dose: 1 tab Documented by: Admin: 10/14/20 20:08 Dose: 1 tab Documented by: Admin: 10/14/20 08:28 Dose: 1 tab Documented by: Admin: 10/13/20 21:53 Dose: 1 tab Documented by: Admin: 10/13/20 09:53 Dose: 1 tab Documented by: Admin: 10/12/20 20:39 Dose: 1 tab Documented by: Admin: 10/12/20 09:50 Dose: 1 tab Documented by: Admin: 10/11/20 21:18 Dose: 1 tab Documented by: Admin: 10/11/20 09:10 Dose: 1 tab Documented by: Admin: 10/10/20 21:43 Dose: 1 tab Documented by: BETITO Sodium Chloride (Sodium Chloride 1 Gm Tab) 1 gm PO BID [facility] Admin: 10/16/20 08:47 Dose: 1 gm Documented by: Admin: 10/15/20 21:16 Dose: 1 gm Documented by: Admin: 10/15/20 08:51 Dose: 1 gm Documented by: Admin: 10/14/20 20:08 Dose: 1 gm Documented by: Admin: 10/14/20 08:28 Dose: 1 gm Documented by: Admin: 10/13/20 21:52 Dose: 1 gm Documented by: Admin: 10/13/20 09:53 Dose: 1 gm Documented by: Admin: 10/12/20 20:39 Dose: 1 gm Documented by: Admin: 10/12/20 09:50 Dose: 1 gm Documented by: Admin: 10/11/20 21:18 Dose: 1 gm Documented by: Admin: 10/11/20 09:10 Dose: 1 gm Documented by: Admin: 10/10/20 21:43 Dose: 1 gm Documented by: BETITO - Assessment Assessment (Free Text/Narrative):: Patient is a 70 y/o female, s/p right subcapital impacted femoral fracture, repaired with 3 cannulated screws. Patient is POD#6. No acute events overnight. Remains on 6L to maintain O2 saturations at 90%. Denied dyspnea increased from baseline this afternoon. Blood pressures improving from yesterday. Denied nausea. Tolerating consistent carbohydrate diet. POC Glucoses have been elevated. Tanner discontinued yesterday, has been using the commode since. R hip dressing change performed on POD#2, #4, #5. Denied pain in R hip at rest, endorsed with transfers and ambulation. Denied numbness or tingling of R LE. Worked with PT yesterday, PT kindly used scale to demonstrate to patient what partial-weight bearing at 65 lbs felt like. Patient ambulated 5 feet with FWW x2 mod assist. Completed bilateral LE exercises. Worked with OT as well, introduced to adaptive equipment for assistance with ADLs. Exam: R hip dressing is dry and intact. No surrounding erythema nor active drainage. Mild warmth and fullness to palpation around R hip incision. Very tender to palpation of R hip. Ecchymosis on R hip, lateral inferior aspect of R knee, and R side of face and neck. No significant pedal edema. Tibialis posterior pulse appreciated, 2+. Plan: * Hospitalist to continue medical management of patient * Advance to WBAT on the R LE. Updated board in patients room and WB status in orders * Patient to participate in daily PT and OT services while in the hospital. Encourage up to chairs for all meals, pending stable BP and O2 saturations * Continue DVT/VTE mechanical prophylaxis with bilateral LE SCDs and chemical prophylaxis with home Apixiban dose * Continue with current pain regimen * Anticipate discharge to SNF when medically stable
--- NOTE | 2020-10-16 13:52 | PCM.PN ---
- General Info Date of Service: 10/16/20 Subjective Update: Ms. Licona has remained stable over the last 24 hours. Requiring less supplemental oxygen, oxygen use is still above baseline. Activity has been fairly minimal and she has refused to use her incentive spirometer. Functional Status: Reports: Tolerating Diet, Urinating. Denies: Ambulating - Review of Systems General: Reports: Weakness, Fatigue. Denies: Fever, Chills Pulmonary: Reports: No Symptoms Cardiovascular: Reports: No Symptoms Gastrointestinal: Reports: No Symptoms Genitourinary: Reports: No Symptoms - Patient Data Vitals - Most Recent: Last Vital Signs Temp 95.0 F L 10/16/20 11:00 Pulse 51 L 10/16/20 11:00 Resp 18 10/16/20 11:00 BP 113/71 10/16/20 11:00 Pulse Ox 97 10/16/20 13:10 Weight - Most Recent: 126 lb 15.992 oz I&O - Last 24 Hours: Intake & Output 10/15/20 10/16/20 10/16/20 22:59 06:59 14:59 Intake Total 300 1000 Output Total 250 Balance 300 750 Lab Results Last 24 Hours: Laboratory Results - last 24 hr 10/15/20 10/15/20 Range/Units 16:42 21:08 POC Glucose 135 H 220 H (74-106) mg/dL Med Orders - Current: Current Medications Acetaminophen (Acetaminophen 325 Mg Tab) 650 mg PO Q4H PRN PRN Reason: Pain (Mild 1-3)/fever Last Admin: 10/15/20 03:12 Dose: 650 mg Documented by: Hydrocodone Bitart/Acetaminophen (Acetaminophen/Hydrocodone 325-5 Mg Tab) 1 tab PO Q4H PRN PRN Reason: pain Last Admin: 10/16/20 03:55 Dose: 1 tab Documented by: Albuterol (Albuterol 0.083% 2.5 Mg/3 Ml Neb Soln) 2.5 mg NEB Q4H PRN PRN Reason: Shortness Of Breath/wheezing Last Admin: 10/13/20 03:18 Dose: 2.5 mg Documented by: Albuterol/Ipratropium (Albuterol/Ipratropium 3.0-0.5 Mg/3 Ml Neb Soln) 3 ml NEB QIDRT [facility] Last Admin: 10/16/20 10:45 Dose: 3 ml Documented by: Apixaban (Apixaban 5 Mg Tab) 5 mg PO BID [facility] Last Admin: 10/16/20 08:47 Dose: 5 mg Documented by: Aspirin (Aspirin 81 Mg Tab.Chew) 81 mg PO DAILY [facility] Last Admin: 10/16/20 08:47 Dose: 81 mg Documented by: Clopidogrel Bisulfate (Clopidogrel 75 Mg Tab) 75 mg PO DAILY [facility] Last Admin: 10/16/20 08:49 Dose: 75 mg Documented by: Cyanocobalamin (Cyanocobalamin (Vitamin B12) 1,000 Mcg Tab) 1,000 mcg PO DAILY [facility] Last Admin: 10/16/20 08:48 Dose: 1,000 mcg Documented by: Furosemide (Furosemide 40 Mg/4 Ml Vial) 40 mg IVPUSH NOW ONE Stop: 10/16/20 13:49 Gabapentin (Gabapentin 300 Mg Cap) 300 mg PO TID [facility] Last Admin: 10/16/20 13:43 Dose: 300 mg Documented by: Insulin Glargine (Insulin Glargine,Human Rec. Analog 100 Units/Ml 3 Ml Pen) 35 units SUBCUT BEDTIME [facility] Last Admin: 10/15/20 21:17 Dose: 35 units Documented by: Lisinopril (Lisinopril 5 Mg Tab) 5 mg PO DAILY [facility] Last Admin: 10/16/20 08:49 Dose: 5 mg Documented by: Magnesium Hydroxide (Magnesium Hydroxide 400 Mg/5 Ml Susp 30 Ml Cup) 30 ml PO Q12H PRN PRN Reason: Constipation Last Admin: 10/15/20 03:12 Dose: 30 ml Documented by: Metformin HCl (Metformin 500 Mg Tab) 1,000 mg PO BIDMEALS [facility] Last Admin: 10/16/20 08:46 Dose: 1,000 mg Documented by: Metoprolol Tartrate (Metoprolol Tartrate 50 Mg Tab) 50 mg PO BID [facility] Last Admin: 10/16/20 08:51 Dose: 50 mg Documented by: Multivitamins/Minerals (Multivitamins With Iron/Calcium/Folic Acid/Minerals Tab) 1 tab PO DAILY [facility] Last Admin: 10/16/20 08:48 Dose: 1 tab Documented by: Nicotine (Nicotine 21 Mg/24 Hr Patch) 21 mg TRDERM DAILY [facility] Last Admin: 10/16/20 08:53 Dose: 21 mg Documented by: Ondansetron HCl (Ondansetron 4 Mg/2 Ml Sdv) 4 mg IV Q6H PRN PRN Reason: Nausea/Vomiting Last Admin: 10/10/20 14:11 Dose: 4 mg Documented by: Ondansetron HCl (Ondansetron 4 Mg Tab.Dis) 4 mg PO Q6H PRN PRN Reason: Nausea able to take PO Last Admin: 10/11/20 13:47 Dose: 4 mg Documented by: Pravastatin Sodium (Pravastatin 20 Mg Tab) 40 mg PO BEDTIME [facility] Last Admin: 10/15/20 21:16 Dose: 40 mg Documented by: Senna/Docusate Sodium (Docusate Sodium/Sennosides 50-8.6 Mg Tab) 1 tab PO BID [facility] Last Admin: 10/16/20 08:48 Dose: 1 tab Documented by: Sodium Chloride (Sodium Chloride 1 Gm Tab) 1 gm PO BID [facility] Last Admin: 10/16/20 08:47 Dose: 1 gm Documented by: Discontinued Medications Hydrocodone Bitart/Acetaminophen (Acetaminophen/Hydrocodone 325-5 Mg Tab) 1 tab PO Q4H PRN PRN Reason: pain Last Admin: 10/13/20 08:03 Dose: 1 tab Documented by: Hydrocodone Bitart/Acetaminophen (Acetaminophen/Hydrocodone 325-5 Mg Tab) 1 - 2 tab PO Q4H PRN PRN Reason: pain Last Admin: 10/13/20 19:30 Dose: 2 tab Documented by: Bupivacaine HCl (Bupivacaine 0.5% 50 Ml Mdv) Confirm Administered Dose 50 ml .RO JONO .STK-MED ONE Stop: 10/10/20 17:04 Last Admin: 10/10/20 17:22 Dose: 35 ml Documented by: Bupivacaine HCl/Epinephrine Bitart (Bupivacaine 0.5%/Epinephrine 1:200,000 50 Ml Mdv) Confirm Administered Dose 50 ml .ROUTE .STK-MED ONE Stop: 10/10/20 13:20 Dexamethasone (Dexamethasone 4 Mg/Ml Sdv) Confirm Administered Dose 4 mg .ROUTE .STK-MED ONE Stop: 10/10/20 16:51 Fentanyl (Fentanyl 100 Mcg/2 Ml Sdv) 50 mcg IM ONETIME ONE Stop: 10/10/20 10:39 Last Admin: 10/10/20 11:27 Dose: 50 mcg Documented by: Fentanyl (Fentanyl 250 Mcg/5 Ml Sdv) Confirm Administered Dose 250 mcg .ROUTE .STK-MED ONE Stop: 10/10/20 16:40 Furosemide (Furosemide 20 Mg/2 Ml Vial) 10 mg IVPUSH DAILY [facility] Last Admin: 10/13/20 05:25 Dose: 10 mg Documented by: Furosemide (Furosemide 20 Mg/2 Ml Vial) 20 mg IVPUSH ONETIME ONE Stop: 10/13/20 12:01 Last Admin: 10/13/20 13:09 Dose: 20 mg Documented by: Furosemide (Furosemide 40 Mg/4 Ml Vial) 40 mg IVPUSH NOW ONE Stop: 10/14/20 12:01 Last Admin: 10/14/20 11:44 Dose: 40 mg Documented by: Furosemide (Furosemide 40 Mg/4 Ml Vial) 40 mg IVPUSH NOW ONE Stop: 10/15/20 08:31 Last Admin: 10/15/20 08:50 Dose: 40 mg Documented by: Glycopyrrolate (Glycopyrrolate 0.2 Mg/Ml 5 Ml Mdv) Confirm Administered Dose 1 mg .ROUTE .STK-MED ONE Stop: 10/10/20 16:51 Hydromorphone HCl (Hydromorphone 0.5 Mg/0.5 Ml Syringe) 0.5 mg IVPUSH Q2H PRN PRN Reason: PAIN Lactated Ringer's (Ringers, Lactated) 1,000 mls @ 125 mls/hr IV ASDIRECTED [facility] Last Admin: 10/11/20 02:22 Dose: 125 mls/hr Documented by: Cefazolin Sodium/Dextrose 2 gm (/ Premix) 50 mls @ 100 mls/hr IV ONETIME ONE Stop: 10/10/20 16:29 Last Admin: 10/10/20 16:29 Dose: 100 mls/hr Documented by: Sodium Chloride (Normal Saline) 500 mls @ 999 mls/hr IV .BOLUS ONE Stop: 10/12/20 03:47 Last Admin: 10/12/20 03:24 Dose: 999 mls/hr Documented by: Sodium Chloride (Normal Saline) 500 mls @ 999 mls/hr IV .BOLUS ONE Stop: 10/12/20 06:54 Last Admin: 10/12/20 07:28 Dose: 999 mls/hr Documented by: Sodium Chloride (Normal Saline) 83 mls @ 3 mls/sec IV ONETIME ONE Stop: 10/14/20 09:24 Last Admin: 10/14/20 09:49 Dose: 3 mls/sec Documented by: Iopamidol (Iopamidol 755 Mg/Ml 100 Ml Bottle) 75 ml IV . DIRECTED [facility] Stop: 10/14/20 09:31 Last Admin: 10/14/20 09:49 Dose: 75 ml Documented by: Lisinopril (Lisinopril 5 Mg Tab) 5 mg PO DAILY [facility] Last Admin: 10/13/20 09:53 Dose: Not Given Documented by: Lorazepam (Lorazepam 2 Mg/Ml Sdv) 0.5 mg IVPUSH Q4H PRN PRN Reason: Nausea/Vomiting Melatonin (Melatonin 3 Mg Tab) 9 mg PO BEDTIME PRN PRN Reason: Sleep Neostigmine Methylsulfate (Neostigmine Methylsulfate 1 Mg/Ml 5 Ml Syringe) Confirm Administered Dose 5 mg .ROUTE .STK-MED ONE Stop: 10/10/20 16:51 Ondansetron HCl (Ondansetron 4 Mg/2 Ml Sdv) Confirm Administered Dose 4 mg .ROUTE .STK-MED ONE Stop: 10/10/20 16:51 Oxycodone HCl (Oxycodone 5 Mg Tab) 5 - 10 mg PO Q4H PRN PRN Reason: Pain Last Admin: 10/11/20 22:40 Dose: 10 mg Documented by: Propofol (Propofol 200 Mg/20 Ml Sdv) Confirm Administered Dose 200 mg .ROUTE .STK-MED ONE Stop: 10/10/20 16:51 Rocuronium [place] (Rocuronium 50 Mg/5 Ml Vial) Confirm Administered Dose 50 mg .ROUTE .STK-MED ONE Stop: 10/10/20 16:51 Sodium Chloride (Sodium Chloride 0.9% 10 Ml Syringe) 10 ml FLUSH ONETIME PRN PRN Reason: PER RADIOLOGY PROTOCOL Stop: 10/14/20 09:24 Last Admin: 10/14/20 09:49 Dose: 10 ml Documented by: Succinylcholine Chloride (Succinylcholine 200 Mg/10 Ml Mdv) Confirm Administered Dose 200 mg .ROUTE .STK-MED ONE Stop: 10/10/20 16:51 Tizanidine HCl (Tizanidine 4 Mg Tab) 4 mg PO Q8H PRN PRN Reason: Muscle Spasm - Exam Quality Assessment: Supplemental Oxygen, DVT Prophylaxis General: Alert, Oriented, Cooperative, Mild Distress Lungs: Clear to Auscultation, Normal Respiratory Effort, Decreased Breath Sounds Cardiovascular: Regular Rate, Regular Rhythm, No Murmurs GI/Abdominal Exam: Soft, Non-Tender, No Organomegaly, No Distention Extremities: Non-Tender, No Pedal Edema - Patient Data Lab Results Last 24 hrs: Laboratory Results - last 24 hr 10/15/20 10/15/20 Range/Units 16:42 21:08 POC Glucose 135 H 220 H (74-106) mg/dL Result Diagrams: 10/15/20 05:30 10/15/20 05:30 Sepsis Event Note - Evaluation Sepsis Screening Result: No Definite Risk - Focused Exam Vital Signs: Vital Signs Temp Pulse Pulse Resp BP BP BP 10/16/20 13:10 10/16/20 11:00 95.0 F L 51 L 18 113/71 10/16/20 10:45 72 10/16/20 08:51 70 137/68 10/16/20 08:49 137/68 10/16/20 07:14 10/16/20 07:00 95.1 F L 69 14 128/52 L 10/16/20 03:00 97.9 F 71 18 152/69 H Pulse Ox 10/16/20 13:10 97 10/16/20 11:00 93 L 10/16/20 10:45 10/16/20 08:51 10/16/20 08:49 10/16/20 07:14 96 10/16/20 07:00 90 L 10/16/20 03:00 94 L - Problem List Review Problem List Initiated/Reviewed/Updated: Yes - My Orders Last 24 Hours: My Active Orders 10/16/20 13:48 Furosemide [Lasix] 40 mg IVPUSH NOW ONE 10/17/20 05:00 BASIC METABOLIC PANEL,BMP [CHEM] Timed MAGNESIUM [CHEM] Timed - Plan Plan:: ASSESSMENT AND PLAN Subcapital fracture of the right hip-secondary to mechanical fall. Surgical intervention completed 10/10 with cannulated screw placement x3. 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 -Continue to supplement oxygen, wean towards baseline as able -Continue home medications -As needed nebulizers Coronary artery disease-history of previous bypass grafting. No active anginal symptoms. -Continue medical management Paroxysmal atrial fibrillation-chronically anticoagulated. -apixaban -Continue beta-asha Peripheral vascular disease-severe reduction in in [place] with 0.4 noted on the right and 0.3 on the left. -Outpatient follow-up with interventional radiology -Continue medical management Tobacco dependence-encourage cessation -Nicotine patch Maintenance issues - -DVT prophylaxis-apixaban -GI prophylaxis-not indicated -Nutrition-consistent carbohydrates -Tanner catheter-placed in the emergency room for strict intake and output monitoring in a surgical patient, this needs to remain in place because of low urine output and low blood pressure in addition to diuresis. Disposition -I anticipate discharge to the longterm for subacute rehab after the hospital stay
[2020-10-16] MEDS ORDERED: Furosemide 40 MG/4 ML VIAL IVPUSH ONE (14:00)
--- NOTE | 2020-10-16 17:34 | PCM.EKG ---
#1 Interpretation EKG Date: 10/14/20 Time: 13:10 Rhythm: NSR Rate (Beats/Min): 72 [place]: Normal P-Wave: Present QRS: Other (Left ventricular hypertrophy with associated ST segment and T wave abnormalities) ST-T: Other (As above) QT: Normal Comparison: NA - No Prior EKG
[2020-10-16] MEDS: Pravastatin 20 MG Tab PO SCH (21:49)
[2020-10-16] MEDS: Insulin Glargine,Human Rec. Analog 100 Units/ML 3 ML Pen SUBCUT SCH (21:50)
[2020-10-17] MEDS: Albuterol/Ipratropium 3.0-0.5 MG/3 ML Neb Soln NEB SCH ×4 (07:11→21:28)
--- NOTE | 2020-10-17 08:04 | PCM.SURGPN ---
- General Info Date of Service: 10/17/20 Date of Surgery/Procedure: 10/10/20 POD#: 7 Post-Op Diagnosis: R subcapital impacted femoral fracture Functional Status: Reports: Pain Controlled, Tolerating Diet, Urinating - Review of Systems Pulmonary: Reports: Shortness of Breath (per baseline ) Cardiovascular: Reports: Dyspnea on Exertion Musculoskeletal: Reports: Leg Pain (right ) Skin: Reports: Bruising (R hip, R knee, R side of face/neck ) Neurological: Reports: No Symptoms Psychiatric: Reports: No Symptoms - Patient Data Vitals - Most Recent: Last Vital Signs Temp 96 F L 10/17/20 07:00 Pulse 82 10/17/20 07:11 Resp 16 10/17/20 07:00 BP 138/69 10/17/20 07:00 Pulse Ox 97 10/17/20 07:10 Weight - Most Recent: 126 lb 15.992 oz I&O - Last 24 Hours: Intake & Output 10/16/20 10/17/20 10/17/20 22:59 06:59 14:59 Intake Total 355 Output Total 650 Balance -295 Lab Results Last 24 Hrs: Laboratory Results - last 24 hr 10/16/20 10/17/20 Range/Units 21:44 04:35 Sodium 134 L (140-148) mmol/L Potassium 4.2 (3.6-5.2) mmol/L Chloride 95 L (100-108) mmol/L Carbon Dioxide 27 (21-32) mmol/L Anion Gap 16.2 H (5.0-14.0) mmol/L BUN 19 H (7-18) mg/dL Creatinine 0.9 (0.6-1.0) mg/dL Est Cr Clr Drug Dosing 51.38 mL/min Estimated GFR (MDRD) > 60 (>60) Glucose 170 H (74-106) mg/dL POC Glucose 107 H (74-106) mg/dL Calcium 8.7 (8.5-10.1) mg/dL Magnesium 1.6 L (1.8-2.4) mg/dL Med Orders - Current: Current Medications Acetaminophen (Acetaminophen 325 Mg Tab) 650 mg PO Q4H PRN PRN Reason: Pain (Mild 1-3)/fever Last Admin: 10/15/20 03:12 Dose: 650 mg Documented by: Hydrocodone Bitart/Acetaminophen (Acetaminophen/Hydrocodone 325-5 Mg Tab) 1 tab PO Q4H PRN PRN Reason: pain Last Admin: 10/16/20 03:55 Dose: 1 tab Documented by: Albuterol (Albuterol 0.083% 2.5 Mg/3 Ml Neb Soln) 2.5 mg NEB Q4H PRN PRN Reason: Shortness Of Breath/wheezing Last Admin: 10/13/20 03:18 Dose: 2.5 mg Documented by: Albuterol/Ipratropium (Albuterol/Ipratropium 3.0-0.5 Mg/3 Ml Neb Soln) 3 ml NEB QIDRT [facility] Last Admin: 10/17/20 07:11 Dose: 3 ml Documented by: Apixaban (Apixaban 5 Mg Tab) 5 mg PO BID [facility] Last Admin: 10/16/20 21:49 Dose: 5 mg Documented by: Aspirin (Aspirin 81 Mg Tab.Chew) 81 mg PO DAILY [facility] Last Admin: 10/16/20 08:47 Dose: 81 mg Documented by: Clopidogrel Bisulfate (Clopidogrel 75 Mg Tab) 75 mg PO DAILY [facility] Last Admin: 10/16/20 08:49 Dose: 75 mg Documented by: Cyanocobalamin (Cyanocobalamin (Vitamin B12) 1,000 Mcg Tab) 1,000 mcg PO DAILY [facility] Last Admin: 10/16/20 08:48 Dose: 1,000 mcg Documented by: Gabapentin (Gabapentin 300 Mg Cap) 300 mg PO TID [facility] Last Admin: 10/16/20 21:49 Dose: 300 mg Documented by: Insulin Glargine (Insulin Glargine,Human Rec. Analog 100 Units/Ml 3 Ml Pen) 35 units SUBCUT BEDTIME [facility] Last Admin: 10/16/20 21:50 Dose: 35 units Documented by: Lisinopril (Lisinopril 5 Mg Tab) 5 mg PO DAILY [facility] Last Admin: 10/16/20 08:49 Dose: 5 mg Documented by: Magnesium Hydroxide (Magnesium Hydroxide 400 Mg/5 Ml Susp 30 Ml Cup) 30 ml PO Q 12H PRN PRN Reason: Constipation Last Admin: 10/15/20 03:12 Dose: 30 ml Documented by: Metformin HCl (Metformin 500 Mg Tab) 1,000 mg PO BIDMEALS [facility] Last Admin: 10/16/20 17:34 Dose: 1,000 mg Documented by: Metoprolol Tartrate (Metoprolol Tartrate 50 Mg Tab) 50 mg PO BID [facility] Last Admin: 10/16/20 21:49 Dose: 50 mg Documented by: Multivitamins/Minerals (Multivitamins With Iron/Calcium/Folic Acid/Minerals Tab) 1 tab PO DAILY [facility] Last Admin: 10/16/20 08:48 Dose: 1 tab Documented by: Nicotine (Nicotine 21 Mg/24 Hr Patch) 21 mg TRDERM DAILY [facility] Last Admin: 10/16/20 08:53 Dose: 21 mg Documented by: Ondansetron HCl (Ondansetron 4 Mg/2 Ml Sdv) 4 mg IV Q6H PRN PRN Reason: Nausea/Vomiting Last Admin: 10/10/20 14:11 Dose: 4 mg Documented by: Ondansetron HCl (Ondansetron 4 Mg Tab.Dis) 4 mg PO Q6H PRN PRN Reason: Nausea able to take PO Last Admin: 10/11/20 13:47 Dose: 4 mg Documented by: Pravastatin Sodium (Pravastatin 20 Mg Tab) 40 mg PO BEDTIME [facility] Last Admin: 10/16/20 21:49 Dose: 40 mg Documented by: Senna/Docusate Sodium (Docusate Sodium/Sennosides 50-8.6 Mg Tab) 1 tab PO BID [facility] Last Admin: 10/16/20 21:50 Dose: 1 tab Documented by: Sodium Chloride (Sodium Chloride 1 Gm Tab) 1 gm PO BID [facility] Last Admin: 10/16/20 21:50 Dose: 1 gm Documented by: Discontinued Medications Hydrocodone Bitart/Acetaminophen (Acetaminophen/Hydrocodone 325-5 Mg Tab) 1 tab PO Q4H PRN PRN Reason: pain Last Admin: 10/13/20 08:03 Dose: 1 tab Documented by: Hydrocodone Bitart/Acetaminophen (Acetaminophen/Hydrocodone 325-5 Mg Tab) 1 - 2 tab PO Q4H PRN PRN Reason: pain Last Admin: 10/13/20 19:30 Dose: 2 tab Documented by: Bupivacaine HCl (Bupivacaine 0.5% 50 Ml Mdv) Confirm Administered Dose 50 ml .ROUTE .STK-MED ONE Stop: 10/10/20 17:04 Last Admin: 10/10/20 17:22 Dose: 35 ml Documented by: Bupivacaine HCl/Epinephrine Bitart (Bupivacaine 0.5%/Epinephrine 1:200,000 50 Ml Mdv) Confirm Administered Dose 50 ml .ROUTE .STK-MED ONE Stop: 10/10/20 13:20 Dexamethasone (Dexamethasone 4 Mg/Ml Sdv) Confirm Administered Dose 4 mg .ROUTE .STK-MED ONE Stop: 10/10/20 16:51 Fentanyl (Fentanyl 100 Mcg/2 Ml Sdv) 50 mcg IM ONETIME ONE Stop: 10/10/20 10:39 Last Admin: 10/10/20 11:27 Dose: 50 mcg Documented by: Fentanyl (Fentanyl 250 Mcg/5 Ml Sdv) Confirm Administered Dose 250 mcg .ROUTE .STK-MED ONE Stop: 10/10/20 16:40 Furosemide (Furosemide 20 Mg/2 Ml Vial) 10 mg IVPUSH DAILY [facility] Last Admin: 10/13/20 05:25 Dose: 10 mg Documented by: Furosemide (Furosemide 20 Mg/2 Ml Vial) 20 mg IVPUSH ONETIME ONE Stop: 10/13/20 12:01 Last Admin: 10/13/20 13:09 Dose: 20 mg Documented by: Furosemide (Furosemide 40 Mg/4 Ml Vial) 40 mg IVPUSH NOW ONE Stop: 10/14/20 12:01 Last Admin: 10/14/20 11:44 Dose: 40 mg Documented by: Furosemide (Furosemide 40 Mg/4 Ml Vial) 40 mg IVPUSH NOW ONE Stop: 10/15/20 08:31 Last Admin: 10/15/20 08:50 Dose: 40 mg Documented by: Furosemide (Furosemide 40 Mg/4 Ml Vial) 40 mg IVPUSH NOW ONE Stop: 10/16/20 14:01 Last Admin: 10/16/20 15:47 Dose: 40 mg Documented by: Glycopyrrolate (Glycopyrrolate 0.2 Mg/Ml 5 Ml Mdv) Confirm Administered Dose 1 mg .ROUTE .STK-MED ONE Stop: 10/10/20 16:51 Hydromorphone HCl (Hydromorphone 0.5 Mg/0.5 Ml Syringe) 0.5 mg IVPUSH Q2H PRN PRN Reason: PAIN Lactated Ringer's (Ringers, Lactated) 1,000 mls @ 125 mls/hr IV ASDIRECTED [facility] Last Admin: 10/11/20 02:22 Dose: 125 mls/hr Documented by: Cefazolin Sodium/Dextrose 2 gm (/ Premix) 50 mls @ 100 mls/hr IV ONETIME ONE Stop: 10/10/20 16:29 Last Admin: 10/10/20 16:29 Dose: 100 mls/hr Documented by: Sodium Chloride (Normal Saline) 500 mls @ 999 mls/hr IV .BOLUS ONE Stop: 10/12/20 03:47 Last Admin: 10/12/20 03:24 Dose: 999 mls/hr Documented by: Sodium Chloride (Normal Saline) 500 mls @ 999 mls/hr IV .BOLUS ONE Stop: 10/12/20 06:54 Last Admin: 10/12/20 07:28 Dose: 999 mls/hr Documented by: Sodium Chloride (Normal Saline) 83 mls @ 3 mls/sec IV ONETIME ONE Stop: 10/14/20 09:24 Last Admin: 10/14/20 09:49 Dose: 3 mls/sec Documented by: Iopamidol (Iopamidol 755 Mg/Ml 100 Ml Bottle) 75 ml IV . DIRECTED [facility] Stop: 10/14/20 09:31 Last Admin: 10/14/20 09:49 Dose: 75 ml Documented by: Lisinopril (Lisinopril 5 Mg Tab) 5 mg PO DAILY [facility] Last Admin: 10/13/20 09:53 Dose: Not Given Documented by: Lorazepam (Lorazepam 2 Mg/Ml Sdv) 0.5 mg IVPUSH Q4H PRN PRN Reason: Nausea/Vomiting Melatonin (Melatonin 3 Mg Tab) 9 mg PO BEDTIME PRN PRN Reason: Sleep Neostigmine Methylsulfate (Neostigmine Methylsulfate 1 Mg/Ml 5 Ml Syringe) Confirm Administered Dose 5 mg .ROUTE .STK-MED ONE Stop: 10/10/20 16:51 Ondansetron HCl (Ondansetron 4 Mg/2 Ml Sdv) Confirm Administered Dose 4 mg .ROUTE .STK-MED ONE Stop: 10/10/20 16:51 Oxycodone HCl (Oxycodone 5 Mg Tab) 5 - 10 mg PO Q4H PRN PRN Reason: Pain Last Admin: 10/11/20 22:40 Dose: 10 mg Documented by: Propofol (Propofol 200 Mg/20 Ml Sdv) Confirm Administered Dose 200 mg .ROUTE .STK-MED ONE Stop: 10/10/20 16:51 Rocuronium [place] (Rocuronium 50 Mg/5 Ml Vial) Confirm Administered Dose 50 mg .ROUTE .STK-MED ONE Stop: 10/10/20 16:51 Sodium Chloride (Sodium Chloride 0.9% 10 Ml Syringe) 10 ml FLUSH ONETIME PRN PRN Reason: PER RADIOLOGY PROTOCOL Stop: 10/14/20 09:24 Last Admin: 10/14/20 09:49 Dose: 10 ml Documented by: Succinylcholine Chloride (Succinylcholine 200 Mg/10 Ml Mdv) Confirm Administered Dose 200 mg .ROUTE .STK-MED ONE Stop: 10/10/20 16:51 Tizanidine HCl (Tizanidine 4 Mg Tab) 4 mg PO Q8H PRN PRN Reason: Muscle Spasm - Exam Wound/Incisions: Dressing Dry and Intact, No Drainage Quality Assessment: Supplemental Oxygen (8L), DVT Prophylaxis General: Alert, Oriented, No Acute Distress Extremities: Joint Swelling (R hip), Leg Pain (right ), Limited Range of Motion, Increased Warmth Skin: Warm, Dry, Intact, Ecchymosis (R hip, R knee, R side of face & neck ) Psy/Mental Status: Alert, Normal Affect Sepsis Event Note - Evaluation Sepsis Screening Result: No Definite Risk - Focused Exam Vital Signs: Vital Signs Temp Pulse Pulse Resp BP BP BP 10/17/20 07:11 82 10/17/20 07:10 10/17/20 07:00 96 F L 74 16 138/69 10/17/20 02:00 96.8 F L 10/17/20 01:54 10/16/20 22:18 96.4 F L 82 18 148/56 H 10/16/20 21:49 82 130/59 L Pulse Ox 10/17/20 07:11 10/17/20 07:10 97 10/17/20 07:00 97 10/17/20 02:00 10/17/20 01:54 97 10/16/20 22:18 93 L 10/16/20 21:49 - Problem List & Annotations (1) Acute and chronic respiratory failure with hypoxia SNOMED Code(s): 72154248, 744556069 Code(s): J96.21 - ACUTE AND CHRONIC RESPIRATORY FAILURE WITH HYPOXIA Status: Acute Current Visit: Yes (2) Status post-operative repair of hip fracture SNOMED Code(s): 081183947, 222367465 Code(s): Z98.890 - OTHER SPECIFIED POSTPROCEDURAL STATES; Z87.81 - PERSONAL HISTORY OF (HEALED) TRAUMATIC FRACTURE Status: Acute Current Visit: Yes (3) Postoperative anemia SNOMED Code(s): 848949798, 665452115 Code(s): D64.9 - ANEMIA, UNSPECIFIED Status: Acute Current Visit: Yes - Problem List Review Problem List Initiated/Reviewed/Updated: Yes - My Orders Last 24 Hours: Medication Orders Acetaminophen (Acetaminophen 325 Mg Tab) 650 mg PO Q4H PRN PRN Reason: Pain (Mild 1-3)/fever Last Admin: 10/15/20 03:12 Dose: 650 mg Documented by: Admin: 10/14/20 11:44 Dose: 650 mg Documented by: Admin: 10/13/20 08:02 Dose: 650 mg Documented by: CLAUDIA Hydrocodone Bitart/Acetaminophen (Acetaminophen/Hydrocodone 325-5 Mg Tab) 1 tab PO Q4H PRN PRN Reason: pain Last Admin: 10/16/20 03:55 Dose: 1 tab Documented by: Admin: 10/15/20 17:04 Dose: 1 tab Documented by: Admin: 10/15/20 12:12 Dose: 1 tab Documented by: ROMY Albuterol (Albuterol 0.083% 2.5 Mg/3 Ml Neb Soln) 2.5 mg NEB Q4H PRN PRN Reason: Shortness Of Breath/wheezing Last Admin: 10/13/20 03:18 Dose: 2.5 mg Documented by: Admin: 10/12/20 02:38 Dose: 2.5 mg Documented by: Admin: 10/11/20 18:31 Dose: 2.5 mg Documented by: LISET Albuterol/Ipratropium (Albuterol/Ipratropium 3.0-0.5 Mg/3 Ml Neb Soln) 3 ml NEB QIDRT [facility] Last Admin: 10/17/20 07:11 Dose: 3 ml Documented by: Admin: 10/16/20 21:52 Dose: Not Given Documented by: Admin: 10/16/20 15:01 Dose: Not Given Documented by: Admin: 10/16/20 10:45 Dose: 3 ml Documented by: Admin: 10/16/20 07:15 Dose: 3 ml Documented by: Admin: 10/15/20 21:24 Dose: 3 ml Documented by: Admin: 10/15/20 14:35 Dose: Not Given Documented by: Admin: 10/15/20 10:50 Dose: 3 ml Documented by: Admin: 10/15/20 07:23 Dose: 3 ml Documented by: Admin: 10/14/20 20:17 Dose: 3 ml Documented by: Admin: 10/14/20 14:47 Dose: 3 ml Documented by: Admin: 10/14/20 10:49 Dose: 3 ml Documented by: Admin: 10/14/20 07:45 Dose: 3 ml Documented by: Admin: 10/13/20 21:45 Dose: 3 ml Documented by: Admin: 10/13/20 14:27 Dose: 3 ml Documented by: Admin: 10/13/20 11:10 Dose: Not Given Documented by: Admin: 10/13/20 07:08 Dose: 3 ml Documented by: Admin: 10/12/20 20:38 Dose: 3 ml Documented by: Admin: 10/12/20 14:33 Dose: 3 ml Documented by: Admin: 10/12/20 10:38 Dose: 3 ml Documented by: Admin: 10/12/20 07:10 Dose: 3 ml Documented by: Admin: 10/11/20 21:15 Dose: 3 ml Documented by: Admin: 10/11/20 14:46 Dose: 3 ml Documented by: Admin: 10/11/20 10:47 Dose: 3 ml Documented by: Admin: 10/11/20 07:09 Dose: 3 ml Documented by: Admin: 10/10/20 21:38 Dose: 3 ml Documented by: Admin: 10/10/20 14:43 Dose: 3 ml Documented by: DIEGO Apixaban (Apixaban 5 Mg Tab) 5 mg PO BID [facility] Admin: 10/16/20 21:49 Dose: 5 mg Documented by: Admin: 10/16/20 08:47 Dose: 5 mg Documented by: Admin: 10/15/20 21:17 Dose: 5 mg Documented by: Admin: 10/15/20 08:51 Dose: 5 mg Documented by: Admin: 10/14/20 20:08 Dose: 5 mg Documented by: Admin: 10/14/20 08:26 Dose: 5 mg Documented by: Admin: 10/13/20 21:46 Dose: 5 mg Documented by: Admin: 10/13/20 09:53 Dose: 5 mg Documented by: Admin: 10/12/20 20:38 Dose: 5 mg Documented by: MICHAEL Aspirin (Aspirin 81 Mg Tab.Chew) 81 mg PO DAILY [facility] Admin: 10/16/20 08:47 Dose: 81 mg Documented by: Admin: 10/15/20 08:52 Dose: 81 mg Documented by: Admin: 10/14/20 08:25 Dose: 81 mg Documented by: Admin: 10/13/20 09:52 Dose: 81 mg Documented by: Admin: 10/12/20 12:22 Dose: 81 mg Documented by: Admin: 10/11/20 09:10 Dose: 81 mg Documented by: GRADY Clopidogrel Bisulfate (Clopidogrel 75 Mg Tab) 75 mg PO DAILY [facility] Admin: 10/16/20 08:49 Dose: 75 mg Documented by: Admin: 10/15/20 08:51 Dose: 75 mg Documented by: Admin: 10/14/20 08:28 Dose: 75 mg Documented by: Admin: 10/13/20 09:53 Dose: 75 mg Documented by: Admin: 10/12/20 12:22 Dose: 75 mg Documented by: Admin: 10/11/20 09:10 Dose: 75 mg Documented by: GRADY Cyanocobalamin (Cyanocobalamin (Vitamin B12) 1,000 Mcg Tab) 1,000 mcg PO DAILY [facility] Admin: 10/16/20 08:48 Dose: 1,000 mcg Documented by: Admin: 10/15/20 08:52 Dose: 1,000 mcg Documented by: Admin: 10/14/20 08:29 Dose: 1,000 mcg Documented by: Admin: 10/13/20 09:52 Dose: 1,000 mcg Documented by: Admin: 10/12/20 09:50 Dose: 1,000 mcg Documented by: Admin: 10/11/20 09:10 Dose: 1,000 mcg Documented by: GRADY Gabapentin (Gabapentin 300 Mg Cap) 300 mg PO TID [facility] Admin: 10/16/20 21:49 Dose: 300 mg Documented by: Admin: 10/16/20 13:43 Dose: 300 mg Documented by: Admin: 10/16/20 08:47 Dose: 300 mg Documented by: Admin: 10/15/20 21:16 Dose: 300 mg Documented by: Admin: 10/15/20 14:41 Dose: 300 mg Documented by: Admin: 10/15/20 08:51 Dose: 300 mg Documented by: Admin: 10/14/20 20:08 Dose: 300 mg Documented by: Admin: 10/14/20 14:32 Dose: 300 mg Documented by: Admin: 10/14/20 08:27 Dose: 300 mg Documented by: Admin: 10/13/20 21:47 Dose: 300 mg Documented by: Admin: 10/13/20 14:53 Dose: 300 mg Documented by: Admin: 10/13/20 09:52 Dose: 300 mg Documented by: Admin: 10/12/20 20:38 Dose: 300 mg Documented by: Admin: 10/12/20 15:27 Dose: 300 mg Documented by: Admin: 10/12/20 09:50 Dose: 300 mg Documented by: Admin: 10/11/20 21:18 Dose: 300 mg Documented by: Admin: 10/11/20 13:47 Dose: 300 mg Documented by: Admin: 10/11/20 09:10 Dose: 300 mg Documented by: Admin: 10/10/20 21:42 Dose: 300 mg Documented by: Admin: 10/10/20 15:00 Dose: Not Given Documented by: GRADY Insulin Glargine (Insulin Glargine,Human Rec. Analog 100 Units/Ml 3 Ml Pen) 35 units SUBCUT BEDTIME [facility] Last Admin: 10/16/20 21:50 Dose: 35 units Documented by: ADAM Cosigned by: RICHARD Admin: 10/15/20 21:17 Dose: 35 units Documented by: ADAM Cosigned by: MALDONADO Admin: 10/14/20 20:11 Dose: 35 units Documented by: CARTER Cosigned by: HARISH Admin: 10/13/20 21:55 Dose: 35 units Documented by: MICHAEL Cosigned by: NANO Admin: 10/12/20 20:45 Dose: 20 units Documented by: MICHAEL Cosigned by: JOSE Admin: 10/11/20 21:22 Dose: 35 units Documented by: LISET Cosigned by: JOSE Admin: 10/10/20 21:41 Dose: 35 units Documented by: BETITO Cosigned by: JOSE Lisinopril (Lisinopril 5 Mg Tab) 5 mg PO DAILY [facility] Last Admin: 10/16/20 08:49 Dose: 5 mg Documented by: Admin: 10/15/20 09:26 Dose: 5 mg Documented by: Admin: 10/14/20 11:53 Dose: 5 mg Documented by: MIRTA Magnesium Hydroxide (Magnesium Hydroxide 400 Mg/5 Ml Susp 30 Ml Cup) 30 ml PO Q12H PRN PRN Reason: Constipation Last Admin: 10/15/20 03:12 Dose: 30 ml Documented by: Admin: 10/13/20 19:30 Dose: 30 ml Documented by: Admin: 10/12/20 20:39 Dose: 30 ml Documented by: MICHAEL Metformin HCl (Metformin 500 Mg Tab) 1,000 mg PO BIDMEALS [facility] Last Admin: 10/16/20 17:34 Dose: 1,000 mg Documented by: Admin: 10/16/20 08:46 Dose: 1,000 mg Documented by: Admin: 10/15/20 17:05 Dose: 1,000 mg Documented by: Admin: 10/15/20 08:51 Dose: 1,000 mg Documented by: Admin: 10/14/20 19:45 Dose: 1,000 mg Documented by: Admin: 10/14/20 08:25 Dose: 1,000 mg Documented by: Admin: 10/13/20 17:47 Dose: 1,000 mg Documented by: Admin: 10/13/20 09:52 Dose: 1,000 mg Documented by: Admin: 10/12/20 18:04 Dose: 1,000 mg Documented by: Admin: 10/12/20 09:49 Dose: 1,000 mg Documented by: Admin: 10/11/20 16:54 Dose: 1,000 mg Documented by: Admin: 10/11/20 09:10 Dose: 1,000 mg Documented by: GRADY Metoprolol Tartrate (Metoprolol Tartrate 50 Mg Tab) 50 mg PO BID [facility] Admin: 10/16/20 21:49 Dose: 50 mg Documented by: Admin: 10/16/20 08:51 Dose: 50 mg Documented by: Admin: 10/15/20 21:16 Dose: 50 mg Documented by: Admin: 10/15/20 08:55 Dose: 50 mg Documented by: Admin: 10/14/20 20:09 Dose: 50 mg Documented by: Admin: 10/14/20 08:26 Dose: 50 mg Documented by: Admin: 10/13/20 21:46 Dose: Not Given Documented by: Admin: 10/13/20 09:54 Dose: Not Given Documented by: Admin: 10/12/20 20:56 Dose: Not Given Documented by: Admin: 10/12/20 11:47 Dose: Not Given Documented by: Admin: 10/11/20 21:19 Dose: 50 mg Documented by: Admin: 10/11/20 09:11 Dose: 50 mg Documented by: Admin: 10/10/20 21:49 Dose: 50 mg Documented by: BETITO Multivitamins/Minerals (Multivitamins With Iron/Calcium/Folic Acid/Minerals Tab) 1 tab PO DAILY [facility] Last Admin: 10/16/20 08:48 Dose: 1 tab Documented by: Admin: 10/15/20 08:52 Dose: 1 tab Documented by: Admin: 10/14/20 08:28 Dose: 1 tab Documented by: Admin: 10/13/20 09:52 Dose: 1 tab Documented by: Admin: 10/12/20 09:50 Dose: 1 tab Documented by: Admin: 10/11/20 09:10 Dose: 1 tab Documented by: GRADY Nicotine (Nicotine 21 Mg/24 Hr Patch) 21 mg TRDERM DAILY [facility] Last Admin: 10/16/20 08:53 Dose: 21 mg Documented by: Admin: 10/15/20 08:52 Dose: 21 mg Documented by: Admin: 10/14/20 08:26 Dose: 21 mg Documented by: Admin: 10/13/20 09:53 Dose: 21 mg Documented by: Admin: 10/12/20 09:49 Dose: 21 mg Documented by: Admin: 10/11/20 09:14 Dose: 21 mg Documented by: Admin: 10/10/20 15:14 Dose: 21 mg Documented by: GRADY Ondansetron HCl (Ondansetron 4 Mg/2 Ml Sdv) 4 mg IV Q6H PRN PRN Reason: Nausea/Vomiting Last Admin: 10/10/20 14:11 Dose: 4 mg Documented by: GRADY Ondansetron HCl (Ondansetron 4 Mg Tab.Dis) 4 mg PO Q6H PRN PRN Reason: Nausea able to take PO Last Admin: 10/11/20 13:47 Dose: 4 mg Documented by: GRADY Pravastatin Sodium (Pravastatin 20 Mg Tab) 40 mg PO BEDTIME [facility] Last Admin: 10/16/20 21:49 Dose: 40 mg Documented by: Admin: 10/15/20 21:16 Dose: 40 mg Documented by: Admin: 10/14/20 20:08 Dose: 40 mg Documented by: Admin: 10/13/20 21:52 Dose: 40 mg Documented by: Admin: 10/12/20 20:39 Dose: 40 mg Documented by: Admin: 10/11/20 21:18 Dose: 40 mg Documented by: Admin: 10/10/20 21:42 Dose: 40 mg Documented by: BETITO Senna/Docusate Sodium (Docusate Sodium/Sennosides 50-8.6 Mg Tab) 1 tab PO BID [facility] Last Admin: 10/16/20 21:50 Dose: 1 tab Documented by: Admin: 10/16/20 08:48 Dose: 1 tab Documented by: Admin: 10/15/20 21:17 Dose: 1 tab Documented by: Admin: 10/15/20 08:52 Dose: 1 tab Documented by: Admin: 10/14/20 20:08 Dose: 1 tab Documented by: Admin: 10/14/20 08:28 Dose: 1 tab Documented by: Admin: 10/13/20 21:53 Dose: 1 tab Documented by: Admin: 10/13/20 09:53 Dose: 1 tab Documented by: Admin: 10/12/20 20:39 Dose: 1 tab Documented by: Admin: 10/12/20 09:50 Dose: 1 tab Documented by: Admin: 10/11/20 21:18 Dose: 1 tab Documented by: Admin: 10/11/20 09:10 Dose: 1 tab Documented by: Admin: 10/10/20 21:43 Dose: 1 tab Documented by: BETITO Sodium Chloride (Sodium Chloride 1 Gm Tab) 1 gm PO BID [facility] Last Admin: 10/16/20 21:50 Dose: 1 gm Documented by: Admin: 10/16/20 08:47 Dose: 1 gm Documented by: Admin: 10/15/20 21:16 Dose: 1 gm Documented by: Admin: 10/15/20 08:51 Dose: 1 gm Documented by: Admin: 10/14/20 20:08 Dose: 1 gm Documented by: Admin: 10/14/20 08:28 Dose: 1 gm Documented by: Admin: 10/13/20 21:52 Dose: 1 gm Documented by: Admin: 10/13/20 09:53 Dose: 1 gm Documented by: Admin: 10/12/20 20:39 Dose: 1 gm Documented by: Admin: 10/12/20 09:50 Dose: 1 gm Documented by: Admin: 10/11/20 21:18 Dose: 1 gm Documented by: Admin: 10/11/20 09:10 Dose: 1 gm Documented by: Admin: 10/10/20 21:43 Dose: 1 gm Documented by: BETITO - Assessment Assessment (Free Text/Narrative):: Patient is a 70 y/o female, s/p right subcapital impacted femoral fracture, repaired with 3 cannulated screws. Patient is POD#7. Required less supplemental O2 throughout yesterday, but increased need overnight, currently on 8 L to maintain O2 saturations >90%. Denied shortness of breath at rest, endorsed increased dyspnea with activity. Has not been using incentive spirometer, despite encouragement by staff. Declined again this morning upon my request. Denied nausea. Tolerating consistent carbohydrate diet. POC glucoses remain jessi vated. Tanner discontinued on POD#5, has been getting up to commode since with x2 assist. Per PT notes, confused as to why she couldn't stay seated on the commode and eat there yesterday. Has demonstrated intermittent confusion and agitation throughout hospital stay. Patient laying on R side in bed this morning, denied pain in R hip laying on this side at rest. Denied numbness or tingling of R LE. Worked with OT and PT services yesterday, declined OTs attempts to trial adaptive equipment for ADLs. With PT, ambulated 5 ft, and then 3 ft with FWW and x2 assist for safety. Increased to WBAT on R LE on POD#6. Denied pain with WBAT ambulation yesterday. Did desaturate with ambulation to the 70s on 4.5L; upon rest, able to recover back to >90%. Labs and EKG from the past 24 hours were reviewed. Exam: A&Ox3. R hip incision well approximated and intact. Steristrips intact above incision. No surrounding erythema nor active drainage to incision. Mild warmth and fullness to palpation around R hip incision. Very tender to palpation of R hip. Hematoma present on R hip. Ecchymosis on lateral inferior aspect of R knee, R side of face and neck. No significant pedal edema. R calf is soft and supple. Tibialis posterior pulse appreciated, 2+. Plan: * Hospitalist to continue medical management of patient * R hip dressing removed this morning. May leave incision without dressing. Okay for nursing to apply new dressing if exposed area or steri strips are bothersome to patient * Educated on the importance of incentive spirometer and encouraged use hourly * Continue DVT/VTE mechanical prophylaxis with bilateral LE SCDs and chemical prophylaxis with home Apixiban dose * Continue with current pain regimen * Patient to participate in daily PT and OT services while in the hospital; WBAT on R LE. Encouraged up to chairs for all meals, pending stable BP and O2 saturations * Ambulation status remains very limited at this time. Dependent on x2 assist for safety with transfers and ambulation. Patient would greatly benefit from additional rehab at SNF upon discharge. Anticipate discharge to SNF when medically stable
[2020-10-17] MEDS: Clopidogrel 75 MG Tab PO SCH (09:01)
[2020-10-17] MEDS: Nicotine 21 MG/24 Hr Patch TRDERM SCH (09:01)
[2020-10-17] MEDS: metFORMIN 500 MG Tab PO SCH ×2 (09:01→16:52)
[2020-10-17] MEDS: Multivitamins with Iron/Calcium/Folic Acid/Minerals Tab PO SCH (09:01)
[2020-10-17] MEDS: Sodium Chloride 1 GM Tab PO SCH ×2 (09:01→20:12)
[2020-10-17] MEDS: Gabapentin 300 MG Cap PO SCH ×3 (09:01→20:12)
[2020-10-17] MEDS: Apixaban 5 MG Tab PO SCH ×2 (09:01→20:11)
[2020-10-17] MEDS: Lisinopril 5 MG Tab PO SCH (09:01)
[2020-10-17] MEDS: Aspirin 81 MG Tab.Chew PO SCH (09:01)
[2020-10-17] MEDS: Metoprolol Tartrate 50 MG Tab PO SCH ×2 (09:03→20:12)
[2020-10-17] MEDS: Cyanocobalamin (Vitamin B12) 1,000 MCG Tab PO SCH (09:07)
[2020-10-17] MEDS ORDERED: Furosemide 40 MG/4 ML VIAL IVPUSH ONE (09:10)
[2020-10-17] MEDS: Magnesium Oxide 400 MG Tab PO SCH ×2 (10:28→20:12)
[2020-10-17] MEDS: Acetaminophen/HYDROcodone 325-5 MG Tab PO PRN ×3 (10:49→21:28)
[2020-10-17] MEDS: Magnesium Sulfate/Water 2 GM/50 ML BAG IV SCH ×2 (10:51→15:08)
--- NOTE | 2020-10-17 11:47 | PCM.PN ---
- General Info Date of Service: 10/17/20 Subjective Update: Ms. Licona has been fairly stable over the last 24 hours. Continues to require higher than usual level of supplemental oxygen. She has remained hemodynamically stable and afebrile. Has shown ongoing evidence of intermittent confusion. Functional Status: Reports: Tolerating Diet, Urinating - Review of Systems General: Reports: Weakness, Fatigue. Denies: Fever, Chills Pulmonary: Reports: Shortness of Breath. Denies: Pleuritic Chest Pain, Cough, Sputum, Hemoptysis, Wheezing Cardiovascular: Reports: Dyspnea on Exertion. Denies: Chest Pain, Palpitations, Orthopnea, PND, Edema, Lightheadedness Gastrointestinal: Reports: No Symptoms Musculoskeletal: Reports: Joint Pain - Patient Data Vitals - Most Recent: Last Vital Signs Temp 96 F L 10/17/20 07:00 Pulse 82 10/17/20 11:00 Resp 16 10/17/20 07:00 BP 148/69 H 10/17/20 09:03 Pulse Ox 97 10/17/20 07:10 Weight - Most Recent: 126 lb 15.992 oz I&O - Last 24 Hours: Intake & Output 10/16/20 10/17/20 10/17/20 22:59 06:59 14:59 Intake Total 355 50 Output Total 650 Balance -295 50 Lab Results Last 24 Hours: Laboratory Results - last 24 hr 10/16/20 10/17/20 Range/Units 21:44 04:35 Sodium 134 L (140-148) mmol/L Potassium 4.2 (3.6-5.2) mmol/L Chloride 95 L (100-108) mmol/L Carbon Dioxide 27 (21-32) mmol/L Anion Gap 16.2 H (5.0-14.0) mmol/L BUN 19 H (7-18) mg/dL Creatinine 0.9 (0.6-1.0) mg/dL Est Cr Clr Drug Dosing 51.38 mL/min Estimated GFR (MDRD) > 60 (>60) Glucose 170 H (74-106) mg/dL POC Glucose 107 H (74-106) mg/dL Calcium 8.7 (8.5-10.1) mg/dL Magnesium 1.6 L (1.8-2.4) mg/dL Med Orders - Current: Current Medications Acetaminophen (Acetaminophen 325 Mg Tab) 650 mg PO Q4H PRN PRN Reason: Pain (Mild 1-3)/fever Last Admin: 10/15/20 03:12 Dose: 650 mg Documented by: Hydrocodone Bitart/Acetaminophen (Acetaminophen/Hydrocodone 325-5 Mg Tab) 1 tab PO Q4H PRN PRN Reason: pain Last Admin: 10/17/20 10:49 Dose: 1 tab Documented by: Albuterol (Albuterol 0.083% 2.5 Mg/3 Ml Neb Soln) 2.5 mg NEB Q4H PRN PRN Reason: Shortness Of Breath/wheezing Last Admin: 10/13/20 03:18 Dose: 2.5 mg Documented by: Albuterol/Ipratropium (Albuterol/Ipratropium 3.0-0.5 Mg/3 Ml Neb Soln) 3 ml NEB QIDRT [facility] Last Admin: 10/17/20 11:00 Dose: 3 ml Documented by: Apixaban (Apixaban 5 Mg Tab) 5 mg PO BID [facility] Last Admin: 10/17/20 09:01 Dose: 5 mg Documented by: Aspirin (Aspirin 81 Mg Tab.Chew) 81 mg PO DAILY [facility] Last Admin: 10/17/20 09:01 Dose: 81 mg Documented by: Clopidogrel Bisulfate (Clopidogrel 75 Mg Tab) 75 mg PO DAILY [facility] Last Admin: 10/17/20 09:01 Dose: 75 mg Documented by: Cyanocobalamin (Cyanocobalamin (Vitamin B12) 1,000 Mcg Tab) 1,000 mcg PO DAILY [facility] Last Admin: 10/17/20 09:07 Dose: 1,000 mcg Documented by: Gabapentin (Gabapentin 300 Mg Cap) 300 mg PO TID [facility] Last Admin: 10/17/20 09:01 Dose: 300 mg Documented by: Magnesium Sulfate (Magnesium Sulfate In Water 2 Gm/50 Ml) 2 gm in 50 mls @ 12.5 mls/hr IV Q6H [facility] Stop: 10/17/20 19:59 Last Admin: 10/17/20 10:51 Dose: 12.5 mls/hr Documented by: Insulin Glargine (Insulin Glargine,Human Rec. Analog 100 Units/Ml 3 Ml Pen) 35 units SUBCUT BEDTIME [facility] Last Admin: 10/16/20 21:50 Dose: 35 units Documented by: Lisinopril (Lisinopril 5 Mg Tab) 5 mg PO DAILY [facility] Last Admin: 10/17/20 09:01 Dose: 5 mg Documented by: Magnesium Hydroxide (Magnesium Hydroxide 400 Mg/5 Ml Susp 30 Ml Cup) 30 ml PO Q12H PRN PRN Reason: Constipation Last Admin: 10/15/20 03:12 Dose: 30 ml Documented by: Magnesium Oxide (Magnesium Oxide 400 Mg Tab) 400 mg PO BID [facility] Last Admin: 10/17/20 10:28 Dose: 400 mg Documented by: Metformin HCl (Metformin 500 Mg Tab) 1,000 mg PO BIDMEALS [facility] Last Admin: 10/17/20 09:01 Dose: 1,000 mg Documented by: Metoprolol Tartrate (Metoprolol Tartrate 50 Mg Tab) 50 mg PO BID [facility] Last Admin: 10/17/20 09:03 Dose: 50 mg Documented by: Multivitamins/Minerals (Multivitamins With Iron/Calcium/Folic Acid/Minerals Tab) 1 tab PO DAILY [facility] Last Admin: 10/17/20 09:01 Dose: 1 tab Documented by: Nicotine (Nicotine 21 Mg/24 Hr Patch) 21 mg TRDERM DAILY [facility] Last Admin: 10/17/20 09:01 Dose: 21 mg Documented by: Ondansetron HCl (Ondansetron 4 Mg/2 Ml Sdv) 4 mg IV Q6H PRN PRN Reason: Nausea/Vomiting Last Admin: 10/10/20 14:11 Dose: 4 mg Documented by: Ondansetron HCl (Ondansetron 4 Mg Tab.Dis) 4 mg PO Q6H PRN PRN Reason: Nausea able to take PO Last Admin: 10/11/20 13:47 Dose: 4 mg Documented by: Pravastatin Sodium (Pravastatin 20 Mg Tab) 40 mg PO BEDTIME [facility] Last Admin: 10/16/20 21:49 Dose: 40 mg Documented by: Senna/Docusate Sodium (Docusate Sodium/Sennosides 50-8.6 Mg Tab) 1 tab PO BID [facility] Last Admin: 10/17/20 09:07 Dose: Not Given Documented by: Sodium Chloride (Sodium Chloride 1 Gm Tab) 1 gm PO BID [facility] Last Admin: 10/17/20 09:01 Dose: 1 gm Documented by: Discontinued Medications Hydrocodone Bitart/Acetaminophen (Acetaminophen/Hydrocodone 325-5 Mg Tab) 1 tab PO Q4H PRN PRN Reason: pain Last Admin: 10/13/20 08:03 Dose: 1 tab Documented by: Hydrocodone Bitart/Acetaminophen (Acetaminophen/Hydrocodone 325-5 Mg Tab) 1 - 2 tab PO Q4H PRN PRN Reason: pain Last Admin: 10/13/20 19:30 Dose: 2 tab Documented by: Bupivacaine HCl (Bupivacaine 0.5% 50 Ml Mdv) Confirm Administered Dose 50 ml .ROUTE .STK-MED ONE Stop: 10/10/20 17:04 Last Admin: 10/10/20 17:22 Dose: 35 ml Documented by: Bupivacaine HCl/Epinephrine Bitart (Bupivacaine 0.5%/Epinephrine 1:200,000 50 Ml Mdv) Confirm Administered Dose 50 ml .ROUTE .STK-MED ONE Stop: 10/10/20 13:20 Dexamethasone (Dexamethasone 4 Mg/Ml Sdv) Confirm Administered Dose 4 mg .ROUTE .STK-MED ONE Stop: 10/10/20 16:51 Fentanyl (Fentanyl 100 Mcg/2 Ml Sdv) 50 mcg IM ONETIME ONE Stop: 10/10/20 10:39 Last Admin: 10/10/20 11:27 Dose: 50 mcg Documented by: Fentanyl (Fentanyl 250 Mcg/5 Ml Sdv) Confirm Administered Dose 250 mcg .ROUTE .STK-MED ONE Stop: 10/10/20 16:40 Furosemide (Furosemide 20 Mg/2 Ml Vial) 10 mg IVPUSH DAILY [facility] Last Admin: 10/13/20 05:25 Dose: 10 mg Documented by: Furosemide (Furosemide 20 Mg/2 Ml Vial) 20 mg IVPUSH ONETIME ONE Stop: 10/13/20 12:01 Last Admin: 10/13/20 13:09 Dose: 20 mg Documented by: Furosemide (Furosemide 40 Mg/4 Ml Vial) 40 mg IVPUSH NOW ONE Stop: 10/14/20 12:01 Last Admin: 10/14/20 11:44 Dose: 40 mg Documented by: Furosemide (Furosemide 40 Mg/4 Ml Vial) 40 mg IVPUSH NOW ONE Stop: 10/15/20 08:31 Last Admin: 10/15/20 08:50 Dose: 40 mg Documented by: Furosemide (Furosemide 40 Mg/4 Ml Vial) 40 mg IVPUSH NOW ONE Stop: 10/16/20 14:01 Last Admin: 10/16/20 15:47 Dose: 40 mg Documented by: Furosemide (Furosemide 40 Mg/4 Ml Vial) 40 mg IVPUSH NOW ONE Stop: 10/17/20 09:11 Last Admin: 10/17/20 10:28 Dose: 40 mg Documented by: Glycopyrrolate (Glycopyrrolate 0.2 Mg/Ml 5 Ml Mdv) Confirm Administered Dose 1 mg .ROUTE .STK-MED ONE Stop: 10/10/20 16:51 Hydromorphone HCl (Hydromorphone 0.5 Mg/0.5 Ml Syringe) 0.5 mg IVPUSH Q2H PRN PRN Reason: PAIN Lactated Ringer's (Ringers, Lactated) 1,000 mls @ 125 mls/hr IV ASDIRECTED [facility] Last Admin: 10/11/20 02:22 Dose: 125 mls/hr Documented by: Cefazolin Sodium/Dextrose 2 gm (/ Premix) 50 mls @ 100 mls/hr IV ONETIME ONE Stop: 10/10/20 16:29 Last Admin: 10/10/20 16:29 Dose: 100 mls/hr Documented by: Sodium Chloride (Normal Saline) 500 mls @ 999 mls/hr IV .BOLUS ONE Stop: 10/12/20 03:47 Last Admin: 10/12/20 03:24 Dose: 999 mls/hr Documented by: Sodium Chloride (Normal Saline) 500 mls @ 999 mls/hr IV .BOLUS ONE Stop: 10/12/20 06:54 Last Admin: 10/12/20 07:28 Dose: 999 mls/hr Documented by: Sodium Chloride (Normal Saline) 83 mls @ 3 mls/sec IV ONETIME ONE Stop: 10/14/20 09:24 Last Admin: 10/14/20 09:49 Dose: 3 mls/sec Documented by: Iopamidol (Iopamidol 755 Mg/Ml 100 Ml Bottle) 75 ml IV . DIRECTED [facility] Stop: 10/14/20 09:31 Last Admin: 10/14/20 09:49 Dose: 75 ml Documented by: Lisinopril (Lisinopril 5 Mg Tab) 5 mg PO DAILY [facility] Last Admin: 10/13/20 09:53 Dose: Not Given Documented by: Lorazepam (Lorazepam 2 Mg/Ml Sdv) 0.5 mg IVPUSH Q4H PRN PRN Reason: Nausea/Vomiting Melatonin (Melatonin 3 Mg Tab) 9 mg PO BEDTIME PRN PRN Reason: Sleep Neostigmine Methylsulfate (Neostigmine Methylsulfate 1 Mg/Ml 5 Ml Syringe) Confirm Administered Dose 5 mg .ROUTE .STK-MED ONE Stop: 10/10/20 16:51 Ondansetron HCl (Ondansetron 4 Mg/2 Ml Sdv) Confirm Administered Dose 4 mg .ROUTE .STK-MED ONE Stop: 10/10/20 16:51 Oxycodone HCl (Oxycodone 5 Mg Tab) 5 - 10 mg PO Q4H PRN PRN Reason: Pain Last Admin: 10/11/20 22:40 Dose: 10 mg Documented by: Propofol (Propofol 200 Mg/20 Ml Sdv) Confirm Administered Dose 200 mg .ROUTE .STK-MED ONE Stop: 10/10/20 16:51 Rocuronium [place] (Rocuronium 50 Mg/5 Ml Vial) Confirm Administered Dose 50 mg .ROUTE .STK-MED ONE Stop: 10/10/20 16:51 Sodium Chloride (Sodium Chloride 0.9% 10 Ml Syringe) 10 ml FLUSH ONETIME PRN PRN Reason: PER RADIOLOGY PROTOCOL Stop: 10/14/20 09:24 Last Admin: 10/14/20 09:49 Dose: 10 ml Documented by: Succinylcholine Chloride (Succinylcholine 200 Mg/10 Ml Mdv) Confirm Administered Dose 200 mg .ROUTE .STK-MED ONE Stop: 10/10/20 16:51 Tizanidine HCl (Tizanidine 4 Mg Tab) 4 mg PO Q8H PRN PRN Reason: Muscle Spasm - Exam Quality Assessment: Supplemental Oxygen, DVT Prophylaxis General: Alert, Mild Distress. No: Oriented, Cooperative Lungs: Clear to Auscultation, Normal Respiratory Effort, Decreased Breath Sounds. No: Rales, Rhonchi, Wheezing Cardiovascular: Regular Rate, Regular Rhythm, No Murmurs GI/Abdominal Exam: Soft, Non-Tender, No Organomegaly, No Distention Extremities: No Pedal Edema - Patient Data Lab Results Last 24 hrs: Laboratory Results - last 24 hr 10/16/20 10/17/20 Range/Units 21:44 04:35 Sodium 134 L (140-148) mmol/L Potassium 4.2 (3.6-5.2) mmol/L Chloride 95 L (100-108) mmol/L Carbon Dioxide 27 (21-32) mmol/L Anion Gap 16.2 H (5.0-14.0) mmol/L BUN 19 H (7-18) mg/dL Creatinine 0.9 (0.6-1.0) mg/dL Est Cr Clr Drug Dosing 51.38 mL/min Estimated GFR (MDRD) > 60 (>60) Glucose 170 H (74-106) mg/dL POC Glucose 107 H (74-106) mg/dL Calcium 8.7 (8.5-10.1) mg/dL Magnesium 1.6 L (1.8-2.4) mg/dL Result Diagrams: 10/15/20 05:30 10/17/20 04:35 Sepsis Event Note - Evaluation Sepsis Screening Result: No Definite Risk - Focused Exam Vital Signs: Vital Signs Temp Pulse Pulse Resp BP BP Pulse Ox 10/17/20 11:00 82 10/17/20 09:03 87 148/69 H 10/17/20 09:01 148/69 H 10/17/20 07:11 82 10/17/20 07:10 97 10/17/20 07:00 96 F L 74 16 138/69 97 10/17/20 02:00 96.8 F L 10/17/20 01:54 97 - Problem List Review Problem List Initiated/Reviewed/Updated: Yes - My Orders Last 24 Hours: My Active Orders 10/17/20 09:15 Magnesium Oxide 400 mg PO BID 10/17/20 10:00 Magnesium Sulfate/Water [Magnesium Sulfate in Water 2 GM/50 ML] 2 gm in 50 ml IV Q6H 10/18/20 05:00 BASIC METABOLIC PANEL,BMP [CHEM] Timed MAGNESIUM [CHEM] Timed - Plan Plan:: ASSESSMENT AND PLAN Subcapital fracture of the right hip-secondary to mechanical fall. Surgical intervention completed 10/10 with cannulated screw placement x3. 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 -Continue to supplement oxygen, wean towards baseline as able -Continue home medications -As needed nebulizers Coronary artery disease-history of previous bypass grafting. No active anginal symptoms. -Continue medical management Paroxysmal atrial fibrillation-chronically anticoagulated. -apixaban -Continue beta-asha Peripheral vascular disease-severe reduction in in [place] with 0.4 noted on the right and 0.3 on the left. -Outpatient follow-up with interventional radiology -Continue medical management Tobacco dependence-encourage cessation -Nicotine patch Maintenance issues - -DVT prophylaxis-apixaban -GI prophylaxis-not indicated -Nutrition-consistent carbohydrates -Tanner catheter-placed in the emergency room for strict intake and output monitoring in a surgical patient, this needs to remain in place because of low urine output and low blood pressure in addition to diuresis. Disposition -I anticipate discharge to the assisted for subacute rehab after the hospital stay
[2020-10-17] MEDS: Pravastatin 20 MG Tab PO SCH (20:12)
[2020-10-17] MEDS: Insulin Glargine,Human Rec. Analog 100 Units/ML 3 ML Pen SUBCUT SCH (21:30)
[2020-10-18] MEDS: Albuterol/Ipratropium 3.0-0.5 MG/3 ML Neb Soln NEB SCH ×2 (07:08→10:51)
[2020-10-18] MEDS: Aspirin 81 MG Tab.Chew PO SCH (08:54)
[2020-10-18] MEDS: Nicotine 21 MG/24 Hr Patch TRDERM SCH (08:54)
[2020-10-18] MEDS: metFORMIN 500 MG Tab PO SCH (08:54)
[2020-10-18] MEDS: Clopidogrel 75 MG Tab PO SCH (08:55)
[2020-10-18] MEDS: Magnesium Oxide 400 MG Tab PO SCH (08:55)
[2020-10-18] MEDS: Gabapentin 300 MG Cap PO SCH ×2 (08:55→13:09)
[2020-10-18] MEDS: Sodium Chloride 1 GM Tab PO SCH (08:56)
[2020-10-18] MEDS: Multivitamins with Iron/Calcium/Folic Acid/Minerals Tab PO SCH (08:57)
[2020-10-18] MEDS: Cyanocobalamin (Vitamin B12) 1,000 MCG Tab PO SCH (08:57)
[2020-10-18] MEDS: Acetaminophen/HYDROcodone 325-5 MG Tab PO PRN ×2 (09:04→13:09)
[2020-10-18] MEDS: Lisinopril 5 MG Tab PO SCH (09:05)
[2020-10-18] MEDS: Metoprolol Tartrate 50 MG Tab PO SCH (09:05)
[2020-10-18] MEDS: Apixaban 5 MG Tab PO SCH (09:06)
--- NOTE | 2020-10-18 11:28 | PCM.DCSUM1 ---
Discharge Summary - Hospital Course Brief History: Ms. Licona is a 70-year-old woman who was admitted through the emergency department with pain in her right hip secondary to a right hip fracture. - Discharge Data Discharge Date: 10/18/20 Discharge Disposition: DC/Tfer to SNF 03 Condition: Fair - Referral to Home Health Primary Care Physician: Boo Lee MD - Discharge Diagnosis/Problem(s) (1) Acute and chronic respiratory failure with hypoxia SNOMED Code(s): 16518583, 746154836 ICD Code: J96.21 - ACUTE AND CHRONIC RESPIRATORY FAILURE WITH HYPOXIA Status: Acute Current Visit: Yes (2) Status post-operative repair of hip fracture SNOMED Code(s): 027445870, 707399476 ICD Code: Z98.890 - OTHER SPECIFIED POSTPROCEDURAL STATES; Z87.81 - PERSONAL HISTORY OF (HEALED) TRAUMATIC FRACTURE Status: Acute Current Visit: Yes (3) Impacted fracture of right hip SNOMED Code(s): 552236517 ICD Code: S72.091A - OTH FRACTURE OF HEAD AND NECK OF RIGHT FEMUR, INIT Status: Acute Current Visit: Yes Qualifiers: Encounter type: initial encounter Fracture type: closed Qualified Code(s): S72.091A - Other fracture of head and neck of right femur, initial encounter for closed fracture (4) COPD (chronic obstructive pulmonary disease) SNOMED Code(s): 07249496 ICD Code: J44.9 - CHRONIC OBSTRUCTIVE PULMONARY DISEASE, UNSPECIFIED Status: Chronic Current Visit: No Qualifiers: COPD type: unspecified COPD Qualified Code(s): J44.9 - Chronic obstructive pulmonary disease, unspecified (5) Type 2 diabetes mellitus SNOMED Code(s): 08584589 ICD Code: E11.9 - TYPE 2 DIABETES MELLITUS WITHOUT COMPLICATIONS Status: Chronic Current Visit: No Qualifiers: Diabetes mellitus intermediate teacher insulin use: with fpc use Diabetes mellitus complication status: with other specified complication Qualified Code(s): E11.69 - Type 2 diabetes mellitus with other specified complication; Z79.4 - senior care (current) use of insulin - Patient Summary/Data Consults: Consultations 10/10/20 13:15 Consult to Physician [CONS] Routine Consulting Provider: Ilan Rubio Courtesy Call Completed to Consulting Physician: Yes Reason for Consult: right hip fracture Person Notified: Date Notified: 10/10/20 Special Instructions: surgery this afternoon 10/10/20 17:32 Consult to Occupational Therapy [OT Evaluation and Treatment] [CONS] Routine Please Evaluate and Treat. OT Reason for Consult: ADL's Special Instructions: s/p R hip fracture repair with cannulated screws. Partial weight bear on R LE This query below is only for informational purposes and is not editable. Admission Diagnosis/Problem: Fracture of right hip Consult to Physical Therapy [PT Evaluation and Treatment] [CONS] Routine Please Evaluate and Treat. PT Reason for Consult: Ambulation Special Instructions: s/p R hip fracture, repaired with 3 cannulated screws. Partial weight bear on R LE This query below is only for informational purposes and is not editable. Admission Diagnosis/Problem: Fracture of right hip Hospital Course: Ms. Licona is a 70-year-old woman who presented to the emergency room with severe right hip pain after tripping on a rug and falling at a local restaurant. She reports she was leaving the bathroom when she tripped over a rug and landed on her right side and especially her right hip. She had immediate sharp pain in the hip area. She was unable to get up off of the ground and had to lay there for some time. She did receive some pain medication in route with some improvement. She does use oxygen at home 24 hours a day. She was admitted to the hospital and given pain medication as needed. The day after admission she was seen and evaluated by Dr. Rubio for orthopedic consult and was taken to surgery for surgical repair of her fracture. Postoperative course was complicated by ongoing hypoxia requiring increased supplemental oxygen from baseline. This was felt to be secondary to her underlying COPD as well as hypoventilation. Sedating medications were minimized and she was given regular doses of IV furosemide for possible fluid overload. CT scan of the chest was obtained and showed no evidence of pulmonary emboli. Echocardiogram was obtained and showed preserved left ventricular systolic function. Respiratory status gradually improved although at the time of discharge supplemental oxygen was not back to baseline level. She will be discharged to the assisted for restorative physical therapy and Occupational Therapy. Activity will be as tolerated and she will resume a diabetic diet. Follow-up appointment will be scheduled with orthopedic surgery for October 22. - Patient Instructions Diet: Diabetic Diet Activity, Other: 50% weightbearing right leg Other/Special Instructions: Daily physical therapy and Occupational Therapy wh ile at the assisted. Follow-up appointment with orthopedic surgery on October 22. - Discharge Plan *PRESCRIPTION DRUG MONITORING PROGRAM REVIEWED*: Not Applicable *COPY OF PRESCRIPTION DRUG MONITORING REPORT IN PATIENT JERROD: Not Applicable Prescriptions/Med Rec: Hydrocodone/Acetaminophen [Hydrocodon-Acetaminophen 5-325] 1 each PO Q4H #20 tablet Home Medications: Home Meds Insulin Aspart [Novolog Flexpen] 5 unit SQ ASDIRECTED 10/21/16 [History] Insulin Detemir [Levemir Flextouch] 35 units SQ BEDTIME 10/21/16 [History] lisinopriL [Prinivil] 5 mg PO DAILY 10/21/16 [History] Aspirin 81 mg PO DAILY 10/22/16 [History] Cyanocobalamin (Vitamin B-12) [B-12] 1,000 mg PO DAILY 10/22/16 [History] Acetaminophen [Tylenol] 500 mg PO ASDIRECTED PRN 08/10/17 [History] Metoprolol Tartrate 50 mg PO BID 04/30/19 [History] Sodium Chloride 1 gm PO BID 05/30/19 [History] Albuterol Sulfate [Albuterol Sulfate Hfa] 2 puff IH Q4H PRN 12/26/19 [History] Gabapentin [Neurontin] 300 mg PO TID 04/18/20 [History] Apixaban [Eliquis] 5 mg PO BID 04/24/20 [History] Cetirizine HCl [Zyrtec] 10 mg PO DAILY PRN 04/24/20 [History] Ibuprofen [Advil] 200 mg PO Q6H PRN 04/24/20 [History] Loperamide HCl/Simethicone [Imodium Multi-Symptom Rel Cplt] 1 tab PO DAILY PRN 04/24/20 [History] Multivitamin with Minerals [Multiple Vitamin] 1 tab PO DAILY 04/24/20 [History] Pravastatin Sodium [Pravachol] 40 mg PO BEDTIME 04/24/20 [History] metFORMIN [Glucophage] 1,000 mg PO BID 04/24/20 [History] tiZANidine HCl [Tizanidine HCl] 4 mg PO Q8H PRN 04/24/20 [History] Clopidogrel [Plavix] 75 mg PO DAILY 10/10/20 [History] Hydrocodone/Acetaminophen [Hydrocodon-Acetaminophen 5-325] 1 each PO Q4H #20 tablet 10/18/20 [Rx] Patient Handouts: Incision Care, Adult, Milm-po-Tcnc, Preventing Problems After Surgery, Preventing Constipation After Surgery Forms: ED Department Discharge Referrals: Gayatri Strickland PA [Ordering Only Provider] - 10/22/20 1:45 pm (Please register at the ER desk for your appointment and arrive 15 minutes early.) - Discharge Summary/Plan Comment DC Time >30 min.: No - Patient Data Vitals - Most Recent: Last Vital Signs Temp 95.8 F L 10/18/20 07:20 Pulse 84 10/18/20 09:05 Resp 16 10/18/20 07:20 BP 142/65 H 10/18/20 09:05 Pulse Ox 93 L 10/18/20 07:20 Weight - Most Recent: 126 lb 15.992 oz I&O - Last 24 hours: Intake & Output 10/17/20 10/18/20 10/18/20 22:59 06:59 14:59 Intake Total 1030 150 Output Total 150 Balance 1030 150 -150 Lab Results - Last 24 hrs: Laboratory Results - last 24 hr 10/17/20 10/18/20 Range/Units 21:07 05:53 Sodium 133 L (140-148) mmol/L Potassium 3.8 (3.6-5.2) mmol/L Chloride 96 L (100-108) mmol/L Carbon Dioxide 29 (21-32) mmol/L Anion Gap 11.8 (5.0-14.0) mmol/L BUN 18 (7-18) mg/dL Creatinine 0.9 (0.6-1.0) mg/dL Est Cr Clr Drug Dosing 51.38 mL/min Estimated GFR (MDRD) > 60 (>60) Glucose 122 H (74-106) mg/dL POC Glucose 126 H (74-106) mg/dL Calcium 8.4 L (8.5-10.1) mg/dL Magnesium 2.1 (1.8-2.4) mg/dL Med Orders - Current: Current Medications Acetaminophen (Acetaminophen 325 Mg Tab) 650 mg PO Q4H PRN PRN Reason: Pain (Mild 1-3)/fever Last Admin: 10/15/20 03:12 Dose: 650 mg Documented by: Hydrocodone Bitart/Acetaminophen (Acetaminophen/Hydrocodone 325-5 Mg Tab) 1 tab PO Q4H PRN PRN Reason: pain Last Admin: 10/18/20 09:04 Dose: 1 tab Documented by: Albuterol (Albuterol 0.083% 2.5 Mg/3 Ml Neb Soln) 2.5 mg NEB Q4H PRN PRN Reason: Shortness Of Breath/wheezing Last Admin: 10/13/20 03:18 Dose: 2.5 mg Documented by: Albuterol/Ipratropium (Albuterol/Ipratropium 3.0-0.5 Mg/3 Ml Neb Soln) 3 ml NEB QIDRT [facility] Last Admin: 10/18/20 10:51 Dose: Not Given Documented by: Apixaban (Apixaban 5 Mg Tab) 5 mg PO BID [facility] Last Admin: 10/18/20 09:06 Dose: 5 mg Documented by: Aspirin (Aspirin 81 Mg Tab.Chew) 81 mg PO DAILY [facility] Last Admin: 10/18/20 08:54 Dose: 81 mg Documented by: Clopidogrel Bisulfate (Clopidogrel 75 Mg Tab) 75 mg PO DAILY [facility] Last Admin: 10/18/20 08:55 Dose: 75 mg Documented by: Cyanocobalamin (Cyanocobalamin (Vitamin B12) 1,000 Mcg Tab) 1,000 mcg PO DAILY [facility] Last Admin: 10/18/20 08:57 Dose: 1,000 mcg Documented by: Gabapentin (Gabapentin 300 Mg Cap) 300 mg PO TID [facility] Last Admin: 10/18/20 08:55 Dose: 300 mg Documented by: Insulin Glargine (Insulin Glargine,Human Rec. Analog 100 Units/Ml 3 Ml Pen) 35 units SUBCUT BEDTIME [facility] Last Admin: 10/17/20 21:30 Dose: 35 units Documented by: Lisinopril (Lisinopril 5 Mg Tab) 5 mg PO DAILY [facility] Last Admin: 10/18/20 09:05 Dose: 5 mg Documented by: Magnesium Hydroxide (Magnesium Hydroxide 400 Mg/5 Ml Susp 30 Ml Cup) 30 ml PO Q12H PRN PRN Reason: Constipation Last Admin: 10/15/20 03:12 Dose: 30 ml Documented by: Magnesium Oxide (Magnesium Oxide 400 Mg Tab) 400 mg PO BID [facility] Last Admin: 10/18/20 08:55 Dose: 400 mg Documented by: Metformin HCl (Metformin 500 Mg Tab) 1,000 mg PO BIDMEALS [facility] Last Admin: 10/18/20 08:54 Dose: 1,000 mg Documented by: Metoprolol Tartrate (Metoprolol Tartrate 50 Mg Tab) 50 mg PO BID [facility] Last Admin: 10/18/20 09:05 Dose: 50 mg Documented by: Multivitamins/Minerals (Multivitamins With Iron/Calcium/Folic Acid/Minerals Tab) 1 tab PO DAILY [facility] Last Admin: 10/18/20 08:57 Dose: 1 tab Documented by: Nicotine (Nicotine 21 Mg/24 Hr Patch) 21 mg TRDERM DAILY [facility] Last Admin: 10/18/20 08:54 Dose: 21 mg Documented by: Ondansetron HCl (Ondansetron 4 Mg/2 Ml Sdv) 4 mg IV Q6H PRN PRN Reason: Nausea/Vomiting Last Admin: 10/10/20 14:11 Dose: 4 mg Documented by: Ondansetron HCl (Ondansetron 4 Mg Tab.Dis) 4 mg PO Q6H PRN PRN Reason: Nausea able to take PO Last Admin: 10/11/20 13:47 Dose: 4 mg Documented by: Pravastatin Sodium (Pravastatin 20 Mg Tab) 40 mg PO BEDTIME [facility] Last Admin: 10/17/20 20:12 Dose: 40 mg Documented by: Senna/Docusate Sodium (Docusate Sodium/Sennosides 50-8.6 Mg Tab) 1 tab PO BID [facility] Last Admin: 10/18/20 08:56 Dose: 1 tab Documented by: Sodium Chloride (Sodium Chloride 1 Gm Tab) 1 gm PO BID [facility] Last Admin: 10/18/20 08:56 Dose: 1 gm Documented by: Discontinued Medications Hydrocodone Bitart/Acetaminophen (Acetaminophen/Hydrocodone 325-5 Mg Tab) 1 tab PO Q4H PRN PRN Reason: pain Last Admin: 10/13/20 08:03 Dose: 1 tab Documented by: Hydrocodone Bitart/Acetaminophen (Acetaminophen/Hydrocodone 325-5 Mg Tab) 1 - 2 tab PO Q4H PRN PRN Reason: pain Last Admin: 10/13/20 19:30 Dose: 2 tab Documented by: Bupivacaine HCl (Bupivacaine 0.5% 50 Ml Mdv) Confirm Administered Dose 50 ml .ROUTE .[facility]-MED ONE Stop: 10/10/20 17:04 Last Admin: 10/10/20 17:22 Dose: 35 ml Documented by: Bupivacaine HCl/Epinephrine Bitart (Bupivacaine 0.5%/Epinephrine 1:200,000 50 Ml Mdv) Confirm Administered Dose 50 ml .ROUTE .[facility]-MED ONE Stop: 10/10/20 13:20 Dexamethasone (Dexamethasone 4 Mg/Ml Sdv) Confirm Administered Dose 4 mg .ROUTE .[facility]-MED ONE Stop: 10/10/20 16:51 Fentanyl (Fentanyl 100 Mcg/2 Ml Sdv) 50 mcg IM ONETIME ONE Stop: 10/10/20 10:39 Last Admin: 10/10/20 11:27 Dose: 50 mcg Documented by: Fentanyl (Fentanyl 250 Mcg/5 Ml Sdv) Confirm Administered Dose 250 mcg .ROUTE .[facility]-MED ONE Stop: 10/10/20 16:40 Furosemide (Furosemide 20 Mg/2 Ml Vial) 10 mg IVPUSH DAILY [facility] Last Admin: 10/13/20 05:25 Dose: 10 mg Documented by: Furosemide (Furosemide 20 Mg/2 Ml Vial) 20 mg IVPUSH ONETIME ONE Stop: 10/13/20 12:01 Last Admin: 10/13/20 13:09 Dose: 20 mg Documented by: Furosemide (Furosemide 40 Mg/4 Ml Vial) 40 mg IVPUSH NOW ONE Stop: 10/14/20 12:01 Last Admin: 10/14/20 11:44 Dose: 40 mg Documented by: Furosemide (Furosemide 40 Mg/4 Ml Vial) 40 mg IVPUSH NOW ONE Stop: 10/15/20 08:31 Last Admin: 10/15/20 08:50 Dose: 40 mg Documented by: Furosemide (Furosemide 40 Mg/4 Ml Vial) 40 mg IVPUSH NOW ONE Stop: 10/16/20 14:01 Last Admin: 10/16/20 15:47 Dose: 40 mg Documented by: Furosemide (Furosemide 40 Mg/4 Ml Vial) 40 mg IVPUSH NOW ONE Stop: 10/17/20 09:11 Last Admin: 10/17/20 10:28 Dose: 40 mg Documented by: Glycopyrrolate (Glycopyrrolate 0.2 Mg/Ml 5 Ml Mdv) Confirm Administered Dose 1 mg .ROUTE .[facility]-MED ONE Stop: 10/10/20 16:51 Hydromorphone HCl (Hydromorphone 0.5 Mg/0.5 Ml Syringe) 0.5 mg IVPUSH Q2H PRN PRN Reason: PAIN Lactated Ringer's (Ringers, Lactated) 1,000 mls @ 125 mls/hr IV ASDIRECTED [facility] Last Admin: 10/11/20 02:22 Dose: 125 mls/hr Documented by: Cefazolin Sodium/Dextrose 2 gm (/ Premix) 50 mls @ 100 mls/hr IV ONETIME ONE Stop: 10/10/20 16:29 Last Admin: 10/10/20 16:29 Dose: 100 mls/hr Documented by: Sodium Chloride (Normal Saline) 500 mls @ 999 mls/hr IV .BOLUS ONE Stop: 10/12/20 03:47 Last Admin: 10/12/20 03:24 Dose: 999 mls/hr Documented by: Sodium Chloride (Normal Saline) 500 mls @ 999 mls/hr IV .BOLUS ONE Stop: 10/12/20 06:54 Last Admin: 10/12/20 07:28 Dose: 999 mls/hr Documented by: Sodium Chloride (Normal Saline) 83 mls @ 3 mls/sec IV ONETIME ONE Stop: 10/14/20 09:24 Last Admin: 10/14/20 09:49 Dose: 3 mls/sec Documented by: Magnesium Sulfate (Magnesium Sulfate In Water 2 Gm/50 Ml) 2 gm in 50 mls @ 12.5 mls/hr IV Q6H [facility] Stop: 10/17/20 19:59 Last Admin: 10/17/20 15:08 Dose: 12.5 mls/hr Documented by: Iopamidol (Iopamidol 755 Mg/Ml 100 Ml Bottle) 75 ml IV . DIRECTED [facility] Stop: 10/14/20 09:31 Last Admin: 10/14/20 09:49 Dose: 75 ml Documented by: Lisinopril (Lisinopril 5 Mg Tab) 5 mg PO DAILY [facility] Last Admin: 10/13/20 09:53 Dose: Not Given Documented by: Lorazepam (Lorazepam 2 Mg/Ml Sdv) 0.5 mg IVPUSH Q4H PRN PRN Reason: Nausea/Vomiting Melatonin (Melatonin 3 Mg Tab) 9 mg PO BEDTIME PRN PRN Reason: Sleep Neostigmine Methylsulfate (Neostigmine Methylsulfate 1 Mg/Ml 5 Ml Syringe) Confirm Administered Dose 5 mg .ROUTE .STK-MED ONE Stop: 10/10/20 16:51 Ondansetron HCl (Ondansetron 4 Mg/2 Ml Sdv) Confirm Administered Dose 4 mg .ROUTE .STK-MED ONE Stop: 10/10/20 16:51 Oxycodone HCl (Oxycodone 5 Mg Tab) 5 - 10 mg PO Q4H PRN PRN Reason: Pain Last Admin: 10/11/20 22:40 Dose: 10 mg Documented by: Propofol (Propofol 200 Mg/20 Ml Sdv) Confirm Administered Dose 200 mg .ROUTE .STK-MED ONE Stop: 10/10/20 16:51 Rocuronium [place] (Rocuronium 50 Mg/5 Ml Vial) Confirm Administered Dose 50 mg .ROUTE .STK-MED ONE Stop: 10/10/20 16:51 Sodium Chloride (Sodium Chloride 0.9% 10 Ml Syringe) 10 ml FLUSH ONETIME PRN PRN Reason: PER RADIOLOGY PROTOCOL Stop: 10/14/20 09:24 Last Admin: 10/14/20 09:49 Dose: 10 ml Documented by: Succinylcholine Chloride (Succinylcholine 200 Mg/10 Ml Mdv) Confirm Administered Dose 200 mg .ROUTE .STK-MED ONE Stop: 10/10/20 16:51 Tizanidine HCl (Tizanidine 4 Mg Tab) 4 mg PO Q8H PRN PRN Reason: Muscle Spasm - Exam General: Reports: Alert, Cooperative, Mild Distress Lungs: Reports: Clear to Auscultation, Normal Respiratory Effort, Decreased Breath Sounds. Denies: Rales, Rhonchi, Wheezing Cardiovascular: Reports: Regular Rate, Regular Rhythm, No Murmurs GI/Abdominal Exam: Soft, Non-Tender, No Organomegaly, No Distention Extremities: Other (Right hip pain) *Q Meaningful Use (DIS) - VTE *Q VTE Pharmacological Contraindications *Q: Patient Scheduled Surgery
[2020-10-18 11:51] VITALS: BP 94/50; PULSE 61
--- NOTE | 2020-11-13 22:45 | OR ---
DATE OF PROCEDURE: 10/10/2020 SURGEON: Ilan Rubio MD PREOPERATIVE DIAGNOSIS: Impacted femoral neck fracture, right hip. POSTOPERATIVE DIAGNOSIS: Impacted femoral neck fracture, right hip. PROCEDURE: Cannulated screw fixation, right femoral neck. INTERNATIONAL ACCOUNT MANAGER: SEGUNDO Esquivel. ANESTHESIA: Spinal with sedation. INDICATIONS: Ana is a 70-year-old female who fell at a local restaurant landing onto her right hip. Presented to the emergency room with difficulty weightbearing. X- rays reveal subcapital fracture with slight impaction. She is therefore taken to the operating room for fixation with cannulated screws. Risks, benefits and potential complications of the procedure were discussed. DESCRIPTION OF PROCEDURE: After adequate anesthesia was obtained, the patient was placed on the fracture table. Right hip was prepped and draped in a sterile fashion. A small incision was made just distal to the greater trochanter and carried down through the subcutaneous tissues, and the tensor fascia was split in line with its fibers. A guide pin was placed parallel with the femoral neck across the fracture site into the femoral head, and position was confirmed using fluoroscopic C-arm in AP and lateral images. Two additional guide pins were then placed in a triangular configuration and position was again confirmed on AP and lateral images. Pins were measured. Lateral cortex was drilled and cannulated screws were placed over the guide pins and guide pins were removed. Final position was confirmed on AP and lateral images. The wound was irrigated. Tensor fascia was closed with 0 Vicryl in interrupted fashion. Skin was closed with 2-0 Vicryl and running 3-0 Monocryl. Steri- Strips were applied. The patient tolerated procedure well. There were no complications. Taken from the operating room in stable condition. Ilan Rubio MD /[id number] [facility]
== END 2020-10-18 14:30 | DRG 480 ==
LOC: JP.ED 10:23 → JP.MS 12:37
PROVIDERS: ADMIT Internal Medicine; ATTEND Hospitalist
PROC: 0QH634Z Insertion of Internal Fixation Device into Right Upper Femur, Percutaneous Approach (ICD-10-PCS; principal; 2020-10-10)
DX: S72.091A Other fracture of head and neck of right femur, initial encounter for closed fracture (principal); W19.XXXA Unspecified fall, initial encounter; Y92.511 Restaurant or cafe as the place of occurrence of the external cause; S72.011A Unspecified intracapsular fracture of right femur, initial encounter for closed fracture; J96.21 Acute and chronic respiratory failure with hypoxia; W01.0XXA Fall on same level from slipping, tripping and stumbling without subsequent striking against object, initial encounter; J44.9 Chronic obstructive pulmonary disease, unspecified; I73.9 Peripheral vascular disease, unspecified; E11.9 Type 2 diabetes mellitus without complications; Z79.4 Long term (current) use of insulin; Z79.82 Long term (current) use of aspirin; Z79.899 Other long term (current) drug therapy; Z79.01 Long term (current) use of anticoagulants; Z79.02 Long term (current) use of antithrombotics/antiplatelets; Z88.8 Allergy status to other drugs, medicaments and biological substances; H54.7 Unspecified visual loss; I48.91 Unspecified atrial fibrillation; Z20.822 Contact with and (suspected) exposure to COVID-19; I25.10 Atherosclerotic heart disease of native coronary artery without angina pectoris; E78.00 Pure hypercholesterolemia, unspecified; I10 Essential (primary) hypertension; I25.2 Old myocardial infarction; E11.51 Type 2 diabetes mellitus with diabetic peripheral angiopathy without gangrene; E53.8 Deficiency of other specified B group vitamins; Z98.49 Cataract extraction status, unspecified eye; Z90.89 Acquired absence of other organs; Z95.1 Presence of aortocoronary bypass graft; Z95.5 Presence of coronary angioplasty implant and graft; Z90.710 Acquired absence of both cervix and uterus
CPT/HCPCS: 0241U; 36415; 51702; 51798; 70450; 70486; 71046; 71275; 73502; 76000; 80048; 82803; 82947; 83735; 84484; 85018; 85025; 85027; 93005; 93010; 93306; 93922; 94640; 94762; 96372; 97110; 97162; 97166; 97530; 97535; 99222; 99232; 99238; 99284; 99285; A9270-GY; C1713; C1769; J0330; J0690; J1100; J1815-GY; J1940; J2405; J2704; J2710; J3010; J3475; J3490; J7040; J7120; J7620-GY; Q9967

== ENCOUNTER 2020-10-19 14:40 | Inpatient (IN) | payer MEDICARE, BC ==
[2020-10-19] MEDS ORDERED: Sodium Chloride 0.9% 10 ML Syringe FLUSH PRN ×2 (14:57→18:08)
[2020-10-19] MEDS ORDERED: Sucralfate 1 GM Tab PO ONE (15:06)
--- NOTE | 2020-10-19 15:07 | EDM.PDOC ---
ED HPI GENERAL MEDICAL PROBLEM - General Chief Complaint: Gastrointestinal Problem Stated Complaint: MEDICAL Time Seen by Provider: 10/19/20 14:50 Source of Information: Reports: Patient, Old Records, RN History Limitations: Reports: No Limitations - History of Present Illness INITIAL COMMENTS - FREE TEXT/NARRATIVE: 70 yo female here from a local [facility] for a black stool today. She is there getting rehab after falling and breaking her hip. She is on Plavix, ASA, and Eliquis. There has not been vomiting. Ana is not aware of abdominal pain and states today's stool is the first dark one. She is not on anything for gastroprotection. She is also on ibuprofen. Onset: Today Onset Date: 10/19/20 Duration: Minutes: Location: Reports: Abdomen Severity: Moderate Improves with: Reports: None Worsens with: Reports: Other (? NSAID's + antiplatelet agents) Context: Reports: Other (See HPI) Associated Symptoms: Reports: No Other Symptoms Treatments COATER HELPER: Reports: Other (see below) (none) - Related Data Allergies Allergy/AdvReac Type Severity Reaction Status Date / Time ticagrelor [From Brilinta] Allergy Shortness Verified 10/19/20 14:53 of Breath atorvastatin [From Lipitor] AdvReac Cannot Verified 10/19/20 14:53 Remember diclofenac AdvReac Cannot Verified 10/19/20 14:53 Remember epinephrine AdvReac Tachycardia Verified 10/19/20 14:53 rosuvastatin calcium AdvReac unknown Verified 10/19/20 14:53 [From Crestor] Home Meds: Home Meds Insulin Aspart [Novolog Flexpen] 5 unit SQ ASDIRECTED 10/21/16 [History] Insulin Detemir [Levemir Flextouch] 35 units SQ BEDTIME 10/21/16 [History] lisinopriL [Prinivil] 5 mg PO DAILY 10/21/16 [History] Aspirin 81 mg PO DAILY 10/22/16 [History] Cyanocobalamin (Vitamin B-12) [B-12] 1,000 mg PO DAILY 10/22/16 [History] Acetaminophen [Tylenol] 500 mg PO ASDIRECTED PRN 08/10/17 [History] Metoprolol Tartrate 50 mg PO BID 04/30/19 [History] Sodium Chloride 1 gm PO BID 05/30/19 [History] Albuterol Sulfate [Albuterol Sulfate Hfa] 2 puff IH Q4H PRN 12/26/19 [History] Gabapentin [Neurontin] 300 mg PO TID 04/18/20 [History] Apixaban [Eliquis] 5 mg PO BID 04/24/20 [History] Cetirizine HCl [Zyrtec] 10 mg PO DAILY PRN 04/24/20 [History] Ibuprofen [Advil] 200 mg PO Q6H PRN 04/24/20 [History] Multivitamin with Minerals [Multiple Vitamin] 1 tab PO DAILY 04/24/20 [History] Pravastatin Sodium [Pravachol] 40 mg PO BEDTIME 04/24/20 [History] metFORMIN [Glucophage] 1,000 mg PO BID 04/24/20 [History] tiZANidine HCl [Tizanidine HCl] 4 mg PO Q8H PRN 04/24/20 [History] Clopidogrel [Plavix] 75 mg PO DAILY 10/10/20 [History] Hydrocodone/Acetaminophen [Hydrocodon-Acetaminophen 5-325] 1 each PO Q4H #20 tablet 10/18/20 [Rx] Dextromethorphan Polistirex 5 ml PO Q4HR PRN 10/19/20 [History] Past Medical History HEENT History: Reports: Cataract, Impaired Vision Cardiovascular History: Reports: Afib, CAD, High Cholesterol, Hypertension, [place], PVD Respiratory History: Reports: Bronchitis, Recurrent, COPD, SOB Gastrointestinal History: Reports: Cholelithiasis, Other (See Below) Other Gastrointestinal History: colitis 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 left elbow pain. L ulnar Fx 2018. right shoulder pain Neurological History: Reports: Concussion Endocrine/Metabolic History: Reports: Diabetes, Type II, IDDM Hematologic History: Reports: B12 Deficiency, Blood Transfusion(s) Immunologic History: Reports: None Oncologic (Cancer) History: Reports: Other (See Below) Other Oncologic History: lung mass Dermatologic History: Reports: None - Infectious Disease History Infectious Disease History: Reports: Measles - Past Surgical History Head Surgeries/Procedures: Reports: None HEENT Surgical History: Reports: Cataract Surgery, Tonsillectomy Cardiovascular Surgical History: Reports: Coronary Artery Bypass, Coronary Artery Stent Respiratory Surgical History: Reports: None GI Surgical History: Reports: Cholecystectomy, Colonoscopy Female Surgical History: Reports: Hysterectomy, Salpingo-Oophorectomy Endocrine Surgical History: Reports: None Neurological Surgical History: Reports: None Musculoskeletal Surgical History: Reports: Arthroscopic Knee, Hip Replacement Oncologic Surgical History: Reports: None Dermatological Surgical History: Reports: None Social & Family History - Family History Family Medical History: No Pertinent Family History - Tobacco Use Tobacco Use Status *Q: Never Tobacco User - Caffeine Use Caffeine Use: Reports: None ED ROS GENERAL - Review of Systems Review Of Systems: See Below Constitutional: Reports: No Symptoms HEENT: Reports: No Symptoms Respiratory: Reports: No Symptoms Cardiovascular: Reports: No Symptoms GI/Abdominal: Reports: Black Stool, Melena. Denies: Hematemesis, Nausea, Vomiti ng : Reports: No Symptoms Musculoskeletal: Reports: No Symptoms Skin: Reports: Bruising (from recent falls) Neurological: Reports: No Symptoms ED EXAM, GI/ABD - Physical Exam Exam: See Below Exam Limited By: No Limitations General Appearance: Alert, WD/WN, No Apparent Distress, Thin Eyes: Bilateral: Normal Appearance Ears: Normal External Exam, Normal Canal, Hearing Grossly Normal Nose: Normal Inspection, No Blood Throat/Mouth: Normal Inspection, Normal Lips, Normal Oropharynx, Normal Voice, No Airway Compromise Head: Atraumatic, Normocephalic Neck: Normal Inspection Respiratory/Chest: No Respiratory Distress, Lungs Clear, Normal Breath Sounds, No Accessory Muscle Use Cardiovascular: Regular Rate, Rhythm, No Edema GI/Abdominal Exam: Soft, No Distention, Tender (epigastrium), Abnormal Bowel Sounds (increased). No: Non-Tender (epigastric tenderness), Distended, Guarding, Rigid, Rebound Rectal (Female) Exam: Black Stool Back Exam: Normal Inspection Extremities: Normal Inspection, Normal Range of Motion, Non-Tender, No Pedal Edema Neurological: Alert, Oriented, CN II-XII Intact, Normal Cognition, No Motor/Sensory Deficits Psychiatric: Normal Affect, Normal Mood Skin Exam: Warm, Dry, Intact, No Rash, Ecchymosis, Pallor Course - Vital Signs Text/Narrative:: Dr. Snyder called @ 4105h Last Recorded V/S: Last Vital Signs Temp 36.0 C L 10/19/20 15:07 Pulse 70 10/19/20 16:22 Resp 15 10/19/20 15:07 BP 129/45 L 10/19/20 16:22 Pulse Ox 97 10/19/20 16:22 - Orders/Labs/Meds Orders: Active Orders 24 hr Category Date Time Status TYPE AND SCREEN [BBK] Stat Lab 10/19/20 15:10 Received UA W/MICROSCOPIC [URIN] Stat Lab 10/19/20 17:03 Ordered Pantoprazole [ProTONIX IV] Med 10/19/20 15:15 Active 80 mg IVPUSH .BOLUS Sodium Chloride 0.9% [Normal Saline] 1,000 ml Med 10/19/20 16:00 Active IV ASDIRECTED Sodium Chloride 0.9% [Saline Flush] Med 10/19/20 14:57 Active 10 ml FLUSH ASDIRECTED PRN Saline Lock Insert [OM.PC] Routine Oth 10/19/20 14:57 Ordered Medication Orders Sodium Chloride (Normal Saline) 1,000 mls @ 500 mls/hr IV ASDIRECTED LEWIS Pantoprazole Sodium (Pantoprazole 40 Mg Vial) 80 mg IVPUSH .BOLUS LEWIS Last Admin: 10/19/20 15:31 Dose: 80 mg Documented by: TIANA Sodium Chloride (Sodium Chloride 0.9% 10 Ml Syringe) 10 ml FLUSH ASDIRECTED PRN PRN Reason: Keep Vein Open Last Admin: 10/19/20 15:34 Dose: 10 ml Documented by: TIANA Labs: Laboratory Tests 10/19/20 10/19/20 Range/Units 15:10 15:10 WBC 13.8 H (4.5-11.0) K/uL RBC 3.00 L (3.30-5.50) M/uL Hgb 8.3 L (12.0-15.0) g/dL Hct 27.0 L (36.0-48.0) % MCV 90 (80-98) fL MCH 28 (27-31) pg MCHC 31 L (32-36) % Plt Count 393 (150-400) K/uL Sodium 133 L (140-148) mmol/L Potassium 4.1 (3.6-5.2) mmol/L Chloride 94 L (100-108) mmol/L Carbon Dioxide 27 (21-32) mmol/L Anion Gap 16.1 H (5.0-14.0) mmol/L BUN 21 H (7-18) mg/dL Creatinine 1.0 (0.6-1.0) mg/dL Est Cr Clr Drug Dosing 45.52 mL/min Estimated GFR (MDRD) 55 L (>60) Glucose 99 (74-106) mg/dL Calcium 8.7 (8.5-10.1) mg/dL Troponin I 0.021 (0.000-0.056) ng/mL Meds: Medications Generic Name Dose Route Start Last Admin Trade Name Freq PRN Reason Stop Dose Admin Sodium Chloride 1,000 mls @ 500 mls/hr 10/19/20 16:00 Normal Saline IV ASDIRECTED LEWIS Pantoprazole Sodium 80 mg 10/19/20 15:15 10/19/20 15:31 Pantoprazole 40 Mg Vial IVPUSH 80 mg .BOLUS LEWIS Administration Sodium Chloride 10 ml 10/19/20 14:57 10/19/20 15:34 Sodium Chloride 0.9% 10 Ml Syringe FLUSH 10 ml ASDIRECTED PRN Administration Keep Vein Open Discontinued Medications Generic Name Dose Route Start Last Admin Trade Name Freq PRN Reason Stop Dose Admin Sucralfate 1 gm 10/19/20 15:06 10/19/20 15:31 Sucralfate 1 Gm Tab PO 10/19/20 15:07 1 gm ONETIME ONE Administration Departure - Departure Time of Disposition: 17:30 Disposition: Admitted As Inpatient 64 Condition: Serious Clinical Impression: Upper GI bleed, Melena Anemia Qualifiers: Anemia type: other cause Other causes of anemia: acute posthemorrhagic Qualified Code(s): D62 - Acute posthemorrhagic anemia - Discharge Information *PRESCRIPTION DRUG MONITORING PROGRAM REVIEWED*: Not Applicable *COPY OF PRESCRIPTION DRUG MONITORING REPORT IN PATIENT JERROD: Not Applicable Referrals: Boo Lee MD [Primary Care Provider] - Forms: ED Department Discharge Sepsis Event Note (ED) - Focused Exam Vital Signs: Vital Signs Temp Pulse Resp BP Pulse Ox 10/19/20 16:22 70 129/45 L 97 10/19/20 15:22 70 133/53 L 95 10/19/20 15:07 36.0 C L 70 15 139/50 L 98 10/19/20 15:06 36.0 C L 70 15 139/50 L 98 - My Orders Last 24 Hours: My Active Orders 10/19/20 14:57 Sodium Chloride 0.9% [Saline Flush] 10 ml FLUSH ASDIRECTED PRN Saline Lock Insert [OM.PC] Routine 10/19/20 15:10 TYPE AND SCREEN [BBK] Stat 10/19/20 15:15 Pantoprazole [ProTONIX IV] 80 mg IVPUSH .BOLUS 10/19/20 16:00 Sodium Chloride 0.9% [Normal Saline] 1,000 ml IV ASDIRECTED 10/19/20 17:03 UA W/MICROSCOPIC [URIN] Stat - Assessment/Plan Last 24 Hours: My Active Orders 10/19/20 14:57 Sodium Chloride 0.9% [Saline Flush] 10 ml FLUSH ASDIRECTED PRN Saline Lock Insert [OM.PC] Routine 10/19/20 15:10 TYPE AND SCREEN [BBK] Stat 10/19/20 15:15 Pantoprazole [ProTONIX IV] 80 mg IVPUSH .BOLUS 10/19/20 16:00 Sodium Chloride 0.9% [Normal Saline] 1,000 ml IV ASDIRECTED 10/19/20 17:03 UA W/MICROSCOPIC [URIN] Stat
[2020-10-19] MEDS ORDERED: Pantoprazole 40 MG Vial IVPUSH SCH (15:15)
[2020-10-19] MEDS ORDERED: Sodium Chloride 0.9% 1,000 ML IV SCH (16:00)
--- NOTE | 2020-10-19 17:45 | PCM.HP.2 ---
H&P History of Present Illness - General Date of Service: 10/19/20 Admit Problem/Dx: Admission Diagnosis/Problem Admission Diagnosis/Problem Bleeding Source of Information: Patient, Old Records, Provider, RN Notes Reviewed History Limitations: Reports: No Limitations - History of Present Illness Initial Comments - Free Text/Narative: Ms. Licona is a 70-year-old woman who was admitted through the emergency department with increased weakness and melenic stool, likely secondary to upper GI bleed. She was just discharged from this facility yesterday after undergoing a repair of a right hip fracture. Course was complicated by ongoing hypoxia secondary to COPD and hypoventilation. She was discharged to the long term for restorative physical therapy and Occupational Therapy. She was noted to have a melenic appearing stool today by staff at the long term and was more weak and lethargic. She was brought into the emergency department for further evaluation. Stool was found to be heme positive and her hemoglobin has dropped 1 g over the past few days. She denies any symptoms of abdominal pain, nausea, vomiting, or hematemesis. She is on multiple blood thinners including aspirin, Plavix, and Eliquis. She has been on nonsteroidal therapy following her hip replacement. She has known underlying COPD, paroxysmal atrial fibrillation, coronary artery disease, and type 2 diabetes mellitus. - Related Data Allergies/Adverse Reactions: Allergies Allergy/AdvReac Type Severity Reaction Status Date / Time ticagrelor [From Brilinta] Allergy Shortness Verified 10/19/20 14:53 of Breath atorvastatin [From Lipitor] AdvReac Cannot Verified 10/19/20 14:53 Remember diclofenac AdvReac Cannot Verified 10/19/20 14:53 Remember epinephrine AdvReac Tachycardia Verified 10/19/20 14:53 rosuvastatin calcium AdvReac unknown Verified 10/19/20 14:53 [From Crestor] Home Medications: Home Meds Insulin Aspart [Novolog Flexpen] 5 unit SQ ASDIRECTED 10/21/16 [History] Insulin Detemir [Levemir Flextouch] 35 units SQ BEDTIME 10/21/16 [History] lisinopriL [Prinivil] 5 mg PO DAILY 10/21/16 [History] Aspirin 81 mg PO DAILY 10/22/16 [History] Cyanocobalamin (Vitamin B-12) [B-12] 1,000 mg PO DAILY 10/22/16 [History] Acetaminophen [Tylenol] 500 mg PO ASDIRECTED PRN 08/10/17 [History] Metoprolol Tartrate 50 mg PO BID 04/30/19 [History] Sodium Chloride 1 gm PO BID 05/30/19 [History] Albuterol Sulfate [Albuterol Sulfate Hfa] 2 puff IH Q4H PRN 12/26/19 [History] Gabapentin [Neurontin] 300 mg PO TID 04/18/20 [History] Apixaban [Eliquis] 5 mg PO BID 04/24/20 [History] Cetirizine HCl [Zyrtec] 10 mg PO DAILY PRN 04/24/20 [History] Ibuprofen [Advil] 200 mg PO Q6H PRN 04/24/20 [History] Multivitamin with Minerals [Multiple Vitamin] 1 tab PO DAILY 04/24/20 [History] Pravastatin Sodium [Pravachol] 40 mg PO BEDTIME 04/24/20 [History] metFORMIN [Glucophage] 1,000 mg PO BID 04/24/20 [History] tiZANidine HCl [Tizanidine HCl] 4 mg PO Q8H PRN 04/24/20 [History] Clopidogrel [Plavix] 75 mg PO DAILY 10/10/20 [History] Hydrocodone/Acetaminophen [Hydrocodon-Acetaminophen 5-325] 1 each PO Q4H #20 tablet 10/18/20 [Rx] Dextromethorphan Polistirex 5 ml PO Q4HR PRN 10/19/20 [History] Past Medical History HEENT History: Reports: Cataract, Impaired Vision Cardiovascular History: Reports: Afib, CAD, High Cholesterol, Hypertension, [place], PVD Respiratory History: Reports: Bronchitis, Recurrent, COPD, SOB Gastrointestinal History: Reports: Cholelithiasis, Other (See Below) Other Gastrointestinal History: colitis ADVANCE SCOUT History: Reports: Spontaneous Musculoskeletal History: Reports: Fracture Other Musculoskeletal History: L wrist pain. left elbow pain. L ulnar Fx 2018. right shoulder pain Neurological History: Reports: Concussion Endocrine/Metabolic History: Reports: Diabetes, Type II, IDDM Hematologic History: Reports: B12 Deficiency, Blood Transfusion(s) Immunologic History: Reports: None Oncologic (Cancer) History: Reports: Other (See Below) Other Oncologic History: lung mass Dermatologic History: Reports: None - Infectious Disease History Infectious Disease History: Reports: Measles - Past Surgical History Head Surgeries/Procedures: Reports: None HEENT Surgical History: Reports: Cataract Surgery, Tonsillectomy Cardiovascular Surgical History: Reports: Coronary Artery Bypass, Coronary Artery Stent Respiratory Surgical History: Reports: None GI Surgical History: Reports: Cholecystectomy, Colonoscopy Female Surgical History: Reports: Hysterectomy, Salpingo-Oophorectomy Endocrine Surgical History: Reports: None Neurological Surgical History: Reports: None Musculoskeletal Surgical History: Reports: Arthroscopic Knee, Hip Replacement Oncologic Surgical History: Reports: None Dermatological Surgical History: Reports: None Social & Family History - Family History Family Medical History: No Pertinent Family History - Tobacco Use Tobacco Use Status *Q: Never Tobacco User - Caffeine Use Caffeine Use: Reports: None H&P Review of Systems - Review of Systems: Review Of Systems: See Below General: Reports: Malaise, Weakness. Denies: Fever, Chills HEENT: Reports: No Symptoms Pulmonary: Reports: Shortness of Breath. Denies: Wheezing, Pleuritic Chest Pain, Cough, Sputum, Hemoptysis Cardiovascular: Reports: Dyspnea on Exertion. Denies: Chest Pain, Palpitations, Orthopnea, PND, Edema, Lightheadedness Gastrointestinal: Reports: Melena. Denies: Abdominal Pain, Distension, Hemat emesis, Hematochezia, Nausea, Vomiting Genitourinary: Reports: No Symptoms Musculoskeletal: Reports: No Symptoms Skin: Reports: No Symptoms Psychiatric: Reports: No Symptoms Neurological: Reports: No Symptoms Hematologic/Lymphatic: Reports: No Symptoms Immunologic: Reports: No Symptoms Exam - Exam Exam: See Below - Vital Signs Vital Signs: Last Vital Signs Temp 96.8 F L 10/19/20 15:07 Pulse 70 10/19/20 16:22 Resp 15 10/19/20 15:07 BP 129/45 L 10/19/20 16:22 Pulse Ox 97 10/19/20 16:22 Weight: 125 lb - Exam Quality Assessment: Supplemental Oxygen, DVT Prophylaxis General: Cooperative, Mild Distress, Lethargic HEENT: Conjunctiva Clear, Hearing Intact, Normal Nasal Septum, Posterior Pharynx Clear, Pupils Equal. No: Mucosa Moist & [place] Neck: Supple, Trachea Midline, +2 Carotid Pulse wo Bruit Lungs: Clear to Auscultation, Normal Respiratory Effort, Decreased Breath Sounds. No: Rales, Rhonchi, Wheezing Cardiovascular: Regular Rate, Regular Rhythm, Normal S1, Normal S2. No: Systolic Murmur, Diastolic Murmur GI/Abdominal Exam: Soft, Non-Tender, No Organomegaly, No Distention Back Exam: Normal Inspection, Full Range of Motion Extremities: No Pedal Edema, Leg Pain (Right hip) Skin: Warm, Dry, Intact Neurological: Cranial Nerves Intact, Strength Equal Bilateral, Normal Speech, Normal Tone, Sensation Intact. No: Focal Deficit Neuro Extensive - Mental Status: Alert, Normal Mood/Affect, Disorientation to Place, Disorientation to Time, Memory Loss-Remote Events, Memory Loss-Recent Events. No: Normal Cognition, Memory Intact, Disorientation to Person - Patient Data Lab Results Last 24 hrs: Laboratory Results - last 24 hr 10/19/20 10/19/20 10/19/20 Range/Units 15:10 15:10 15:10 WBC 13.8 H (4.5-11.0) K/uL RBC 3.00 L (3.30-5.50) M/uL Hgb 8.3 L (12.0-15.0) g/dL Hct 27.0 L (36.0-48.0) % MCV 90 (80-98) fL MCH 28 (27-31) pg MCHC 31 L (32-36) % Plt Count 393 (150-400) K/uL Sodium 133 L (140-148) mmol/L Potassium 4.1 (3.6-5.2) mmol/L Chloride 94 L (100-108) mmol/L Carbon Dioxide 27 (21-32) mmol/L Anion Gap 16.1 H (5.0-14.0) mmol/L BUN 21 H (7-18) mg/dL Creatinine 1.0 (0.6-1.0) mg/dL Est Cr Clr Drug Dosing 45.52 mL/min Estimated GFR (MDRD) 55 L (>60) Glucose 99 (74-106) mg/dL Calcium 8.7 (8.5-10.1) mg/dL Troponin I 0.021 (0.000-0.056) ng/mL Urine Color (YELLOW) Urine Appearance (CLEAR) Urine pH (5.0-8.0) Ur Specific [place] (1.008-1.030) Urine Protein (NEGATIVE) mg/dL Urine Glucose (UA) (NEGATIVE) mg/dL Urine Ketones (NEGATIVE) mg/dL Urine Occult Blood (NEGATIVE) Urine Nitrite (NEGATIVE) Urine Bilirubin (NEGATIVE) Urine Urobilinogen (0.2-1.0) EU/dL Ur Leukocyte Esterase (NEGATIVE) Urine RBC (0-5) Urine WBC (0-5) Ur Epithelial Cells Amorphous Sediment Urine Bacteria Urine Mucus Blood Type O POSITIVE Gel Antibody Screen Negative Crossmatch See Detail 10/19/20 Range/Units 17:03 WBC (4.5-11.0) K/uL RBC (3.30-5.50) M/uL Hgb (12.0-15.0) g/dL Hct (36.0-48.0) % MCV (80-98) fL MCH (27-31) pg MCHC (32-36) % Plt Count (150-400) K/uL Sodium (140-148) mmol/L Potassium (3.6-5.2) mmol/L Chloride (100-108) mmol/L Carbon Dioxide (21-32) mmol/L Anion Gap (5.0-14.0) mmol/L BUN (7-18) mg/dL Creatinine (0.6-1.0) mg/dL Est Cr Clr Drug Dosing mL/min Estimated GFR (MDRD) (>60) Glucose (74-106) mg/dL Calcium (8.5-10.1) mg/dL Troponin I (0.000-0.056) ng/mL Urine Color Yellow (YELLOW) Urine Appearance Turbid A (CLEAR) Urine pH 5.5 (5.0-8.0) Ur Specific [place] 1.025 (1.008-1.030) Urine Protein >=300 H (NEGATIVE) mg/dL Urine Glucose (UA) Negative (NEGATIVE) mg/dL Urine Ketones Negative (NEGATIVE) mg/dL Urine Occult Blood Moderate H (NEGATIVE) Urine Nitrite Positive H (NEGATIVE) Urine Bilirubin Negative (NEGATIVE) Urine Urobilinogen 0.2 (0.2-1.0) EU/dL Ur Leukocyte Esterase Moderate H (NEGATIVE) Urine RBC Semi-packed H (0-5) Urine WBC Semi-packed H (0-5) Ur Epithelial Cells Rare Amorphous Sediment Moderate Urine Bacteria Moderate Urine Mucus Occasional Blood Type Gel Antibody Screen Crossmatch Result Diagrams: 10/19/20 15:10 10/19/20 15:10 [place] Results Last 24 hrs: Microbiology 10/19/20 16:53 Stool Occult Blood ([place]) - Final Stool / Feces - Stool, Formed Sepsis Event Note - Evaluation Sepsis Screening Result: No Definite Risk - Focused Exam Vital Signs: Vital Signs Temp Pulse Resp BP Pulse Ox 10/19/20 16:22 70 129/45 L 97 10/19/20 15:22 70 133/53 L 95 10/19/20 15:07 96.8 F L 70 15 139/50 L 98 10/19/20 15:06 96.8 F L 70 15 139/50 L 98 *Q Meaningful Use (ADM) - VTE *Q VTE Pharmacological Contraindications *Q: Active Hemorrhage - VTE Risk Assess *Q Each Risk Factor Represents 1 Point: Abnormal Pulmonary Function (COPD) Total Score 1 Point Risk Factors: 1 Each Risk Factor Represents 2 Points: Age 60 - 74 Years Total Score 2 Point Risk Factors: 2 Each Risk Factor Represents 3 Points: None Total Score 3 Point Risk Factors: 0 Each Risk Factor Represents 5 Points: Hip, Pelvis or Leg Fracture, Less than 1 month Total Score 5 Point Risk Factors: 5 Venous Thromboembolism Risk Factor Score *Q: 8 Problem List Initiated/Reviewed/Updated: Yes Orders Last 24hrs: Active Orders 24 hr Category Date Time Status Patient Status Manage Transfer [TRANSFER] Routine ADT 10/19/20 17:35 Active CULTURE URINE [RM] Stat Lab 10/19/20 17:39 Received PATIENT RETYPE [BBK] Stat Lab 10/19/20 15:10 Results RED BLOOD CELLS LP [BBK] Stat Lab 10/19/20 15:10 Results TYPE AND SCREEN [BBK] Stat Lab 10/19/20 15:10 Results Pantoprazole [ProTONIX IV] Med 10/19/20 15:15 Active 80 mg IVPUSH .BOLUS Sodium Chloride 0.9% [Normal Saline] 1,000 ml Med 10/19/20 16:00 Active IV ASDIRECTED Sodium Chloride 0.9% [Saline Flush] Med 10/19/20 14:57 Active 10 ml FLUSH ASDIRECTED PRN Saline Lock Insert [OM.PC] Routine Oth 10/19/20 14:57 Ordered Resuscitation Status Routine Resus Stat 10/19/20 17:39 Ordered Medication Orders Sodium Chloride (Normal Saline) 1,000 mls @ 500 mls/hr IV ASDIRECTED LEWIS Pantoprazole Sodium (Pantoprazole 40 Mg Vial) 80 mg IVPUSH .BOLUS LEWIS Last Admin: 10/19/20 15:31 Dose: 80 mg Documented by: TIANA Sodium Chloride (Sodium Chloride 0.9% 10 Ml Syringe) 10 ml FLUSH ASDIRECTED PRN PRN Reason: Keep Vein Open Last Admin: 10/19/20 15:34 Dose: 10 ml Documented by: TIANA Assessment/Plan Comment:: ASSESSMENT AND PLAN GI BLEED-likely upper GI bleed secondary to recent nonsteroidal use as well as multiple anticoagulants; aspirin, Eliquis, Plavix -Type and cross to hold 2 units of red blood cells -Serial hemoglobin levels -N.p.o. -IV fluids for hydration -Protonix 40 mg IV every 12 hours -Maintain 2 IV sites -Consult Dr. Haddad for EGD in a.m. ACUTE ON CHRONIC ANEMIA-hemoglobin found to be low after recent hip fracture and surgical repair. With GI bleed now is likely dropped further. -Plan to transfuse for hemoglobin less than 8.0, given her history of COPD with hypoxia and coronary artery disease URINARY TRACT INFECTION -Urine culture pending -Ceftriaxone 1 g IV every 24 hours, pending culture results COPD WITH HYPOXIA -Continue supplemental oxygen -Continue outpatient inhaler therapy CORONARY ARTERY DISEASE-currently asymptomatic, troponin within normal range while in the emergency department -Continue outpatient medications -Hold Plavix and aspirin PAROXYSMAL ATRIAL FIBRILLATION -Cardiac monitoring -Hold Eliquis MAINTENANCE ISSUES -DVT prophylaxis; SCUDs, hold on anticoagulation because of active bleed -GI prophylaxis; Protonix as above -Tanner catheter; not indicated -Nutrition; n.p.o. -Nicotine dependence; not required CODE STATUS-FULL CODE ADMISSION STATUS-patient will be admitted to inpatient status, expect at least a 2 night hospital stay for evaluation and management of problems as outlined above. At the time of this admission I do not reasonably expected evaluation and management of this problem will require more than a 96 hour hospital stay. DISPOSITION-anticipate discharge to home after the hospital stay. PRIMARY CARE PROVIDER-Dr. Lee - Mortality Measure Prognosis:: Good
[2020-10-19] MEDS ORDERED: Acetaminophen/HYDROcodone 325-5 MG Tab PO SCH (18:08)
[2020-10-19] MEDS ORDERED: Acetaminophen 325 MG Tab PO PRN (18:08)
[2020-10-19] MEDS ORDERED: Glucose Gel 15 GM in 37.5 GM Tube PO PRN (18:08)
[2020-10-19] MEDS ORDERED: 50% Dextrose in Water 50 ML Syringe IV PRN (18:08)
[2020-10-19] MEDS ORDERED: Albuterol 8 GM Inhaler INH PRN (18:08)
[2020-10-19] MEDS ORDERED: Ondansetron 4 MG/2 ML SDV IV PRN (18:08)
[2020-10-19] MEDS ORDERED: cefTRIAXone 1 GM in Sodium Chloride 0.9% 50 ML IV SCH (19:00)
[2020-10-19] MEDS: Sodium Chloride 0.9% 1,000 ML IV SCH (19:30)
[2020-10-19] MEDS ORDERED: Insulin Glargine,Human Rec. Analog 100 Units/ML 3 ML Pen SUBCUT SCH (21:00)
[2020-10-19] MEDS: Pravastatin 20 MG Tab PO SCH (21:38)
[2020-10-19] MEDS: Gabapentin 300 MG Cap PO SCH (21:39)
[2020-10-19] MEDS: Metoprolol Tartrate 50 MG Tab PO SCH (21:39)
[2020-10-19] MEDS: Insulin Lispro 100 Unit/ML 3 ML KwikPen SUBCUT SCH (21:44)
--- NOTE | 2020-10-19 23:48 | PCM.SN.2 ---
- Free Text/Narrative Note: call from [address] [place] [id number] at 21:13 O: hemoglobin recheck at 2100 is 7.1, decreased from admission hgb of 8.3 vital signs 98.4-75-15 B/P 138/55 O2 sat 90% room air A: GI bleed P: transfuse 2 units of PRBC per protocol CBC in am.
[2020-10-20] MEDS: Pantoprazole 40 MG Vial IV SCH ×2 (04:59→16:59)
[2020-10-20] MEDS ORDERED: Propofol 200 MG/20 ML SDV ONE (07:20)
[2020-10-20] MEDS ORDERED: Lactated Ringers 1,000 ML ONE (07:50)
[2020-10-20] MEDS: Insulin Lispro 100 Unit/ML 3 ML KwikPen SUBCUT SCH ×4 (09:05→21:11)
[2020-10-20] MEDS: Acetaminophen/HYDROcodone 325-5 MG Tab PO PRN ×2 (09:05→17:55)
[2020-10-20] MEDS: Metoprolol Tartrate 50 MG Tab PO SCH ×2 (09:07→21:02)
[2020-10-20] MEDS: Lisinopril 5 MG Tab PO SCH (09:07)
[2020-10-20] MEDS: Gabapentin 300 MG Cap PO SCH ×3 (09:07→21:01)
[2020-10-20] MEDS: Sodium Chloride 0.9% 1,000 ML IV SCH (13:03)
--- NOTE | 2020-10-20 15:22 | PCM.PN ---
- General Info Date of Service: 10/20/20 Subjective Update: Ms. Licona has shown no further evidence of active bleeding since admission. She did have significant drop in hemoglobin and given her underlying cardiac and pulmonary disease she has been transfused 2 units of red blood cells. EGD was performed this morning by Dr. Haddad and shows evidence of significant esophagitis and gastritis. There was no evidence of active bleeding at the time of the endoscopy but old blood was noted. - Review of Systems General: Reports: Weakness, Fatigue. Denies: Fever, Chills Pulmonary: Reports: Shortness of Breath. Denies: Pleuritic Chest Pain, Cough, Sputum, Hemoptysis, Wheezing Cardiovascular: Reports: Dyspnea on Exertion. Denies: Chest Pain, Palpitations, Orthopnea, PND, Edema, Lightheadedness Gastrointestinal: Reports: Melena. Denies: Difficulty Swallowing, Hematochezia, Nausea, Vomiting Genitourinary: Reports: No Symptoms - Patient Data Vitals - Most Recent: Last Vital Signs Temp 99.1 F 10/20/20 08:45 Pulse 62 10/20/20 12:18 Resp 16 10/20/20 12:18 BP 158/59 H 10/20/20 12:18 Pulse Ox 92 L 10/20/20 12:18 Weight - Most Recent: 135 lb 2.294 oz I&O - Last 24 Hours: Intake & Output 10/20/20 10/20/20 10/20/20 06:59 14:59 22:59 Intake Total 1081 640 Output Total 300 700 Balance 781 -60 Lab Results Last 24 Hours: Laboratory Results - last 24 hr 10/19/20 10/19/20 10/19/20 Range/Units 15:10 15:10 15:10 WBC 13.8 H (4.5-11.0) K/uL RBC 3.00 L (3.30-5.50) M/uL Hgb 8.3 L (12.0-15.0) g/dL Hct 27.0 L (36.0-48.0) % MCV 90 (80-98) fL MCH 28 (27-31) pg MCHC 31 L (32-36) % Plt Count 393 (150-400) K/uL Neut % (Auto) (36-66) % Lymph % (Auto) (24-44) % Villal[place] % (Auto) (2-6) % Eos % (Auto) (2-4) % Baso % (Auto) (0-1) % Sodium 133 L (140-148) mmol/L Potassium 4.1 (3.6-5.2) mmol/L Chloride 94 L (100-108) mmol/L Carbon Dioxide 27 (21-32) mmol/L Anion Gap 16.1 H (5.0-14.0) mmol/L BUN 21 H (7-18) mg/dL Creatinine 1.0 (0.6-1.0) mg/dL Est Cr Clr Drug Dosing 45.52 mL/min Estimated GFR (MDRD) 55 L (>60) Glucose 99 (74-106) mg/dL POC Glucose (74-106) mg/dL Calcium 8.7 (8.5-10.1) mg/dL Troponin I 0.021 (0.000-0.056) ng/mL Urine Color (YELLOW) Urine Appearance (CLEAR) Urine pH (5.0-8.0) Ur Specific [place] (1.008-1.030) Urine Protein (NEGATIVE) mg/dL Urine Glucose (UA) (NEGATIVE) mg/dL Urine Ketones (NEGATIVE) mg/dL Urine Occult Blood (NEGATIVE) Urine Nitrite (NEGATIVE) Urine Bilirubin (NEGATIVE) Urine Urobilinogen (0.2-1.0) EU/dL Ur Leukocyte Esterase (NEGATIVE) Urine RBC (0-5) Urine WBC (0-5) Ur Epithelial Cells Amorphous Sediment Urine Bacteria Urine Mucus Blood Type O POSITIVE Gel Antibody Screen Negative Crossmatch See Detail 10/19/20 10/19/20 10/19/20 Range/Units 17:03 20:50 20:53 WBC (4.5-11.0) K/uL RBC (3.30-5.50) M/uL Hgb 7.1 L (12.0-15.0) g/dL Hct (36.0-48.0) % MCV (80-98) fL MCH (27-31) pg MCHC (32-36) % Plt Count (150-400) K/uL Neut % (Auto) (36-66) % Lymph % (Auto) (24-44) % [place]al[place] % (Auto) (2-6) % Eos % (Auto) (2-4) % Baso % (Auto) (0-1) % Sodium (140-148) mmol/L Potassium (3.6-5.2) mmol/L Chloride (100-108) mmol/L Carbon Dioxide (21-32) mmol/L Anion Gap (5.0-14.0) mmol/L BUN (7-18) mg/dL Creatinine (0.6-1.0) mg/dL Est Cr Clr Drug Dosing mL/min Estimated GFR (MDRD) (>60) Glucose (74-106) mg/dL POC Glucose 93 (74-106) mg/dL Calcium (8.5-10.1) mg/dL Troponin I (0.000-0.056) ng/mL Urine Color Yellow (YELLOW) Urine Appearance Turbid A (CLEAR) Urine pH 5.5 (5.0-8.0) Ur Specific [place] 1.025 (1.008-1.030) Urine Protein >=300 H (NEGATIVE) mg/dL Urine Glucose (UA) Negative (NEGATIVE) mg/dL Urine Ketones Negative (NEGATIVE) mg/dL Urine Occult Blood Moderate H (NEGATIVE) Urine Nitrite Positive H (NEGATIVE) Urine Bilirubin Negative (NEGATIVE) Urine Urobilinogen 0.2 (0.2-1.0) EU/dL Ur Leukocyte Esterase Moderate H (NEGATIVE) Urine RBC Semi-packed H (0-5) Urine WBC Semi-packed H (0-5) Ur Epithelial Cells Rare Amorphous Sediment Moderate Urine Bacteria Moderate Urine Mucus Occasional Blood Type Gel Antibody Screen Crossmatch 10/20/20 10/20/20 10/20/20 Range/Units 04:05 04:05 07:25 WBC 12.0 H (4.5-11.0) K/uL RBC 3.59 (3.30-5.50) M/uL Hgb 10.4 L D (12.0-15.0) g/dL Hct 31.9 L (36.0-48.0) % MCV 89 (80-98) fL MCH 29 (27-31) pg MCHC 33 (32-36) % Plt Count 337 (150-400) K/uL Neut % (Auto) 81 H (36-66) % Lymph % (Auto) 9 L (24-44) % [place] % (Auto) 8 H (2-6) % Eos % (Auto) 2 (2-4) % Baso % (Auto) 0 (0-1) % Sodium 134 L (140-148) mmol/L Potassium 4.3 (3.6-5.2) mmol/L Chloride 97 L (100-108) mmol/L Carbon Dioxide 26 (21-32) mmol/L Anion Gap 15.3 H (5.0-14.0) mmol/L BUN 17 (7-18) mg/dL Creatinine 0.9 (0.6-1.0) mg/dL Est Cr Clr Drug Dosing 54.68 mL/min Estimated GFR (MDRD) > 60 (>60) Glucose 110 H (74-106) mg/dL POC Glucose 125 H (74-106) mg/dL Calcium 8.3 L (8.5-10.1) mg/dL Troponin I (0.000-0.056) ng/mL Urine Color (YELLOW) Urine Appearance (CLEAR) Urine pH (5.0-8.0) Ur Specific [place] (1.008-1.030) Urine Protein (NEGATIVE) mg/dL Urine Glucose (UA) (NEGATIVE) mg/dL Urine Ketones (NEGATIVE) mg/dL Urine Occult Blood (NEGATIVE) Urine Nitrite (NEGATIVE) Urine Bilirubin (NEGATIVE) Urine Urobilinogen (0.2-1.0) EU/dL Ur Leukocyte Esterase (NEGATIVE) Urine RBC (0-5) Urine WBC (0-5) Ur Epithelial Cells Amorphous Sediment Urine Bacteria Urine Mucus Blood Type Gel Antibody Screen Crossmatch 10/20/20 Range/Units 11:18 WBC (4.5-11.0) K/uL RBC (3.30-5.50) M/uL Hgb (12.0-15.0) g/dL Hct (36.0-48.0) % MCV (80-98) fL MCH (27-31) pg MCHC (32-36) % Plt Count (150-400) K/uL Neut % (Auto) (36-66) % Lymph % (Auto) (24-44) % [place] % (Auto) (2-6) % Eos % (Auto) (2-4) % Baso % (Auto) (0-1) % Sodium (140-148) mmol/L Potassium (3.6-5.2) mmol/L Chloride (100-108) mmol/L Carbon Dioxide (21-32) mmol/L Anion Gap (5.0-14.0) mmol/L BUN (7-18) mg/dL Creatinine (0.6-1.0) mg/dL Est Cr Clr Drug Dosing mL/min Estimated GFR (MDRD) (>60) Glucose (74-106) mg/dL POC Glucose 115 H (74-106) mg/dL Calcium (8.5-10.1) mg/dL Troponin I (0.000-0.056) ng/mL Urine Color (YELLOW) Urine Appearance (CLEAR) Urine pH (5.0-8.0) Ur Specific [place] (1.008-1.030) Urine Protein (NEGATIVE) mg/dL Urine Glucose (UA) (NEGATIVE) mg/dL Urine Ketones (NEGATIVE) mg/dL Urine Occult Blood (NEGATIVE) Urine Nitrite (NEGATIVE) Urine Bilirubin (NEGATIVE) Urine Urobilinogen (0.2-1.0) EU/dL Ur Leukocyte Esterase (NEGATIVE) Urine RBC (0-5) Urine WBC (0-5) Ur Epithelial Cells Amorphous Sediment Urine Bacteria Urine Mucus Blood Type Gel Antibody Screen Crossmatch [place] Results Last 24 Hours: Microbiology 10/19/20 17:39 Urine Culture - Preliminary Urine, Quick Cath (In-Out) 10/19/20 16:53 Stool Occult Blood ([place]) - Final Stool / Feces - Stool, Formed Med Orders - Current: Current Medications Acetaminophen (Acetaminophen 325 Mg Tab) 650 mg PO Q4H PRN PRN Reason: Pain (Mild 1-3)/fever Hydrocodone Bitart/Acetaminophen (Acetaminophen/Hydrocodone 325-5 Mg Tab) 1 tab PO Q4H PRN PRN Reason: Pain Last Admin: 10/20/20 09:05 Dose: 1 tab Documented by: Albuterol (Albuterol 8 Gm Inhaler) 0 gm INH Q4H PRN PRN Reason: Dyspnea Dextrose (Glucose Gel 15 Gm In 37.5 Gm Tube) 15 gm PO ONETIME PRN PRN Reason: Hypoglycemia Dextrose/Water (50% Dextrose In Water 50 Ml Syringe) 50 ml IV ONETIME PRN PRN Reason: Hypoglycemia Gabapentin (Gabapentin 300 Mg Cap) 300 mg PO TID LEWIS Last Admin: 10/20/20 13:49 Dose: 300 mg Documented by: Ceftriaxone Sodium 1 gm/ (Sodium Chloride) 50 mls @ 100 mls/hr IV Q24H [facility] Insulin Glargine (Insulin Glargine,Human Rec. Analog 100 Units/Ml 3 Ml Pen) 35 units SUBCUT BEDTIME [facility] Insulin Human Lispro (Insulin Lispro 100 Unit/Ml 3 Ml Kwikpen) 0 unit SUBCUT QIDACANDBED [facility]; Protocol Last Admin: 10/20/20 12:16 Dose: Not Given Documented by: Lisinopril (Lisinopril 5 Mg Tab) 5 mg PO DAILY [facility] Last Admin: 10/20/20 09:07 Dose: 5 mg Documented by: Metoprolol Tartrate (Metoprolol Tartrate 50 Mg Tab) 50 mg PO BID [facility] Last Admin: 10/20/20 09:07 Dose: 50 mg Documented by: Ondansetron HCl (Ondansetron 4 Mg/2 Ml Sdv) 4 mg IV Q4H PRN PRN Reason: Nausea/Vomiting Pantoprazole Sodium (Pantoprazole 40 Mg Vial) 40 mg IV Q12H [facility] Last Admin: 10/20/20 04:59 Dose: 40 mg Documented by: Pravastatin Sodium (Pravastatin 20 Mg Tab) 40 mg PO BEDTIME [facility] Last Admin: 10/19/20 21:38 Dose: 40 mg Documented by: Sodium Chloride (Sodium Chloride 0.9% 10 Ml Syringe) 10 ml FLUSH ASDIRECTED PRN PRN Reason: Keep Vein Open Discontinued Medications Hydrocodone Bitart/Acetaminophen (Acetaminophen/Hydrocodone 325-5 Mg Tab) 1 tab PO Q4H [facility] Last Admin: 10/19/20 19:33 Dose: 1 tab Documented by: Sodium Chloride (Normal Saline) 1,000 mls @ 500 mls/hr IV ASDIRECTED [facility] Sodium Chloride (Normal Saline) 1,000 mls @ 125 mls/hr IV ASDIRECTED [facility] Last Admin: 10/20/20 13:03 Dose: 125 mls/hr Documented by: Ceftriaxone Sodium 1 gm/ (Sodium Chloride) 50 mls @ 100 mls/hr IV Q24H [facility] Last Admin: 10/19/20 19:34 Dose: 100 mls/hr Documented by: Lactated Ringer's (Ringers, Lactated) Confirm Administered Dose 1,000 mls @ as directed .ROUTE .[facility] ONE Stop: 10/20/20 07:51 Insulin Glargine (Insulin Glargine,Human Rec. Analog 100 Units/Ml 3 Ml Pen) 35 units SUBCUT BEDTIME [facility] Last Admin: 10/19/20 21:54 Dose: Not Given Documented by: Pantoprazole Sodium (Pantoprazole 40 Mg Vial) 80 mg IVPUSH .BOLUS [facility] Last Admin: 10/19/20 15:31 Dose: 80 mg Documented by: Propofol (Propofol 200 Mg/20 Ml Sdv) Confirm Administered Dose 200 mg .ROUTE .[facility]-MED ONE Stop: 10/20/20 07:21 Sodium Chloride (Sodium Chloride 0.9% 10 Ml Syringe) 10 ml FLUSH ASDIRECTED PRN PRN Reason: Keep Vein Open Last Admin: 10/19/20 15:34 Dose: 10 ml Documented by: Sucralfate (Sucralfate 1 Gm Tab) 1 gm PO ONETIME ONE Stop: 10/19/20 15:07 Last Admin: 10/19/20 15:31 Dose: 1 gm Documented by: - Exam Quality Assessment: DVT Prophylaxis General: Alert, Cooperative, No Acute Distress Lungs: Clear to Auscultation, Normal Respiratory Effort Cardiovascular: Regular Rate, Regular Rhythm, No Murmurs GI/Abdominal Exam: Soft, Non-Tender, No Organomegaly, No Distention Extremities: Non-Tender, No Pedal Edema - Patient Data Lab Results Last 24 hrs: Laboratory Results - last 24 hr 10/19/20 10/19/20 10/19/20 Range/Units 15:10 15:10 15:10 WBC 13.8 H (4.5-11.0) K/uL RBC 3.00 L (3.30-5.50) M/uL Hgb 8.3 L (12.0-15.0) g/dL Hct 27.0 L (36.0-48.0) % MCV 90 (80-98) fL MCH 28 (27-31) pg MCHC 31 L (32-36) % Plt Count 393 (150-400) K/uL Neut % (Auto) (36-66) % Lymph % (Auto) (24-44) % [place] % (Auto) (2-6) % Eos % (Auto) (2-4) % Baso % (Auto) (0-1) % Sodium 133 L (140-148) mmol/L Potassium 4.1 (3.6-5.2) mmol/L Chloride 94 L (100-108) mmol/L Carbon Dioxide 27 (21-32) mmol/L Anion Gap 16.1 H (5.0-14.0) mmol/L BUN 21 H (7-18) mg/dL Creatinine 1.0 (0.6-1.0) mg/dL Est Cr Clr Drug Dosing 45.52 mL/min Estimated GFR (MDRD) 55 L (>60) Glucose 99 (74-106) mg/dL POC Glucose (74-106) mg/dL Calcium 8.7 (8.5-10.1) mg/dL Troponin I 0.021 (0.000-0.056) ng/mL Urine Color (YELLOW) Urine Appearance (CLEAR) Urine pH (5.0-8.0) Ur Specific [place] (1.008-1.030) Urine Protein (NEGATIVE) mg/dL Urine Glucose (UA) (NEGATIVE) mg/dL Urine Ketones (NEGATIVE) mg/dL Urine Occult Blood (NEGATIVE) Urine Nitrite (NEGATIVE) Urine Bilirubin (NEGATIVE) Urine Urobilinogen (0.2-1.0) EU/dL Ur Leukocyte Esterase (NEGATIVE) Urine RBC (0-5) Urine WBC (0-5) Ur Epithelial Cells Amorphous Sediment Urine Bacteria Urine Mucus Blood Type O POSITIVE Gel Antibody Screen Negative Crossmatch See Detail 10/19/20 10/19/20 10/19/20 Range/Units 17:03 20:50 20:53 WBC (4.5-11.0) K/uL RBC (3.30-5.50) M/uL Hgb 7.1 L (12.0-15.0) g/dL Hct (36.0-48.0) % MCV (80-98) fL MCH (27-31) pg MCHC (32-36) % Plt Count (150-400) K/uL Neut % (Auto) (36-66) % Lymph % (Auto) (24-44) % [place] % (Auto) (2-6) % Eos % (Auto) (2-4) % Baso % (Auto) (0-1) % Sodium (140-148) mmol/L Potassium (3.6-5.2) mmol/L Chloride (100-108) mmol/L Carbon Dioxide (21-32) mmol/L Anion Gap (5.0-14.0) mmol/L BUN (7-18) mg/dL Creatinine (0.6-1.0) mg/dL Est Cr Clr Drug Dosing mL/min Estimated GFR (MDRD) (>60) Glucose (74-106) mg/dL POC Glucose 93 (74-106) mg/dL Calcium (8.5-10.1) mg/dL Troponin I (0.000-0.056) ng/mL Urine Color Yellow (YELLOW) Urine Appearance Turbid A (CLEAR) Urine pH 5.5 (5.0-8.0) Ur Specific [place] 1.025 (1.008-1.030) Urine Protein >=300 H (NEGATIVE) mg/dL Urine Glucose (UA) Negative (NEGATIVE) mg/dL Urine Ketones Negative (NEGATIVE) mg/dL Urine Occult Blood Moderate H (NEGATIVE) Urine Nitrite Positive H (NEGATIVE) Urine Bilirubin Negative (NEGATIVE) Urine Urobilinogen 0.2 (0.2-1.0) EU/dL Ur Leukocyte Esterase Moderate H (NEGATIVE) Urine RBC Semi-packed H (0-5) Urine WBC Semi-packed H (0-5) Ur Epithelial Cells Rare Amorphous Sediment Moderate Urine Bacteria Moderate Urine Mucus Occasional Blood Type Gel Antibody Screen Crossmatch 10/20/20 10/20/20 10/20/20 Range/Units 04:05 04:05 07:25 WBC 12.0 H (4.5-11.0) K/uL RBC 3.59 (3.30-5.50) M/uL Hgb 10.4 L D (12.0-15.0) g/dL Hct 31.9 L (36.0-48.0) % MCV 89 (80-98) fL MCH 29 (27-31) pg MCHC 33 (32-36) % Plt Count 337 (150-400) K/uL Neut % (Auto) 81 H (36-66) % Lymph % (Auto) 9 L (24-44) % [place] % (Auto) 8 H (2-6) % Eos % (Auto) 2 (2-4) % Baso % (Auto) 0 (0-1) % Sodium 134 L (140-148) mmol/L Potassium 4.3 (3.6-5.2) mmol/L Chloride 97 L (100-108) mmol/L Carbon Dioxide 26 (21-32) mmol/L Anion Gap 15.3 H (5.0-14.0) mmol/L BUN 17 (7-18) mg/dL Creatinine 0.9 (0.6-1.0) mg/dL Est Cr Clr Drug Dosing 54.68 mL/min Estimated GFR (MDRD) > 60 (>60) Glucose 110 H (74-106) mg/dL POC Glucose 125 H (74-106) mg/dL Calcium 8.3 L (8.5-10.1) mg/dL Troponin I (0.000-0.056) ng/mL Urine Color (YELLOW) Urine Appearance (CLEAR) Urine pH (5.0-8.0) Ur Specific [place] (1.008-1.030) Urine Protein (NEGATIVE) mg/dL Urine Glucose (UA) (NEGATIVE) mg/dL Urine Ketones (NEGATIVE) mg/dL Urine Occult Blood (NEGATIVE) Urine Nitrite (NEGATIVE) Urine Bilirubin (NEGATIVE) Urine Urobilinogen (0.2-1.0) EU/dL Ur Leukocyte Esterase (NEGATIVE) Urine RBC (0-5) Urine WBC (0-5) Ur Epithelial Cells Amorphous Sediment Urine Bacteria Urine Mucus Blood Type Gel Antibody Screen Crossmatch 10/20/20 Range/Units 11:18 WBC (4.5-11.0) K/uL RBC (3.30-5.50) M/uL Hgb (12.0-15.0) g/dL Hct (36.0-48.0) % MCV (80-98) fL MCH (27-31) pg MCHC (32-36) % Plt Count (150-400) K/uL Neut % (Auto) (36-66) % Lymph % (Auto) (24-44) % [place] % (Auto) (2-6) % Eos % (Auto) (2-4) % Baso % (Auto) (0-1) % Sodium (140-148) mmol/L Potassium (3.6-5.2) mmol/L Chloride (100-108) mmol/L Carbon Dioxide (21-32) mmol/L Anion Gap (5.0-14.0) mmol/L BUN (7-18) mg/dL Creatinine (0.6-1.0) mg/dL Est Cr Clr Drug Dosing mL/min Estimated GFR (MDRD) (>60) Glucose (74-106) mg/dL POC Glucose 115 H (74-106) mg/dL Calcium (8.5-10.1) mg/dL Troponin I (0.000-0.056) ng/mL Urine Color (YELLOW) Urine Appearance (CLEAR) Urine pH (5.0-8.0) Ur Specific [place] (1.008-1.030) Urine Protein (NEGATIVE) mg/dL Urine Glucose (UA) (NEGATIVE) mg/dL Urine Ketones (NEGATIVE) mg/dL Urine Occult Blood (NEGATIVE) Urine Nitrite (NEGATIVE) Urine Bilirubin (NEGATIVE) Urine Urobilinogen (0.2-1.0) EU/dL Ur Leukocyte Esterase (NEGATIVE) Urine RBC (0-5) Urine WBC (0-5) Ur Epithelial Cells Amorphous Sediment Urine Bacteria Urine Mucus Blood Type Gel Antibody Screen Crossmatch Result Diagrams: 10/20/20 04:05 10/20/20 04:05 [place] Results Last 24 hrs: Microbiology 10/19/20 17:39 Urine Culture - Preliminary Urine, Quick Cath (In-Out) 10/19/20 16:53 Stool Occult Blood ([place]) - Final Stool / Feces - Stool, Formed Sepsis Event Note - Evaluation Sepsis Screening Result: No Definite Risk - Focused Exam Vital Signs: Vital Signs Temp Temp Pulse Pulse Resp BP BP 10/20/20 12:18 62 16 158/59 H 10/20/20 11:00 65 16 148/63 H 10/20/20 10:15 62 16 157/63 H 10/20/20 09:07 74 168/60 H 10/20/20 09:00 74 16 168/60 H 10/20/20 08:45 99.1 F 78 16 168/65 H 10/20/20 08:20 98.2 F 77 18 161/64 H 10/20/20 08:15 76 18 163/66 H 10/20/20 08:10 75 18 142/57 H 10/20/20 08:05 76 18 115/47 L 10/20/20 08:00 98.2 F 75 18 110/45 L Pulse Ox 10/20/20 12:18 92 L 10/20/20 11:00 93 L 10/20/20 10:15 93 L 10/20/20 09:07 10/20/20 09:00 89 L 10/20/20 08:45 88 L 10/20/20 08:20 89 L 10/20/20 08:15 88 L 10/20/20 08:10 89 L 10/20/20 08:05 89 L 10/20/20 08:00 86 L - Problem List Review Problem List Initiated/Reviewed/Updated: Yes - My Orders Last 24 Hours: My Active Orders 10/19/20 17:39 Resuscitation Status Routine 10/19/20 18:08 Acetaminophen [TylenoL] 650 mg PO Q4H PRN Albuterol [Ventolin HFA] 0 gm INH Q4H PRN Dextrose 50% in Water 50 ml IV ONETIME PRN Dextrose [Glutose 15] 15 gm PO ONETIME PRN Ondansetron [Zofran] 4 mg IV Q4H PRN Sodium Chloride 0.9% [Saline Flush] 10 ml FLUSH ASDIRECTED PRN 10/19/20 18:08 Patient Status [ADT] Routine Ambulate [RC] QID Cardiac Monitoring [RC] .As Directed Diabetes Education [RC] Click to Edit Height and Weight [RC] 0500 Intake and Output [RC] QSHIFT Notify Provider Consults [RC] .PRN Notify Provider Vital Signs [RC] .PRN Notify Provider [RC] PRN Oxygen Therapy [RC] .PRN Peripheral IV Care [RC] Q12H RT Post Treatment Assessment [RC] Click to Edit Up With Assistance [RC] ASDIRECTED Up to Chair [RC] QID VTE/DVT Education [RC] Per Unit Routine Vital Signs [RC] Q4H Consult to Physician [CONS] Routine Peripheral IV Insertion Adult [OM.PC] Routine Sequential Compression Device [OM.PC] Per Unit Routine VTE Pharmacological Contraindications [AST] Per Unit Routine 10/19/20 20:00 Insulin Lispro [HumaLOG] See Protocol SUBCUT QIDACANDBED 10/19/20 21:00 Gabapentin [Neurontin] 300 mg PO TID Metoprolol Tartrate [Lopressor] 50 mg PO BID Pravastatin [Pravachol] 40 mg PO BEDTIME 10/20/20 04:00 Pantoprazole [ProTONIX IV] 40 mg IV Q12H 10/20/20 09:00 lisinopriL [Prinivil] 5 mg PO DAILY 10/20/20 15:16 Convert IV to Saline Lock [OM.PC] Routine 10/20/20 16:30 GLUCOSE POC LAB TO COLLECT JPM [POC] QIDACANDBED 10/20/20 17:00 HGB [HEMOGLOBIN] [HEME] Stat 10/20/20 18:00 cefTRIAXone [Rocephin] 1 gm Sodium Chloride 0.9% [Normal Saline] 50 ml IV Q24H 10/20/20 21:00 GLUCOSE POC LAB TO COLLECT JPM [POC] QIDACANDBED Insulin Glarg,Human.Rec.Analog [LantUS Solostar] 35 units SUBCUT BEDTIME 10/21/20 05:11 HGB [HEMOGLOBIN] [HEME] AM 10/21/20 07:30 GLUCOSE POC LAB TO COLLECT JPM [POC] QIDACANDBED 10/21/20 11:30 GLUCOSE POC LAB TO COLLECT JPM [POC] QIDACANDBED 10/21/20 16:30 GLUCOSE POC LAB TO COLLECT JPM [POC] QIDACANDBED 10/21/20 21:00 GLUCOSE POC LAB TO COLLECT JPM [POC] QIDACANDBED 10/22/20 07:30 GLUCOSE POC LAB TO COLLECT JPM [POC] QIDACANDBED 10/22/20 11:30 GLUCOSE POC LAB TO COLLECT JPM [POC] QIDACANDBED 10/22/20 16:30 GLUCOSE POC LAB TO COLLECT JPM [POC] QIDACANDBED 10/22/20 21:00 GLUCOSE POC LAB TO COLLECT JPM [POC] QIDACANDBED 10/23/20 07:30 GLUCOSE POC LAB TO COLLECT JPM [POC] QIDACANDBED 10/23/20 11:30 GLUCOSE POC LAB TO COLLECT JPM [POC] QIDACANDBED 10/23/20 16:30 GLUCOSE POC LAB TO COLLECT JPM [POC] QIDACANDBED 10/23/20 21:00 GLUCOSE POC LAB TO COLLECT JPM [POC] QIDACANDBED 10/24/20 07:30 GLUCOSE POC LAB TO COLLECT JPM [POC] QIDACANDBED 10/24/20 11:30 GLUCOSE POC LAB TO COLLECT JPM [POC] QIDACANDBED 10/24/20 16:30 GLUCOSE POC LAB TO COLLECT JPM [POC] QIDACANDBED - Plan Plan:: ASSESSMENT AND PLAN GI BLEED SECONDARY TO SEVERE ESOPHAGITIS AND GASTRITIS-no evidence of sign ificant active bleeding since admission, she was transfused 2 units of red blood cells during the night. EGD today by Dr. Haddad shows evidence of significant gastritis and esophagitis is likely source of bleeding. No evidence of active bleeding noted during endoscopy -Serial hemoglobin levels -Full liquid diet -Saline lock IV -Protonix 40 mg IV every 12 hours -Maintain 2 IV sites -Surgical follow-up per Dr. Haddad ACUTE ON CHRONIC ANEMIA-hemoglobin found to be low after recent hip fracture and surgical repair. With GI bleed now is likely dropped further. -Plan to transfuse for hemoglobin less than 8.0, given her history of COPD with hypoxia and coronary artery disease URINARY TRACT INFECTION -Urine culture pending -Ceftriaxone 1 g IV every 24 hours, pending culture results RIGHT HIP FRACTURE STATUS POST SURGICAL REPAIR -50% weightbearing right leg COPD WITH HYPOXIA -Continue supplemental oxygen -Continue outpatient inhaler therapy CORONARY ARTERY DISEASE-currently asymptomatic, troponin within normal range while in the emergency department -Continue outpatient medications -Hold Plavix and aspirin PAROXYSMAL ATRIAL FIBRILLATION -Cardiac monitoring -Hold Eliquis MAINTENANCE ISSUES -DVT prophylaxis; SCUDs, hold on anticoagulation because of active bleed -GI prophylaxis; Protonix as above -Tanner catheter; not indicated -Nutrition; n.p.o. -Nicotine dependence; not required CODE STATUS-FULL CODE ADMISSION STATUS-patient will be admitted to inpatient status, expect at least a 2 night hospital stay for evaluation and management of problems as outlined above. At the time of this admission I do not reasonably expected evaluation and management of this problem will require more than a 96 hour hospital stay. DISPOSITION-anticipate discharge to home after the hospital stay. PRIMARY CARE PROVIDER-Dr. Lee
[2020-10-20] MEDS ORDERED: cefTRIAXone 1 GM in Sodium Chloride 0.9% 50 ML IV SCH (18:00)
[2020-10-20] MEDS ORDERED: Insulin Glargine,Human Rec. Analog 100 Units/ML 3 ML Pen SUBCUT SCH (21:00)
[2020-10-20] MEDS: Pravastatin 20 MG Tab PO SCH (21:03)
[2020-10-21] MEDS: Pantoprazole 40 MG Vial IV SCH (03:54)
[2020-10-21] MEDS: Insulin Lispro 100 Unit/ML 3 ML KwikPen SUBCUT SCH ×2 (08:10→13:02)
[2020-10-21] MEDS: Acetaminophen/HYDROcodone 325-5 MG Tab PO PRN ×2 (08:37→12:53)
[2020-10-21] MEDS: Gabapentin 300 MG Cap PO SCH (08:44)
[2020-10-21] MEDS: Metoprolol Tartrate 50 MG Tab PO SCH (08:44)
[2020-10-21] MEDS: Lisinopril 5 MG Tab PO SCH (08:45)
--- NOTE | 2020-10-21 09:12 | PN ---
DATE OF SERVICE: 10/21/2020 SUBJECTIVE: Ana is post EGD. Her vital signs have been stable. She denies any pain. Oral intake a 1000. Urine output is 1450. REVIEW OF SYSTEMS: Remainder of review of systems negative for any pertinent positives or negatives. OBJECTIVE: GENERAL: Ana Licona is a pleasant 70-year-old female. She is awake. VITAL SIGNS: TPR; 98, 65, 16, and blood pressure 163/58. HEENT: Negative. NECK: Supple. HEART: Regular rate and rhythm. LUNGS: Clear. ABDOMEN: Soft and nontender. EXTREMITIES: Without peripheral edema. ASSESSMENT: 1. Esophagogastroduodenoscopy 10/20/2020. 2. Esophagitis and gastritis. PLAN: Discharge per hospitalist. Hemoglobin this morning 10.2. We will evaluate p.r.n. or in the a.m. if the patient is not discharged to return to rehabilitation. Jenifer Alcala PA-C /[id number]
[2020-10-21 10:05] VITALS: BP 154/62; PULSE 63
--- NOTE | 2020-10-21 11:43 | PCM.DCSUM1 ---
Discharge Summary - Hospital Course Brief History: 70-year-old female with history of insulin-dependent diabetes mellitus, oxygen dependent COPD, coronary artery disease, peripheral vascular disease and recent hip fracture who presented with melena. She was admitted for management of acute upper gastrointestinal bleeding with anemia due to blood loss. Diagnosis: Stroke: No - Discharge Data Discharge Date: 10/21/20 Discharge Disposition: DC/Tfer to SNF 03 Condition: Fair - Referral to Home Health Primary Care Physician: Boo Lee MD - Discharge Diagnosis/Problem(s) (1) Upper gastrointestinal hemorrhage due to gastritis SNOMED Code(s): 52981743887697 ICD Code: K29.71 - GASTRITIS, UNSPECIFIED, WITH BLEEDING Status: Acute Current Visit: Yes (2) Anemia due to blood loss, acute SNOMED Code(s): 524936655 ICD Code: D62 - ACUTE POSTHEMORRHAGIC ANEMIA Status: Acute Current Visit: Yes (3) PVD (peripheral vascular disease) SNOMED Code(s): 030606246 ICD Code: I73.9 - PERIPHERAL VASCULAR DISEASE, UNSPECIFIED Status: Chronic Current Visit: No (4) COPD (chronic obstructive pulmonary disease) SNOMED Code(s): 39492575 ICD Code: J44.9 - CHRONIC OBSTRUCTIVE PULMONARY DISEASE, UNSPECIFIED Status: Chronic Current Visit: No Qualifiers: COPD type: emphysema Emphysema type: unspecified Qualified Code(s): J43.9 - Emphysema, unspecified (5) Type 2 diabetes mellitus SNOMED Code(s): 62535926 ICD Code: E11.9 - TYPE 2 DIABETES MELLITUS WITHOUT COMPLICATIONS Status: Chronic Current Visit: No Qualifiers: Diabetes mellitus mcc insulin use: with mcc use Diabetes mellitus complication status: with other specified complication Qualified Code(s): E11.69 - Type 2 diabetes mellitus with other specified complication; 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 Hospital Course: Ana presented to the emergency room with weakness and melena shortly after a discharge from the hospital. Work-up in the emergency room revealed a hemoglobin of just above 8. Upper gastrointestinal hemorrhage was suspected. The patient was admitted to the hospital for further management. She was started on IV pantoprazole. The next hemoglobin returned at 7.1. Given the patient's comorbid conditions including peripheral vascular disease, coronary disease and COPD we elected to transfuse 2 units of packed red blood cells. After that her hemoglobin jumped up to 10 and has remained stable. The surgical service was consulted and they did perform an EGD the morning after admission. This showed gastritis and some esophagitis. There was no active bleeding but there was some old blood in the stomach. It was felt that the gastritis was likely the source of her bleeding. The gastritis was probably result of recent stress with her fracture and there certainly could be contribution from her smoking and other chronic medical problems. She was on aspirin, clopidogrel and apixaban prior to admission and the apixaban was held. We did continue her antiplatelet medications because of her significant vascular disease history. Since admission she has been relatively stable. Her hemoglobin has been stable and there has been no significant additional bleeding. She is tolerating a full liquid diet. At this point I think she is stable and safe for discharge back to the senior living for additional rehab. She will continue her aspirin and clopidogrel but we will hold her apixaban x10 days to allow for additional healing before it is restarted. She will be on pantoprazole twice daily for 1 month and then once daily thereafter. - Patient Instructions Diet: Diabetic Diet (1800 cory ADA) Activity: As Tolerated Activity, Other: weight bearing as tolerated Showering/Bathing: May Shower Notify Provider of: Fever, Increased Pain Other/Special Instructions: 1. You were in the hospital for management of acute upper gastrointestinal hemorrhage caused by gastritis. This was complicated by anemia due to blood loss. He did require a blood transfusion. To treat the gastritis/inflammation in your stomach I recommend that we use pantoprazole 40 mg twice daily with breakfast and supper. You should take this medication twice daily x1 month and then once daily in the morning thereafter. You are on 3 different medications that can increase your risk of bleeding. I do recommend that we continue the aspirin and clopidogrel. I do recommend that we hold your apixaban (Eliquis) for the next 10 days to reduce the risk of further bleeding. You may restart this medication on October 31. 2. CODE STATUS-full code. 3. Check blood sugars 4 times daily with meals and at bedtime - Discharge Plan *PRESCRIPTION DRUG MONITORING PROGRAM REVIEWED*: Not Applicable *COPY OF PRESCRIPTION DRUG MONITORING REPORT IN PATIENT JERROD: Not Applicable Prescriptions/Med Rec: Pantoprazole [ProTONIX] 40 mg PO BIDAC #60 tab.cr Home Medications: Home Meds Insulin Aspart [Novolog Flexpen] 5 unit SQ TIDAC 10/21/16 [History] Insulin Detemir [Levemir Flextouch] 35 units SQ BEDTIME 10/21/16 [History] lisinopriL [Prinivil] 5 mg PO DAILY 10/21/16 [History] Aspirin 81 mg PO DAILY 10/22/16 [History] Cyanocobalamin (Vitamin B-12) [B-12] 1,000 mg PO DAILY 10/22/16 [History] Acetaminophen [Tylenol] 500 mg PO ASDIRECTED PRN 08/10/17 [History] Metoprolol Tartrate 50 mg PO BID 04/30/19 [History] Sodium Chloride 1 gm PO BID 05/30/19 [History] Albuterol Sulfate [Albuterol Sulfate Hfa] 2 puff IH Q4H PRN 12/26/19 [History] Gabapentin [Neurontin] 300 mg PO TID 04/18/20 [History] Cetirizine HCl [Zyrtec] 10 mg PO DAILY PRN 04/24/20 [History] Multivitamin with Minerals [Multiple Vitamin] 1 tab PO DAILY 04/24/20 [History] Pravastatin Sodium [Pravachol] 40 mg PO BEDTIME 04/24/20 [History] metFORMIN [Glucophage] 1,000 mg PO BID 04/24/20 [History] tiZANidine HCl [Tizanidine HCl] 4 mg PO Q8H PRN 04/24/20 [History] Clopidogrel [Plavix] 75 mg PO DAILY 10/10/20 [History] Hydrocodone/Acetaminophen [Hydrocodon-Acetaminophen 5-325] 1 each PO Q4H #20 tablet 10/18/20 [Rx] Dextromethorphan Polistirex 5 ml PO Q4HR PRN 10/19/20 [History] Apixaban [Eliquis] 5 mg PO BID #60 10/21/20 [Rx] Pantoprazole [ProTONIX] 40 mg PO BIDAC #60 tab.cr 10/21/20 [Rx] Oxygen Therapy Mode: Nasal Cannula Oxygen Flow Rate (L/min): 2 (2-4 L/min) Maintain SPO2% less than: 90 Patient Handouts: Gastritis, Adult Referrals: Boo Lee MD [Primary Care Provider] - - Discharge Summary/Plan Comment DC Time >30 min.: Yes (40-[facility] discharge ) - Patient Data Vitals - Most Recent: Last Vital Signs Temp 36.5 C 10/21/20 09:59 Pulse 63 10/21/20 09:59 Resp 18 10/21/20 09:59 BP 154/62 H 10/21/20 09:59 Pulse Ox 93 L 10/21/20 09:59 Weight - Most Recent: 62.9 kg I&O - Last 24 hours: Intake & Output 10/20/20 10/21/20 10/21/20 22:59 06:59 14:59 Intake Total 1309 450 Output Total 750 700 Balance 1309 -750 -250 Lab Results - Last 24 hrs: Laboratory Results - last 24 hr 10/20/20 10/20/20 10/20/20 Range/Units 16:50 16:55 20:48 Hgb 10.6 L (12.0-15.0) g/dL POC Glucose 122 H 311 H (74-106) mg/dL 10/21/20 10/21/20 10/21/20 Range/Units 05:11 07:18 11:34 Hgb 10.2 L (12.0-15.0) g/dL POC Glucose 86 127 H (74-106) mg/dL [facility] Results - Last 24 hrs: Microbiology 10/20/20 07:53 CLOtest - Final Stomach NEGATIVE CLOTEST REFERENCE RANGE: NEGATIVE 10/19/20 17:39 Urine Culture - Final Urine, Quick Cath (In-Out) Klebsiella Pneumonia Ss Pneumo Med Orders - Current: Current Medications Acetaminophen (Acetaminophen 325 Mg Tab) 650 mg PO Q4H PRN PRN Reason: Pain (Mild 1-3)/fever Last Admin: 10/21/20 08:38 Dose: 650 mg Documented by: Hydrocodone Bitart/Acetaminophen (Acetaminophen/Hydrocodone 325-5 Mg Tab) 1 tab PO Q4H PRN PRN Reason: Pain Last Admin: 10/21/20 08:37 Dose: 1 tab Documented by: Albuterol (Albuterol 8 Gm Inhaler) 0 gm INH Q4H PRN PRN Reason: Dyspnea Dextrose (Glucose Gel 15 Gm In 37.5 Gm Tube) 15 gm PO ONETIME PRN PRN Reason: Hypoglycemia Dextrose/Water (50% Dextrose In Water 50 Ml Syringe) 50 ml IV ONETIME PRN PRN Reason: Hypoglycemia Gabapentin (Gabapentin 300 Mg Cap) 300 mg PO TID [facility] Last Admin: 10/21/20 08:44 Dose: 300 mg Documented by: Ceftriaxone Sodium 1 gm/ (Sodium Chloride) 50 mls @ 100 mls/hr IV Q24H [facility] Last Admin: 10/20/20 17:39 Dose: 100 mls/hr Documented by: Insulin Glargine (Insulin Glargine,Human Rec. Analog 100 Units/Ml 3 Ml Pen) 35 units SUBCUT BEDTIME [facility] Last Admin: 10/20/20 21:12 Dose: 35 units Documented by: Insulin Human Lispro (Insulin Lispro 100 Unit/Ml 3 Ml Kwikpen) 0 unit SUBCUT QIDACANDBED [facility]; Protocol Last Admin: 10/21/20 08:10 Dose: Not Given Documented by: Lisinopril (Lisinopril 5 Mg Tab) 5 mg PO DAILY [facility] Last Admin: 10/21/20 08:45 Dose: 5 mg Documented by: Metoprolol Tartrate (Metoprolol Tartrate 50 Mg Tab) 50 mg PO BID [facility] Last Admin: 10/21/20 08:44 Dose: 50 mg Documented by: Ondansetron HCl (Ondansetron 4 Mg/2 Ml Sdv) 4 mg IV Q4H PRN PRN Reason: Nausea/Vomiting Pantoprazole Sodium (Pantoprazole 40 Mg Vial) 40 mg IV Q12H [facility] Last Admin: 10/21/20 03:54 Dose: 40 mg Documented by: Pravastatin Sodium (Pravastatin 20 Mg Tab) 40 mg PO BEDTIME [facility] Last Admin: 10/20/20 21:03 Dose: 40 mg Documented by: Sodium Chloride (Sodium Chloride 0.9% 10 Ml Syringe) 10 ml FLUSH ASDIRECTED PRN PRN Reason: Keep Vein Open Discontinued Medications Hydrocodone Bitart/Acetaminophen (Acetaminophen/Hydrocodone 325-5 Mg Tab) 1 tab PO Q4H [facility] Last Admin: 10/19/20 19:33 Dose: 1 tab Documented by: Sodium Chloride (Normal Saline) 1,000 mls @ 500 mls/hr IV ASDIRECTED [facility] Sodium Chloride (Normal Saline) 1,000 mls @ 125 mls/hr IV ASDIRECTED [facility] Last Admin: 10/20/20 13:03 Dose: 125 mls/hr Documented by: Ceftriaxone Sodium 1 gm/ (Sodium Chloride) 50 mls @ 100 mls/hr IV Q24H [facility] Last Admin: 10/19/20 19:34 Dose: 100 mls/hr Documented by: Lactated Ringer's (Ringers, Lactated) Confirm Administered Dose 1,000 mls @ as directed .[email or web address] Stop: 10/20/20 07:51 Insulin Glargine (Insulin Glargine,Human Rec. Analog 100 Units/Ml 3 Ml Pen) 35 units SUBCUT BEDTIME [facility] Last Admin: 10/19/20 21:54 Dose: Not Given Documented by: Pantoprazole Sodium (Pantoprazole 40 Mg Vial) 80 mg IVPUSH .BOLUS [facility] Last Admin: 10/19/20 15:31 Dose: 80 mg Documented by: Propofol (Propofol 200 Mg/20 Ml Sdv) Confirm Administered Dose 200 mg .[address] .[email or web address] Stop: 10/20/20 07:21 Sodium Chloride (Sodium Chloride 0.9% 10 Ml Syringe) 10 ml FLUSH ASDIRECTED PRN PRN Reason: Keep Vein Open Last Admin: 10/19/20 15:34 Dose: 10 ml Documented by: Sucralfate (Sucralfate 1 Gm Tab) 1 gm PO ONETIME ONE Stop: 10/19/20 15:07 Last Admin: 10/19/20 15:31 Dose: 1 gm Documented by: *Q Meaningful Use (DIS) - VTE *Q VTE Pharmacological Contraindications *Q: Active Hemorrhage
--- NOTE | 2020-10-21 14:20 | OR ---
DATE OF PROCEDURE: 10/20/2020 SURGEON: Alex Haddad MD PREOPERATIVE DIAGNOSIS: Upper gastrointestinal bleeding. POSTOPERATIVE DIAGNOSES: 1. Recent upper gastrointestinal bleeding associated with large hiatal hernia and ulcerative esophagitis. 2. Diffuse gastritis involving body and antrum without erosions or ulcers. OPERATIVE PROCEDURE: Esophagogastroduodenoscopy with antral biopsies for CLOtest. ANESTHESIA: IV sedation. INDICATION FOR PROCEDURE: A 70-year-old who was recently status post a repair of a fractured hip who while in the [facility] developed some black and bloody stools. She has been on a combination of Xarelto, aspirin, Plavix, and ibuprofen, and after admission, was noted to have a hemoglobin of 7.1. She received 2 units of packed RBCs during the night and presently has a hemoglobin at 10.4 and has been hemodynamically stable. The plan is to proceed with upper GI endoscopy with biopsies as indicated. Potential risks including bleeding and perforation were discussed and the patient wishes to proceed. DETAILS OF PROCEDURE: The patient was taken to the operating room and placed in a left lateral decubitus position. IV sedation was administered, after which the upper GI endoscope was passed orally through the length of the esophagus and into the stomach with retroflexion view of the fundus and thereafter through the pyloric channel into the junction of third and fourth portions of the duodenum. Findings included normal hypopharynx, larynx, upper esophageal sphincter, and esophageal body. At the EG junction, the patient was noted to have moderate-sized hiatal hernia. There was some obvious ulcerated esophagitis, presently covered with fibrinous exudate but no blood or bleeding was seen. Within the stomach, there was some scant amount of coffee- ground material but no active bleeding. The antrum and body of the stomach were diffusely reddened and edematous, but not associated with any erosions or ulcers and the pyloric channel and visualized portion of the duodenum were unremarkable. At this point, biopsies were obtained from the antrum and sent for CLOtest for H. pylori. We deferred any biopsies of the area of esophagogastric junction given the recent bleeding and the procedure then concluded. It would appear most likely that the bleeding may have come from the ulcerative esophagitis which has now stopped. Alex Haddad MD /[id number]
== END 2020-10-21 13:00 | DRG 811 ==
LOC: JP.ED 14:40 → JP.MS 17:35
PROVIDERS: ADMIT Hospitalist; ATTEND Internal Medicine
PROC: 30233N1 Transfusion of Nonautologous Red Blood Cells into Peripheral Vein, Percutaneous Approach (ICD-10-PCS; principal; 2020-10-19)
PROC: 0DB78ZX Excision of Stomach, Pylorus, Via Natural or Artificial Opening Endoscopic, Diagnostic (ICD-10-PCS; 2020-10-20)
DX: K92.1 Melena (principal); D62 Acute posthemorrhagic anemia; K29.71 Gastritis, unspecified, with bleeding; I48.91 Unspecified atrial fibrillation; K22.10 Ulcer of esophagus without bleeding; N39.0 Urinary tract infection, site not specified; I73.9 Peripheral vascular disease, unspecified; J43.9 Emphysema, unspecified; K44.9 Diaphragmatic hernia without obstruction or gangrene; J44.9 Chronic obstructive pulmonary disease, unspecified; F17.200 Nicotine dependence, unspecified, uncomplicated; I25.10 Atherosclerotic heart disease of native coronary artery without angina pectoris; I48.0 Paroxysmal atrial fibrillation; E11.9 Type 2 diabetes mellitus without complications; H54.7 Unspecified visual loss; Z91.81 History of falling; E78.00 Pure hypercholesterolemia, unspecified; I10 Essential (primary) hypertension; Z79.02 Long term (current) use of antithrombotics/antiplatelets; Z96.649 Presence of unspecified artificial hip joint; E53.8 Deficiency of other specified B group vitamins; Z98.49 Cataract extraction status, unspecified eye; Z90.89 Acquired absence of other organs; Z95.1 Presence of aortocoronary bypass graft; Z95.5 Presence of coronary angioplasty implant and graft; Z79.82 Long term (current) use of aspirin; Z79.4 Long term (current) use of insulin; Z79.899 Other long term (current) drug therapy; Z79.01 Long term (current) use of anticoagulants; Z88.8 Allergy status to other drugs, medicaments and biological substances; I25.2 Old myocardial infarction; Z90.49 Acquired absence of other specified parts of digestive tract; Z90.710 Acquired absence of both cervix and uterus
CPT/HCPCS: 36415; 80048; 81001; 82272; 84484; 85027; 86850; 86900; 86901; 86920; 86922; 87088; 99285; A9270; C9113; 36430; 82947; 85018; 85025; 87081; 87086; 87186; J0696; J1815; J1815-GY; J2704; J7030; J7120; P9016

== ENCOUNTER 2021-09-15 12:03 | Emergency (ER) | payer MEDICARE, BC ==
[2021-09-15 12:21] VITALS: BP 123/56; PULSE 88
[2021-09-15] MEDS ORDERED: Sodium Chloride 0.9% 10 ML Syringe FLUSH PRN (12:32)
[2021-09-15] MEDS ORDERED: cefTRIAXone 2 GM in Sodium Chloride 0.9% 50 ML IV ONE (12:38)
[2021-09-15] MEDS ORDERED: HYDROmorphone 0.5 MG/0.5 ML Syringe IVPUSH ONE (12:53)
[2021-09-15 14:13] LABS: CORONAVIRUS COVID-19 NAA NEGATIVE (NEGATIVE)
== END 2021-09-15 16:00 ==
LOC: JP.ED 12:03
DX: L03.116 Cellulitis of left lower limb (principal); M86.9 Osteomyelitis, unspecified; I49.3 Ventricular premature depolarization; F17.210 Nicotine dependence, cigarettes, uncomplicated; E87.1 Hypo-osmolality and hyponatremia; E11.69 Type 2 diabetes mellitus with other specified complication; J43.9 Emphysema, unspecified; I25.10 Atherosclerotic heart disease of native coronary artery without angina pectoris; I48.91 Unspecified atrial fibrillation; E11.9 Type 2 diabetes mellitus without complications; I25.2 Old myocardial infarction; Z79.02 Long term (current) use of antithrombotics/antiplatelets; Z88.8 Allergy status to other drugs, medicaments and biological substances; Z79.82 Long term (current) use of aspirin; Z79.4 Long term (current) use of insulin; Z79.899 Other long term (current) drug therapy; Z20.822 Contact with and (suspected) exposure to COVID-19
CPT/HCPCS: 0241U; 36415; 73660-26-T1; 73660-T1; 80048; 85025; 86140; 87040; 87070; 87077; 87186; 87205; 96365; 96366; 96367; 96375; 99283-25; 99285; J0696; J1170; J3370; J3490; J7050

== ENCOUNTER 2021-09-25 16:40 | Emergency (ER) | payer MEDICARE, BC ==
[2021-09-25 18:46] VITALS: BP 166/69; PULSE 67
== END 2021-09-25 19:19 | disposition other institution (70) ==
LOC: JP.ED 16:40
DX: I73.9 Peripheral vascular disease, unspecified (principal); E11.52 Type 2 diabetes mellitus with diabetic peripheral angiopathy with gangrene; I48.91 Unspecified atrial fibrillation; I25.10 Atherosclerotic heart disease of native coronary artery without angina pectoris; E78.00 Pure hypercholesterolemia, unspecified; I10 Essential (primary) hypertension; J44.9 Chronic obstructive pulmonary disease, unspecified; I25.2 Old myocardial infarction; Z88.4 Allergy status to anesthetic agent; Z79.82 Long term (current) use of aspirin; Z79.84 Long term (current) use of oral hypoglycemic drugs; Z79.899 Other long term (current) drug therapy
CPT/HCPCS: 99284

== ENCOUNTER 2021-11-13 13:16 | Emergency (ER) | payer MEDICARE, BC ==
[2021-11-13 13:50] VITALS: BP 144/65; PULSE 69
== END 2021-11-13 14:52 | disposition home or self-care (01) ==
LOC: JP.ED 13:16
DX: T81.31XA Disruption of external operation (surgical) wound, not elsewhere classified, initial encounter (principal); I25.10 Atherosclerotic heart disease of native coronary artery without angina pectoris; I10 Essential (primary) hypertension; I25.2 Old myocardial infarction; J44.9 Chronic obstructive pulmonary disease, unspecified; E11.9 Type 2 diabetes mellitus without complications; Z90.49 Acquired absence of other specified parts of digestive tract; Z90.710 Acquired absence of both cervix and uterus; Z79.899 Other long term (current) drug therapy; Z79.4 Long term (current) use of insulin; Z79.82 Long term (current) use of aspirin; Z79.84 Long term (current) use of oral hypoglycemic drugs; Z88.3 Allergy status to other anti-infective agents; Z88.8 Allergy status to other drugs, medicaments and biological substances; Z88.6 Allergy status to analgesic agent
CPT/HCPCS: 99283; 99285

== ENCOUNTER 2021-11-23 15:01 | Emergency (ER) | payer MEDICARE, BC ==
[2021-11-23] MEDS ORDERED: Sodium Chloride 0.9% 10 ML Syringe FLUSH PRN (15:02)
[2021-11-23] MEDS ORDERED: Metoprolol Tartrate 5 MG in Sodium Chloride 0.9% 50 ML IV ONE (15:14)
[2021-11-23] MEDS ORDERED: Metoprolol Tartrate 5 MG/5 ML SDV IVPUSH ONE (15:16)
[2021-11-23] MEDS ORDERED: Diltiazem 100 MG in Sodium Chloride 0.9% 100 ML IV SCH (15:30)
[2021-11-23] MEDS ORDERED: Nitroglycerin/D5W 25 MG/250 ML BOTTLE IV SCH (15:30)
[2021-11-23 15:49] LABS: ESTIMATED GFR 59 mL/min (>60)
[2021-11-23] MEDS ORDERED: Diltiazem 25 MG/5 ML SDV IVPUSH ONE (15:50)
[2021-11-23 15:54] LABS: TROPONIN I HIGH SENSITIVITY 196.9 pg/mL (<=60.3)
[2021-11-23] MEDS ORDERED: Heparin Sodium 5,000 Units/ML Vial IVPUSH ONE (15:55)
[2021-11-23] MEDS ORDERED: Heparin Sodium/D5W 25,000 UNITS/500 ML BAG IV SCH (16:00)
[2021-11-23] MEDS ORDERED: Morphine 2 MG/ML SYRINGE IVPUSH ONE (16:02)
[2021-11-23 17:23] LABS: CORONAVIRUS COVID-19 NAA NEGATIVE (NEGATIVE)
[2021-11-24] MEDS ORDERED: Lisinopril 5 MG Tab PO ONE (04:14)
[2021-11-24 04:32] VITALS: PULSE 58
[2021-11-24 06:29] VITALS: BP 164/67
== END 2021-11-24 09:31 ==
LOC: JP.ED 15:01
DX: I21.4 Non-ST elevation (NSTEMI) myocardial infarction (principal); I24.9 Acute ischemic heart disease, unspecified; I48.91 Unspecified atrial fibrillation; E11.9 Type 2 diabetes mellitus without complications; I25.10 Atherosclerotic heart disease of native coronary artery without angina pectoris; I10 Essential (primary) hypertension; J44.9 Chronic obstructive pulmonary disease, unspecified; Z95.1 Presence of aortocoronary bypass graft; Z20.822 Contact with and (suspected) exposure to COVID-19; Z79.899 Other long term (current) drug therapy; Z88.8 Allergy status to other drugs, medicaments and biological substances; Z88.6 Allergy status to analgesic agent
CPT/HCPCS: 0241U; 36415; 80053; 82947; 83880; 84443; 84484; 85025; 85379; 85610; 85730; 93005; 93010; 96365; 96366; 96375; 99285; A9270; J1644; J2270; J3490

== ENCOUNTER 2021-11-28 17:03 | Inpatient (IN) | payer MEDICARE, BC ==
[2021-11-28 18:01] LABS: ESTIMATED GFR 34 mL/min (>60)
[2021-11-28 18:30] LABS: CORONAVIRUS COVID-19 NAA POSITIVE (NEGATIVE)
[2021-11-28] MEDS ORDERED: Ondansetron 4 MG/2 ML SDV IV PRN (20:21)
[2021-11-28] MEDS ORDERED: Glucose Gel 15 GM in 37.5 GM Tube PO PRN (20:21)
[2021-11-28] MEDS ORDERED: Acetaminophen 325 MG Tab PO PRN (20:21)
[2021-11-28] MEDS ORDERED: Sodium Chloride 0.9% 10 ML Syringe FLUSH PRN (20:21)
[2021-11-28] MEDS ORDERED: 50% Dextrose in Water 50 ML Syringe IV PRN (20:21)
[2021-11-28] MEDS ORDERED: Nicotine Polacrilex 2 MG Gum CHEW PRN (20:27)
[2021-11-28] MEDS ORDERED: Albuterol 8 GM Inhaler INH PRN (20:27)
[2021-11-28] MEDS ORDERED: Albuterol/Ipratropium 4 GM Inhalation Spray INH SCH (22:00)
[2021-11-28] MEDS: Dexamethasone 4 MG/ML SDV IVPUSH SCH (23:53)
[2021-11-28] MEDS: Apixaban 5 MG Tab PO SCH (23:54)
[2021-11-28] MEDS: Metoprolol Tartrate 50 MG Tab PO SCH (23:55)
[2021-11-28] MEDS: Gabapentin 300 MG Cap PO SCH (23:55)
[2021-11-28] MEDS: Pravastatin 20 MG Tab PO SCH (23:57)
[2021-11-29] MEDS: Insulin Glargine,Human Rec. Analog 100 Units/ML 3 ML Pen SUBCUT SCH ×2 (00:05→21:25)
[2021-11-29] MEDS: Insulin Lispro 100 Unit/ML 3 ML KwikPen SUBCUT SCH ×5 (00:06→21:26)
[2021-11-29 06:23] LABS: ESTIMATED GFR 43 mL/min (>60)
[2021-11-29 06:28] LABS: TROPONIN I HIGH SENSITIVITY 412.7 pg/mL (<=60.3)
[2021-11-29] MEDS: Albuterol/Ipratropium 4 GM Inhalation Spray INH SCH ×4 (08:59→21:21)
[2021-11-29] MEDS ORDERED: REMDESIVIR 200 MG in Sodium Chloride 0.9% 250 ML IV ONE (09:00)
[2021-11-29] MEDS: Polyethylene Glycol 3350 Powder 17 GM Packet PO SCH (09:01)
[2021-11-29] MEDS: Apixaban 5 MG Tab PO SCH ×2 (09:01→21:24)
[2021-11-29] MEDS: Gabapentin 300 MG Cap PO SCH ×3 (09:01→21:27)
[2021-11-29] MEDS: Clopidogrel 75 MG Tab PO SCH (09:02)
[2021-11-29] MEDS: Metoprolol Tartrate 50 MG Tab PO SCH ×2 (10:28→21:22)
[2021-11-29] MEDS ORDERED: Insulin Lispro 100 Unit/ML 3 ML KwikPen SUBCUT ONE (17:05)
[2021-11-29] MEDS: Pravastatin 20 MG Tab PO SCH (21:23)
[2021-11-29] MEDS: Dexamethasone 4 MG/ML SDV IVPUSH SCH (21:24)
[2021-11-30] MEDS: Albuterol/Ipratropium 4 GM Inhalation Spray INH SCH ×4 (07:16→21:34)
[2021-11-30] MEDS: REMDESIVIR 100 MG in Sodium Chloride 0.9% 100 ML IV SCH (08:10)
[2021-11-30] MEDS: Polyethylene Glycol 3350 Powder 17 GM Packet PO SCH (08:11)
[2021-11-30] MEDS: Clopidogrel 75 MG Tab PO SCH (08:11)
[2021-11-30] MEDS: Gabapentin 300 MG Cap PO SCH ×3 (08:11→21:32)
[2021-11-30] MEDS: Apixaban 5 MG Tab PO SCH ×2 (08:11→21:33)
[2021-11-30] MEDS: Insulin Lispro 100 Unit/ML 3 ML KwikPen SUBCUT SCH ×4 (08:12→21:36)
[2021-11-30] MEDS: Metoprolol Tartrate 50 MG Tab PO SCH ×2 (12:11→21:32)
[2021-11-30] MEDS: Pravastatin 20 MG Tab PO SCH (21:32)
[2021-11-30] MEDS: Dexamethasone 4 MG/ML SDV IVPUSH SCH (21:35)
[2021-11-30] MEDS: Insulin Glargine,Human Rec. Analog 100 Units/ML 3 ML Pen SUBCUT SCH (21:37)
[2021-12-01] MEDS: Albuterol/Ipratropium 4 GM Inhalation Spray INH SCH ×2 (07:10→10:59)
[2021-12-01 08:44] LABS: ESTIMATED GFR 48 mL/min (>60)
[2021-12-01] MEDS: Apixaban 5 MG Tab PO SCH (09:02)
[2021-12-01] MEDS: Clopidogrel 75 MG Tab PO SCH (09:02)
[2021-12-01 09:03] LABS: TROPONIN I HIGH SENSITIVITY 402.3 pg/mL (<=60.3)
[2021-12-01] MEDS: Metoprolol Tartrate 50 MG Tab PO SCH (09:03)
[2021-12-01] MEDS: Polyethylene Glycol 3350 Powder 17 GM Packet PO SCH (09:03)
[2021-12-01] MEDS: Gabapentin 300 MG Cap PO SCH (09:03)
[2021-12-01] MEDS: Insulin Lispro 100 Unit/ML 3 ML KwikPen SUBCUT SCH ×2 (09:03→12:56)
[2021-12-01] MEDS: REMDESIVIR 100 MG in Sodium Chloride 0.9% 100 ML IV SCH (09:03)
[2021-12-01 10:04] VITALS: BP 135/57; PULSE 52
== END 2021-12-01 15:00 | disposition home health service (06) | DRG 177 ==
LOC: JP.ED 17:03 → JP.MS 19:18
PROVIDERS: ADMIT Hospitalist; ATTEND Internal Medicine
PROC: 8E0ZXY6 Isolation (ICD-10-PCS; principal; 2021-11-28)
PROC: 3E0333Z Introduction of Anti-inflammatory into Peripheral Vein, Percutaneous Approach (ICD-10-PCS; 2021-11-28)
PROC: XW033E5 Introduction of Remdesivir Anti-infective into Peripheral Vein, Percutaneous Approach, New Technology Group 5 (ICD-10-PCS; 2021-11-28)
DX: U07.1 COVID-19 (principal); R09.02 Hypoxemia; N17.9 Acute kidney failure, unspecified; J12.82 Pneumonia due to coronavirus disease 2019; J96.21 Acute and chronic respiratory failure with hypoxia; I21.A1 Myocardial infarction type 2; R53.1 Weakness; I25.810 Atherosclerosis of coronary artery bypass graft(s) without angina pectoris; J44.9 Chronic obstructive pulmonary disease, unspecified; E11.9 Type 2 diabetes mellitus without complications; I10 Essential (primary) hypertension; I25.10 Atherosclerotic heart disease of native coronary artery without angina pectoris; E87.1 Hypo-osmolality and hyponatremia; J43.9 Emphysema, unspecified; E78.00 Pure hypercholesterolemia, unspecified; Z95.5 Presence of coronary angioplasty implant and graft; I48.91 Unspecified atrial fibrillation; E11.51 Type 2 diabetes mellitus with diabetic peripheral angiopathy without gangrene; E53.8 Deficiency of other specified B group vitamins; Z96.649 Presence of unspecified artificial hip joint; E11.22 Type 2 diabetes mellitus with diabetic chronic kidney disease; N18.9 Chronic kidney disease, unspecified; I12.9 Hypertensive chronic kidney disease with stage 1 through stage 4 chronic kidney disease, or unspecified chronic kidney disease; E83.42 Hypomagnesemia; E83.51 Hypocalcemia; E86.0 Dehydration; I48.0 Paroxysmal atrial fibrillation; Z95.1 Presence of aortocoronary bypass graft; Z88.8 Allergy status to other drugs, medicaments and biological substances; Z79.4 Long term (current) use of insulin; Z79.899 Other long term (current) drug therapy; I25.2 Old myocardial infarction; Z99.81 Dependence on supplemental oxygen; Z90.710 Acquired absence of both cervix and uterus; Z90.49 Acquired absence of other specified parts of digestive tract
CPT/HCPCS: 0241U; 36415; 36600; 71045; 71045-26; 71250; 73502-26-LT; 73502-LT; 80053; 80076; 82248; 82803; 82947; 83605; 83735; 83880; 84484; 85025; 85379; 86140; 93005; 93010; 94640; 99222; 99232; 99239; 99285; 99285-25; A9270-GY; J1100; J1815; J1815-GY; J3490; J7050

== ENCOUNTER 2022-03-18 20:29 | Emergency (ER) | payer MEDICARE, BC ==
[2022-03-18 21:12] LABS: ESTIMATED GFR 48 mL/min (>60)
[2022-03-18] MEDS ORDERED: Heparin Sodium 5,000 Units/ML Vial IVPUSH ONE (21:57)
[2022-03-18] MEDS ORDERED: Nitroglycerin/D5W 25 MG/250 ML BOTTLE IV SCH (22:00)
[2022-03-18] MEDS ORDERED: Pantoprazole 40 MG Vial IVPUSH ONE (22:06)
[2022-03-18] MEDS ORDERED: Ondansetron 4 MG/2 ML SDV IVPUSH ONE (22:06)
[2022-03-18 22:20] VITALS: BP 170/75; PULSE 77
== END 2022-03-18 22:48 ==
LOC: JP.ED 20:29
DX: R94.31 Abnormal electrocardiogram [ECG] [EKG] (principal); R77.8 Other specified abnormalities of plasma proteins; I48.91 Unspecified atrial fibrillation; I10 Essential (primary) hypertension; I25.10 Atherosclerotic heart disease of native coronary artery without angina pectoris; J44.9 Chronic obstructive pulmonary disease, unspecified; E11.9 Type 2 diabetes mellitus without complications; I25.2 Old myocardial infarction; F17.210 Nicotine dependence, cigarettes, uncomplicated; Z88.4 Allergy status to anesthetic agent; Z88.8 Allergy status to other drugs, medicaments and biological substances; Z79.4 Long term (current) use of insulin; Z79.01 Long term (current) use of anticoagulants; Z79.899 Other long term (current) drug therapy
CPT/HCPCS: 36415; 71045; 80053; 84484; 85025; 85610; 93005; 96365; 96375; 99285; C9113; J2405; J3490

== ENCOUNTER 2022-04-21 21:26 | Emergency (ER) | payer MEDICARE, BC ==
[2022-04-21] MEDS ORDERED: Sodium Chloride 0.9% 10 ML Syringe FLUSH PRN (21:32)
[2022-04-21] MEDS ORDERED: hydrALAZINE 20 MG/ML SDV IVPUSH ONE (21:44)
[2022-04-21] MEDS ORDERED: fentaNYL 100 MCG/2 ML SDV IVPUSH ONE (21:45)
[2022-04-21 22:14] LABS: ESTIMATED GFR 53 mL/min (>60)
[2022-04-21 22:22] LABS: TROPONIN I HIGH SENSITIVITY 306.8 pg/mL (<=60.3)
[2022-04-21] MEDS ORDERED: Lactated Ringers 1,000 ML IV SCH (22:30)
[2022-04-21] MEDS ORDERED: Potassium Chloride 10 MEQ in Premix Bag 1 BAG IV ONE (22:36)
[2022-04-21] MEDS: hydrALAZINE 20 MG/ML SDV IVPUSH PRN (23:51)
[2022-04-22] MEDS ORDERED: Potassium Chloride 10 MEQ in Premix Bag 1 BAG IV ONE (00:09)
[2022-04-22] MEDS ORDERED: Sodium Chloride 0.9% 250 ML IV SCH (00:45)
[2022-04-22] MEDS: hydrALAZINE 20 MG/ML SDV IVPUSH PRN ×2 (03:05→06:22)
[2022-04-22] MEDS ORDERED: 50% Dextrose in Water 50 ML Syringe IVPUSH PRN ×2 (04:50→11:40)
[2022-04-22] MEDS ORDERED: Glucagon,Human Recombinant 1 MG Vial IM PRN ×2 (04:50→11:40)
[2022-04-22] MEDS ORDERED: Metoprolol Tartrate 50 MG Tab PO SCH ×2 (05:00→09:00)
[2022-04-22 07:19] LABS: TROPONIN I HIGH SENSITIVITY 679.2 pg/mL (<=60.3)
[2022-04-22] MEDS ORDERED: metFORMIN 500 MG Tab PO SCH (08:00)
[2022-04-22] MEDS ORDERED: Nitroglycerin/D5W 25 MG/250 ML BOTTLE IV SCH (08:00)
[2022-04-22] MEDS ORDERED: Insulin Lispro 100 Unit/ML 3 ML KwikPen SUBCUT SCH (08:00)
[2022-04-22] MEDS: Gabapentin 300 MG Cap PO SCH ×2 (08:41→13:46)
[2022-04-22] MEDS ORDERED: Clopidogrel 75 MG Tab PO SCH (09:00)
[2022-04-22] MEDS ORDERED: Apixaban 5 MG Tab PO SCH (09:00)
[2022-04-22] MEDS ORDERED: Multivitamins with Iron/Calcium/Folic Acid/Minerals Tab PO SCH (09:00)
[2022-04-22] MEDS ORDERED: amLODIPine 5 MG Tab PO SCH (09:00)
[2022-04-22] MEDS ORDERED: Furosemide 40 MG Tab PO SCH (09:00)
[2022-04-22] MEDS ORDERED: Potassium Chloride 20 MEQ Tab.ER PO ONE (11:40)
[2022-04-22] MEDS ORDERED: Insulin Lispro 100 Unit/ML 3 ML KwikPen SUBCUT ONE (11:40)
[2022-04-22] MEDS ORDERED: Sodium Chloride 0.9% 1,000 ML IV SCH (11:45)
[2022-04-22] MEDS ORDERED: Heparin Sodium 5,000 Units/ML Vial IVPUSH ONE (12:27)
[2022-04-22] MEDS ORDERED: Aspirin 81 MG Tab.Chew PO ONE (12:29)
[2022-04-22] MEDS ORDERED: Heparin Sodium/D5W 25,000 UNITS/500 ML BAG IV SCH (12:30)
[2022-04-22 13:41] VITALS: BP 146/56; PULSE 83
[2022-04-22] MEDS ORDERED: Pravastatin 20 MG Tab PO SCH (21:00)
[2022-04-22] MEDS ORDERED: Insulin Glargine,Human Rec. Analog 100 Units/ML 3 ML Pen SUBCUT SCH (21:00)
== END 2022-04-22 14:20 ==
LOC: JP.ED 21:26
DX: I21.4 Non-ST elevation (NSTEMI) myocardial infarction (principal); J43.9 Emphysema, unspecified; E11.51 Type 2 diabetes mellitus with diabetic peripheral angiopathy without gangrene; R79.89 Other specified abnormal findings of blood chemistry; I16.1 Hypertensive emergency; I48.91 Unspecified atrial fibrillation; I25.10 Atherosclerotic heart disease of native coronary artery without angina pectoris; E78.00 Pure hypercholesterolemia, unspecified; Z88.8 Allergy status to other drugs, medicaments and biological substances; Z79.4 Long term (current) use of insulin; Z79.01 Long term (current) use of anticoagulants; Z79.02 Long term (current) use of antithrombotics/antiplatelets; Z79.899 Other long term (current) drug therapy; Z20.822 Contact with and (suspected) exposure to COVID-19
CPT/HCPCS: 36415; 70450; 71250; 73502; 74176; 80053; 81001; 82550; 82947; 83735; 84132; 84484; 85025; 85610; 85730; 93005; 96361; 96365; 96366; 96367; 96368; 96375; 96376; 99285; A9270; J0360; J1644; J1815; J3010; J3480; J3490; J7030; J7050; J7120; U0002

== ENCOUNTER 2022-05-08 21:22 | Emergency (ER) | payer MEDICARE, BC ==
[2022-05-08 22:18] LABS: ESTIMATED GFR 53 mL/min (>60)
[2022-05-08] MEDS ORDERED: Phytonadione 5 MG in Sodium Chloride 0.9% 50 ML IV ONE (22:19)
[2022-05-08] MEDS ORDERED: Pantoprazole 40 MG Vial IVPUSH ONE (22:19)
[2022-05-08 23:53] VITALS: BP 113/41; PULSE 63
[2022-05-09] MEDS ORDERED: fentaNYL 50 MCG/ML SDV IVPUSH ONE (00:16)
== END 2022-05-09 00:50 | disposition other institution (70) ==
LOC: JP.ED 21:22
DX: D50.0 Iron deficiency anemia secondary to blood loss (chronic) (principal); K92.1 Melena; I48.91 Unspecified atrial fibrillation; I25.10 Atherosclerotic heart disease of native coronary artery without angina pectoris; I11.0 Hypertensive heart disease with heart failure; I50.9 Heart failure, unspecified; E78.00 Pure hypercholesterolemia, unspecified; J44.9 Chronic obstructive pulmonary disease, unspecified; E11.9 Type 2 diabetes mellitus without complications; Z88.4 Allergy status to anesthetic agent; Z88.8 Allergy status to other drugs, medicaments and biological substances
CPT/HCPCS: 36415; 36430; 80053; 85025; 85610; 86850; 86900; 86901; 86920; 86922; 96365; 96375; 99284; C9113; J3010; J3430; J3490; P9016; P9017